=== PATIENT | male | born 1970 | race Caucasian/White ===

== ENCOUNTER 2017-01-07 15:40 | Inpatient (IN) | payer OTHER ==
[2017-01-07] MEDS ORDERED: LORazepam 2 MG/ML SDV VIAL ONE ×4 (15:44→16:58)
[2017-01-07 15:54] VITALS: BMI 25.6
[2017-01-07] MEDS ORDERED: SODIUM CHLORIDE 1,000 ML IV STA (16:02)
[2017-01-07] MEDS ORDERED: CEFTRIAXONE 2 GM in DEXTROSE 5%-WATER - 100 ML IVPB ONE (16:04)
[2017-01-07] MEDS ORDERED: CEFTRIAXONE 100 ML IVPB ONE (16:13)
[2017-01-07 16:19] LABS: VENOUS BLOOD GAS HCO3 23.5 meq/L (19-25); VENOUS PH 7.57 (7.32-7.42)
[2017-01-07 16:25] LABS: MCHC 31.6 g/dl (32.0-35.9); MEAN CELL VOLUME 82.2 fl (80-96); MEAN PLT VOLUME 7.7 fl (7.5-11.1); PLATELET COUNT 529 K/MM3 (134-434); RDW 21.3 % (11.9-15.9); WHITE BLOOD COUNT 19.3 K/mm3 (4.0-10.0)
--- NOTE | 2017-01-07 16:37 | PDOC ---
History of Present Illness - General Chief Complaint: Altered Mental Status Stated Complaint: AMS Time Seen by Provider: 01/07/17 15:54 History Source: Family Exam Limitations: Clinical Condition - History of Present Illness Initial Comments: This is a 46 yo male with h/o recent pneumonia (tx with two antibiotic courses in the past 5 weeks), stroke, anxiety, and prior drug addiction (reportedly 20 years sober) who presents with his brother c/o agitation, altered mental status , and fever. The patient is unable to provide any of his medical history. His brother explains that he last saw the patient acting normally last night at 11 pm just prior to going to sleep for the night. 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 The patient was noted to be persistently jerking his legs in bed while sleeping most of the day. The brother noted two more strange incidents today, including the patient trying to defecate in a kitchen drawer, and trying to put his sneakers on his knees. The brother does not believe that the patient has taken any drugs or overdosed on his normal medications (normally on mirtazepine, Subutex, hydroxyzine, chlorpromazine, and gabapentin) but he does not supervise him at all times and states it is a possibility. The brother notes one prior similar episode which he notes presented exactly the same, for which he was seen at [facility] a few years ago and was told he had a stroke. Past History - Past Medical History Allergies/Adverse Reactions: Allergies Allergy/AdvReac Type Severity Reaction Status Date / Time No Known Allergies Allergy Verified 01/07/17 15:52 CVA: Yes - Psycho/Social/Smoking Cessation Hx Anxiety: No Suicidal Ideation: No Smoking History: Unknown if ever smoked Have you smoked in the past 12 months: No Information on smoking cessation initiated: No Hx Alcohol Use: No Drug/Substance Use Hx: No Substance Use Type: None Review of Systems - Review of Systems Able to Perform ROS?: No (uncooperative & nonverbal) *Physical Exam - Vital Signs Exam limited by patient's agitated and uncooperativeness Last Vital Signs Temp Pulse Resp BP Pulse Ox 106.0 F H 114 H 28 H 96/58 100 01/07/17 15:49 01/07/17 15:49 01/07/17 15:49 01/07/17 15:49 01/07/17 15:49 - Physical Exam General Appearance: Yes: Disheveled, Moderate Distress, Other (agitated, uncooperative, grabbing at staff, nonverbal, very hot to the touch, muscle fasciculations to all four extremities and abdominal/flank muscles, hands held in contraction) HEENT: positive: EOMI, ROGER, Other (pupils dilated to 7 mm bilaterally) Neck: positive: Other (patient unable to follow commands to test ROM of neck). negative: Carotid bruit Respiratory/Chest: positive: Respiratory Distress, Accessory Muscle Use, Labored Respiration, Rapid RR, Other (crackles and decreased breath sounds at the right base) Cardiovascular: positive: Regular Rhythm, Tachycardia, Other (extremity veins distended). negative: Murmur Gastrointestinal/Abdominal: positive: Flat, Increased Bowel Sounds. negative: Hernia Male Genitalia: positive: normal genitalia. negative: hernia Musculoskeletal: positive: Normal Inspection, Muscle Spasm Integumentary: positive: Normal Color, Other (hot) Neurologic: positive: Confused, Disoriented, Other (fluctuating alertness/ responsiveness (occasionally unresponsive to voice or pain with sternal rub and nailbed pressure)) ED Treatment Course - LABORATORY CBC & Chemistry Diagram: 01/08/17 05:15 01/08/17 05:15 - ADDITIONAL ORDERS Additional order review: Laboratory Results 01/07/17 01/07/17 15:56 15:48 VBG pH 7.57 H POC VBG pCO2 25.4 L POC VBG pO2 53.9 H Mixed VBG HCO3 23.5 POC Glucometer 171.11661 01/07/17 15:48 POC Glucometer 171.48904 - Medications Given in the ED: ED Medications Discontinued Medications Generic Name Dose Route Start Last Admin Trade Name Freq PRN Reason Stop Dose Admin Lorazepam 2 mg 01/07/17 15:58 01/07/17 16:19 Ativan Injection - IVPUSH 01/07/17 15:59 2 mg ONCE ONE Administration Medical Decision Making - Critical Care Time Total Critical Care Time (minutes): 60 Critical Care Statement: The care of this patient involved high complexity decision making to prevent further life threatening deterioration of the patient 's condition and/or to evalute & treat vital organ system(s) failure or risk of failure. - Medical Decision Making 46 yo male p/w agitation, altered mental status, temperature of 106 F. DDX includes sepsis, serotonin syndrome, NMS, meningitis, intoxication (cocaine , MDMA), anticholinergic crisis, thyroid storm. Sepsis protocol is initiated, multiple PIV placed and Pt is bolus'ed with NS, IV Tylenol. 2 GM ceftriaxone started for empiric coverage. The patient requires multiple doses of Ativan 2 mg IV with partial and short- lived relief of symptoms. CXR results with RLL consolidation versus mass. WBC 19.1, lactate 9.8, VBG with pH 7.54 noted. On placement of Adorno catheter shortly after dosing with Avitan, the patient pulls the Adorno out before inflated. Small amount of urine is obtained which appears to be enough for the testing ordered. Patient becomes increasingly agitated despite Ativan and is dosed with midazolam. Multiple attempts to re-draw lactate with patient agitated and pulling out IV. One attempt in the left forearm fails which develops hematoma quickly. This is pressure-dressed with an SHANTI bandage for 20 minutes, still develops medium-sized hematoma (10x5 cm). Patient is given a breathing treatment when his O2 sat decreases to mid-80s. Sats back up to high 90s during and after breathing treatment. Repeat rectal temp is 102.6. Repeat lactate 4.6 after 2 liters fluids. ABG on 3 LPM O2 20 minutes after breathing treatment (returns with PO2 49.4). Pt admitted to Dr. Raphael to ICU, will also consult with ID. Pt has CT head and CT chest without contrast, sent to ICU. *DC/Admit/Observation/Transfer Diagnosis at time of Disposition: Agitation Sepsis Qualifiers: Sepsis type: sepsis due to unspecified organism Qualified Code(s): A41.9 - Sepsis, unspecified organism - Discharge Dispostion Condition at time of disposition: Critical Admit: Yes - Attestations Physician Attestion: I, Dr. Natasha Pelayo, attest that this document has been prepared under my direction and personally reviewed by me in its entirety. I further attest, that it accurately reflects all work, treatment, procedures and medical decision -making performed by me.
[2017-01-07 16:40] LABS: CPK 194 IU/L (39-308)
--- NOTE | 2017-01-07 16:45 | PDOC ---
Attending Attestation - Resident Resident Name: Natasha Pelayo - ED Attending Attestation I have performed the following: I have examined & evaluated the patient, The case was reviewed & discussed with the resident, I agree w/resident's findings & plan, Exceptions are as noted - HPI HPI: 01/07/17 16:40 46 yo male with h/o substance abuse mood disorder here with his brother for concerns for odd behavior, unresponsive ness. was last seen normal 12 hrs ago, was seen to be urinating in a clothes basket. went back to bed. today pt job called because he did not come to work, so went to find him in his room has been sick recenlty with cough, no known c/o suicidality or known if recent illicit drug use. no known trauma - Physicial Exam PE: 01/07/17 16:45 on exam pt agitated, delirius, combativ. pupils dilated but reactive and symmetric. moist mucous membranes. lung with crackles at right lung base, no wheezing. heart tachycardia, no mrg. abd soft NT. ext hot, wwp. 2 + symmetric pulses. skin warm and dry. no diaphoresis, abd soft bowel sound noted. muscles with fasiculations. - Medical Decision Making 01/07/17 16:48 46 yo M with h/o psychiatric illness and substance abuse, here with agitated delirium. febrile 106. differential NMS serotonin syndrome, sepsis, pna, uti, rhabdo, siezure and post ictal state, etoh withdrawal, other toxic ingestion such as nmda or pcp. plan benzos for sedation, cxr labs ivf, tyylenol likley admit to icu <Pooja Hdez - Last Filed: 01/07/17 16:39> - Medical Decision Making 01/07/17 17:[address] Raphael via phone answering service. Patients case was discussed. 01/07/17 18:24 CXR IMPRESSION: Right lower lobe opacification suspicious for consolidation/mass. Clinical correlation and follow- up CT scan recommended. Please see above discussion. Reported By: Mathieu Thomas MD 01/07/17 [id number] Documentation prepared by Aminah Man, acting as certified medical technician assistant for Pooja Hdez MD, /DO. <Aminah Man - Last Filed: 01/07/17 18:25>
[2017-01-07] MEDS ORDERED: ACETAMINOPHEN 1000 MG/100 ML VIAL (NON FORMULARY) IVPB ONE (16:52)
[2017-01-07] MEDS ORDERED: SODIUM CHLORIDE 0.9% 1000 ML INFUS.BAG IV ONE (16:52)
[2017-01-07 17:06] LABS: ALBUMIN 2.5 g/dl (3.4-5.0); ANION GAP 14 (8-16); BILIRUBIN,TOTAL 0.4 mg/dL (0.2-1.0); CALCIUM 8.4 mg/dL (8.5-10.1); CO2 24 mmol/L (21-32); CREATININE 1.5 mg/dL (0.7-1.3); GLUCOSE,RANDOM 139 mg/dL (74-106); TOT PROT 7.8 g/dl (6.4-8.2)
[2017-01-07 17:07] LABS: ALK PHOS 168 U/L (45-117)
[2017-01-07 17:11] LABS: SGOT/AST 32 U/L (15-37); SGPT/ALT 42 U/L (12-78)
[2017-01-07 17:13] LABS: CPK 157 IU/L (39-308); TROPONIN I 0.02 ng/ml (0.00-0.05)
[2017-01-07 17:30] LABS: ANISOCYTOSIS 2+; PLATELET ESTIMATE SLT INCREASED (NORMAL); POLYCHROMASIA 1+
[2017-01-07 17:58] LABS: URINE APPEARANCE SLCLOUDY; URINE BILIRUBIN NEGATIVE (NEGATIVE); URINE BLOOD 1+ (NEGATIVE); URINE COLOR YELLOW; URINE GLUCOSE (UA) NEGATIVE (NEGATIVE); URINE KETONE TRACE (NEGATIVE); URINE LEUK ESTERASE NEGATIVE (NEGATIVE); URINE NITRITE NEGATIVE (NEGATIVE); URINE UROBILINOGEN NEGATIVE mg/dL (0.2-1.0)
[2017-01-07 18:07] LABS: URINE MARIJUANA THC NEGATIVE ng/ml (CUTOFF=50)
[2017-01-07 18:08] LABS: URINE PROTEIN 1+ (NEGATIVE)
[2017-01-07 18:09] LABS: URINE BACTERIA RARE /hpf (NONE SEEN); URINE HYALINE CAST 4 /lpf; URINE MUCUS RARE; URINE RBC 13 /hpf (0-3); URINE WBC 9 /hpf (3-5)
[2017-01-07] MEDS ORDERED: MIDAZOLAM HCL 2 MG/2 ML SINGLE DOSE VIAL IVPUSH ONE ×3 (18:18→19:41)
[2017-01-07] MEDS ORDERED: MIDAZOLAM HCL 2 MG/2 ML SINGLE DOSE VIAL ONE ×3 (18:18→19:43)
[2017-01-07] MEDS ORDERED: AZITHROMYCIN IVPB 500 MG in DEXTROSE 5%-WATER - 250 ML IVPB ONE (18:21)
[2017-01-07] MEDS ORDERED: ALBUTEROL SO4 2.5/IPRATROPIUM 0.5 INH SOL 3 ML VIAL.NEB. NEB ONE (18:41)
[2017-01-07] MEDS ORDERED: AZITHROMYCIN IVPB 250 ML IVPB ONE (18:48)
[2017-01-07 19:05] LABS: HIV 1 & 2 AB NEGATIVE; HIV 1 AGp24 NEGATIVE
[2017-01-07 19:22] LABS: ARTERIAL BLOOD GAS BASE EXCESS -1.1 meq/l (-2-2); ARTERIAL BLOOD GAS HCO3 22.1 meq/L (22-26); ARTERIAL BLOOD GAS pH 7.44 (7.35-7.45)
[2017-01-07 19:23] LABS: ART PUNCT SITE RIGHT BRACHIAL; LPM/O2% 3l; METHEMOGLOBIN 0.4 % (0.4-1.5); PT. ON O2? yes; TYPE OF O2 NASAL O2
[2017-01-07 19:24] LABS: ARTERIAL BLOOD GAS PO2 49.4 mmHg (80-100)
--- NOTE | 2017-01-07 20:11 | HP ---
Admitting History and Physical - Primary Care Physician PCP: Ann Raphael - Admission History of Present Illness: 46 yo male with h/o substance abuse mood disorder here with his brother for concerns for odd behavior, unresponsive ness. was last seen normal 12 hrs ago, was seen to be urinating in a clothes basket. went back to bed. today pt job called because he did not come to work, so went to find him in his room has been - Smoking History Smoking history: Unknown if ever smoked Have you smoked in the past 12 months: No - Alcohol/Substance Use Hx Alcohol Use: No Home Medications - Allergies Allergies/Adverse Reactions: Allergies Allergy/AdvReac Type Severity Reaction Status Date / Time No Known Allergies Allergy Verified 01/07/17 15:52 - Home Medications Home Medications: Ambulatory Orders Buprenorphine HCl [Subutex -] BID 01/08/17 Chlorpromazine [Thorazine -] HS PRN 01/08/17 Gabapentin [Neurontin -] DAILY 01/08/17 Hydroxyzine Pamoate [Vistaril -] Q6H 01/08/17 Mirtazapine [Remeron -] DAILY 01/08/17 Mirtazapine [Remeron -] 30 mg PO DAILY 01/08/17 Physical Examination Vital Signs: Vital Signs Temperature 102.6 F H 01/07/17 17:17 Pulse Rate 89 01/07/17 18:52 Respiratory Rate 24 01/07/17 18:52 Blood Pressure 116/79 01/07/17 18:52 O2 Sat by Pulse Oximetry (%) 100 01/07/17 18:52 Constitutional: Yes: Mild Distress HENT: Yes: Atraumatic Neck: Yes: Supple Cardiovascular: Yes: Regular Rate and Rhythm Respiratory: Yes: Rhonchi Gastrointestinal: Yes: Normal Bowel Sounds Extremities: Yes: WNL Edema: No Peripheral Pulses WNL: Yes Neurological: Yes: Weakness, Other (confused and drowsy) Problem List - Problems (1) Agitation Assessment/Plan: sedation , pt now is intubated Code(s): R45.1 - RESTLESSNESS AND AGITATION (2) Sepsis Assessment/Plan: on iv abx cx p ivf Code(s): A41.9 - SEPSIS, UNSPECIFIED ORGANISM Qualifiers: Sepsis type: sepsis due to unspecified organism Qualified Code(s): A41.9 - Sepsis, unspecified organism Assessment/Plan Laboratory Tests 01/07/17 01/07/17 01/07/17 15:48 15:56 16:00 WBC RBC Hgb Hct MCV MCH MCHC RDW Plt Count MPV Neutrophils % Lymphocytes % Monocytes % Differential Comment Platelet Estimate Platelet Comment Polychromasia Anisocytosis Morphology Comment Puncture Site ABG pH ABG pCO2 at Pt Temp ABG pO2 at Pt Temp ABG HCO3 ABG O2 Sat (Measured) ABG O2 Content ABG Base Excess Dl Test VBG pH 7.57 H POC VBG pCO2 25.4 L POC VBG pO2 53.9 H Mixed VBG HCO3 23.5 Carboxyhemoglobin Methemoglobin O2 Delivery Device Oxygen Flow Rate Sodium Potassium Chloride Carbon Dioxide Anion Gap BUN Creatinine Creat Clearance w eGFR POC Glucometer 171.50899 Random Glucose Lactic Acid Calcium Total Bilirubin AST ALT Alkaline Phosphatase Ammonia Creatine Kinase 194 Creatine Kinase Index 0.5 CK-MB (CK-2) < 1.000 Troponin I Total Protein Albumin Urine Color Urine Appearance Urine pH Urine Protein Urine Glucose (UA) Urine Ketones Urine Blood Urine Nitrite Urine Bilirubin Urine Urobilinogen Ur Leukocyte Esterase Urine RBC Urine WBC Ur Epithelial Cells Urine Bacteria Hyaline Casts Urine Mucus Opiates Screen Methadone Screen Acetaminophen Barbiturate Screen Phencyclidine Screen Ur Amphetamines Screen MDMA (Ecstasy) Screen Benzodiazepines Screen Cocaine Screen U Marijuana (THC) Screen HIV 1&2 Antibody Screen HIV P24 Antigen Blood Type Antibody Screen 01/07/17 01/07/17 01/07/17 16:00 16:00 16:00 WBC 19.3 H RBC 4.26 Hgb 11.1 L Hct 35.0 L MCV 82.2 MCH 26.0 MCHC 31.6 L RDW 21.3 H Plt Count 529 H MPV 7.7 Neutrophils % 88.0 H Lymphocytes % 7.0 L Monocytes % 5.0 Differential Comment Manual diff done Platelet Estimate Increased Platelet Comment Few large plts Polychromasia 1+ Anisocytosis 2+ Morphology Comment Slide scanned Puncture Site ABG pH ABG pCO2 at Pt Temp ABG pO2 at Pt Temp ABG HCO3 ABG O2 Sat (Measured) ABG O2 Content ABG Base Excess Dl Test VBG pH POC VBG pCO2 POC VBG pO2 Mixed VBG HCO3 Carboxyhemoglobin Methemoglobin O2 Delivery Device Oxygen Flow Rate Sodium 131 L Potassium 3.7 Chloride 93 L Carbon Dioxide 24 Anion Gap 14 BUN 18 Creatinine 1.5 H Creat Clearance w eGFR 50.16 POC Glucometer Random Glucose 139 H Lactic Acid 9.8 H* Calcium 8.4 L Total Bilirubin 0.4 AST 32 ALT 42 Alkaline Phosphatase 168 H Ammonia Creatine Kinase Creatine Kinase Index CK-MB (CK-2) Troponin I Total Protein 7.8 Albumin 2.5 L Urine Color Urine Appearance Urine pH Urine Protein Urine Glucose (UA) Urine Ketones Urine Blood Urine Nitrite Urine Bilirubin Urine Urobilinogen Ur Leukocyte Esterase Urine RBC Urine WBC Ur Epithelial Cells Urine Bacteria Hyaline Casts Urine Mucus Opiates Screen Methadone Screen Acetaminophen Barbiturate Screen Phencyclidine Screen Ur Amphetamines Screen MDMA (Ecstasy) Screen Benzodiazepines Screen Cocaine Screen U Marijuana (THC) Screen HIV 1&2 Antibody Screen HIV P24 Antigen Blood Type Antibody Screen 01/07/17 01/07/17 01/07/17 16:00 16:00 16:40 WBC RBC Hgb Hct MCV MCH MCHC RDW Plt Count MPV Neutrophils % Lymphocytes % Monocytes % Differential Comment Platelet Estimate Platelet Comment Polychromasia Anisocytosis Morphology Comment Puncture Site ABG pH ABG pCO2 at Pt Temp ABG pO2 at Pt Temp ABG HCO3 ABG O2 Sat (Measured) ABG O2 Content ABG Base Excess Dl Test VBG pH POC VBG pCO2 POC VBG pO2 Mixed VBG HCO3 Carboxyhemoglobin Methemoglobin O2 Delivery Device Oxygen Flow Rate Sodium Potassium Chloride Carbon Dioxide Anion Gap BUN Creatinine Creat Clearance w eGFR POC Glucometer Random Glucose Lactic Acid Calcium Total Bilirubin AST ALT Alkaline Phosphatase Ammonia Creatine Kinase 157 Creatine Kinase Index 0.6 CK-MB (CK-2) < 1.000 Troponin I 0.02 Total Protein Albumin Urine Color Urine Appearance Urine pH Urine Protein Urine Glucose (UA) Urine Ketones Urine Blood Urine Nitrite Urine Bilirubin Urine Urobilinogen Ur Leukocyte Esterase Urine RBC Urine WBC Ur Epithelial Cells Urine Bacteria Hyaline Casts Urine Mucus Opiates Screen Methadone Screen Acetaminophen 31.562 H Barbiturate Screen Phencyclidine Screen Ur Amphetamines Screen MDMA (Ecstasy) Screen Benzodiazepines Screen Cocaine Screen U Marijuana (THC) Screen HIV 1&2 Antibody Screen HIV P24 Antigen Blood Type O POSITIVE Antibody Screen Negative 01/07/17 01/07/17 01/07/17 17:17 17:35 17:35 WBC RBC Hgb Hct MCV MCH MCHC RDW Plt Count MPV Neutrophils % Lymphocytes % Monocytes % Differential Comment Platelet Estimate Platelet Comment Polychromasia Anisocytosis Morphology Comment Puncture Site ABG pH ABG pCO2 at Pt Temp ABG pO2 at Pt Temp ABG HCO3 ABG O2 Sat (Measured) ABG O2 Content ABG Base Excess Dl Test VBG pH POC VBG pCO2 POC VBG pO2 Mixed VBG HCO3 Carboxyhemoglobin Methemoglobin O2 Delivery Device Oxygen Flow Rate Sodium Potassium Chloride Carbon Dioxide Anion Gap BUN Creatinine Creat Clearance w eGFR POC Glucometer Random Glucose Lactic Acid Calcium Total Bilirubin AST ALT Alkaline Phosphatase Ammonia 47.54 H Creatine Kinase Creatine Kinase Index CK-MB (CK-2) Troponin I Total Protein Albumin Urine Color Yellow Urine Appearance Slcloudy Urine pH 7.0 Urine Protein 1+ H Urine Glucose (UA) Negative Urine Ketones Trace H Urine Blood 1+ H Urine Nitrite Negative Urine Bilirubin Negative Urine Urobilinogen Negative Ur Leukocyte Esterase Negative Urine RBC 13 Urine WBC 9 Ur Epithelial Cells Rare Urine Bacteria Rare Hyaline Casts 4 Urine Mucus Rare Opiates Screen Positive Methadone Screen Negative Acetaminophen Barbiturate Screen Negative Phencyclidine Screen Negative Ur Amphetamines Screen Negative MDMA (Ecstasy) Screen Negative Benzodiazepines Screen Negative Cocaine Screen Negative U Marijuana (THC) Screen Negative HIV 1&2 Antibody Screen HIV P24 Antigen Blood Type Antibody Screen 01/07/17 01/07/17 01/07/17 18:05 18:05 19:20 WBC RBC Hgb Hct MCV MCH MCHC RDW Plt Count MPV Neutrophils % Lymphocytes % Monocytes % Differential Comment Platelet Estimate Platelet Comment Polychromasia Anisocytosis Morphology Comment Puncture Site Right brachial ABG pH 7.44 ABG pCO2 at Pt Temp 32.9 L ABG pO2 at Pt Temp 49.4 L* ABG HCO3 22.1 ABG O2 Sat (Measured) 81.0 L ABG O2 Content 11.3 L ABG Base Excess -1.1 Dl Test Not applicable VBG pH POC VBG pCO2 POC VBG pO2 Mixed VBG HCO3 Carboxyhemoglobin 1.9 Methemoglobin 0.4 O2 Delivery Device Nasal o2 Oxygen Flow Rate 3l Sodium Potassium Chloride Carbon Dioxide Anion Gap BUN Creatinine Creat Clearance w eGFR POC Glucometer Random Glucose Lactic Acid 4.6 H* Calcium Total Bilirubin AST ALT Alkaline Phosphatase Ammonia Creatine Kinase Creatine Kinase Index CK-MB (CK-2) Troponin I Total Protein Albumin Urine Color Urine Appearance Urine pH Urine Protein Urine Glucose (UA) Urine Ketones Urine Blood Urine Nitrite Urine Bilirubin Urine Urobilinogen Ur Leukocyte Esterase Urine RBC Urine WBC Ur Epithelial Cells Urine Bacteria Hyaline Casts Urine Mucus Opiates Screen Methadone Screen Acetaminophen Barbiturate Screen Phencyclidine Screen Ur Amphetamines Screen MDMA (Ecstasy) Screen Benzodiazepines Screen Cocaine Screen U Marijuana (THC) Screen HIV 1&2 Antibody Screen Negative HIV P24 Antigen Negative Blood Type Antibody Screen
[2017-01-07] MEDS ORDERED: SODIUM CHLORIDE 1,000 ML IV SCH (20:15)
--- NOTE | 2017-01-07 20:38 | CONSULT ---
Consult Consult Specialty:: PULMONARY/CRITICAL CARE Referred by:: Dr Raphael Reason for Consultation:: sepsis - History of Present Illness Chief Complaint: fever, altered mental status History of Present Illness: Briefly, a 46 y/o male with prior substance abuse, unclear psych disorder, is on multiple antipsychotics and antidepressants, presents to the ED with altered mental status and high fevers. In the ED a CT of the head and chest was done. He has a right side cavitary PNA, head CT is pending. Utox was positive for Opiates, APAP level was elevated (but he received APAP in the ED).He was cultured and given Azithro, CTX, 3L of fluid and admitted to the ICU. On my exam he is tremulous and rigid with dilated pupils. His rectal temp is 104.5F. This is very concerning for NMS or Serotonin Syndrome given his medication list. Meningitis is also a concern. - History Source History Provided By: Family Member, Medical Record - Past Medical History CURTAIN DRIER: Yes: TIA Psych: Yes: Addictions, Anxiety, Depression, Schizophrenia - Alcohol/Substance Use Hx Alcohol Use: Yes (prior EtOH abuse) History of Substance Use: reports: Prescription - Smoking History Smoking history: Unknown if ever smoked Have you smoked in the past 12 months: No Home Medications - Allergies Allergies/Adverse Reactions: Allergies Allergy/AdvReac Type Severity Reaction Status Date / Time No Known Allergies Allergy Verified 01/07/17 15:52 Review of Systems Unable to obtain ROS, reason: altered mental status Physical Exam Vital Signs: Vital Signs Temperature 102.6 F H 01/07/17 17:17 Pulse Rate 89 01/07/17 18:52 Respiratory Rate 24 01/07/17 18:52 Blood Pressure 116/79 01/07/17 18:52 O2 Sat by Pulse Oximetry (%) 100 01/07/17 18:52 Constitutional: Yes: Well Nourished, Anxious, Moderate Distress Eyes: Yes: Other (Dilated pupils, reactive) HENT: Yes: WNL Neck: Yes: WNL Cardiovascular: Yes: Tachycardia, S1, S2 Respiratory: Yes: Diminished Gastrointestinal: Yes: Soft Musculoskeletal: Yes: Other (rigidity) Edema: No Integumentary: Yes: Other (HOT, dry) Neurological: Yes: Other (awake, unable to follow commands, moving all ext, rigid) Imaging - Results Chest X-ray: Report Reviewed, Image Reviewed Cat Scan: Report Reviewed, Image Reviewed Assessment/Plan Altered mental status with persistently high fevers --> meningitis? NMS? Serotonin Syndrome? Acute agitation RLL Pneumonia Psych disorder -HOLD ALL ANTIPSYCHOTIC AND ANTIDEPRESSANT MEDICATIONS -NO HALDOL, SEROQUEL, ZYPREXA, ect FOR AGITATION -Neuro consult in the morning -Aggressive cooling -PRN Diazepam for agitation, may need deep sedation and mechanical ventilation if unable to control -Check Coags and if ok will perform LP to r/o Meningitis -Would expand Abx to cover CURTAIN DRIER and lungs (Cefepime/Vanc) -> he has had several courses of abx as an outpatient for PNA which have failed -ID will follow -Aggressive IVF, place jarrell - is at high risk for developing rhabdo -DVT PPx Continue ICU monitoring - critically ill Thank you for this interesting consult Geovani Hooks Pulm/Critical Care TURPENTINER CCT 45min not including procedures
[2017-01-07] MEDS: FENTANYL INJECTION 500 MCG in DEXTROSE 5%-WATER - 90 ML IJ SCH (20:41)
[2017-01-07] MEDS: PROPOFOL 100 ML IVPUSH SCH (20:44)
[2017-01-07] MEDS ORDERED: diazePAM CARPU-JECT 10 MG/2 ML DISP.SYRIN IVPUSH ONE (20:52)
[2017-01-07] MEDS ORDERED: diazePAM CARPU-JECT 10 MG/2 ML DISP.SYRIN IVPUSH PRN (20:53)
[2017-01-07 21:05] LABS: INR 1.46 (0.82-1.09); PROTHROMBIN TIME (PATIENT) 16.2 SEC (9.98-11.88)
[2017-01-07 21:08] LABS: ACTIVATED PTT 32.1 SECONDS (26.9-34.4)
[2017-01-07 21:27] LABS: TROPONIN I 0.03 ng/ml (0.00-0.05)
[2017-01-07] MEDS: SODIUM CHLORIDE 1,000 ML IV SCH (21:43)
[2017-01-07] MEDS ORDERED: ROCURONIUM BROMIDE 50 MG/5 ML VIAL IV ONE (21:57)
--- NOTE | 2017-01-07 22:51 | PROC ---
Lumbar Puncture Indication: fever 106F with altered mental status Risks and Benefits Explained: Yes Consent on Chart: Yes Sterile Technique: Yes Skin prep: Chlorhexidine Position: Left lateral decubitus Site: L3-L4 Local Anesthesia: 1% Lidocaine with epi Opening Pressure(mmHg): 33 CSF Color, Appearance: Cloudy Sterile Dressing Applied: Yes
--- NOTE | 2017-01-07 22:51 | PROC ---
Intubation - Intubation Reason for Intubation: Airway Protection, Other Intubation Method: orotracheal Blade used: Mac Tube Size (cm): 8.0 Tube position @ lip (cm): 22 Tube position confirmed by: Direct visualization, CO2 detector, Chest x-ray, Breath sounds Post Intubation Xray: Yes Remarks: Smooth induction with Propofol 200mg, Fentanyl 100mcg, easy 1 hand mask, muscle relaxation with Rocuronium 50mg, DLx1 with Mac 3 g1v, 8.0 ETT to 22cm at lips, direct visualization, +EtCO2, +breath sounds, secured and connected to ventilator, sedation ordered.
[2017-01-07 23:05] LABS: CSF APPEARANCE CLOUDY; CSF COLOR PINK
[2017-01-07] MEDS ORDERED: CEFEPIME HCL 2 GM VIAL (RESTRICTED TO ID) IVPB SCH (23:15)
[2017-01-07] MEDS ORDERED: VANCOMYCIN 1 GRAM (PRE-DOCKED) 1,000 MG/250 ML BAG IVPB ONE (23:15)
[2017-01-07 23:24] LABS: GLUCOSE,CSF 5 mg/dL (50-80)
[2017-01-07 23:32] LABS: ALLENS TEST POSITIVE; ART PUNCT SITE LEFT RADIAL; ARTERIAL BLOOD GAS BASE EXCESS 0.4 meq/l (-2-2); ARTERIAL BLOOD GAS HCO3 25.2 meq/L (22-26); ARTERIAL BLOOD GAS pH 7.38 (7.35-7.45); PT. ON O2? YES
[2017-01-07 23:33] LABS: LPM/O2% 50%; MECH. VENT. YES; TYPE OF O2 VENT; VENT RATE 12; VT/PRESS 450
[2017-01-08] MEDS: CEFEPIME 2 GM/100 ML BAG PRE-DOCKED IVPB SCH ×3 (00:05→17:01)
[2017-01-08 00:06] LABS: CSF RBC 2000
[2017-01-08 00:21] LABS: CSF NEUTROPHILS 93 %
[2017-01-08 00:22] LABS: CSF MONOCYTES 4 %
[2017-01-08] MEDS: DEXAMETHASONE SOD PHOSPHATE 10 MG/1 ML VIAL IVPUSH SCH ×4 (02:55→20:38)
[2017-01-08 06:35] LABS: MCH 26.4 pg (25.7-33.7); MCHC 31.4 g/dl (32.0-35.9); MEAN PLT VOLUME 7.5 fl (7.5-11.1); PLATELET COUNT 385 K/MM3 (134-434); RDW 21.6 % (11.9-15.9); WHITE BLOOD COUNT 23.3 K/mm3 (4.0-10.0)
[2017-01-08 06:58] LABS: ALBUMIN 1.9 g/dl (3.4-5.0); ANION GAP 8 (8-16); BILIRUBIN,TOTAL 0.2 mg/dL (0.2-1.0); CALCIUM 7.5 mg/dL (8.5-10.1); CO2 28 mmol/L (21-32); CREATININE 0.7 mg/dL (0.7-1.3); GLUCOSE,RANDOM 95 mg/dL (74-106); SGOT/AST 25 U/L (15-37); SGPT/ALT 33 U/L (12-78); TOT PROT 6.3 g/dl (6.4-8.2)
[2017-01-08 06:59] LABS: ALK PHOS 124 U/L (45-117)
[2017-01-08 07:11] LABS: MAGNESIUM 2.4 mg/dL (1.8-2.4)
[2017-01-08 07:14] LABS: PHOSPHOROUS 3.3 mg/dL (2.5-4.9)
[2017-01-08] MEDS: FENTANYL INJECTION 500 MCG in DEXTROSE 5%-WATER - 90 ML IJ SCH ×2 (09:46→22:55)
[2017-01-08] MEDS: SODIUM CHLORIDE 1,000 ML IV SCH (09:47)
[2017-01-08] MEDS: PROPOFOL 100 ML IVPUSH SCH ×3 (09:48→21:55)
[2017-01-08] MEDS ORDERED: VANCOMYCIN 1 GRAM (PRE-DOCKED) 250 ML IVPB SCH (10:00)
[2017-01-08] MEDS ORDERED: PANTOPRAZOLE SODIUM 40 MG in SODIUM CHLORIDE 100 ML IVPB SCH (10:00)
[2017-01-08] MEDS: PANTOPRAZOLE SODIUM 40 MG/100 ML PRE-DOCKED IVPB SCH (10:43)
[2017-01-08] MEDS: MIDAZOLAM HCL 2 MG/2 ML SINGLE DOSE VIAL IVPUSH PRN (11:17)
--- NOTE | 2017-01-08 12:47 | PN ---
Teaching Attending Note Name of Resident: Ángel Sorensen ATTENDING PHYSICIAN STATEMENT I saw and evaluated the patient. I reviewed the resident's note and discussed the case with the resident. I agree with the resident's findings and plan as documented. SUBJECTIVE: Patient seen and examined in the ICU. Intubated and sedated. AC Mode of vent. No pressors. Sedated on Propofol and Fentanyl. Findings on LP noted : consistent with a bacterial meningitis process. Intake & Output 01/05/17 01/06/17 01/07/17 01/08/17 23:59 23:59 23:59 23:59 Intake Total 2090 Output Total 1000 700 Balance -1000 1390 Weight 140 lb 0.002 oz Last Vital Signs Temp Pulse Resp BP Pulse Ox 100.6 F H 69 23 106/93 94 L 01/08/17 12:16 01/08/17 12:16 01/08/17 12:16 01/08/17 12:16 01/08/17 12:04 Active Medications Cefepime HCl (Maxipime 2gm Ivpb (Pre-Docked)) 2 gm IVPB Q8H-IV DIONICIO Last Admin: 01/08/17 09:46 Dose: 2 gm Dexamethasone Sodium Phosphate (Decadron Injection -) 10 mg IVPUSH Q6H-IV DIONICIO Last Admin: 01/08/17 09:46 Dose: 10 mg Sodium Chloride (Normal Saline -) 1,000 mls @ 150 mls/hr IV ASDIR DIONICIO Last Admin: 01/08/17 09:47 Dose: 150 mls/hr Propofol (Diprivan -) 100 mls @ 1.905 mls/hr IVPUSH TITR DIONICIO; 5 MCG/KG/MIN PRN Reason: Protocol Last Admin: 01/08/17 09:48 Dose: 19.051 mls/hr Fentanyl 500 mcg/ Dextrose 100 mls @ 10 mls/hr IJ TITR DIONICIO PRN Reason: 50 MCG/HR Last Admin: 01/08/17 09:46 Dose: 7 mls/hr Vancomycin HCl (Vancomycin (Pre-Docked)) 250 mls @ 250 mls/hr IVPB BID DIONICIO PRN Reason: Protocol Midazolam HCl (Versed -) 2 mg IVPUSH Q1H PRN PRN Reason: SHIVERING Last Admin: 01/08/17 11:17 Dose: 2 mg Pantoprazole Sodium (Protonix 40mg Ivpb (Pre-Docked)) 40 mg IVPB DAILY DIONICIO Last Admin: 01/08/17 10:43 Dose: 40 mg Constitutional: Yes: Intubated and sedated Eyes: Yes: pupils are reactive HENT: Yes: WNL Neck: Yes: WNL Cardiovascular: Yes: Tachycardia, S1, S2 Respiratory: Yes: Diminished Gastrointestinal: Yes: Soft Musculoskeletal: No: rigidity Edema: No Integumentary: Yes: dry Neurological: Yes: sedated Laboratory Results - last 24 hr 01/07/17 01/07/17 01/07/17 15:48 15:56 16:00 WBC RBC Hgb Hct MCV MCH MCHC RDW Plt Count MPV Neutrophils % Lymphocytes % Monocytes % Differential Comment Platelet Estimate Platelet Comment Polychromasia Anisocytosis Morphology Comment INR PTT (Actin FS) Puncture Site ABG pH ABG pCO2 at Pt Temp ABG pO2 at Pt Temp ABG HCO3 ABG O2 Sat (Measured) ABG O2 Content ABG Base Excess Dl Test VBG pH 7.57 H POC VBG pCO2 25.4 L POC VBG pO2 53.9 H Mixed VBG HCO3 23.5 Carboxyhemoglobin Methemoglobin O2 Delivery Device Oxygen Flow Rate Vent Mode Vent Rate Mechanical Rate PEEP Pressure Support Vent Sodium Potassium Chloride Carbon Dioxide Anion Gap BUN Creatinine Creat Clearance w eGFR POC Glucometer [phone] Random Glucose Lactic Acid Calcium Phosphorus Magnesium Total Bilirubin AST ALT Alkaline Phosphatase Ammonia Creatine Kinase 194 Creatine Kinase Index 0.5 CK-MB (CK-2) < 1.000 Troponin I Total Protein Albumin Urine Color Urine Appearance Urine pH Ur Specific [place] Urine Protein Urine Glucose (UA) Urine Ketones Urine Blood Urine Nitrite Urine Bilirubin Urine Urobilinogen Ur Leukocyte Esterase Urine RBC Urine WBC Ur Epithelial Cells Urine Bacteria Hyaline Casts Urine Mucus CSF Appearance CSF Color CSF WBC CSF RBC CSF Neutrophils CSF Lymphocytes CSF Monocytes CSF Glucose CSF Total Protein Opiates Screen Methadone Screen Acetaminophen Barbiturate Screen Phencyclidine Screen Ur Amphetamines Screen MDMA (Ecstasy) Screen Benzodiazepines Screen Cocaine Screen U Marijuana (THC) Screen HIV 1&2 Antibody Screen HIV P24 Antigen Blood Type Antibody Screen 01/07/17 01/07/17 01/07/17 16:00 16:00 16:00 WBC 19.3 H RBC 4.26 Hgb 11.1 L Hct 35.0 L MCV 82.2 MCH 26.0 MCHC 31.6 L RDW 21.3 H Plt Count 529 H MPV 7.7 Neutrophils % 88.0 H Lymphocytes % 7.0 L Monocytes % 5.0 Differential Comment Manual diff done Platelet Estimate Increased Platelet Comment Few large plts Polychromasia 1+ Anisocytosis 2+ Morphology Comment Slide scanned INR PTT (Actin FS) Puncture Site ABG pH ABG pCO2 at Pt Temp ABG pO2 at Pt Temp ABG HCO3 ABG O2 Sat (Measured) ABG O2 Content ABG Base Excess Dl Test VBG pH POC VBG pCO2 POC VBG pO2 Mixed VBG HCO3 Carboxyhemoglobin Methemoglobin O2 Delivery Device Oxygen Flow Rate Vent Mode Vent Rate Mechanical Rate PEEP Pressure Support Vent Sodium 131 L Potassium 3.7 Chloride 93 L Carbon Dioxide 24 Anion Gap 14 BUN 18 Creatinine 1.5 H Creat Clearance w eGFR 50.16 POC Glucometer Random Glucose 139 H Lactic Acid 9.8 H* Calcium 8.4 L Phosphorus Magnesium Total Bilirubin 0.4 AST 32 ALT 42 Alkaline Phosphatase 168 H Ammonia Creatine Kinase Creatine Kinase Index CK-MB (CK-2) Troponin I Total Protein 7.8 Albumin 2.5 L Urine Color Urine Appearance Urine pH Ur Specific [place] Urine Protein Urine Glucose (UA) Urine Ketones Urine Blood Urine Nitrite Urine Bilirubin Urine Urobilinogen Ur Leukocyte Esterase Urine RBC Urine WBC Ur Epithelial Cells Urine Bacteria Hyaline Casts Urine Mucus CSF Appearance CSF Color CSF WBC CSF RBC CSF Neutrophils CSF Lymphocytes CSF Monocytes CSF Glucose CSF Total Protein Opiates Screen Methadone Screen Acetaminophen Barbiturate Screen Phencyclidine Screen Ur Amphetamines Screen MDMA (Ecstasy) Screen Benzodiazepines Screen Cocaine Screen U Marijuana (THC) Screen HIV 1&2 Antibody Screen HIV P24 Antigen Blood Type Antibody Screen 01/07/17 01/07/17 01/07/17 16:00 16:00 16:40 WBC RBC Hgb Hct MCV MCH MCHC RDW Plt Count MPV Neutrophils % Lymphocytes % Monocytes % Differential Comment Platelet Estimate Platelet Comment Polychromasia Anisocytosis Morphology Comment INR PTT (Actin FS) Puncture Site ABG pH ABG pCO2 at Pt Temp ABG pO2 at Pt Temp ABG HCO3 ABG O2 Sat (Measured) ABG O2 Content ABG Base Excess Dl Test VBG pH POC VBG pCO2 POC VBG pO2 Mixed VBG HCO3 Carboxyhemoglobin Methemoglobin O2 Delivery Device Oxygen Flow Rate Vent Mode Vent Rate Mechanical Rate PEEP Pressure Support Vent Sodium Potassium Chloride Carbon Dioxide Anion Gap BUN Creatinine Creat Clearance w eGFR POC Glucometer Random Glucose Lactic Acid Calcium Phosphorus Magnesium Total Bilirubin AST ALT Alkaline Phosphatase Ammonia Creatine Kinase 157 Creatine Kinase Index 0.6 CK-MB (CK-2) < 1.000 Troponin I 0.02 Total Protein Albumin Urine Color Urine Appearance Urine pH Ur Specific [place] Urine Protein Urine Glucose (UA) Urine Ketones Urine Blood Urine Nitrite Urine Bilirubin Urine Urobilinogen Ur Leukocyte Esterase Urine RBC Urine WBC Ur Epithelial Cells Urine Bacteria Hyaline Casts Urine Mucus CSF Appearance CSF Color CSF WBC CSF RBC CSF Neutrophils CSF Lymphocytes CSF Monocytes CSF Glucose CSF Total Protein Opiates Screen Methadone Screen Acetaminophen 31.562 H Barbiturate Screen Phencyclidine Screen Ur Amphetamines Screen MDMA (Ecstasy) Screen Benzodiazepines Screen Cocaine Screen U Marijuana (THC) Screen HIV 1&2 Antibody Screen HIV P24 Antigen Blood Type O POSITIVE Antibody Screen Negative 01/07/17 01/07/17 01/07/17 17:17 17:35 17:35 WBC RBC Hgb Hct MCV MCH MCHC RDW Plt Count MPV Neutrophils % Lymphocytes % Monocytes % Differential Comment Platelet Estimate Platelet Comment Polychromasia Anisocytosis Morphology Comment INR PTT (Actin FS) Puncture Site ABG pH ABG pCO2 at Pt Temp ABG pO2 at Pt Temp ABG HCO3 ABG O2 Sat (Measured) ABG O2 Content ABG Base Excess Dl Test VBG pH POC VBG pCO2 POC VBG pO2 Mixed VBG HCO3 Carboxyhemoglobin Methemoglobin O2 Delivery Device Oxygen Flow Rate Vent Mode Vent Rate Mechanical Rate PEEP Pressure Support Vent Sodium Potassium Chloride Carbon Dioxide Anion Gap BUN Creatinine Creat Clearance w eGFR POC Glucometer Random Glucose Lactic Acid Calcium Phosphorus Magnesium Total Bilirubin AST ALT Alkaline Phosphatase Ammonia 47.54 H Creatine Kinase Creatine Kinase Index CK-MB (CK-2) Troponin I Total Protein Albumin Urine Color Yellow Urine Appearance Slcloudy Urine pH 7.0 Ur Specific [place] 1.020 Urine Protein 1+ H Urine Glucose (UA) Negative Urine Ketones Trace H Urine Blood 1+ H Urine Nitrite Negative Urine Bilirubin Negative Urine Urobilinogen Negative Ur Leukocyte Esterase Negative Urine RBC 13 Urine WBC 9 Ur Epithelial Cells Rare Urine Bacteria Rare Hyaline Casts 4 Urine Mucus Rare CSF Appearance CSF Color CSF WBC CSF RBC CSF Neutrophils CSF Lymphocytes CSF Monocytes CSF Glucose CSF Total Protein Opiates Screen Positive Methadone Screen Negative Acetaminophen Barbiturate Screen Negative Phencyclidine Screen Negative Ur Amphetamines Screen Negative MDMA (Ecstasy) Screen Negative Benzodiazepines Screen Negative Cocaine Screen Negative U Marijuana (THC) Screen Negative HIV 1&2 Antibody Screen HIV P24 Antigen Blood Type Antibody Screen 01/07/17 01/07/17 01/07/17 18:05 18:05 19:20 WBC RBC Hgb Hct MCV MCH MCHC RDW Plt Count MPV Neutrophils % Lymphocytes % Monocytes % Differential Comment Platelet Estimate Platelet Comment Polychromasia Anisocytosis Morphology Comment INR PTT (Actin FS) Puncture Site Right brachial ABG pH 7.44 ABG pCO2 at Pt Temp 32.9 L ABG pO2 at Pt Temp 49.4 L* ABG HCO3 22.1 ABG O2 Sat (Measured) 81.0 L ABG O2 Content 11.3 L ABG Base Excess -1.1 Dl Test Not applicable VBG pH POC VBG pCO2 POC VBG pO2 Mixed VBG HCO3 Carboxyhemoglobin 1.9 Methemoglobin 0.4 O2 Delivery Device Nasal o2 Oxygen Flow Rate 3l Vent Mode Vent Rate Mechanical Rate PEEP Pressure Support Vent Sodium Potassium Chloride Carbon Dioxide Anion Gap BUN Creatinine Creat Clearance w eGFR POC Glucometer Random Glucose Lactic Acid 4.6 H* Calcium Phosphorus Magnesium Total Bilirubin AST ALT Alkaline Phosphatase Ammonia Creatine Kinase Creatine Kinase Index CK-MB (CK-2) Troponin I Total Protein Albumin Urine Color Urine Appearance Urine pH Ur Specific [place] Urine Protein Urine Glucose (UA) Urine Ketones Urine Blood Urine Nitrite Urine Bilirubin Urine Urobilinogen Ur Leukocyte Esterase Urine RBC Urine WBC Ur Epithelial Cells Urine Bacteria Hyaline Casts Urine Mucus CSF Appearance CSF Color CSF WBC CSF RBC CSF Neutrophils CSF Lymphocytes CSF Monocytes CSF Glucose CSF Total Protein Opiates Screen Methadone Screen Acetaminophen Barbiturate Screen Phencyclidine Screen Ur Amphetamines Screen MDMA (Ecstasy) Screen Benzodiazepines Screen Cocaine Screen U Marijuana (THC) Screen HIV 1&2 Antibody Screen Negative HIV P24 Antigen Negative Blood Type Antibody Screen 01/07/17 01/07/17 01/07/17 20:30 20:30 22:46 WBC RBC Hgb Hct MCV MCH MCHC RDW Plt Count MPV Neutrophils % Lymphocytes % Monocytes % Differential Comment Platelet Estimate Platelet Comment Polychromasia Anisocytosis Morphology Comment INR 1.46 H PTT (Actin FS) 32.1 Puncture Site ABG pH ABG pCO2 at Pt Temp ABG pO2 at Pt Temp ABG HCO3 ABG O2 Sat (Measured) ABG O2 Content ABG Base Excess Dl Test VBG pH POC VBG pCO2 POC VBG pO2 Mixed VBG HCO3 Carboxyhemoglobin Methemoglobin O2 Delivery Device Oxygen Flow Rate Vent Mode Vent Rate Mechanical Rate PEEP Pressure Support Vent Sodium Potassium Chloride Carbon Dioxide Anion Gap BUN Creatinine Creat Clearance w eGFR POC Glucometer Random Glucose Lactic Acid Calcium Phosphorus Magnesium Total Bilirubin AST ALT Alkaline Phosphatase Ammonia Creatine Kinase 275 Creatine Kinase Index 0.8 CK-MB (CK-2) 2.428 Troponin I 0.03 D Total Protein Albumin Urine Color Urine Appearance Urine pH Ur Specific [place] Urine Protein Urine Glucose (UA) Urine Ketones Urine Blood Urine Nitrite Urine Bilirubin Urine Urobilinogen Ur Leukocyte Esterase Urine RBC Urine WBC Ur Epithelial Cells Urine Bacteria Hyaline Casts Urine Mucus CSF Appearance Cloudy CSF Color [place] CSF WBC 3568 CSF RBC 2000 CSF Neutrophils 93 CSF Lymphocytes 3 CSF Monocytes 4 CSF Glucose 5 L CSF Total Protein 205 H Opiates Screen Methadone Screen Acetaminophen Barbiturate Screen Phencyclidine Screen Ur Amphetamines Screen MDMA (Ecstasy) Screen Benzodiazepines Screen Cocaine Screen U Marijuana (THC) Screen HIV 1&2 Antibody Screen HIV P24 Antigen Blood Type Antibody Screen 01/07/17 01/08/17 01/08/17 23:00 01:00 05:15 WBC 23.3 H RBC 3.72 L Hgb 9.8 L D Hct 31.3 L MCV 84.0 MCH 26.4 MCHC 31.4 L RDW 21.6 H Plt Count 385 D MPV 7.5 Neutrophils % Y Lymphocytes % Y Monocytes % Differential Comment Platelet Estimate Platelet Comment Polychromasia Anisocytosis Morphology Comment INR PTT (Actin FS) Puncture Site Left radial ABG pH 7.38 ABG pCO2 at Pt Temp 43.9 D ABG pO2 at Pt Temp 139.0 H D ABG HCO3 25.2 ABG O2 Sat (Measured) 99.0 H ABG O2 Content 13.7 L ABG Base Excess 0.4 Dl Test Positive VBG pH POC VBG pCO2 POC VBG pO2 Mixed VBG HCO3 Carboxyhemoglobin Methemoglobin O2 Delivery Device Vent Oxygen Flow Rate 50% Vent Mode A/c Vent Rate 12 Mechanical Rate Yes PEEP 5.0 Pressure Support Vent 450 Sodium Potassium Chloride Carbon Dioxide Anion Gap BUN Creatinine Creat Clearance w eGFR POC Glucometer [phone] Random Glucose Lactic Acid Calcium Phosphorus Magnesium Total Bilirubin AST ALT Alkaline Phosphatase Ammonia Creatine Kinase Creatine Kinase Index CK-MB (CK-2) Troponin I Total Protein Albumin Urine Color Urine Appearance Urine pH Ur Specific [place] Urine Protein Urine Glucose (UA) Urine Ketones Urine Blood Urine Nitrite Urine Bilirubin Urine Urobilinogen Ur Leukocyte Esterase Urine RBC Urine WBC Ur Epithelial Cells Urine Bacteria Hyaline Casts Urine Mucus CSF Appearance CSF Color CSF WBC CSF RBC CSF Neutrophils CSF Lymphocytes CSF Monocytes CSF Glucose CSF Total Protein Opiates Screen Methadone Screen Acetaminophen Barbiturate Screen Phencyclidine Screen Ur Amphetamines Screen MDMA (Ecstasy) Screen Benzodiazepines Screen Cocaine Screen U Marijuana (THC) Screen HIV 1&2 Antibody Screen HIV P24 Antigen Blood Type Antibody Screen 01/08/17 01/08/17 01/08/17 05:15 05:15 05:15 WBC RBC Hgb Hct MCV MCH MCHC RDW Plt Count MPV Neutrophils % Lymphocytes % Monocytes % Differential Comment Platelet Estimate Platelet Comment Polychromasia Anisocytosis Morphology Comment INR PTT (Actin FS) Puncture Site ABG pH ABG pCO2 at Pt Temp ABG pO2 at Pt Temp ABG HCO3 ABG O2 Sat (Measured) ABG O2 Content ABG Base Excess Dl Test VBG pH POC VBG pCO2 POC VBG pO2 Mixed VBG HCO3 Carboxyhemoglobin Methemoglobin O2 Delivery Device Oxygen Flow Rate Vent Mode Vent Rate Mechanical Rate PEEP Pressure Support Vent Sodium 135 L Potassium 3.4 L Chloride 99 Carbon Dioxide 28 Anion Gap 8 BUN 14 D Creatinine 0.7 D Creat Clearance w eGFR > 60 POC Glucometer Random Glucose 95 D Lactic Acid 2.1 H* Calcium 7.5 L Phosphorus 3.3 Magnesium 2.4 Total Bilirubin 0.2 D AST 25 D ALT 33 D Alkaline Phosphatase 124 H D Ammonia Creatine Kinase Creatine Kinase Index CK-MB (CK-2) Troponin I Total Protein 6.3 L Albumin 1.9 L D Urine Color Urine Appearance Urine pH Ur Specific [place] Urine Protein Urine Glucose (UA) Urine Ketones Urine Blood Urine Nitrite Urine Bilirubin Urine Urobilinogen Ur Leukocyte Esterase Urine RBC Urine WBC Ur Epithelial Cells Urine Bacteria Hyaline Casts Urine Mucus CSF Appearance CSF Color CSF WBC CSF RBC CSF Neutrophils CSF Lymphocytes CSF Monocytes CSF Glucose CSF Total Protein Opiates Screen Methadone Screen Acetaminophen Barbiturate Screen Phencyclidine Screen Ur Amphetamines Screen MDMA (Ecstasy) Screen Benzodiazepines Screen Cocaine Screen U Marijuana (THC) Screen HIV 1&2 Antibody Screen HIV P24 Antigen Blood Type Antibody Screen 01/08/17 05:43 WBC RBC Hgb Hct MCV MCH MCHC RDW Plt Count MPV Neutrophils % Lymphocytes % Monocytes % Differential Comment Platelet Estimate Platelet Comment Polychromasia Anisocytosis Morphology Comment INR PTT (Actin FS) Puncture Site ABG pH ABG pCO2 at Pt Temp ABG pO2 at Pt Temp ABG HCO3 ABG O2 Sat (Measured) ABG O2 Content ABG Base Excess Dl Test VBG pH POC VBG pCO2 POC VBG pO2 Mixed VBG HCO3 Carboxyhemoglobin Methemoglobin O2 Delivery Device Oxygen Flow Rate Vent Mode Vent Rate Mechanical Rate PEEP Pressure Support Vent Sodium Potassium Chloride Carbon Dioxide Anion Gap BUN Creatinine Creat Clearance w eGFR POC Glucometer 137.07838 Random Glucose Lactic Acid Calcium Phosphorus Magnesium Total Bilirubin AST ALT Alkaline Phosphatase Ammonia Creatine Kinase Creatine Kinase Index CK-MB (CK-2) Troponin I Total Protein Albumin Urine Color Urine Appearance Urine pH Ur Specific [place] Urine Protein Urine Glucose (UA) Urine Ketones Urine Blood Urine Nitrite Urine Bilirubin Urine Urobilinogen Ur Leukocyte Esterase Urine RBC Urine WBC Ur Epithelial Cells Urine Bacteria Hyaline Casts Urine Mucus CSF Appearance CSF Color CSF WBC CSF RBC CSF Neutrophils CSF Lymphocytes CSF Monocytes CSF Glucose CSF Total Protein Opiates Screen Methadone Screen Acetaminophen Barbiturate Screen Phencyclidine Screen Ur Amphetamines Screen MDMA (Ecstasy) Screen Benzodiazepines Screen Cocaine Screen U Marijuana (THC) Screen HIV 1&2 Antibody Screen HIV P24 Antigen Blood Type Antibody Screen Assessment/Plan Altered mental status with persistently high fevers --> Suspected Bacterial Meningitis There was a concern for Serotonin Syndrome versus NMS due to patient's home medication usage Acute agitation RLL Pneumonia / (?) RUL cavity Psych disorder ABX per ID / Decadron Would approach family about Bronchoscopy Continue to hold all Psych meds until we can verify what he is taking Sputum cultures to include AFB Neuro evaluation Cooling blanket Ass Versed Quantiferon Gold Aggressive IVF VTE prophylaxis Dr Castro - Critical Care Critical Care patient: Yes Total Critical Care Time (in minutes): 40 Critical Care Statement: The care of this patient involved high complexity decision making to prevent further life threatening deterioration of the patient 's condition and/or to evalute & treat vital organ system(s) failure or risk of failure.
[2017-01-08 13:18] LABS: PLATELET ESTIMATE ADEQUATE (NORMAL)
[2017-01-08] MEDS: D5-NS + 20 MEQ KCL - 1,000 ML IV SCH (15:17)
--- NOTE | 2017-01-08 16:25 | PN ---
Progress Note, Physician History of Present Illness: intubated and sedated - Current Medication List Current Medications: Active Medications Cefepime HCl (Maxipime 2gm Ivpb (Pre-Docked)) 2 gm IVPB Q8H-IV DIONICIO Last Admin: 01/08/17 09:46 Dose: 2 gm Chlorhexidine Gluconate (Hibiclens For Decolonization -) 1 applic TP HS DIONICIO Dexamethasone Sodium Phosphate (Decadron Injection -) 10 mg IVPUSH Q6H-IV DIONICIO Last Admin: 01/08/17 14:06 Dose: 10 mg Propofol (Diprivan -) 100 mls @ 1.905 mls/hr IVPUSH TITR DIONICIO; 5 MCG/KG/MIN PRN Reason: Protocol Last Titration: 01/08/17 14:08 Dose: 55 mcg/kg/min Fentanyl 500 mcg/ Dextrose 100 mls @ 10 mls/hr IJ TITR DIONICIO PRN Reason: 50 MCG/HR Last Admin: 01/08/17 09:46 Dose: 7 mls/hr Vancomycin HCl (Vancomycin (Pre-Docked)) 250 mls @ 250 mls/hr IVPB BID DIONICIO PRN Reason: Protocol Dextrose/Sodium Chloride (Dextrose 5%-Normal Saline+20 Meq Kcl -) 1,000 mls @ 100 mls/hr IV ASDIR [facility] Last Admin: 01/08/17 15:17 Dose: 100 mls/hr Levofloxacin (Levaquin 750 Mg Premixed Ivpb -) 150 mls @ 150 mls/hr IVPB DAILY [facility] Midazolam HCl (Versed -) 2 mg IVPUSH Q1H PRN PRN Reason: SHIVERING Last Admin: 01/08/17 11:17 Dose: 2 mg Mupirocin (Bactroban Ointment (For Decolonization) -) 1 applic NS BID [facility] Stop: 01/13/17 21:59 Pantoprazole Sodium (Protonix 40mg Ivpb (Pre-Docked)) 40 mg IVPB DAILY [facility] Last Admin: 01/08/17 10:43 Dose: 40 mg - Objective Vital Signs: Vital Signs Temperature 100.6 F H 01/08/17 12:16 Pulse Rate 69 01/08/17 12:16 Respiratory Rate 23 01/08/17 12:16 Blood Pressure 106/93 01/08/17 12:16 O2 Sat by Pulse Oximetry (%) 94 L 01/08/17 12:04 Constitutional: Yes: No Distress HENT: Yes: Atraumatic Neck: Yes: Supple Cardiovascular: Yes: Regular Rate and Rhythm Respiratory: Yes: Rhonchi Gastrointestinal: Yes: Normal Bowel Sounds Extremities: Yes: WNL Edema: No Peripheral Pulses WNL: Yes Neurological: Yes: Other (sedated) Labs: CBC, BMP 01/08/17 05:15 01/08/17 05:15 INR, PTT INR 1.46 (0.82-1.09) H 01/07/17 20:30 Problem List - Problems (1) Agitation Assessment/Plan: intubated and sedated ivf Code(s): R45.1 - RESTLESSNESS AND AGITATION (2) Sepsis Assessment/Plan: on iv abx cx p ivf id note reviewerd afb cx pending Code(s): A41.9 - SEPSIS, UNSPECIFIED ORGANISM Qualifiers: Sepsis type: sepsis due to unspecified organism Qualified Code(s): A41.9 - Sepsis, unspecified organism
--- NOTE | 2017-01-08 17:03 | CONSULT ---
Consult Consult Specialty:: infectious diseases Reason for Consultation:: pneumonia,sepsis,ams,hypoxia - History of Present Illness History of Present Illness: patient when evaluated is already itubated history taken from the charts and the er narrative as patient was not intubated in the ER 46 y/o male with prior substance abuse, unclear psych disorder, is on multiple antipsychotics and antidepressants, admitted because of altered mental status and high fevers. In the ED a CT of the head and chest was done. He has a right side cavitary PNA, . Utox was positive for Opiates, APAP level was elevated ( but he received APAP in the ED).He was cultured and given Azithro, CTX, 3L of fluid and admitted to the ICU. acording to the story patient spiked a fever as high as 106 he was admitted to the icu and patient became hypoxic and was intubated. when patient was at home it seems he was having ams and was rying to eat paper and was violent as was brought to the hospital by his brother patient was seen to be urinating in a clothes basket. went back to bed. today pt job called because he did not come to work, so his brother went to find him after admission patient underwent a lumber puncture and which had very high wbc and low sugar patient is also immunocompromised because of his condition. patient was given levaquin and ceftriaxone patient also has cavitary lesions on his ct scan plan is to bronch him tomorrow - History Source History Provided By: Medical Record Limitations to Obtaining History: Clinical Condition - Past Medical History [employer]: Yes: TIA Psych: Yes: Addictions, Anxiety, Depression, Schizophrenia - Alcohol/Substance Use Hx Alcohol Use: No History of Substance Use: reports: Prescription - Smoking History Smoking history: Unknown if ever smoked Have you smoked in the past 12 months: No Home Medications - Allergies Allergies/Adverse Reactions: Allergies Allergy/AdvReac Type Severity Reaction Status Date / Time No Known Allergies Allergy Verified 01/07/17 15:52 - Home Medications Home Medications: Ambulatory Orders Buprenorphine HCl [Subutex -] BID 01/08/17 Chlorpromazine [Thorazine -] HS PRN 01/08/17 Gabapentin [Neurontin -] DAILY 01/08/17 Hydroxyzine Pamoate [Vistaril -] Q6H 01/08/17 Mirtazapine [Remeron -] DAILY 08/08/17 Mirtazapine [Remeron -] 30 mg PO DAILY 01/08/17 Review of Systems Unable to obtain ROS, reason: unable to obtain Physical Exam Vital Signs: Vital Signs Temperature 99.3 F 01/08/17 16:00 Pulse Rate 56 L 01/08/17 16:00 Respiratory Rate 21 01/08/17 16:34 Blood Pressure 117/81 01/08/17 16:00 O2 Sat by Pulse Oximetry (%) 100 01/08/17 16:34 Constitutional: Yes: Other Eyes: Yes: Conjunctiva Clear HENT: Yes: Atraumatic Cardiovascular: Yes: Regular Rate and Rhythm, Tachycardia Respiratory: Yes: Intubated, Mechanically Ventilated Gastrointestinal: Yes: Normal Bowel Sounds, Soft Musculoskeletal: Yes: WNL Extremities: Yes: WNL Neurological: Yes: Other Psychiatric: Yes: Other Labs: CBC, BMP 01/08/17 05:15 01/08/17 05:15 Imaging - Results Chest X-ray: Report Reviewed, Image Reviewed X-ray: Report Reviewed, Image Reviewed Cat Scan: Report Reviewed, Image Reviewed Ultrasound: Report Reviewed, Image Reviewed Assessment/Plan Altered mental status with persistently high fevers r/o bacteria meningitis concern for Serotonin Syndrome versus NMS due to patient's home medication usage Acute agitation RLL Pneumonia / (?) RUL cavity Psych disorder sepsis resp failure plan continue ceftriaxone will add vanco and ampicillin resp support await for all cx reprt icu on case close monitoring rest as per priamry team bronch --please send material for cx make sure we have gm stain done on csf sample cc time 45 min
[2017-01-08] MEDS ORDERED: AMPICILLIN - 1 GM in SODIUM CHLORIDE 100 ML IVPB SCH (17:15)
--- NOTE | 2017-01-08 17:55 | PN ---
Physical Exam: SUBJECTIVE: Patient seen and examined. He is intubated and sedated. he is on isolation precautions OBJECTIVE: Vital Signs Period Temp Pulse Resp BP Sys/Paz Pulse Ox Last 24 Hr 97.9 F-101.5 F 56-91 12-29 106-126/67-93 94-100 GENERAL: intibated and sedated. HEAD: Normal with no signs of trauma. EYES: PERRL, sclera anicteric, conjunctiva clear. NECK: Trachea midline, stiff. positive brudzinski's sign. LUNGS: decreased breath sounds on the right HEART: Regular rate and rhythm, S1, S2 without murmur, rub or gallop. ABDOMEN: Soft, nontender, nondistended, normoactive bowel sounds, no guarding, no rebound. NEUROLOGICAL: unable to perform due to sedation. SKIN: Warm, dry, normal turgor, no rashes or lesions noted Laboratory Results - last 24 hr 01/07/17 01/07/17 01/07/17 19:20 20:30 20:30 WBC RBC Hgb Hct MCV MCH MCHC RDW Plt Count MPV Neutrophils % Lymphocytes % Monocytes % Eosinophils % Band Neutrophils Differential Comment Platelet Estimate INR 1.46 H PTT (Actin FS) 32.1 Puncture Site Right brachial ABG pH 7.44 ABG pCO2 at Pt Temp 32.9 L ABG pO2 at Pt Temp 49.4 L* ABG HCO3 22.1 ABG O2 Sat (Measured) 81.0 L ABG O2 Content 11.3 L ABG Base Excess -1.1 Dl Test Not applicable Carboxyhemoglobin 1.9 Methemoglobin 0.4 O2 Delivery Device Nasal o2 Oxygen Flow Rate 3l Vent Mode Vent Rate Mechanical Rate PEEP Pressure Support Vent Sodium Potassium Chloride Carbon Dioxide Anion Gap BUN Creatinine Creat Clearance w eGFR POC Glucometer Random Glucose Lactic Acid Calcium Phosphorus Magnesium Total Bilirubin AST ALT Alkaline Phosphatase Creatine Kinase 275 Creatine Kinase Index 0.8 CK-MB (CK-2) 2.428 Troponin I 0.03 D Total Protein Albumin CSF Appearance CSF Color CSF WBC CSF RBC CSF Neutrophils CSF Lymphocytes CSF Monocytes CSF Glucose CSF Total Protein 01/07/17 01/07/17 01/08/17 22:46 23:00 01:00 WBC RBC Hgb Hct MCV MCH MCHC RDW Plt Count MPV Neutrophils % Lymphocytes % Monocytes % Eosinophils % Band Neutrophils Differential Comment Platelet Estimate INR PTT (Actin FS) Puncture Site Left radial ABG pH 7.38 ABG pCO2 at Pt Temp 43.9 D ABG pO2 at Pt Temp 139.0 H D ABG HCO3 25.2 ABG O2 Sat (Measured) 99.0 H ABG O2 Content 13.7 L ABG Base Excess 0.4 Dl Test Positive Carboxyhemoglobin Methemoglobin O2 Delivery Device Vent Oxygen Flow Rate 50% Vent Mode A/c Vent Rate 12 Mechanical Rate Yes PEEP 5.0 Pressure Support Vent 450 Sodium Potassium Chloride Carbon Dioxide Anion Gap BUN Creatinine Creat Clearance w eGFR POC Glucometer [phone] Random Glucose Lactic Acid Calcium Phosphorus Magnesium Total Bilirubin AST ALT Alkaline Phosphatase Creatine Kinase Creatine Kinase Index CK-MB (CK-2) Troponin I Total Protein Albumin CSF Appearance Cloudy CSF Color Sh[place] CSF WBC 3568 CSF RBC 2000 CSF Neutrophils 93 CSF Lymphocytes 3 CSF Monocytes 4 CSF Glucose 5 L CSF Total Protein 205 H 01/08/17 01/08/17 01/08/17 05:15 05:15 05:15 WBC 23.3 H RBC 3.72 L Hgb 9.8 L D Hct 31.3 L MCV 84.0 MCH 26.4 MCHC 31.4 L RDW 21.6 H Plt Count 385 D MPV 7.5 Neutrophils % 91.0 H Lymphocytes % 7.0 L Monocytes % 0.0 L D Eosinophils % 0.0 Band Neutrophils 2.0 Differential Comment Manual diff done Platelet Estimate Adequate INR PTT (Actin FS) Puncture Site ABG pH ABG pCO2 at Pt Temp ABG pO2 at Pt Temp ABG HCO3 ABG O2 Sat (Measured) ABG O2 Content ABG Base Excess Dl Test Carboxyhemoglobin Methemoglobin O2 Delivery Device Oxygen Flow Rate Vent Mode Vent Rate Mechanical Rate PEEP Pressure Support Vent Sodium 135 L Potassium 3.4 L Chloride 99 Carbon Dioxide 28 Anion Gap 8 BUN 14 D Creatinine 0.7 D Creat Clearance w eGFR > 60 POC Glucometer Random Glucose 95 D Lactic Acid Calcium 7.5 L Phosphorus 3.3 Magnesium 2.4 Total Bilirubin 0.2 D AST 25 D ALT 33 D Alkaline Phosphatase 124 H D Creatine Kinase Creatine Kinase Index CK-MB (CK-2) Troponin I Total Protein 6.3 L Albumin 1.9 L D CSF Appearance CSF Color CSF WBC CSF RBC CSF Neutrophils CSF Lymphocytes CSF Monocytes CSF Glucose CSF Total Protein 01/08/17 01/08/17 01/08/17 05:15 05:43 11:26 WBC RBC Hgb Hct MCV MCH MCHC RDW Plt Count MPV Neutrophils % Lymphocytes % Monocytes % Eosinophils % Band Neutrophils Differential Comment Platelet Estimate INR PTT (Actin FS) Puncture Site ABG pH ABG pCO2 at Pt Temp ABG pO2 at Pt Temp ABG HCO3 ABG O2 Sat (Measured) ABG O2 Content ABG Base Excess Dl Test Carboxyhemoglobin Methemoglobin O2 Delivery Device Oxygen Flow Rate Vent Mode Vent Rate Mechanical Rate PEEP Pressure Support Vent Sodium Potassium Chloride Carbon Dioxide Anion Gap BUN Creatinine Creat Clearance w eGFR POC Glucometer [phone] Random Glucose Lactic Acid 2.1 H* Calcium Phosphorus Magnesium Total Bilirubin AST ALT Alkaline Phosphatase Creatine Kinase Creatine Kinase Index CK-MB (CK-2) Troponin I Total Protein Albumin CSF Appearance CSF Color CSF WBC CSF RBC CSF Neutrophils CSF Lymphocytes CSF Monocytes CSF Glucose CSF Total Protein Active Medications Generic Name Dose Route Start Last Admin Trade Name Freq PRN Reason Stop Dose Admin Ceftriaxone Sodium 2 gm 01/09/17 10:00 Rocephin 2gm Ivpb (Pre-Docked) IVPB DAILY DIONICIO Chlorhexidine Gluconate 1 applic 01/08/17 22:00 Hibiclens For Decolonization - TP HS DIONICIO Dexamethasone Sodium Phosphate 10 mg 01/08/17 03:00 01/08/17 14:06 Decadron Injection - IVPUSH 10 mg Q6H-IV DIONICIO Administration Propofol 100 mls @ 1.905 mls/hr 01/07/17 22:00 01/08/17 17:02 Diprivan - IVPUSH 20.956 mls/hr TITR DIONICIO Administration Protocol 5 MCG/KG/MIN Fentanyl 500 mcg/ Dextrose 100 mls @ 10 mls/hr 01/07/17 23:00 01/08/17 09:46 IJ 7 mls/hr TITR DIONICIO Administration 50 MCG/HR Dextrose/Sodium Chloride 1,000 mls @ 100 mls/hr 01/08/17 14:30 01/08/17 15:17 Dextrose 5%-Normal Saline+20 Meq Kcl - IV 100 mls/hr ASDIR DIONICIO Administration Levofloxacin 150 mls @ 150 mls/hr 01/09/17 10:00 Levaquin 750 Mg Premixed Ivpb - IVPB DAILY DIONICIO Ampicillin Sodium 1 gm/ Sodium 100 mls @ 200 mls/hr 01/08/17 17:15 Chloride IVPB Q6H-IV DIONICIO Vancomycin HCl 1,250 mg/ 250 mls @ 250 mls/hr 01/08/17 22:00 Dextrose IVPB BID [facility] Protocol Midazolam HCl 2 mg 01/08/17 11:04 01/08/17 11:17 Versed - IVPUSH 2 mg Q1H PRN Administration SHIVERING Mupirocin 1 applic 01/08/17 22:00 Bactroban Ointment (For Decolonization) - NS 01/13/17 21:59 BID DIONICIO Pantoprazole Sodium 40 mg 01/08/17 10:00 01/08/17 10:43 Protonix 40mg Ivpb (Pre-Docked) IVPB 40 mg DAILY DIONICIO Administration ASSESSMENT/PLAN: Briefly, a 46 y/o male with prior substance abuse, unclear psych disorder, is on multiple antipsychotics and antidepressants, presents to the ED with altered mental status and high fevers. Neuro: -patient is intubated and sedated -Alterted mental status 2/2 bacterial meningitis vs neuroloptic malignant syndrome -LP performed overnight shows cloudy, WBC 358, glucose 5, protein 205 -isolation precautions -HIV 1, 2 and p24 antigen negative -f/u CSF cultures -Bcx shows gram + cocci in clusters, f/u final c&s -f/u urine culture -Ceftriaxone 2grams IV -vancomycin 1.25g IV -Ampicillin 1 gm Q6H IV -lactic acid 4.6 ->2.1. trend daily. Pulmonary: -consolidations and cavitary lesions in upper and middle lobes on CT chest 2/2 pulmonary TB vs CAP -send quantiferon gold -f/u sputum culture and AFB smear -urine for legionella antigen -patient is for broncoscopy, washout and brushing tomorrow AM -levaquin 750m IV FEN: -D5NS w/ 20 meq KCL -potassium 3.4, will replete -NPO Prophylaxsis: -SCDs -Protonix 40mg IV Dispo: -continue to monitor in the ICU Problem List - Problems (1) Agitation Code(s): R45.1 - RESTLESSNESS AND AGITATION (2) Sepsis Code(s): A41.9 - SEPSIS, UNSPECIFIED ORGANISM Qualifiers: Sepsis type: sepsis due to unspecified organism Qualified Code(s): A41.9 - Sepsis, unspecified organism (3) Bacterial meningitis Code(s): G00.9 - BACTERIAL MENINGITIS, UNSPECIFIED (4) Tuberculosis Code(s): A15.9 - RESPIRATORY TUBERCULOSIS UNSPECIFIED Visit type - Emergency Visit Emergency Visit: Yes ED Registration Date: 01/07/17 Care time: The patient presented to the Emergency Department on the above date and was hospitalized for further evaluation of their emergent condition. - New Patient This patient is new to me today: Yes Date on this admission: 01/08/17 - Critical Care Critical Care patient: Yes Total Critical Care Time (in minutes): 50 Critical Care Statement: The care of this patient involved high complexity decision making to prevent further life threatening deterioration of the patient 's condition and/or to evalute & treat vital organ system(s) failure or risk of failure.
[2017-01-08] MEDS: AMPICILLIN - 2 GM in SODIUM CHLORIDE 100 ML IVPB SCH (20:38)
[2017-01-08] MEDS: VANCOMYCIN 1,250 MG in DEXTROSE 5%-WATER - 250 ML IVPB SCH (21:09)
[2017-01-08] MEDS: MUPIROCIN 2% TOPICAL OINTMENT FOR DECOLONIZATION NS SCH (21:10)
[2017-01-08] MEDS: CHLORHEXIDINE GLUCONATE 4% CLEANSER FOR DECOLONIZATION TP SCH (21:10)
[2017-01-09 00:11] LABS: CPK 134 IU/L (39-308); TROPONIN I < 0.02 ng/ml (0.00-0.05)
[2017-01-09] MEDS: DEXAMETHASONE SOD PHOSPHATE 10 MG/1 ML VIAL IVPUSH SCH ×4 (02:05→21:05)
[2017-01-09] MEDS: AMPICILLIN - 2 GM in SODIUM CHLORIDE 100 ML IVPB SCH ×4 (02:05→21:05)
[2017-01-09] MEDS: FENTANYL INJECTION 500 MCG in DEXTROSE 5%-WATER - 90 ML IJ SCH ×2 (03:00→22:55)
[2017-01-09] MEDS: MIDAZOLAM HCL 2 MG/2 ML SINGLE DOSE VIAL IVPUSH PRN (05:49)
[2017-01-09] MEDS: D5-NS + 20 MEQ KCL - 1,000 ML IV SCH (05:50)
[2017-01-09 06:59] LABS: BASOPHIL 0.4 % (0-2.0); MCH 25.9 pg (25.7-33.7); MCHC 30.8 g/dl (32.0-35.9); MEAN PLT VOLUME 7.8 fl (7.5-11.1); NEUTROPHILS 90.1 % (42.8-82.8); PLATELET COUNT 393 K/MM3 (134-434); WHITE BLOOD COUNT 20.9 K/mm3 (4.0-10.0)
[2017-01-09 07:12] LABS: INR 1.25 (0.82-1.09); PROTHROMBIN TIME (PATIENT) 13.8 SEC (9.98-11.88)
[2017-01-09 07:15] LABS: ACTIVATED PTT 31.6 SECONDS (26.9-34.4)
[2017-01-09 07:20] LABS: ALBUMIN 1.9 g/dl (3.4-5.0); ALK PHOS 127 U/L (45-117); ANION GAP 10 (8-16); BILIRUBIN,TOTAL 0.2 mg/dL (0.2-1.0); CALCIUM 8.2 mg/dL (8.5-10.1); CO2 25 mmol/L (21-32); CREATININE 0.7 mg/dL (0.7-1.3); GLUCOSE,RANDOM 124 mg/dL (74-106); MAGNESIUM 2.2 mg/dL (1.8-2.4); PHOSPHOROUS 3.1 mg/dL (2.5-4.9); SGOT/AST 39 U/L (15-37); SGPT/ALT 37 U/L (12-78); TOT PROT 6.6 g/dl (6.4-8.2)
[2017-01-09] MEDS ORDERED: PT OWN MED DRAWER 7, Y5N ONE ×2 (09:12→20:17)
[2017-01-09] MEDS: PANTOPRAZOLE SODIUM 40 MG/100 ML PRE-DOCKED IVPB SCH (09:26)
[2017-01-09] MEDS: MUPIROCIN 2% TOPICAL OINTMENT FOR DECOLONIZATION NS SCH ×2 (09:26→21:05)
[2017-01-09] MEDS: LEVOFLOXACIN 750 MG IVPB 150 ML IVPB SCH (09:26)
[2017-01-09] MEDS: cefTRIAXone 2 GM/100 ML BAG (PRE-DOCKED) IVPB SCH (09:27)
[2017-01-09] MEDS: PROPOFOL 100 ML IVPUSH SCH ×3 (09:29→21:55)
[2017-01-09] MEDS: VANCOMYCIN 1,250 MG in DEXTROSE 5%-WATER - 250 ML IVPB SCH ×2 (09:32→21:06)
[2017-01-09] MEDS ORDERED: CEFTRIAXONE 2 GM in DEXTROSE 5%-WATER - 100 ML IVPB SCH (10:00)
--- NOTE | 2017-01-09 12:33 | PN ---
Teaching Attending Note Name of Resident: Ángel Sorensen ATTENDING PHYSICIAN STATEMENT I saw and evaluated the patient. I reviewed the resident's note and discussed the case with the resident. I agree with the resident's findings and plan as documented. SUBJECTIVE: Patient seen and examined in the ICU. Intubated and sedated. AC Mode of vent. No pressors. Sedated on Propofol and Fentanyl. FOB performed at the bedside. Informed consent was taken from the patient's brother after Risks/Benefits were explained. The bronchoscope was inserted via the ETT Scant but thick secretions were noted in the ETT. The maryam was visualized and appeared sharp. The left mainstem was entered and all segments were visualized. Scant thin secretions were noted. The bronchoscope was withdrawn to the maryam and the right mainstem was entered. Thickand copious white/yellow secretions were noted in the RUL. BAL was performed. The RML and RLL segments were subsequently visualize. Thin, white secretions were noted. The bronchoscope was withdrawan from the patient. Vital signs remained stable throughout. Samples sent for appropriate analysis. Intake & Output 01/06/17 01/07/17 01/08/17 01/09/17 23:59 23:59 23:59 23:59 Intake Total 3920 Output Total 1000 1300 Balance -1000 2620 Weight 140 lb 0.002 oz 156 lb Last Vital Signs Temp Pulse Resp BP Pulse Ox 99.5 F 71 25 H 109/79 97 01/09/17 10:00 01/09/17 10:20 01/09/17 10:20 01/09/17 10:00 01/09/17 10:20 Active Medications Ceftriaxone Sodium (Rocephin 2gm Ivpb (Pre-Docked)) 2 gm IVPB DAILY DIONICIO Last Admin: 01/09/17 09:27 Dose: 2 gm Chlorhexidine Gluconate (Hibiclens For Decolonization -) 1 applic TP HS DIONICIO Last Admin: 01/08/17 21:10 Dose: 1 applic Dexamethasone Sodium Phosphate (Decadron Injection -) 10 mg IVPUSH Q6H-IV DIONICIO Last Admin: 01/09/17 09:26 Dose: 10 mg Propofol (Diprivan -) 100 mls @ 1.905 mls/hr IVPUSH TITR DIONICIO; 5 MCG/KG/MIN PRN Reason: Protocol Last Admin: 01/09/17 09:29 Dose: 23 mls/hr Fentanyl 500 mcg/ Dextrose 100 mls @ 10 mls/hr IJ TITR DIONICIO PRN Reason: 50 MCG/HR Last Admin: 01/09/17 03:00 Dose: 7 mls/hr Dextrose/Sodium Chloride (Dextrose 5%-Normal Saline+20 Meq Kcl -) 1,000 mls @ 100 mls/hr IV ASDIR [facility] Last Admin: 01/09/17 05:50 Dose: 100 mls/hr Levofloxacin (Levaquin 750 Mg Premixed Ivpb -) 150 mls @ 150 mls/hr IVPB DAILY [facility] Last Admin: 01/09/17 09:26 Dose: 150 mls/hr Vancomycin HCl 1,250 mg/ (Dextrose) 250 mls @ 250 mls/hr IVPB BID DIONICIO PRN Reason: Protocol Last Admin: 01/09/17 09:32 Dose: 250 mls/hr Ampicillin Sodium 2 gm/ Sodium (Chloride) 100 mls @ 200 mls/hr IVPB Q6H-IV [facility] Last Admin: 01/09/17 09:31 Dose: 200 mls/hr Midazolam HCl (Versed -) 2 mg IVPUSH Q1H PRN PRN Reason: SHIVERING Last Admin: 01/09/17 05:49 Dose: 2 mg Mupirocin (Bactroban Ointment (For Decolonization) -) 1 applic NS BID [facility] Stop: 01/13/17 21:59 Last Admin: 01/09/17 09:26 Dose: 1 applic Pantoprazole Sodium (Protonix 40mg Ivpb (Pre-Docked)) 40 mg IVPB DAILY [facility] Last Admin: 01/09/17 09:26 Dose: 40 mg Constitutional: Yes: Intubated and sedated Eyes: Yes: pupils are reactive HENT: Yes: WNL Neck: Yes: WNL Cardiovascular: Yes: Tachycardia, S1, S2 Respiratory: Yes: Diminished Gastrointestinal: Yes: Soft Musculoskeletal: No: rigidity Edema: No Integumentary: Yes: dry Neurological: Yes: sedated Laboratory Results - last 24 hr 01/08/17 01/08/17 01/08/17 05:15 11:26 17:14 WBC 23.3 H RBC 3.72 L Hgb 9.8 L D Hct 31.3 L MCV 84.0 MCH 26.4 MCHC 31.4 L RDW 21.6 H Plt Count 385 D MPV 7.5 Neutrophils % 91.0 H Lymphocytes % 7.0 L Monocytes % 0.0 L D Eosinophils % 0.0 Basophils % Band Neutrophils 2.0 Differential Comment Manual diff done Platelet Estimate Adequate INR PTT (Actin FS) Sodium Potassium Chloride Carbon Dioxide Anion Gap BUN Creatinine Creat Clearance w eGFR POC Glucometer [phone] Random Glucose Lactic Acid Calcium Phosphorus Magnesium Total Bilirubin AST ALT Alkaline Phosphatase Creatine Kinase Troponin I Total Protein Albumin Acetaminophen 01/08/17 01/08/17 01/08/17 23:30 23:30 23:30 WBC RBC Hgb Hct MCV MCH MCHC RDW Plt Count MPV Neutrophils % Lymphocytes % Monocytes % Eosinophils % Basophils % Band Neutrophils Differential Comment Platelet Estimate INR PTT (Actin FS) Sodium Potassium Chloride Carbon Dioxide Anion Gap BUN Creatinine Creat Clearance w eGFR POC Glucometer Random Glucose Lactic Acid 2.1 H* Calcium Phosphorus Magnesium Total Bilirubin AST ALT Alkaline Phosphatase Creatine Kinase 134 Troponin I < 0.02 D Total Protein Albumin Acetaminophen < 2.000 L 01/09/17 01/09/17 01/09/17 03:42 05:20 05:20 WBC 20.9 H RBC 4.12 Hgb 10.7 L Hct 34.6 L MCV 84.0 MCH 25.9 MCHC 30.8 L RDW 22.0 H Plt Count 393 MPV 7.8 Neutrophils % 90.1 H Lymphocytes % 4.4 L D Monocytes % 5.1 D Eosinophils % 0.0 Basophils % 0.4 Band Neutrophils Differential Comment Platelet Estimate INR 1.25 H PTT (Actin FS) 31.6 Sodium Potassium Chloride Carbon Dioxide Anion Gap BUN Creatinine Creat Clearance w eGFR POC Glucometer 154.95127 Random Glucose Lactic Acid Calcium Phosphorus Magnesium Total Bilirubin AST ALT Alkaline Phosphatase Creatine Kinase Troponin I Total Protein Albumin Acetaminophen 01/09/17 01/09/17 05:20 09:00 WBC RBC Hgb Hct MCV MCH MCHC RDW Plt Count MPV Neutrophils % Lymphocytes % Monocytes % Eosinophils % Basophils % Band Neutrophils Differential Comment Platelet Estimate INR PTT (Actin FS) Sodium 136 Potassium 3.9 Chloride 101 Carbon Dioxide 25 Anion Gap 10 BUN 20 H D Creatinine 0.7 Creat Clearance w eGFR > 60 POC Glucometer Random Glucose 124 H D Lactic Acid 1.9 Calcium 8.2 L Phosphorus 3.1 Magnesium 2.2 Total Bilirubin 0.2 AST 39 H D ALT 37 Alkaline Phosphatase 127 H Creatine Kinase Troponin I Total Protein 6.6 Albumin 1.9 L Acetaminophen Assessment/Plan Altered mental status with persistently high fevers --> Suspected Bacterial Meningitis There was a concern for Serotonin Syndrome versus NMS due to patient's home medication usage -> low clinical suspicion at this point. Acute agitation RLL Pneumonia / (?) RUL cavity Psych disorder ABX per ID / Decadron Follow cultires Sedation -> Hope to extubate by AM Quantiferon Gold IVF VTE prophylaxis Dr Castro - Critical Care Critical Care patient: Yes Total Critical Care Time (in minutes): 40 Critical Care Statement: The care of this patient involved high complexity decision making to prevent further life threatening deterioration of the patient 's condition and/or to evalute & treat vital organ system(s) failure or risk of failure.
--- NOTE | 2017-01-09 14:27 | PN ---
Physical Exam: SUBJECTIVE: Patient seen and examined. Intubated and sedated. OBJECTIVE: Vital Signs Period Temp Pulse Resp BP Sys/Paz Pulse Ox Last 24 Hr 98.9 F-101.1 F 56-76 12-26 103-127/47-91 97-100 GENERAL: The patient is intubated and sedated HEAD: Normal with no signs of trauma. EYES: PEERL, sclera anicteric, conjunctiva clear. NECK: Trachea midline, full range of motion, supple. LUNGS: decreased breath sounds on the right, no wheezes, no crackles, no accessory muscle use. HEART: Regular rate and rhythm, S1, S2 without murmur, rub or gallop. ABDOMEN: Soft, nontender, nondistended, normoactive bowel sounds, no guarding, no rebound. EXTREMITIES: 2+ pulses, warm, well-perfused, no edema. NEUROLOGICAL: unable to perform due to patient's clinical status SKIN: Warm, dry, normal turgor, puncture crow and linear erythematous lesions noted on both arms bilaterally Laboratory Results - last 24 hr 01/08/17 01/08/17 01/08/17 17:14 23:30 23:30 WBC RBC Hgb Hct MCV MCH MCHC RDW Plt Count MPV Neutrophils % Lymphocytes % Monocytes % Eosinophils % Basophils % INR PTT (Actin FS) Sodium Potassium Chloride Carbon Dioxide Anion Gap BUN Creatinine Creat Clearance w eGFR POC Glucometer [phone] Random Glucose Lactic Acid 2.1 H* Calcium Phosphorus Magnesium Total Bilirubin AST ALT Alkaline Phosphatase Creatine Kinase 134 Troponin I < 0.02 D Total Protein Albumin Acetaminophen 01/08/17 01/09/17 01/09/17 23:30 03:42 05:20 WBC 20.9 H RBC 4.12 Hgb 10.7 L Hct 34.6 L MCV 84.0 MCH 25.9 MCHC 30.8 L RDW 22.0 H Plt Count 393 MPV 7.8 Neutrophils % 90.1 H Lymphocytes % 4.4 L D Monocytes % 5.1 D Eosinophils % 0.0 Basophils % 0.4 INR PTT (Actin FS) Sodium Potassium Chloride Carbon Dioxide Anion Gap BUN Creatinine Creat Clearance w eGFR POC Glucometer 154.62840 Random Glucose Lactic Acid Calcium Phosphorus Magnesium Total Bilirubin AST ALT Alkaline Phosphatase Creatine Kinase Troponin I Total Protein Albumin Acetaminophen < 2.000 L 01/09/17 01/09/17 01/09/17 05:20 05:20 09:00 WBC RBC Hgb Hct MCV MCH MCHC RDW Plt Count MPV Neutrophils % Lymphocytes % Monocytes % Eosinophils % Basophils % INR 1.25 H PTT (Actin FS) 31.6 Sodium 136 Potassium 3.9 Chloride 101 Carbon Dioxide 25 Anion Gap 10 BUN 20 H D Creatinine 0.7 Creat Clearance w eGFR > 60 POC Glucometer Random Glucose 124 H D Lactic Acid 1.9 Calcium 8.2 L Phosphorus 3.1 Magnesium 2.2 Total Bilirubin 0.2 AST 39 H D ALT 37 Alkaline Phosphatase 127 H Creatine Kinase Troponin I Total Protein 6.6 Albumin 1.9 L Acetaminophen Active Medications Generic Name Dose Route Start Last Admin Trade Name Freq PRN Reason Stop Dose Admin Ceftriaxone Sodium 2 gm 01/09/17 10:00 01/09/17 09:27 Rocephin 2gm Ivpb (Pre-Docked) IVPB 2 gm DAILY DIONICIO Administration Chlorhexidine Gluconate 1 applic 01/08/17 22:00 01/08/17 21:10 Hibiclens For Decolonization - TP 1 applic HS DIONICIO Administration Dexamethasone Sodium Phosphate 10 mg 01/08/17 03:00 01/09/17 09:26 Decadron Injection - IVPUSH 10 mg Q6H-IV DIONICIO Administration Propofol 100 mls @ 1.905 mls/hr 01/07/17 22:00 01/09/17 09:29 Diprivan - IVPUSH 23 mls/hr TITR DIONICIO Administration Protocol 5 MCG/KG/MIN Fentanyl 500 mcg/ Dextrose 100 mls @ 10 mls/hr 01/07/17 23:00 01/09/17 03:00 IJ 7 mls/hr TITR DIONICIO Administration 50 MCG/HR Dextrose/Sodium Chloride 1,000 mls @ 100 mls/hr 01/08/17 14:30 01/09/17 05:50 Dextrose 5%-Normal Saline+20 Meq Kcl - IV 100 mls/hr ASDIR DIONICIO Administration Levofloxacin 150 mls @ 150 mls/hr 01/09/17 10:00 01/09/17 09:26 Levaquin 750 Mg Premixed Ivpb - IVPB 150 mls/hr DAILY DIONICIO Administration Vancomycin HCl 1,250 mg/ 250 mls @ 250 mls/hr 01/08/17 22:00 01/09/17 09:32 Dextrose IVPB 250 mls/hr BID DIONICIO Administration Protocol Ampicillin Sodium 2 gm/ Sodium 100 mls @ 200 mls/hr 01/08/17 21:00 01/09/17 09: 31 Chloride IVPB 200 mls/hr Q6H-IV DIONICIO Administration Midazolam HCl 2 mg 01/08/17 11:04 01/09/17 05:49 Versed - IVPUSH 2 mg Q1H PRN Administration SHIVERING Mupirocin 1 applic 01/08/17 22:00 01/09/17 09:26 Bactroban Ointment (For Decolonization) - NS 01/13/17 21:59 1 applic BID DIONICIO Administration Pantoprazole Sodium 40 mg 01/08/17 10:00 01/09/17 09:26 Protonix 40mg Ivpb (Pre-Docked) IVPB 40 mg DAILY DIONICIO Administration ASSESSMENT/PLAN: Briefly, a 46 y/o male with prior substance abuse, unclear psych disorder, is on multiple antipsychotics and antidepressants, presents to the ED with altered mental status and high fevers. Neuro: -patient is intubated and sedated -Alterted mental status 2/2 bacterial meningitis less likely neuroleptic malignant syndrome -LP shows cloudy, WBC 358, glucose 5, protein 205 -isolation precautions -f/u CSF cultures -CSF for AFB negative -CSF for fungus negative -CSF for cryptococcus negative -CSF gram stain Negative -Bcx shows gram + cocci in clusters, f/u final c&s -f/u urine culture -Decadron 10mg IV daily -Ceftriaxone 2grams IV daily (Day 2) -vancomycin 1.25g IV daily (Day 2) -Ampicillin 1 gm Q6H IV (Day 2) -lactic acid 2.1 -> 1.9 today Pulmonary: -consolidations and cavitary lesions in upper and middle lobes on CT chest 2/2 pulmonary TB vs CAP -f/u quantiferon gold -f/u sputum culture and AFB smear -AFB smear x1 negative -sputum culture shows gram positive cocci in pairs -will send second AFB smear -urine for legionella antigen negative -patient is s/p bronchoscopy and washing today -sent washings for ABF culture and TB PCR -am CXR -Levaquin 750mg IV (Day 2) FEN: -D5NS @100 -potassium repleted, will continue to monitor lytes -NPO Prophylaxsis: -heparin SQ for DVT -Protonix 40mg IV Dispo: -continue to monitor in the ICU Problem List - Problems (1) Agitation Code(s): R45.1 - RESTLESSNESS AND AGITATION (2) Sepsis Code(s): A41.9 - SEPSIS, UNSPECIFIED ORGANISM Qualifiers: Sepsis type: sepsis due to unspecified organism Qualified Code(s): A41.9 - Sepsis, unspecified organism (3) Bacterial meningitis Code(s): G00.9 - BACTERIAL MENINGITIS, UNSPECIFIED (4) Tuberculosis Code(s): A15.9 - RESPIRATORY TUBERCULOSIS UNSPECIFIED Visit type - Emergency Visit Emergency Visit: Yes ED Registration Date: 01/07/17 Care time: The patient presented to the Emergency Department on the above date and was hospitalized for further evaluation of their emergent condition. - New Patient This patient is new to me today: No - Critical Care Critical Care patient: Yes Total Critical Care Time (in minutes): 45 Critical Care Statement: The care of this patient involved high complexity decision making to prevent further life threatening deterioration of the patient 's condition and/or to evalute & treat vital organ system(s) failure or risk of failure.
[2017-01-09] MEDS: DEXTROSE 5%-NORMAL SALINE 1,000 ML IV SCH (14:28)
--- NOTE | 2017-01-09 14:49 | EKG ---
Test Reason : Blood Pressure : / mmHG Vent. Rate : 097 BPM Atrial Rate : 097 BPM P-R Int : 136 ms QRS Dur : 088 ms QT Int : 362 ms P-R-T Axes : 061 028 -57 degrees QTc Int : 459 ms NORMAL SINUS RHYTHM SEPTAL INFARCT , AGE UNDETERMINED ABNORMAL ECG NO PREVIOUS ECGS AVAILABLE Confirmed by YOEL HERNANDEZ MD ([id number]) on 01/09/2017 2:49:09 PM Referred By: Confirmed By:YOEL HERNANDEZ MD
--- NOTE | 2017-01-09 17:52 | PN ---
Progress Note, Physician History of Present Illness: patient conitnues to be sedated and intubated fevers now low grade was bronched this morning remained stable - Current Medication List Current Medications: Active Medications Ceftriaxone Sodium (Rocephin 2gm Ivpb (Pre-Docked)) 2 gm IVPB DAILY [facility] Last Admin: 01/09/17 09:27 Dose: 2 gm Chlorhexidine Gluconate (Hibiclens For Decolonization -) 1 applic TP HS [facility] Last Admin: 01/08/17 21:10 Dose: 1 applic Dexamethasone Sodium Phosphate (Decadron Injection -) 10 mg IVPUSH Q6H-IV [facility] Last Admin: 01/09/17 14:29 Dose: 10 mg Heparin Sodium (Porcine) (Heparin -) 5,000 unit SQ TID [facility] Propofol (Diprivan -) 100 mls @ 1.905 mls/hr IVPUSH TITR [facility]; 5 MCG/KG/MIN PRN Reason: Protocol Last Admin: 01/09/17 17:08 Dose: 23 mls/hr Fentanyl 500 mcg/ Dextrose 100 mls @ 10 mls/hr IJ TITR [facility] PRN Reason: 50 MCG/HR Last Admin: 01/09/17 03:00 Dose: 7 mls/hr Levofloxacin (Levaquin 750 Mg Premixed Ivpb -) 150 mls @ 150 mls/hr IVPB DAILY [facility] Last Admin: 01/09/17 09:26 Dose: 150 mls/hr Vancomycin HCl 1,250 mg/ (Dextrose) 250 mls @ 250 mls/hr IVPB BID [facility] PRN Reason: Protocol Last Admin: 01/09/17 09:32 Dose: 250 mls/hr Ampicillin Sodium 2 gm/ Sodium (Chloride) 100 mls @ 200 mls/hr IVPB Q6H-IV [facility] Last Admin: 01/09/17 14:29 Dose: 200 mls/hr Dextrose/Sodium Chloride (D5-Ns -) 1,000 mls @ 100 mls/hr IV ASDIR [facility] Last Admin: 01/09/17 14:28 Dose: 100 mls/hr Midazolam HCl (Versed -) 2 mg IVPUSH Q1H PRN PRN Reason: SHIVERING Last Admin: 01/09/17 05:49 Dose: 2 mg Mupirocin (Bactroban Ointment (For Decolonization) -) 1 applic NS BID [facility] Stop: 01/13/17 21:59 Last Admin: 01/09/17 09:26 Dose: 1 applic Pantoprazole Sodium (Protonix 40mg Ivpb (Pre-Docked)) 40 mg IVPB DAILY [facility] Last Admin: 01/09/17 09:26 Dose: 40 mg - Objective Vital Signs: Vital Signs Temperature 99.8 F H 01/09/17 14:00 Pulse Rate 67 01/09/17 14:00 Respiratory Rate 24 01/09/17 17:25 Blood Pressure 97/64 01/09/17 14:00 O2 Sat by Pulse Oximetry (%) 97 01/09/17 10:20 Constitutional: Yes: Other Neck: Yes: Other Cardiovascular: Yes: Regular Rate and Rhythm Respiratory: Yes: Intubated, Mechanically Ventilated Gastrointestinal: Yes: Normal Bowel Sounds, Soft Musculoskeletal: Yes: WNL Extremities: Yes: WNL Neurological: Yes: Other Psychiatric: Yes: Other Labs: CBC, BMP 01/09/17 05:20 01/09/17 05:20 INR, PTT INR 1.25 (0.82-1.09) H 01/09/17 05:20 Assessment/Plan Altered mental status with persistently high fevers r/o bacteria meningitis concern for Serotonin Syndrome versus NMS due to patient's home medication usage Acute agitation RLL Pneumonia / (?) RUL cavity Psych disorder sepsis resp failure plan continue current abx resp support await for all cx reprt icu on case close monitoring rest as per critical access hospital team watch fevers once we have some results will adjust abx cc time 40 min
--- NOTE | 2017-01-09 19:32 | PN ---
Progress Note, Physician History of Present Illness: intubated and sedated - Current Medication List Current Medications: Active Medications Ceftriaxone Sodium (Rocephin 2gm Ivpb (Pre-Docked)) 2 gm IVPB DAILY [facility] Last Admin: 01/09/17 09:27 Dose: 2 gm Chlorhexidine Gluconate (Hibiclens For Decolonization -) 1 applic TP HS [facility] Last Admin: 01/08/17 21:10 Dose: 1 applic Dexamethasone Sodium Phosphate (Decadron Injection -) 10 mg IVPUSH Q6H-IV [facility] Last Admin: 01/09/17 14:29 Dose: 10 mg Heparin Sodium (Porcine) (Heparin -) 5,000 unit SQ TID [facility] Propofol (Diprivan -) 100 mls @ 1.905 mls/hr IVPUSH TITR [facility]; 5 MCG/KG/MIN PRN Reason: Protocol Last Admin: 01/09/17 17:08 Dose: 23 mls/hr Fentanyl 500 mcg/ Dextrose 100 mls @ 10 mls/hr IJ TITR [facility] PRN Reason: 50 MCG/HR Last Admin: 01/09/17 03:00 Dose: 7 mls/hr Levofloxacin (Levaquin 750 Mg Premixed Ivpb -) 150 mls @ 150 mls/hr IVPB DAILY [facility] Last Admin: 01/09/17 09:26 Dose: 150 mls/hr Vancomycin HCl 1,250 mg/ (Dextrose) 250 mls @ 250 mls/hr IVPB BID [facility] PRN Reason: Protocol Last Admin: 01/09/17 09:32 Dose: 250 mls/hr Ampicillin Sodium 2 gm/ Sodium (Chloride) 100 mls @ 200 mls/hr IVPB Q6H-IV [facility] Last Admin: 01/09/17 14:29 Dose: 200 mls/hr Dextrose/Sodium Chloride (D5-Ns -) 1,000 mls @ 100 mls/hr IV ASDIR [facility] Last Admin: 01/09/17 14:28 Dose: 100 mls/hr Midazolam HCl (Versed -) 2 mg IVPUSH Q1H PRN PRN Reason: SHIVERING Last Admin: 01/09/17 05:49 Dose: 2 mg Mupirocin (Bactroban Ointment (For Decolonization) -) 1 applic NS BID [facility] Stop: 01/13/17 21:59 Last Admin: 01/09/17 09:26 Dose: 1 applic Pantoprazole Sodium (Protonix 40mg Ivpb (Pre-Docked)) 40 mg IVPB DAILY [facility] Last Admin: 01/09/17 09:26 Dose: 40 mg - Objective Vital Signs: Vital Signs Temperature 1004 F H 01/09/17 18:00 Pulse Rate 71 01/09/17 18:00 Respiratory Rate 26 H 01/09/17 19:29 Blood Pressure 113/71 01/09/17 18:00 O2 Sat by Pulse Oximetry (%) 97 01/09/17 10:20 Constitutional: Yes: Calm HENT: Yes: Atraumatic Neck: Yes: Supple Cardiovascular: Yes: Regular Rate and Rhythm Respiratory: Yes: Rhonchi Gastrointestinal: Yes: Normal Bowel Sounds Extremities: Yes: WNL Edema: No Peripheral Pulses WNL: Yes Neurological: Yes: Other (sedated) Labs: CBC, BMP 01/09/17 05:20 01/09/17 05:20 INR, PTT INR 1.25 (0.82-1.09) H 01/09/17 05:20 Problem List - Problems (1) Agitation Assessment/Plan: sedation , pt now is intubated Code(s): R45.1 - RESTLESSNESS AND AGITATION (2) Sepsis Assessment/Plan: on iv abx cx p ivf Code(s): A41.9 - SEPSIS, UNSPECIFIED ORGANISM Qualifiers: Sepsis type: sepsis due to unspecified organism Qualified Code(s): A41.9 - Sepsis, unspecified organism (3) Bacterial meningitis Assessment/Plan: csf noted Code(s): G00.9 - BACTERIAL MENINGITIS, UNSPECIFIED (4) Tuberculosis Assessment/Plan: cxs pending Code(s): A15.9 - RESPIRATORY TUBERCULOSIS UNSPECIFIED
[2017-01-09] MEDS: HEPARIN NA (PORCINE) 5,000 UNITS/ML 1ML VIAL SQ SCH (21:04)
[2017-01-09] MEDS: CHLORHEXIDINE GLUCONATE 4% CLEANSER FOR DECOLONIZATION TP SCH (21:05)
[2017-01-10] MEDS: AMPICILLIN - 2 GM in SODIUM CHLORIDE 100 ML IVPB SCH ×4 (02:05→22:33)
[2017-01-10] MEDS: DEXAMETHASONE SOD PHOSPHATE 10 MG/1 ML VIAL IVPUSH SCH ×4 (02:06→22:33)
[2017-01-10] MEDS: HEPARIN NA (PORCINE) 5,000 UNITS/ML 1ML VIAL SQ SCH ×3 (06:03→22:34)
[2017-01-10] MEDS: DEXTROSE 5%-NORMAL SALINE 1,000 ML IV SCH ×2 (06:03→14:34)
[2017-01-10] MEDS: PROPOFOL 100 ML IVPUSH SCH ×4 (06:04→22:33)
[2017-01-10 06:35] LABS: BASOPHIL 0.1 % (0-2.0); MCH 26.3 pg (25.7-33.7); MCHC 31.6 g/dl (32.0-35.9); MEAN CELL VOLUME 83.2 fl (80-96); MEAN PLT VOLUME 8.3 fl (7.5-11.1); NEUTROPHILS 93.4 % (42.8-82.8); PLATELET COUNT 394 K/MM3 (134-434); RDW 21.5 % (11.9-15.9)
[2017-01-10 06:55] LABS: ALBUMIN 1.7 g/dl (3.4-5.0); ANION GAP 7 (8-16); BILIRUBIN,TOTAL 0.2 mg/dL (0.2-1.0); CALCIUM 7.9 mg/dL (8.5-10.1); CO2 28 mmol/L (21-32); CREATININE 0.7 mg/dL (0.7-1.3); GLUCOSE,RANDOM 117 mg/dL (74-106); MAGNESIUM 2.2 mg/dL (1.8-2.4); PHOSPHOROUS 4.1 mg/dL (2.5-4.9); SGOT/AST 35 U/L (15-37); SGPT/ALT 38 U/L (12-78); TOT PROT 5.8 g/dl (6.4-8.2)
[2017-01-10 06:56] LABS: ALK PHOS 102 U/L (45-117)
[2017-01-10] MEDS: FENTANYL INJECTION 500 MCG in DEXTROSE 5%-WATER - 90 ML IJ SCH ×2 (07:43→20:02)
[2017-01-10] MEDS ORDERED: PT OWN MED DRAWER 7, Y5N ONE ×4 (08:22→22:24)
[2017-01-10] MEDS: LEVOFLOXACIN 750 MG IVPB 150 ML IVPB SCH (10:17)
[2017-01-10] MEDS: PANTOPRAZOLE SODIUM 40 MG/100 ML PRE-DOCKED IVPB SCH (10:18)
[2017-01-10] MEDS: cefTRIAXone 2 GM/100 ML BAG (PRE-DOCKED) IVPB SCH (10:20)
[2017-01-10] MEDS: VANCOMYCIN 1,250 MG in DEXTROSE 5%-WATER - 250 ML IVPB SCH ×2 (11:21→22:34)
[2017-01-10] MEDS ORDERED: HEMOQUE TEST 1 EACH EACH ONE (11:58)
--- NOTE | 2017-01-10 12:19 | PN ---
Physical Exam: SUBJECTIVE: Patient seen and examined. He remains intubated and sedated. Will make attempts to wean him today. OBJECTIVE: Vital Signs Period Temp Pulse Resp BP Sys/Paz Pulse Ox Last 24 Hr 98.8 F-1004 F 59-83 18-26 97-132/64-87 98-98 GENERAL: The patient is intubated and sedated HEAD: Normal with no signs of trauma. EYES: PEERL, sclera anicteric, conjunctiva clear. NECK: Trachea midline, full range of motion, supple. LUNGS: decreased breath sounds on the right, no wheezes, no crackles, no accessory muscle use. HEART: Regular rate and rhythm, S1, S2 without murmur, rub or gallop. ABDOMEN: Soft, nontender, nondistended, normoactive bowel sounds, no guarding, no rebound. EXTREMITIES: 2+ pulses, warm, well-perfused, no edema. NEUROLOGICAL: unable to perform due to patient's clinical status SKIN: Warm, dry, normal turgor, puncture crow and linear erythematous lesions noted on both arms bilaterally Laboratory Results - last 24 hr 01/09/17 01/10/17 01/10/17 16:12 05:15 05:15 WBC 15.0 H RBC 3.63 L Hgb 9.6 L D Hct 30.2 L MCV 83.2 MCH 26.3 MCHC 31.6 L RDW 21.5 H Plt Count 394 MPV 8.3 Neutrophils % 93.4 H Lymphocytes % 3.9 L Monocytes % 2.6 L Eosinophils % 0.0 Basophils % 0.1 Sodium 138 Potassium 4.1 Chloride 103 Carbon Dioxide 28 Anion Gap 7 L BUN 21 H Creatinine 0.7 Creat Clearance w eGFR > 60 POC Glucometer [phone] Random Glucose 117 H Calcium 7.9 L Phosphorus 4.1 D Magnesium 2.2 Total Bilirubin 0.2 AST 35 ALT 38 Alkaline Phosphatase 102 Total Protein 5.8 L Albumin 1.7 L Active Medications Generic Name Dose Route Start Last Admin Trade Name Freq PRN Reason Stop Dose Admin Ceftriaxone Sodium 2 gm 01/09/17 10:00 01/10/17 10:20 Rocephin 2gm Ivpb (Pre-Docked) IVPB 2 gm DAILY [facility] Administration Chlorhexidine Gluconate 1 applic 01/08/17 22:00 01/09/17 21:05 Hibiclens For Decolonization - TP 1 applic HS [facility] Administration Dexamethasone Sodium Phosphate 10 mg 01/08/17 03:00 01/10/17 08:45 Decadron Injection - IVPUSH 10 mg Q6H-IV [facility] Administration Heparin Sodium (Porcine) 5,000 unit 01/09/17 22:00 01/10/17 06:03 Heparin - SQ 5,000 unit TID [facility] Administration Propofol 100 mls @ 1.905 mls/hr 01/07/17 22:00 01/10/17 10:19 Diprivan - IVPUSH 20 mls/hr TITR [facility] Administration Protocol 5 MCG/KG/MIN Fentanyl 500 mcg/ Dextrose 100 mls @ 10 mls/hr 01/07/17 23:00 01/10/17 07:43 IJ 7 mls/hr TITR [facility] Administration 50 MCG/HR Levofloxacin 150 mls @ 150 mls/hr 01/09/17 10:00 01/10/17 10:17 Levaquin 750 Mg Premixed Ivpb - IVPB 150 mls/hr DAILY [facility] Administration Vancomycin HCl 1,250 mg/ 250 mls @ 250 mls/hr 01/08/17 22:00 01/10/17 11:21 Dextrose IVPB 250 mls/hr BID [facility] Administration Protocol Ampicillin Sodium 2 gm/ Sodium 100 mls @ 200 mls/hr 01/08/17 21:00 01/10/17 08: 45 Chloride IVPB 200 mls/hr Q6H-IV [facility] Administration Dextrose/Sodium Chloride 1,000 mls @ 100 mls/hr 01/09/17 14:15 01/10/17 06:03 D5-Ns - IV 100 mls/hr ASDIR [facility] Administration Midazolam HCl 2 mg 01/08/17 11:04 01/09/17 05:49 Versed - IVPUSH 2 mg Q1H PRN Administration SHIVERING Mupirocin 1 applic 01/08/17 22:00 01/09/17 21:05 Bactroban Ointment (For Decolonization) - NS 01/13/17 21:59 1 applic BID [facility] Administration Pantoprazole Sodium 40 mg 01/08/17 10:00 01/10/17 10:18 Protonix 40mg Ivpb (Pre-Docked) IVPB 40 mg DAILY [facility] Administration ASSESSMENT/PLAN: Briefly, a 46 y/o male with prior substance abuse, unclear psych disorder, is on multiple antipsychotics and antidepressants, presents to the ED with altered mental status and high fevers. Neuro: -patient is intubated and sedated, will attempt to wean today -Alterted mental status 2/2 bacterial meningitis less likely neuroleptic malignant syndrome -LP shows cloudy, WBC 358, glucose 5, protein 205 -isolation precautions -f/u CSF cultures -CSF for AFB negative -CSF for fungus negative -CSF for cryptococcus negative -CSF gram stain Negative -Bcx growing coagulase negative staph sp. -f/u urine culture -Decadron 10mg IV daily -Ceftriaxone 2grams IV daily (Day 3) -vancomycin 1.25g IV daily (Day 3) -Ampicillin 1 gm Q6H IV (Day 3) Pulmonary: -consolidations and cavitary lesions in upper and middle lobes on CT chest 2/2 pulmonary TB vs CAP -f/u quantiferon gold- pending -f/u sputum culture and AFB smear -AFB smear x1 negative -sputum culture shows gram positive cocci in pairs -f/u results of second smear -urine for legionella antigen negative -patient is s/p bronchoscopy and washing today -sent washings for ABF culture and TB PCR -Levaquin 750mg IV (Day 3) FEN: -D5NS @100 -potassium repleted, will continue to monitor lytes -start jevity 1.5 at 30 cc/hr. titrate up 10cc q4h with goal of 50cc/hr. 40 cc of water added Prophylaxsis: -heparin SQ for DVT -Protonix 40mg IV Dispo: -continue to monitor in the ICU Problem List - Problems (1) Agitation Code(s): R45.1 - RESTLESSNESS AND AGITATION (2) Sepsis Code(s): A41.9 - SEPSIS, UNSPECIFIED ORGANISM Qualifiers: Sepsis type: sepsis due to unspecified organism Qualified Code(s): A41.9 - Sepsis, unspecified organism (3) Bacterial meningitis Code(s): G00.9 - BACTERIAL MENINGITIS, UNSPECIFIED (4) Tuberculosis Code(s): A15.9 - RESPIRATORY TUBERCULOSIS UNSPECIFIED Visit type - Emergency Visit Emergency Visit: Yes ED Registration Date: 01/07/17 Care time: The patient presented to the Emergency Department on the above date and was hospitalized for further evaluation of their emergent condition. - New Patient This patient is new to me today: No - Critical Care Critical Care patient: Yes Total Critical Care Time (in minutes): 40 Critical Care Statement: The care of this patient involved high complexity decision making to prevent further life threatening deterioration of the patient 's condition and/or to evaluate & treat vital organ system(s) failure or risk of failure.
[2017-01-10] MEDS: MUPIROCIN 2% TOPICAL OINTMENT FOR DECOLONIZATION NS SCH ×2 (14:37→22:33)
--- NOTE | 2017-01-10 14:48 | PN ---
Teaching Attending Note Name of Resident: Ángel Sorensen ATTENDING PHYSICIAN STATEMENT I saw and evaluated the patient. I reviewed the resident's note and discussed the case with the resident. I agree with the resident's findings and plan as documented. SUBJECTIVE: Patient seen and examined in the ICU. Remains intubated and sedated. AC Mode of vent. No pressors. Sedated on Propofol and Fentanyl. CXR: No change in RLL opacity Intake & Output 01/07/17 01/08/17 01/09/17 01/10/17 23:59 23:59 23:59 23:59 Intake Total 3920 1951 1710 Output Total 1000 1300 1400 400 Balance -1000 2620 551 1310 Weight 140 lb 0.002 oz 156 lb 158 lb 8 oz Last Vital Signs Temp Pulse Resp BP Pulse Ox 99.8 F H 65 24 116/82 98 01/10/17 10:00 01/10/17 12:00 01/10/17 12:44 01/10/17 12:00 01/09/17 20:35 Active Medications Ceftriaxone Sodium (Rocephin 2gm Ivpb (Pre-Docked)) 2 gm IVPB DAILY [facility] Last Admin: 01/10/17 10:20 Dose: 2 gm Chlorhexidine Gluconate (Hibiclens For Decolonization -) 1 applic TP HS [facility] Last Admin: 01/09/17 21:05 Dose: 1 applic Dexamethasone Sodium Phosphate (Decadron Injection -) 10 mg IVPUSH Q6H-IV [facility] Last Admin: 01/10/17 14:27 Dose: 10 mg Heparin Sodium (Porcine) (Heparin -) 5,000 unit SQ TID [facility] Last Admin: 01/10/17 14:34 Dose: 5,000 unit Propofol (Diprivan -) 100 mls @ 1.905 mls/hr IVPUSH TITR [facility]; 5 MCG/KG/MIN PRN Reason: Protocol Last Admin: 01/10/17 14:28 Dose: 7.62 mls/hr Fentanyl 500 mcg/ Dextrose 100 mls @ 10 mls/hr IJ TITR [facility] PRN Reason: 50 MCG/HR Last Admin: 01/10/17 07:43 Dose: 7 mls/hr Levofloxacin (Levaquin 750 Mg Premixed Ivpb -) 150 mls @ 150 mls/hr IVPB DAILY [facility] Last Admin: 01/10/17 10:17 Dose: 150 mls/hr Vancomycin HCl 1,250 mg/ (Dextrose) 250 mls @ 250 mls/hr IVPB BID [facility] PRN Reason: Protocol Last Admin: 01/10/17 11:21 Dose: 250 mls/hr Ampicillin Sodium 2 gm/ Sodium (Chloride) 100 mls @ 200 mls/hr IVPB Q6H-IV [facility] Last Admin: 01/10/17 14:27 Dose: 200 mls/hr Dextrose/Sodium Chloride (D5-Ns -) 1,000 mls @ 100 mls/hr IV ASDIR [facility] Last Admin: 01/10/17 14:34 Dose: 100 mls/hr Midazolam HCl (Versed -) 2 mg IVPUSH Q1H PRN PRN Reason: SHIVERING Last Admin: 01/09/17 05:49 Dose: 2 mg Mupirocin (Bactroban Ointment (For Decolonization) -) 1 applic NS BID [facility] Stop: 01/13/17 21:59 Last Admin: 01/10/17 14:37 Dose: 1 applic Pantoprazole Sodium (Protonix 40mg Ivpb (Pre-Docked)) 40 mg IVPB DAILY [facility] Last Admin: 01/10/17 10:18 Dose: 40 mg Constitutional: Yes: Intubated and sedated Eyes: Yes: pupils are reactive HENT: Yes: WNL Neck: Yes: WNL Cardiovascular: Yes: Tachycardia, S1, S2 Respiratory: Yes: Diminished/rhonhci on the right Gastrointestinal: Yes: Soft Musculoskeletal: No: rigidity Edema: No Integumentary: Yes: dry Neurological: Yes: sedated Assessment/Plan Altered mental status with persistently high fevers --> Suspected Bacterial Meningitis Previous concern for Serotonin Syndrome versus NMS due to patient's home medication usage -> low clinical suspicion at this point. Acute agitation RLL Pneumonia / RUL cavity Psych disorder ABX per ID / Decadron Follow cultires Sedation -> Wean trials Quantiferon Gold IVF VTE prophylaxis Dr Castro - Critical Care Critical Care patient: Yes Total Critical Care Time (in minutes): 40 Critical Care Statement: The care of this patient involved high complexity decision making to prevent further life threatening deterioration of the patient 's condition and/or to evalute & treat vital organ system(s) failure or risk of failure.
--- NOTE | 2017-01-10 15:03 | PN ---
Progress Note, Physician History of Present Illness: patient continues to be sedated and intubated plan to wean and extubate fevers low grade occasionally now blood cx growing coag negative - Current Medication List Current Medications: Active Medications Ceftriaxone Sodium (Rocephin 2gm Ivpb (Pre-Docked)) 2 gm IVPB DAILY [facility] Last Admin: 01/10/17 10:20 Dose: 2 gm Chlorhexidine Gluconate (Hibiclens For Decolonization -) 1 applic TP HS [facility] Last Admin: 01/09/17 21:05 Dose: 1 applic Dexamethasone Sodium Phosphate (Decadron Injection -) 10 mg IVPUSH Q6H-IV [facility] Last Admin: 01/10/17 14:27 Dose: 10 mg Heparin Sodium (Porcine) (Heparin -) 5,000 unit SQ TID [facility] Last Admin: 01/10/17 14:34 Dose: 5,000 unit Propofol (Diprivan -) 100 mls @ 1.905 mls/hr IVPUSH TITR [facility]; 5 MCG/KG/MIN PRN Reason: Protocol Last Admin: 01/10/17 14:28 Dose: 7.62 mls/hr Fentanyl 500 mcg/ Dextrose 100 mls @ 10 mls/hr IJ TITR [facility] PRN Reason: 50 MCG/HR Last Admin: 01/10/17 07:43 Dose: 7 mls/hr Levofloxacin (Levaquin 750 Mg Premixed Ivpb -) 150 mls @ 150 mls/hr IVPB DAILY [facility] Last Admin: 01/10/17 10:17 Dose: 150 mls/hr Vancomycin HCl 1,250 mg/ (Dextrose) 250 mls @ 250 mls/hr IVPB BID [facility] PRN Reason: Protocol Last Admin: 01/10/17 11:21 Dose: 250 mls/hr Ampicillin Sodium 2 gm/ Sodium (Chloride) 100 mls @ 200 mls/hr IVPB Q6H-IV [facility] Last Admin: 01/10/17 14:27 Dose: 200 mls/hr Dextrose/Sodium Chloride (D5-Ns -) 1,000 mls @ 100 mls/hr IV ASDIR [facility] Last Admin: 01/10/17 14:34 Dose: 100 mls/hr Midazolam HCl (Versed -) 2 mg IVPUSH Q1H PRN PRN Reason: SHIVERING Last Admin: 01/09/17 05:49 Dose: 2 mg Mupirocin (Bactroban Ointment (For Decolonization) -) 1 applic NS BID [facility] Stop: 01/13/17 21:59 Last Admin: 01/10/17 14:37 Dose: 1 applic Pantoprazole Sodium (Protonix 40mg Ivpb (Pre-Docked)) 40 mg IVPB DAILY [facility] Last Admin: 01/10/17 10:18 Dose: 40 mg - Objective Vital Signs: Vital Signs Temperature 99.8 F H 01/10/17 10:00 Pulse Rate 65 01/10/17 12:00 Respiratory Rate 24 01/10/17 12:44 Blood Pressure 116/82 01/10/17 12:00 O2 Sat by Pulse Oximetry (%) 98 01/09/17 20:35 Constitutional: Yes: Other HENT: Yes: Other Neck: Yes: Supple Cardiovascular: Yes: Regular Rate and Rhythm Respiratory: Yes: Intubated, Mechanically Ventilated Gastrointestinal: Yes: Normal Bowel Sounds, Soft Musculoskeletal: Yes: WNL Extremities: Yes: WNL Neurological: Yes: Other Psychiatric: Yes: Other Labs: CBC, BMP 01/10/17 05:15 01/10/17 05:15 INR, PTT INR 1.25 (0.82-1.09) H 01/09/17 05:20 Assessment/Plan Altered mental status with persistently high fevers r/o bacteria meningitis concern for Serotonin Syndrome versus NMS due to patient's home medication usage Acute agitation RLL Pneumonia / (?) RUL cavity Psych disorder sepsis resp failure gm positive bacteremia patients blood cx growing coag negative--rest of the cx negative so far i am leaning towards this being coag negative bacterial meningitits if all the cx are negative will send serum bacterial antigen to figure out if it is staph agalactie or one in that group plan continue current abx will deescalate tomorrow resp support await for all cx reprt icu on case close monitoring rest as per primariry team cc time 40 min
--- NOTE | 2017-01-10 16:34 | PN ---
Progress Note, Physician History of Present Illness: intubated and sedated - Current Medication List Current Medications: Active Medications Ceftriaxone Sodium (Rocephin 2gm Ivpb (Pre-Docked)) 2 gm IVPB DAILY [facility] Last Admin: 01/10/17 10:20 Dose: 2 gm Chlorhexidine Gluconate (Hibiclens For Decolonization -) 1 applic TP HS [facility] Last Admin: 01/09/17 21:05 Dose: 1 applic Dexamethasone Sodium Phosphate (Decadron Injection -) 10 mg IVPUSH Q6H-IV [facility] Last Admin: 01/10/17 14:27 Dose: 10 mg Heparin Sodium (Porcine) (Heparin -) 5,000 unit SQ TID [facility] Last Admin: 01/10/17 14:34 Dose: 5,000 unit Propofol (Diprivan -) 100 mls @ 1.905 mls/hr IVPUSH TITR [facility]; 5 MCG/KG/MIN PRN Reason: Protocol Last Admin: 01/10/17 14:28 Dose: 7.62 mls/hr Fentanyl 500 mcg/ Dextrose 100 mls @ 10 mls/hr IJ TITR [facility] PRN Reason: 50 MCG/HR Last Admin: 01/10/17 07:43 Dose: 7 mls/hr Levofloxacin (Levaquin 750 Mg Premixed Ivpb -) 150 mls @ 150 mls/hr IVPB DAILY [facility] Last Admin: 01/10/17 10:17 Dose: 150 mls/hr Vancomycin HCl 1,250 mg/ (Dextrose) 250 mls @ 250 mls/hr IVPB BID [facility] PRN Reason: Protocol Last Admin: 01/10/17 11:21 Dose: 250 mls/hr Ampicillin Sodium 2 gm/ Sodium (Chloride) 100 mls @ 200 mls/hr IVPB Q6H-IV [facility] Last Admin: 01/10/17 14:27 Dose: 200 mls/hr Dextrose/Sodium Chloride (D5-Ns -) 1,000 mls @ 100 mls/hr IV ASDIR [facility] Last Admin: 01/10/17 14:34 Dose: 100 mls/hr Midazolam HCl (Versed -) 2 mg IVPUSH Q1H PRN PRN Reason: SHIVERING Last Admin: 01/09/17 05:49 Dose: 2 mg Mupirocin (Bactroban Ointment (For Decolonization) -) 1 applic NS BID [facility] Stop: 01/13/17 21:59 Last Admin: 01/10/17 14:37 Dose: 1 applic Pantoprazole Sodium (Protonix 40mg Ivpb (Pre-Docked)) 40 mg IVPB DAILY [facility] Last Admin: 01/10/17 10:18 Dose: 40 mg - Objective Vital Signs: Vital Signs Temperature 99.8 F H 01/10/17 10:00 Pulse Rate 65 01/10/17 12:00 Respiratory Rate 20 01/10/17 14:00 Blood Pressure 116/82 01/10/17 12:00 O2 Sat by Pulse Oximetry (%) 98 01/09/17 20:35 Constitutional: Yes: No Distress HENT: Yes: Atraumatic Neck: Yes: Supple Cardiovascular: Yes: Regular Rate and Rhythm Respiratory: Yes: Rhonchi, Wheezes Gastrointestinal: Yes: Normal Bowel Sounds Extremities: Yes: WNL Edema: No Peripheral Pulses WNL: Yes Neurological: Yes: Other (sedated) Labs: CBC, BMP 01/10/17 05:15 01/10/17 05:15 INR, PTT INR 1.25 (0.82-1.09) H 01/09/17 05:20 Problem List - Problems (1) Agitation Assessment/Plan: sedation , pt now is intubated Code(s): R45.1 - RESTLESSNESS AND AGITATION (2) Sepsis Assessment/Plan: on iv abx cx p ivf Code(s): A41.9 - SEPSIS, UNSPECIFIED ORGANISM Qualifiers: Sepsis type: sepsis due to unspecified organism Qualified Code(s): A41.9 - Sepsis, unspecified organism (3) Bacterial meningitis Assessment/Plan: csf noted Code(s): G00.9 - BACTERIAL MENINGITIS, UNSPECIFIED (4) Tuberculosis Assessment/Plan: cxs pending Code(s): A15.9 - RESPIRATORY TUBERCULOSIS UNSPECIFIED
--- NOTE | 2017-01-10 16:35 | PATH ---
Cytology Non-Gynecological Report Patient Name: SILVINO UNGER Med. Rec. #: [id number] /Age/Gender: 1970 (Age: 46) / M Account: [id number] Location: ICU CIRCUS TRAINER Taken: 01/09/2017 Received: 01/09/2017 Reported: 01/10/2017 Physicians: Zachery Castro M.D. Specimen(s) Received BRONCHIAL WASHINGS RIGHT UPPER LOBE Clinical History None given Final Diagnosis LUNG, RIGHT UPPER LOBE, BRONCHIAL WASHING: SATISFACTORY FOR EVALUATION THE LIMITED BY EXTREMELY SCANT EPITHELIAL COMPONENT. BENIGN (NO MALIGNANT CELLS IDENTIFIED). ABUNDANT NEUTROPHILS, AND RARE BENIGN EPITHELIAL CELLS PRESENT. Comment: Recommend correlation with clinical and radiologic findings and follow up as clinically indicated. Electronically Signed Quinten Damon M.D. Gross Description Approximately 50 cc of pink fluid received fixed in 50% alcohol. One cytofunnel and one cellblock prepared.
[2017-01-10] MEDS: CHLORHEXIDINE GLUCONATE 4% CLEANSER FOR DECOLONIZATION TP SCH (22:34)
[2017-01-11 00:12] LABS: LYME IGG WB INTERP. Negative (.); LYME IGM WB. INTERP Negative (.); P18 AB Absent (.); P23 AB Absent (.); P28 AB Absent (.); P30 AB Absent (.); P39 AB Absent (.); P41 AB Absent (.); P45 AB Present (.); P58 AB Absent (.); P66 AB Absent (.); P93 AB Absent (.)
[2017-01-11] MEDS ORDERED: PROPOFOL 100 ML ONE (02:52)
[2017-01-11] MEDS: FENTANYL INJECTION 500 MCG in DEXTROSE 5%-WATER - 90 ML IJ SCH (02:58)
[2017-01-11] MEDS: AMPICILLIN - 2 GM in SODIUM CHLORIDE 100 ML IVPB SCH ×3 (02:58→14:59)
[2017-01-11] MEDS: DEXAMETHASONE SOD PHOSPHATE 10 MG/1 ML VIAL IVPUSH SCH ×2 (02:59→10:53)
[2017-01-11] MEDS: HEPARIN NA (PORCINE) 5,000 UNITS/ML 1ML VIAL SQ SCH ×2 (06:00→13:37)
[2017-01-11 06:03] LABS: BASOPHIL 0.1 % (0-2.0); MCH 26.6 pg (25.7-33.7); MCHC 32.2 g/dl (32.0-35.9); MEAN CELL VOLUME 82.6 fl (80-96); NEUTROPHILS 93.6 % (42.8-82.8); PLATELET COUNT 377 K/MM3 (134-434); RDW 21.5 % (11.9-15.9); WHITE BLOOD COUNT 11.8 K/mm3 (4.0-10.0)
[2017-01-11 06:22] LABS: ALBUMIN 1.6 g/dl (3.4-5.0); ANION GAP 7 (8-16); CALCIUM 7.6 mg/dL (8.5-10.1); CO2 28 mmol/L (21-32); CREATININE 0.7 mg/dL (0.7-1.3); GLUCOSE,RANDOM 115 mg/dL (74-106); MAGNESIUM 2.1 mg/dL (1.8-2.4); PHOSPHOROUS 3.9 mg/dL (2.5-4.9); SGOT/AST 38 U/L (15-37); SGPT/ALT 57 U/L (12-78)
[2017-01-11 06:24] LABS: ALK PHOS 100 U/L (45-117); BILIRUBIN,TOTAL 0.3 mg/dL (0.2-1.0); TOT PROT 5.6 g/dl (6.4-8.2)
[2017-01-11] MEDS: MUPIROCIN 2% TOPICAL OINTMENT FOR DECOLONIZATION NS SCH (10:53)
[2017-01-11] MEDS: cefTRIAXone 2 GM/100 ML BAG (PRE-DOCKED) IVPB SCH (10:54)
[2017-01-11] MEDS: PANTOPRAZOLE SODIUM 40 MG/100 ML PRE-DOCKED IVPB SCH (10:56)
[2017-01-11] MEDS ORDERED: PT OWN MED DRAWER 7, Y5N ONE ×2 (11:00→21:37)
[2017-01-11] MEDS: LEVOFLOXACIN 750 MG IVPB 150 ML IVPB SCH (11:12)
[2017-01-11] MEDS: VANCOMYCIN 1,250 MG in DEXTROSE 5%-WATER - 250 ML IVPB SCH (11:32)
--- NOTE | 2017-01-11 12:18 | PN ---
Teaching Attending Note Name of Resident: Ángel Sorensen ATTENDING PHYSICIAN STATEMENT I saw and evaluated the patient. I reviewed the resident's note and discussed the case with the resident. I agree with the resident's findings and plan as documented. SUBJECTIVE: Patient seen and examined in the ICU. Remains intubated and lightly sedated. Able to interact and follow simple commands. AC Mode of vent. No pressors. CXR: None today Intake & Output 01/08/17 01/09/17 01/10/17 01/11/17 23:59 23:59 23:59 23:59 Intake Total 3920 1951 4082 1224 Output Total 1300 1400 1600 1100 Balance 2620 551 2482 124 Weight 156 lb 158 lb 8 oz Last Vital Signs Temp Pulse Resp BP Pulse Ox 99.4 F 116 H 20 106/79 99 01/11/17 11:00 01/11/17 12:17 01/11/17 12:17 01/11/17 12:17 01/11/17 11:20 Active Medications Ceftriaxone Sodium (Rocephin 2gm Ivpb (Pre-Docked)) 2 gm IVPB DAILY [facility] Last Admin: 01/11/17 10:54 Dose: 2 gm Chlorhexidine Gluconate (Hibiclens For Decolonization -) 1 applic TP HS [facility] Last Admin: 01/10/17 22:34 Dose: 1 applic Dexamethasone Sodium Phosphate (Decadron Injection -) 10 mg IVPUSH Q6H-IV [facility] Last Admin: 01/11/17 10:53 Dose: 10 mg Heparin Sodium (Porcine) (Heparin -) 5,000 unit SQ TID [facility] Last Admin: 01/10/17 22:34 Dose: 5,000 unit Propofol (Diprivan -) 100 mls @ 1.905 mls/hr IVPUSH TITR [facility]; 5 MCG/KG/MIN PRN Reason: Protocol Last Titration: 01/11/17 10:00 Dose: 0 mcg/kg/min Fentanyl 500 mcg/ Dextrose 100 mls @ 10 mls/hr IJ TITR [facility] PRN Reason: 50 MCG/HR Last Admin: 01/11/17 02:58 Dose: 7 mls/hr Levofloxacin (Levaquin 750 Mg Premixed Ivpb -) 150 mls @ 150 mls/hr IVPB DAILY [facility] Last Admin: 01/11/17 11:12 Dose: 150 mls/hr Vancomycin HCl 1,250 mg/ (Dextrose) 250 mls @ 250 mls/hr IVPB BID [facility] PRN Reason: Protocol Last Admin: 01/11/17 11:32 Dose: 250 mls/hr Ampicillin Sodium 2 gm/ Sodium (Chloride) 100 mls @ 200 mls/hr IVPB Q6H-IV [facility] Last Admin: 01/11/17 11:08 Dose: 200 mls/hr Dextrose/Sodium Chloride (D5-Ns -) 1,000 mls @ 100 mls/hr IV ASDIR [facility] Last Admin: 01/10/17 14:34 Dose: 100 mls/hr Mupirocin (Bactroban Ointment (For Decolonization) -) 1 applic NS BID [facility] Stop: 01/13/17 21:59 Last Admin: 01/11/17 10:53 Dose: 1 applic Pantoprazole Sodium (Protonix 40mg Ivpb (Pre-Docked)) 40 mg IVPB DAILY [facility] Last Admin: 01/11/17 10:56 Dose: 40 mg Constitutional: Yes: Intubated and lightly sedated Eyes: Yes: pupils are reactive HENT: Yes: WNL Neck: Yes: WNL Cardiovascular: Yes: Tachycardia, S1, S2 Respiratory: Yes: Scattered bilateral rhonhci Right > Left Gastrointestinal: Yes: Soft Musculoskeletal: No: rigidity Edema: No Integumentary: Yes: dry Neurological: Yes: sedated Laboratory Results - last 24 hr 01/07/17 01/10/17 01/10/17 22:46 05:56 22:42 WBC RBC Hgb Hct MCV MCH MCHC RDW Plt Count MPV Neutrophils % Lymphocytes % Monocytes % Eosinophils % Basophils % Sodium Potassium Chloride Carbon Dioxide Anion Gap BUN Creatinine Creat Clearance w eGFR POC Glucometer 145.43808 140.52486 Random Glucose Calcium Phosphorus Magnesium Total Bilirubin AST ALT Alkaline Phosphatase Total Protein Albumin CSF VDRL Non reactive CSF Lyme IgG [place] Y CSF Lyme IgG Ab 18 kDa Absent CSF Lyme IgG Ab 23 kDa Absent CSF Lyme IgG Ab 28 kDa Absent CSF Lyme IgG Ab 30 kDa Absent CSF Lyme IgG Ab 39 kDa Absent CSF Lyme IgG Ab 41 kDa Absent CSF Lyme IgG Ab 45 kDa Present H CSF Lyme IgG Ab 58 kDa Absent CSF Lyme IgG Ab 66 kDa Absent CSF Lyme IgG Ab 93 kDa Absent CSF Lyme IgM [place] Y CSF Lyme IgM Ab 23 kDa Absent CSF Lyme IgM Ab 39 kDa Absent CSF Lyme IgM Ab 41 kDa Absent Lyme IgG Ab Interpret Negative Lyme IgM Ab Index Negative 01/11/17 01/11/17 05:10 05:10 WBC 11.8 H RBC 3.69 L Hgb 9.8 L Hct 30.5 L MCV 82.6 MCH 26.6 MCHC 32.2 RDW 21.5 H Plt Count 377 MPV 8.0 Neutrophils % 93.6 H Lymphocytes % 3.9 L Monocytes % 2.4 L Eosinophils % 0.0 Basophils % 0.1 Sodium 137 Potassium 4.1 Chloride 102 Carbon Dioxide 28 Anion Gap 7 L BUN 23 H Creatinine 0.7 Creat Clearance w eGFR > 60 POC Glucometer Random Glucose 115 H Calcium 7.6 L Phosphorus 3.9 Magnesium 2.1 Total Bilirubin 0.3 D AST 38 H ALT 57 D Alkaline Phosphatase 100 Total Protein 5.6 L Albumin 1.6 L CSF VDRL CSF Lyme IgG [place] CSF Lyme IgG Ab 18 kDa CSF Lyme IgG Ab 23 kDa CSF Lyme IgG Ab 28 kDa CSF Lyme IgG Ab 30 kDa CSF Lyme IgG Ab 39 kDa CSF Lyme IgG Ab 41 kDa CSF Lyme IgG Ab 45 kDa CSF Lyme IgG Ab 58 kDa CSF Lyme IgG Ab 66 kDa CSF Lyme IgG Ab 93 kDa CSF Lyme IgM [place] CSF Lyme IgM Ab 23 kDa CSF Lyme IgM Ab 39 kDa CSF Lyme IgM Ab 41 kDa Lyme IgG Ab Interpret Lyme IgM Ab Index Assessment/Plan Altered mental status with persistently high fevers --> Suspected Bacterial Meningitis Previous concern for Serotonin Syndrome versus NMS due to patient's home medication usage -> low clinical suspicion at this point. Acute agitation RLL Pneumonia / RUL cavity Psych disorder ABX per ID Follow cultures Wean trials to extubation Follow Quantiferon Gold IVF VTE prophylaxis Stop Decadron Dr Castro - Critical Care Critical Care patient: Yes Total Critical Care Time (in minutes): 40 Critical Care Statement: The care of this patient involved high complexity decision making to prevent further life threatening deterioration of the patient 's condition and/or to evalute & treat vital organ system(s) failure or risk of failure.
--- NOTE | 2017-01-11 14:56 | PN ---
Physical Exam: SUBJECTIVE: Patient seen and examined. Patient is alert off sedation and is able to follow commands. OBJECTIVE: Vital Signs Period Temp Pulse Resp BP Sys/Paz Pulse Ox Last 24 Hr 99.1 F-100.3 F 45-116 14-22 106-128/64-97 94-99 GENERAL: The patient is awake, alert, and fully oriented, in no acute distress. HEAD: Normal with no signs of trauma. EYES: PERRL, extraocular movements intact, sclera anicteric, conjunctiva clear. No ptosis. ENT: Ears normal, nares patent, oropharynx clear without exudates, moist mucous membranes. NECK: Trachea midline, full range of motion, supple. LUNGS: Breath sounds equal, clear to auscultation bilaterally, no wheezes, no crackles, no accessory muscle use. HEART: Regular rate and rhythm, S1, S2 without murmur, rub or gallop. ABDOMEN: Soft, nontender, nondistended, normoactive bowel sounds, no guarding, no rebound, no hepatosplenomegaly, no masses. EXTREMITIES: 2+ pulses, warm, well-perfused, no edema. NEUROLOGICAL: Cranial nerves II through X grossly intact. Normal speech, gait not observed. PSYCH: Normal mood, normal affect. SKIN: Warm, dry, normal turgor, no rashes or lesions noted Laboratory Results - last 24 hr 01/07/17 01/10/17 01/11/17 22:46 22:42 05:10 WBC 11.8 H RBC 3.69 L Hgb 9.8 L Hct 30.5 L MCV 82.6 MCH 26.6 MCHC 32.2 RDW 21.5 H Plt Count 377 MPV 8.0 Neutrophils % 93.6 H Lymphocytes % 3.9 L Monocytes % 2.4 L Eosinophils % 0.0 Basophils % 0.1 Sodium Potassium Chloride Carbon Dioxide Anion Gap BUN Creatinine Creat Clearance w eGFR POC Glucometer 140.06934 Random Glucose Calcium Phosphorus Magnesium Total Bilirubin AST ALT Alkaline Phosphatase Total Protein Albumin CSF VDRL Non reactive CSF Lyme IgG [place] Y CSF Lyme IgG Ab 18 kDa Absent CSF Lyme IgG Ab 23 kDa Absent CSF Lyme IgG Ab 28 kDa Absent CSF Lyme IgG Ab 30 kDa Absent CSF Lyme IgG Ab 39 kDa Absent CSF Lyme IgG Ab 41 kDa Absent CSF Lyme IgG Ab 45 kDa Present H CSF Lyme IgG Ab 58 kDa Absent CSF Lyme IgG Ab 66 kDa Absent CSF Lyme IgG Ab 93 kDa Absent CSF Lyme IgM [place] Y CSF Lyme IgM Ab 23 kDa Absent CSF Lyme IgM Ab 39 kDa Absent CSF Lyme IgM Ab 41 kDa Absent Lyme IgG Ab Interpret Negative Lyme IgM Ab Index Negative 01/11/17 01/11/17 05:10 13:26 WBC RBC Hgb Hct MCV MCH MCHC RDW Plt Count MPV Neutrophils % Lymphocytes % Monocytes % Eosinophils % Basophils % Sodium 137 Potassium 4.1 Chloride 102 Carbon Dioxide 28 Anion Gap 7 L BUN 23 H Creatinine 0.7 Creat Clearance w eGFR > 60 POC Glucometer 145.98236 Random Glucose 115 H Calcium 7.6 L Phosphorus 3.9 Magnesium 2.1 Total Bilirubin 0.3 D AST 38 H ALT 57 D Alkaline Phosphatase 100 Total Protein 5.6 L Albumin 1.6 L CSF VDRL CSF Lyme IgG [place] CSF Lyme IgG Ab 18 kDa CSF Lyme IgG Ab 23 kDa CSF Lyme IgG Ab 28 kDa CSF Lyme IgG Ab 30 kDa CSF Lyme IgG Ab 39 kDa CSF Lyme IgG Ab 41 kDa CSF Lyme IgG Ab 45 kDa CSF Lyme IgG Ab 58 kDa CSF Lyme IgG Ab 66 kDa CSF Lyme IgG Ab 93 kDa CSF Lyme IgM [place] CSF Lyme IgM Ab 23 kDa CSF Lyme IgM Ab 39 kDa CSF Lyme IgM Ab 41 kDa Lyme IgG Ab Interpret Lyme IgM Ab Index Active Medications Generic Name Dose Route Start Last Admin Trade Name Freq PRN Reason Stop Dose Admin Ceftriaxone Sodium 2 gm 01/09/17 10:00 01/11/17 10:54 Rocephin 2gm Ivpb (Pre-Docked) IVPB 2 gm DAILY [facility] Administration Chlorhexidine Gluconate 1 applic 01/08/17 22:00 01/10/17 22:34 Hibiclens For Decolonization - TP 1 applic HS [facility] Administration Heparin Sodium (Porcine) 5,000 unit 01/09/17 22:00 01/11/17 13:37 Heparin - SQ 5,000 unit TID [facility] Administration Propofol 100 mls @ 1.905 mls/hr 01/07/17 22:00 01/11/17 10:00 Diprivan - IVPUSH 0 mcg/kg/min TITR [facility] Titration Protocol 5 MCG/KG/MIN Fentanyl 500 mcg/ Dextrose 100 mls @ 10 mls/hr 01/07/17 23:00 01/11/17 10:30 IJ 0 mcg/hr TITR [facility] Titration 50 MCG/HR Levofloxacin 150 mls @ 150 mls/hr 01/09/17 10:00 01/11/17 11:12 Levaquin 750 Mg Premixed Ivpb - IVPB 150 mls/hr DAILY [facility] Administration Vancomycin HCl 1,250 mg/ 250 mls @ 250 mls/hr 01/08/17 22:00 01/11/17 11:32 Dextrose IVPB 250 mls/hr BID [facility] Administration Protocol Ampicillin Sodium 2 gm/ Sodium 100 mls @ 200 mls/hr 01/08/17 21:00 01/11/17 11: 08 Chloride IVPB 200 mls/hr Q6H-IV [facility] Administration Dextrose/Sodium Chloride 1,000 mls @ 100 mls/hr 01/09/17 14:15 01/10/17 14:34 D5-Ns - IV 100 mls/hr [facility] Administration Mupirocin 1 applic 01/08/17 22:00 01/11/17 10:53 Bactroban Ointment (For Decolonization) - NS 01/13/17 21:59 1 applic BID [facility] Administration Pantoprazole Sodium 40 mg 01/08/17 10:00 01/11/17 10:56 Protonix 40mg Ivpb (Pre-Docked) IVPB 40 mg DAILY [facility] Administration ASSESSMENT/PLAN: the patient is a 46 y/o male with prior substance abuse, unclear psych disorder , is on multiple antipsychotics and antidepressants, presents to the ED with altered mental status and high fevers. Neuro: -patient is alert and responsive off of sedation, -Alterted mental status 2/2 bacterial meningitis less likely neuroleptic malignant syndrome -LP shows cloudy, WBC 358, glucose 5, protein 205 -isolation precautions -f/u CSF cultures -CSF for AFB negative -CSF for fungus negative -CSF for cryptococcus negative -CSF gram stain Negative -Bcx growing coagulase negative staph sp. -f/u urine culture -Decadron 10mg IV daily -Ceftriaxone 2grams IV daily (Day 3) -vancomycin 1.25g IV daily (Day 3) -Ampicillin 1 gm Q6H IV (Day 3) Pulmonary: -consolidations and cavitary lesions in upper and middle lobes on CT chest 2/2 pulmonary TB vs CAP -f/u quantiferon gold- pending -f/u sputum culture and AFB smear -AFB smear x1 negative -sputum culture shows gram positive cocci in pairs -f/u results of second smear -urine for legionella antigen negative -patient is s/p bronchoscopy and washing -sent washings for ABF culture and TB PCR -Levaquin 750mg IV (Day 3) FEN: -D5NS @100 -potassium repleted, will continue to monitor lytes -NPO after extubation Prophylaxsis: -heparin SQ for DVT -Protonix 40mg IV Dispo: -continue to monitor in the ICU Problem List - Problems (1) Agitation Code(s): R45.1 - RESTLESSNESS AND AGITATION (2) Sepsis Code(s): A41.9 - SEPSIS, UNSPECIFIED ORGANISM Qualifiers: Sepsis type: sepsis due to unspecified organism Qualified Code(s): A41.9 - Sepsis, unspecified organism (3) Bacterial meningitis Code(s): G00.9 - BACTERIAL MENINGITIS, UNSPECIFIED (4) Tuberculosis Code(s): A15.9 - RESPIRATORY TUBERCULOSIS UNSPECIFIED Visit type - Emergency Visit Emergency Visit: Yes ED Registration Date: 01/07/17 Care time: The patient presented to the Emergency Department on the above date and was hospitalized for further evaluation of their emergent condition. - New Patient This patient is new to me today: No - Critical Care Critical Care patient: Yes Total Critical Care Time (in minutes): 35 Critical Care Statement: The care of this patient involved high complexity decision making to prevent further life threatening deterioration of the patient 's condition and/or to evaluate & treat vital organ system(s) failure or risk of failure.
[2017-01-11] MEDS: DEXTROSE 5%-NORMAL SALINE 1,000 ML IV SCH (14:59)
--- NOTE | 2017-01-11 17:11 | PN ---
Progress Note, Physician History of Present Illness: patient stable awake and alert follows commands - Current Medication List Current Medications: Active Medications Ceftriaxone Sodium (Rocephin 2gm Ivpb (Pre-Docked)) 2 gm IVPB DAILY [facility] Last Admin: 01/11/17 10:54 Dose: 2 gm Chlorhexidine Gluconate (Hibiclens For Decolonization -) 1 applic TP HS [facility] Last Admin: 01/10/17 22:34 Dose: 1 applic Heparin Sodium (Porcine) (Heparin -) 5,000 unit SQ TID [facility] Last Admin: 01/11/17 13:37 Dose: 5,000 unit Propofol (Diprivan -) 100 mls @ 1.905 mls/hr IVPUSH TITR [facility]; 5 MCG/KG/MIN PRN Reason: Protocol Last Titration: 01/11/17 10:00 Dose: 0 mcg/kg/min Fentanyl 500 mcg/ Dextrose 100 mls @ 10 mls/hr IJ TITR [facility] PRN Reason: 50 MCG/HR Last Titration: 01/11/17 10:30 Dose: 0 mcg/hr Vancomycin HCl 1,250 mg/ (Dextrose) 250 mls @ 250 mls/hr IVPB BID [facility] PRN Reason: Protocol Last Admin: 01/11/17 11:32 Dose: 250 mls/hr Dextrose/Sodium Chloride (D5-Ns -) 1,000 mls @ 100 mls/hr IV ASDIR [facility] Last Admin: 01/11/17 14:59 Dose: 100 mls/hr Mupirocin (Bactroban Ointment (For Decolonization) -) 1 applic NS BID [facility] Stop: 01/13/17 21:59 Last Admin: 01/11/17 10:53 Dose: 1 applic Pantoprazole Sodium (Protonix 40mg Ivpb (Pre-Docked)) 40 mg IVPB DAILY [facility] Last Admin: 01/11/17 10:56 Dose: 40 mg - Objective Vital Signs: Vital Signs Temperature 99.1 F 01/11/17 13:52 Pulse Rate 45 L 01/11/17 15:00 Respiratory Rate 18 01/11/17 15:00 Blood Pressure 118/79 01/11/17 15:00 O2 Sat by Pulse Oximetry (%) 97 01/11/17 14:35 Constitutional: Yes: No Distress, Calm Cardiovascular: Yes: Regular Rate and Rhythm Respiratory: Yes: Regular, Rhonchi Gastrointestinal: Yes: Normal Bowel Sounds, Soft Musculoskeletal: Yes: WNL Extremities: Yes: WNL Neurological: Yes: Alert Psychiatric: Yes: Alert Labs: CBC, BMP 01/11/17 05:10 01/11/17 05:10 INR, PTT INR 1.25 (0.82-1.09) H 01/09/17 05:20 Assessment/Plan Altered mental status with persistently high fevers r/o bacteria meningitis concern for Serotonin Syndrome versus NMS due to patient's home medication usage Acute agitation RLL Pneumonia / (?) RUL cavity Psych disorder sepsis resp failure gm positive bacteremia plan will stop amp and levo repeat blood cx ordered for tomorrow incentive serena close watch on mental status vanco trough cc time 40 min
[2017-01-11] MEDS ORDERED: DEXAMETHASONE SOD PHOSPHATE 10 MG/1 ML VIAL IVPUSH SCH (18:00)
[2017-01-11] MEDS ORDERED: ACETAMINOPHEN 325 MG TABLET (FP) PO PRN (19:58)
[2017-01-11 21:05] LABS: BASOPHIL 0.3 % (0-2.0); MCH 26.6 pg (25.7-33.7); MCHC 31.9 g/dl (32.0-35.9); MEAN CELL VOLUME 83.6 fl (80-96); MEAN PLT VOLUME 8.2 fl (7.5-11.1); NEUTROPHILS 84.3 % (42.8-82.8); PLATELET COUNT 341 K/MM3 (134-434); RDW 20.5 % (11.9-15.9); WHITE BLOOD COUNT 13.5 K/mm3 (4.0-10.0)
[2017-01-11 21:34] LABS: ALBUMIN 1.7 g/dl (3.4-5.0); ANION GAP 7 (8-16); BILIRUBIN,TOTAL 0.3 mg/dL (0.2-1.0); CALCIUM 7.8 mg/dL (8.5-10.1); CO2 30 mmol/L (21-32); CREATININE 0.7 mg/dL (0.7-1.3); GLUCOSE,RANDOM 123 mg/dL (74-106); MAGNESIUM 2.1 mg/dL (1.8-2.4); SGOT/AST 213 U/L (15-37); SGPT/ALT 210 U/L (12-78)
[2017-01-11 21:36] LABS: ALK PHOS 119 U/L (45-117); TOT PROT 5.7 g/dl (6.4-8.2)
--- NOTE | 2017-01-11 21:36 | PN ---
Progress Note, Physician History of Present Illness: stable - Current Medication List Current Medications: Active Medications Acetaminophen (Tylenol -) 650 mg PO Q4H PRN PRN Reason: FEVER OR PAIN Last Admin: 01/11/17 20:28 Dose: 650 mg Ceftriaxone Sodium (Rocephin 2gm Ivpb (Pre-Docked)) 2 gm IVPB DAILY [facility] Last Admin: 01/11/17 10:54 Dose: 2 gm Chlorhexidine Gluconate (Hibiclens For Decolonization -) 1 applic TP HS [facility] Last Admin: 01/10/17 22:34 Dose: 1 applic Heparin Sodium (Porcine) (Heparin -) 5,000 unit SQ TID [facility] Last Admin: 01/11/17 13:37 Dose: 5,000 unit Propofol (Diprivan -) 100 mls @ 1.905 mls/hr IVPUSH TITR [facility]; 5 MCG/KG/MIN PRN Reason: Protocol Last Titration: 01/11/17 10:00 Dose: 0 mcg/kg/min Fentanyl 500 mcg/ Dextrose 100 mls @ 10 mls/hr IJ TITR [facility] PRN Reason: 50 MCG/HR Last Titration: 01/11/17 10:30 Dose: 0 mcg/hr Vancomycin HCl 1,250 mg/ (Dextrose) 250 mls @ 250 mls/hr IVPB BID [facility] PRN Reason: Protocol Last Admin: 01/11/17 11:32 Dose: 250 mls/hr Dextrose/Sodium Chloride (D5-Ns -) 1,000 mls @ 100 mls/hr IV ASDIR [facility] Last Admin: 01/11/17 14:59 Dose: 100 mls/hr Mupirocin (Bactroban Ointment (For Decolonization) -) 1 applic NS BID [facility] Stop: 01/13/17 21:59 Last Admin: 01/11/17 10:53 Dose: 1 applic Pantoprazole Sodium (Protonix 40mg Ivpb (Pre-Docked)) 40 mg IVPB DAILY [facility] Last Admin: 01/11/17 10:56 Dose: 40 mg - Objective Vital Signs: Vital Signs Temperature 100.0 F H 01/11/17 18:21 Pulse Rate 48 L 01/11/17 20:00 Respiratory Rate 22 01/11/17 20:00 Blood Pressure 117/77 01/11/17 20:00 O2 Sat by Pulse Oximetry (%) 96 01/11/17 20:45 Constitutional: Yes: Calm HENT: Yes: Atraumatic Neck: Yes: Supple Cardiovascular: Yes: Regular Rate and Rhythm Respiratory: Yes: Rhonchi Gastrointestinal: Yes: Normal Bowel Sounds Extremities: Yes: WNL Labs: CBC, BMP 01/11/17 20:00 INR, PTT INR 1.25 (0.82-1.09) H 01/09/17 05:20 Problem List - Problems (1) Agitation Code(s): R45.1 - RESTLESSNESS AND AGITATION (2) Sepsis Code(s): A41.9 - SEPSIS, UNSPECIFIED ORGANISM Qualifiers: Sepsis type: sepsis due to unspecified organism Qualified Code(s): A41.9 - Sepsis, unspecified organism (3) Bacterial meningitis Code(s): G00.9 - BACTERIAL MENINGITIS, UNSPECIFIED (4) Tuberculosis Code(s): A15.9 - RESPIRATORY TUBERCULOSIS UNSPECIFIED Assessment/Plan Assessment Altered mental status with persistently high fevers r/o bacteria meningitis concern for Serotonin Syndrome versus NMS due to patient's home medication usage Acute agitation RLL Pneumonia / (?) RUL cavity Psych disorder sepsis resp failure gm positive bacteremia plan on iv abx per id cxs pending
[2017-01-12] MEDS: CHLORHEXIDINE GLUCONATE 4% CLEANSER FOR DECOLONIZATION TP SCH ×2 (00:02→22:45)
[2017-01-12] MEDS: HEPARIN NA (PORCINE) 5,000 UNITS/ML 1ML VIAL SQ SCH ×4 (00:02→22:45)
[2017-01-12 06:11] LABS: TOXOPLASMA IGG,CSF < 3.0 IU/mL (.)
[2017-01-12] MEDS: IBUPROFEN 400 MG TABLET (FP) PO PRN ×2 (07:24→15:35)
[2017-01-12] MEDS ORDERED: PT OWN MED DRAWER 7, Y5N ONE ×2 (09:20→17:50)
--- NOTE | 2017-01-12 09:30 | PN ---
Progress Note (short form) - Note Progress Note: Patient seen and examined in the ICU. Remains extubated. Awake and alert, Mildly confused. Denies CP or SOB. Some cough. No hemoptysis. Noted relative bradycardia, hemodynamics are stable. CXR: Improving RLL consolidation Intake & Output 01/09/17 01/10/17 01/11/17 01/12/17 23:59 23:59 23:59 23:59 Intake Total 1951 4082 4085 800 Output Total 1400 1600 2600 300 Balance 551 2482 1485 500 Weight 156 lb 158 lb 8 oz 149 lb 4.047 oz Last Vital Signs Temp Pulse Resp BP Pulse Ox 100.0 F H 60 22 131/74 96 01/11/17 18:21 01/12/17 06:00 01/12/17 06:00 01/12/17 06:00 01/11/17 20:45 Active Medications Ceftriaxone Sodium (Rocephin 2gm Ivpb (Pre-Docked)) 2 gm IVPB DAILY [facility] Last Admin: 01/11/17 10:54 Dose: 2 gm Chlorhexidine Gluconate (Hibiclens For Decolonization -) 1 applic TP HS [facility] Last Admin: 01/12/17 00:02 Dose: 1 applic Heparin Sodium (Porcine) (Heparin -) 5,000 unit SQ TID [facility] Last Admin: 01/12/17 07:24 Dose: 5,000 unit Vancomycin HCl 1,250 mg/ (Dextrose) 250 mls @ 250 mls/hr IVPB BID [facility] PRN Reason: Protocol Last Admin: 01/12/17 00:00 Dose: 250 mls/hr Dextrose/Sodium Chloride (D5-Ns -) 1,000 mls @ 100 mls/hr IV ASDIR [facility] Last Admin: 01/11/17 14:59 Dose: 100 mls/hr Ibuprofen (Motrin -) 800 mg PO Q8H PRN PRN Reason: FEVER Last Admin: 01/12/17 07:24 Dose: 800 mg Mupirocin (Bactroban Ointment (For Decolonization) -) 1 applic NS BID [facility] Stop: 01/13/17 21:59 Last Admin: 01/12/17 00:00 Dose: 1 applic Pantoprazole Sodium (Protonix 40mg Ivpb (Pre-Docked)) 40 mg IVPB DAILY [facility] Last Admin: 01/11/17 10:56 Dose: 40 mg Constitutional: Yes: Extubated, NAD Eyes: Yes: pupils are reactive HENT: Yes: WNL Neck: Yes: WNL Cardiovascular: Yes: Tachycardia, S1, S2 Respiratory: Yes: Scattered bilateral rhonhci Right > Left Gastrointestinal: Yes: Soft Musculoskeletal: No: rigidity Edema: No Integumentary: Yes: dry Neurological: Yes: sedated Laboratory Results - last 24 hr 01/07/17 01/11/17 01/11/17 22:46 13:26 18:08 WBC RBC Hgb Hct MCV MCH MCHC RDW Plt Count MPV Neutrophils % Lymphocytes % Monocytes % Eosinophils % Basophils % Sodium Potassium Chloride Carbon Dioxide Anion Gap BUN Creatinine Creat Clearance w eGFR POC Glucometer 145.69478 133.19018 Random Glucose Calcium Phosphorus Magnesium Total Bilirubin AST ALT Alkaline Phosphatase Total Protein Albumin CSF VDRL Non reactive CSF Lyme IgG [place] Y CSF Lyme IgG Ab 18 kDa Absent CSF Lyme IgG Ab 23 kDa Absent CSF Lyme IgG Ab 28 kDa Absent CSF Lyme IgG Ab 30 kDa Absent CSF Lyme IgG Ab 39 kDa Absent CSF Lyme IgG Ab 41 kDa Absent CSF Lyme IgG Ab 45 kDa Present H CSF Lyme IgG Ab 58 kDa Absent CSF Lyme IgG Ab 66 kDa Absent CSF Lyme IgG Ab 93 kDa Absent CSF Lyme IgM [place] Y CSF Lyme IgM Ab 23 kDa Absent CSF Lyme IgM Ab 39 kDa Absent CSF Lyme IgM Ab 41 kDa Absent CSF Toxoplasma IgG Ab < 3.0 Lyme IgG Ab Interpret Negative Lyme IgM Ab Index Negative 01/11/17 01/11/17 01/12/17 20:00 20:00 00:09 WBC 13.5 H RBC 3.70 L Hgb 9.9 L Hct 31.0 L MCV 83.6 MCH 26.6 MCHC 31.9 L RDW 20.5 H Plt Count 341 MPV 8.2 Neutrophils % 84.3 H Lymphocytes % 9.0 D Monocytes % 6.4 D Eosinophils % 0.0 Basophils % 0.3 Sodium 137 Potassium 3.7 Chloride 100 Carbon Dioxide 30 Anion Gap 7 L BUN 21 H Creatinine 0.7 Creat Clearance w eGFR > 60 POC Glucometer 149.78205 Random Glucose 123 H Calcium 7.8 L Phosphorus 3.0 D Magnesium 2.1 Total Bilirubin 0.3 AST 213 H D ALT 210 H D Alkaline Phosphatase 119 H Total Protein 5.7 L Albumin 1.7 L CSF VDRL CSF Lyme IgG [place] CSF Lyme IgG Ab 18 kDa CSF Lyme IgG Ab 23 kDa CSF Lyme IgG Ab 28 kDa CSF Lyme IgG Ab 30 kDa CSF Lyme IgG Ab 39 kDa CSF Lyme IgG Ab 41 kDa CSF Lyme IgG Ab 45 kDa CSF Lyme IgG Ab 58 kDa CSF Lyme IgG Ab 66 kDa CSF Lyme IgG Ab 93 kDa CSF Lyme IgM [place] CSF Lyme IgM Ab 23 kDa CSF Lyme IgM Ab 39 kDa CSF Lyme IgM Ab 41 kDa CSF Toxoplasma IgG Ab Lyme IgG Ab Interpret Lyme IgM Ab Index Assessment/Plan Altered mental status with persistently high fevers --> Suspected Staph Bacterial Meningitis Previous concern for Serotonin Syndrome versus NMS due to patient's home medication usage -> low clinical suspicion at this point. Acute agitation RLL Pneumonia / RUL cavity Psych disorder ABX per ID O2 as needed OOB to chair PO as tolerated VTE prophylaxis Monitor off Decadron Monitor off Protonix Floor Dr Castro - Critical Care Critical Care patient: Yes Total Critical Care Time (in minutes): 40 Critical Care Statement: The care of this patient involved high complexity decision making to prevent further life threatening deterioration of the patient 's condition and/or to evalute & treat vital organ system(s) failure or risk of failure.
[2017-01-12] MEDS: cefTRIAXone 2 GM/100 ML BAG (PRE-DOCKED) IVPB SCH (10:29)
[2017-01-12] MEDS: MUPIROCIN 2% TOPICAL OINTMENT FOR DECOLONIZATION NS SCH ×3 (10:30→22:45)
[2017-01-12] MEDS: VANCOMYCIN 1,250 MG in DEXTROSE 5%-WATER - 250 ML IVPB SCH ×2 (10:30)
[2017-01-12] MEDS ORDERED: ONDANSETRON 4 MG/2 ML VIAL ONE (12:39)
[2017-01-12] MEDS ORDERED: ONDANSETRON 4 MG/2 ML VIAL IVPB PRN (12:42)
--- NOTE | 2017-01-12 13:38 | PN ---
Progress Note, Physician History of Present Illness: looks stable no complaints no issues says he is doing well - Current Medication List Current Medications: Active Medications Ceftriaxone Sodium (Rocephin 2gm Ivpb (Pre-Docked)) 2 gm IVPB DAILY [facility] Last Admin: 01/12/17 10:29 Dose: 2 gm Chlorhexidine Gluconate (Hibiclens For Decolonization -) 1 applic TP HS [facility] Last Admin: 01/12/17 00:02 Dose: 1 applic Heparin Sodium (Porcine) (Heparin -) 5,000 unit SQ TID [facility] Last Admin: 01/12/17 07:24 Dose: 5,000 unit Vancomycin HCl 1,250 mg/ (Dextrose) 250 mls @ 250 mls/hr IVPB BID [facility] PRN Reason: Protocol Last Admin: 01/12/17 10:30 Dose: 250 mls/hr Ibuprofen (Motrin -) 800 mg PO Q8H PRN PRN Reason: FEVER Last Admin: 01/12/17 07:24 Dose: 800 mg Mupirocin (Bactroban Ointment (For Decolonization) -) 1 applic NS BID [facility] Stop: 01/13/17 21:59 Last Admin: 01/12/17 10:30 Dose: 1 applic Ondansetron HCl (Zofran Injection) 4 mg IVPB Q4H PRN PRN Reason: NAUSEA AND/OR VOMITING Last Admin: 01/12/17 12:46 Dose: 4 mg - Objective Vital Signs: Vital Signs Temperature 100.0 F H 01/11/17 18:21 Pulse Rate 56 L 01/12/17 11:38 Respiratory Rate 22 01/12/17 06:00 Blood Pressure 131/74 01/12/17 06:00 O2 Sat by Pulse Oximetry (%) 97 01/12/17 11:38 Constitutional: Yes: No Distress, Calm HENT: Yes: Atraumatic Neck: Yes: Supple, Trachea Midline Cardiovascular: Yes: Regular Rate and Rhythm Respiratory: Yes: Regular, Poor Air Entry, Rhonchi Gastrointestinal: Yes: Normal Bowel Sounds, Soft Musculoskeletal: Yes: WNL Extremities: Yes: WNL Neurological: Yes: Alert, Oriented Psychiatric: Yes: Alert, Oriented Labs: CBC, BMP 01/11/17 20:00 01/11/17 20:00 INR, PTT INR 1.25 (0.82-1.09) H 01/09/17 05:20 Assessment/Plan Altered mental status with persistently high fevers r/o bacteria meningitis concern for Serotonin Syndrome versus NMS due to patient's home medication usage Acute agitation RLL Pneumonia / (?) RUL cavity Psych disorder sepsis resp failure gm positive bacteremia plan continue current mgmt await for all cx continue abx will monitor closely for fevers rest as per icu cc time 40 min
[2017-01-12] MEDS: DEXTROSE 5%-NORMAL SALINE 1,000 ML IV SCH (15:34)
[2017-01-12 16:48] LABS: MCH 26.1 pg (25.7-33.7); MCHC 32.2 g/dl (32.0-35.9); MEAN CELL VOLUME 80.9 fl (80-96); MEAN PLT VOLUME 8.1 fl (7.5-11.1); PLATELET COUNT 319 K/MM3 (134-434); RDW 20.8 % (11.9-15.9); WHITE BLOOD COUNT 13.9 K/mm3 (4.0-10.0)
[2017-01-12 17:17] LABS: ALBUMIN 1.8 g/dl (3.4-5.0); ANION GAP 9 (8-16); BILIRUBIN,TOTAL 0.3 mg/dL (0.2-1.0); CALCIUM 7.2 mg/dL (8.5-10.1); CO2 27 mmol/L (21-32); CPK 60 IU/L (39-308); CREATININE 0.6 mg/dL (0.7-1.3); GLUCOSE,RANDOM 104 mg/dL (74-106); SGOT/AST 49 U/L (15-37); SGPT/ALT 121 U/L (12-78); TOT PROT 5.3 g/dl (6.4-8.2)
[2017-01-12 17:19] LABS: ALK PHOS 111 U/L (45-117); TROPONIN I 0.02 ng/ml (0.00-0.05)
[2017-01-12 17:26] LABS: ANISOCYTOSIS 1+; PLATELET ESTIMATE ADEQUATE (NORMAL)
[2017-01-12] MEDS ORDERED: AMPICILLIN NA/SULBACTAM NA 3 GM/100 ML PRE-DOCKED IVPB SCH (18:00)
[2017-01-12] MEDS: AMPICILLIN NA/SULBACTAM NA 3 GM in SODIUM CHLORIDE 100 ML IVPB SCH (18:36)
[2017-01-12 19:19] LABS: PHOSPHOROUS 2.6 mg/dL (2.5-4.9)
--- NOTE | 2017-01-12 21:15 | PN ---
Progress Note, Physician History of Present Illness: No new complaints - Current Medication List Current Medications: Active Medications Ceftriaxone Sodium (Rocephin 2gm Ivpb (Pre-Docked)) 2 gm IVPB DAILY [facility] Last Admin: 01/12/17 10:29 Dose: 2 gm Chlorhexidine Gluconate (Hibiclens For Decolonization -) 1 applic TP HS [facility] Last Admin: 01/12/17 00:02 Dose: 1 applic Heparin Sodium (Porcine) (Heparin -) 5,000 unit SQ TID [facility] Last Admin: 01/12/17 15:34 Dose: 5,000 unit Dextrose/Sodium Chloride (D5-Ns -) 1,000 mls @ 100 mls/hr IV ASDIR [facility] Last Admin: 01/12/17 15:34 Dose: 100 mls/hr Ampicillin Sodium/Sulbactam (Sodium 3 gm/ Sodium Chloride) 100 mls @ 200 mls/ hr IVPB Q8H-IV [facility] Last Admin: 01/12/17 18:36 Dose: 200 mls/hr Ibuprofen (Motrin -) 800 mg PO Q8H PRN PRN Reason: FEVER Last Admin: 01/12/17 15:35 Dose: 800 mg Mupirocin (Bactroban Ointment (For Decolonization) -) 1 applic NS BID [facility] Stop: 01/13/17 21:59 Last Admin: 01/12/17 10:30 Dose: 1 applic Ondansetron HCl (Zofran Injection) 4 mg IVPB Q4H PRN PRN Reason: NAUSEA AND/OR VOMITING Last Admin: 01/12/17 12:46 Dose: 4 mg - Objective Vital Signs: Vital Signs Temperature 102.7 F H 01/12/17 18:00 Pulse Rate 51 L 01/12/17 18:00 Respiratory Rate 27 H 01/12/17 18:00 Blood Pressure 121/75 01/12/17 18:00 O2 Sat by Pulse Oximetry (%) 97 01/12/17 11:38 Constitutional: Yes: No Distress Neck: Yes: WNL, Supple Cardiovascular: Yes: WNL, Regular Rate and Rhythm Respiratory: Yes: WNL, Regular, CTA Bilaterally Gastrointestinal: Yes: WNL, Normal Bowel Sounds, Soft Labs: CBC, BMP 01/12/17 16:25 01/12/17 16:25 INR, PTT INR 1.25 (0.82-1.09) H 01/09/17 05:20 Problem List - Problems (1) Sepsis Assessment/Plan: Cont IV ceftriaxone Moniotr cultures As per ID Code(s): A41.9 - SEPSIS, UNSPECIFIED ORGANISM Qualifiers: Sepsis type: sepsis due to unspecified organism Qualified Code(s): A41.9 - Sepsis, unspecified organism
[2017-01-13] MEDS: AMPICILLIN NA/SULBACTAM NA 3 GM in SODIUM CHLORIDE 100 ML IVPB SCH ×2 (02:36→11:29)
[2017-01-13] MEDS: IBUPROFEN 400 MG TABLET (FP) PO PRN ×3 (03:50→21:15)
[2017-01-13] MEDS: HEPARIN NA (PORCINE) 5,000 UNITS/ML 1ML VIAL SQ SCH ×3 (06:43→21:15)
--- NOTE | 2017-01-13 08:14 | CON.CARD ---
Consult Consult Specialty:: Cardiology Referred by:: Dr. Raphael Reason for Consultation:: Sinus bradycardia - History of Present Illness Chief Complaint: Sinus bradycardia on monitor History of Present Illness: Long hospital course reviewed in EMR, to summarize: 46M with h/o smoking, heroin abuse,? prior CVA, psych disorder admitted on 01/07 with altered mental status and fever. Found to have cavitary PNA on chest CT, gram + bacteremia and suspected staph meningitis. Intubated initially, now extubated. I was called yesterday afternoon to evaluate sinus bradycardia. Initial ECG showed NSR in the 90s; developed sinus bradycardia over the last 48- 72 hours. Asymptomatic. Denies dizziness, light headedness. No chest pain or SOB. Exercise capacity described as unlimited; no prior syncopal episodes. Denies prior cardiac hx. TELE: shows sinus omar in the mid 40s, low 50s, no pauses. - History Source History Provided By: Patient, Medical Record Limitations to Obtaining History: Clinical Condition - Past Medical History MEDICAL RESEARCHER: Yes: TIA Psych: Yes: Addictions, Anxiety, Depression, Schizophrenia - Alcohol/Substance Use Hx Alcohol Use: No History of Substance Use: reports: Prescription - Smoking History Smoking history: Unknown if ever smoked Have you smoked in the past 12 months: No - Social History Usual Living Arrangement: With Spouse ADL: Independent Occupation: repairs appliances Home Medications - Allergies Allergies/Adverse Reactions: Allergies Allergy/AdvReac Type Severity Reaction Status Date / Time No Known Allergies Allergy Verified 01/07/17 15:52 - Home Medications Home Medications: Ambulatory Orders Buprenorphine HCl [Subutex -] BID 01/08/17 Chlorpromazine [Thorazine -] HS PRN 01/08/17 Gabapentin [Neurontin -] DAILY 01/08/17 Hydroxyzine Pamoate [Vistaril -] Q6H 01/08/17 Mirtazapine [Remeron -] DAILY 01/08/17 Mirtazapine [Remeron -] 30 mg PO DAILY 01/08/17 Family Disease History - Family Disease History Family History: Unremarkable (non-contibutory) Review of Systems Findings/Remarks: see HPI - Review of Systems Constitutional: reports: No Symptoms Cardiovascular: reports: No Symptoms Respiratory: reports: No Symptoms Gastrointestinal: reports: Nausea Genitourinary: reports: No Symptoms Breasts: reports: No Symptoms Reported Musculoskeletal: reports: No Symptoms Integumentary: reports: No Symptoms Neurological: reports: No Symptoms Endocrine: reports: No Symptoms Hematology/Lymphatic: reports: No Symptoms - Risk Factors Known Risk Factors: Yes: Smoking Vital Signs: Vital Signs Temperature 100.1 F H 01/13/17 06:00 Pulse Rate 47 L 01/13/17 06:00 Respiratory Rate 22 01/13/17 06:00 Blood Pressure 121/72 01/13/17 06:00 O2 Sat by Pulse Oximetry (%) 96 01/12/17 21:00 Constitutional: Yes: No Distress, Calm Eyes: Yes: Conjunctiva Clear, EOM Intact Neck: Yes: Supple Respiratory: Yes: CTA Bilaterally Gastrointestinal: Yes: Soft Cardiovascular: Yes: Regular Rate and Rhythm JVD: No Carotid Bruit: No PMI: Non-Displaced Heart Sounds: Yes: S1, S2 (Omar; no murmurs) Edema: No Neurological: Yes: Alert, Oriented Psychiatric: Yes: WNL (appropriately answers questions) - Other Data Labs, Other Data: CBC, BMP 01/12/17 16:25 01/12/17 16:25 INR, PTT INR 1.25 (0.82-1.09) H 01/09/17 05:20 Troponin, BNP 01/12/17 16:25 Troponin I 0.02 Troponin, BNP 01/12/17 16:25 Troponin I 0.02 Microbiology 01/12/17 05:35 Blood - Peripheral Venous Blood Culture - Preliminary NO GROWTH OBTAINED AFTER 24 HOURS, INCUBATION TO CONTINUE FOR 4 DAYS. 01/12/17 05:35 Blood - Peripheral Venous Blood Culture - Preliminary NO GROWTH OBTAINED AFTER 24 HOURS, INCUBATION TO CONTINUE FOR 4 DAYS. Laboratory Tests 01/07/17 01/07/17 01/07/17 16:00 17:35 18:05 Troponin I 0.02 Opiates Screen Positive Lyme IgG Ab Interpret Lyme IgM Ab Index HIV 1&2 Antibody Screen Negative HIV P24 Antigen Negative 01/07/17 01/07/17 01/08/17 20:30 22:46 23:30 Troponin I 0.03 D < 0.02 D Opiates Screen Lyme IgG Ab Interpret Negative Lyme IgM Ab Index Negative HIV 1&2 Antibody Screen HIV P24 Antigen 01/12/17 16:25 Troponin I 0.02 Opiates Screen Lyme IgG Ab Interpret Lyme IgM Ab Index HIV 1&2 Antibody Screen HIV P24 Antigen NSR 97bpm, NSST changes (01/07) TELE: reviewed. Sinus omar in 40s. Echo: Report Reviewed (Normal LVfx) Ejection Fraction %: LVEF > or = 40 % Imaging - Results Chest X-ray: Image Reviewed X-ray: Report Reviewed Cat Scan: Report Reviewed EKG: Image Reviewed Problem List - Problems (1) Bacterial meningitis Code(s): G00.9 - BACTERIAL MENINGITIS, UNSPECIFIED (2) Sepsis Code(s): A41.9 - SEPSIS, UNSPECIFIED ORGANISM Qualifiers: Sepsis type: sepsis due to unspecified organism Qualified Code(s): A41.9 - Sepsis, unspecified organism (3) Sinus bradycardia Code(s): R00.1 - BRADYCARDIA, UNSPECIFIED Assessment/Plan IMP: Suspected bacterial meningitis Sinus bradycardia, asymptomatic and hemodynamically stable. REC: At this point, etiology of sinus bradycardia is unclear but there are several possibilities: He was receiving IV Zofran, which can cause bradycardia. Opiates (which were given while intubated) can also cause bradycardia, and there may be some lingering effects. Other considerations include increased ICP from meningitis (although there seem to be no other clinical signs or sx of this); and increased resting vagal tone from nausea. Will repeat echo to rule out development of pericardial effusion which can sometimes occur in sepsis. For now, continue tele in ICU and avoid medications that may precipitate bradycardia (Zofran d/cd).
[2017-01-13 09:00] LABS: BASOPHIL 0.1 % (0-2.0); EOSINOPHIL 0.3 % (0-4.5); MCH 25.8 pg (25.7-33.7); MCHC 31.4 g/dl (32.0-35.9); MEAN CELL VOLUME 82.1 fl (80-96); MEAN PLT VOLUME 7.8 fl (7.5-11.1); NEUTROPHILS 85.5 % (42.8-82.8); PLATELET COUNT 327 K/MM3 (134-434); RDW 20.8 % (11.9-15.9); WHITE BLOOD COUNT 14.1 K/mm3 (4.0-10.0)
[2017-01-13 09:23] LABS: ALBUMIN 1.8 g/dl (3.4-5.0); ANION GAP 10 (8-16); BILIRUBIN,TOTAL 0.4 mg/dL (0.2-1.0); CALCIUM 7.5 mg/dL (8.5-10.1); CO2 28 mmol/L (21-32); CREATININE 0.5 mg/dL (0.7-1.3); GLUCOSE,RANDOM 111 mg/dL (74-106); MAGNESIUM 2.2 mg/dL (1.8-2.4); PHOSPHOROUS 3.1 mg/dL (2.5-4.9); SGOT/AST 26 U/L (15-37); SGPT/ALT 95 U/L (12-78); TOT PROT 5.5 g/dl (6.4-8.2)
[2017-01-13 09:24] LABS: ALK PHOS 110 U/L (45-117)
--- NOTE | 2017-01-13 09:52 | PN ---
Progress Note (short form) - Note Progress Note: Patient seen and examined in the ICU. Remains extubated. He is awake and alert and conversant. Mildly confused. Overnight spiked a temperature. Denies CP or SOB. Some cough. No hemoptysis. Still with bradycardia but hemodynamics are stable. CXR: Improving RLL consolidation Intake & Output 01/10/17 01/11/17 01/12/17 01/13/17 23:59 23:59 23:59 23:59 Intake Total 4082 4085 2500 800 Output Total 1600 2600 300 200 Balance 2482 1485 2200 600 Weight 158 lb 8 oz 149 lb 4.047 oz 146 lb 13.246 oz Last Vital Signs Temp Pulse Resp BP Pulse Ox 100.1 F H 47 L 22 121/72 96 01/13/17 06:00 01/13/17 06:00 01/13/17 06:00 01/13/17 06:00 01/12/17 21:00 Active Medications Ceftriaxone Sodium (Rocephin 2gm Ivpb (Pre-Docked)) 2 gm IVPB DAILY [facility] Last Admin: 01/12/17 10:29 Dose: 2 gm Chlorhexidine Gluconate (Hibiclens For Decolonization -) 1 applic TP HS [facility] Last Admin: 01/12/17 22:45 Dose: 1 applic Heparin Sodium (Porcine) (Heparin -) 5,000 unit SQ TID [facility] Last Admin: 01/13/17 06:43 Dose: 5,000 unit Dextrose/Sodium Chloride (D5-Ns -) 1,000 mls @ 100 mls/hr IV ASDIR [facility] Last Admin: 01/12/17 15:34 Dose: 100 mls/hr Ampicillin Sodium/Sulbactam (Sodium 3 gm/ Sodium Chloride) 100 mls @ 200 mls/ hr IVPB Q8H-IV [facility] Last Admin: 01/13/17 02:36 Dose: 200 mls/hr Ibuprofen (Motrin -) 800 mg PO Q8H PRN PRN Reason: FEVER Last Admin: 01/13/17 03:50 Dose: 800 mg Mupirocin (Bactroban Ointment (For Decolonization) -) 1 applic NS BID [facility] Stop: 01/13/17 21:59 Last Admin: 01/12/17 22:45 Dose: 1 applic Constitutional: Yes: Extubated, NAD Eyes: Yes: NO papilledema, pupils are equal and reactive HENT: Yes: WNL Neck: Yes: WNL Cardiovascular: Yes: Tachycardia, S1, S2 Respiratory: Yes: Scattered bilateral rhonhci Gastrointestinal: Yes: Soft Musculoskeletal: No: rigidity Edema: No Integumentary: Yes: dry Neurological: Yes: sedated Laboratory Results - last 24 hr 01/12/17 01/12/17 01/12/17 09:35 16:25 16:25 WBC 13.9 H RBC 3.70 L Hgb 9.6 L Hct 29.9 L MCV 80.9 MCH 26.1 MCHC 32.2 RDW 20.8 H Plt Count 319 MPV 8.1 Neutrophils % Lymphocytes % Monocytes % Eosinophils % Basophils % Platelet Estimate Adequate Anisocytosis 1+ Macrocytosis 1+ Morphology Comment Slide scanned Sodium Cancelled Potassium Cancelled Chloride Cancelled Carbon Dioxide Cancelled Anion Gap Cancelled BUN Cancelled Creatinine Cancelled Creat Clearance w eGFR Cancelled Random Glucose Cancelled Calcium Cancelled Phosphorus 2.6 Magnesium 2.0 Total Bilirubin Cancelled AST Cancelled ALT Cancelled Alkaline Phosphatase Cancelled Creatine Kinase Troponin I Total Protein Cancelled Albumin Cancelled Vancomycin Pre-Dose 9.948 01/12/17 01/13/17 01/13/17 16:25 08:55 08:55 WBC 14.1 H RBC 3.91 L Hgb 10.1 L Hct 32.1 L MCV 82.1 MCH 25.8 MCHC 31.4 L RDW 20.8 H Plt Count 327 MPV 7.8 Neutrophils % 85.5 H Lymphocytes % 8.0 Monocytes % 6.1 Eosinophils % 0.3 D Basophils % 0.1 Platelet Estimate Anisocytosis Macrocytosis Morphology Comment Sodium 134 L 135 L Potassium 3.3 L 2.9 L* Chloride 98 97 L Carbon Dioxide 27 28 Anion Gap 9 10 BUN 14 D 12 Creatinine 0.6 L 0.5 L Creat Clearance w eGFR > 60 > 60 Random Glucose 104 111 H Calcium 7.2 L 7.5 L Phosphorus 3.1 Magnesium 2.2 Total Bilirubin 0.3 0.4 D AST 49 H D 26 D ALT 121 H D 95 H D Alkaline Phosphatase 111 110 Creatine Kinase 60 Troponin I 0.02 Total Protein 5.3 L 5.5 L Albumin 1.8 L 1.8 L Vancomycin Pre-Dose Assessment/Plan Altered mental status with persistently high fevers --> Suspected Staph Bacterial Meningitis Previous concern for Serotonin Syndrome versus NMS due to patient's home medication usage -> low clinical suspicion at this point. Acute agitation RLL Pneumonia / RUL cavity Psych disorder Bradycardia -> Etiology to be determined ABX per ID O2 as needed OOB to chair PO as tolerated VTE prophylaxis Monitor off Decadron Monitor off IVF Monitor Bradycardia CT head Dr Castro - Critical Care Critical Care patient: Yes Total Critical Care Time (in minutes): 40 Critical Care Statement: The care of this patient involved high complexity decision making to prevent further life threatening deterioration of the patient 's condition and/or to evalute & treat vital organ system(s) failure or risk of failure.
[2017-01-13] MEDS ORDERED: POTASSIUM CHLORIDE ORAL LIQUID 20 MEQ/15 ML PO ONE (10:06)
[2017-01-13] MEDS: MUPIROCIN 2% TOPICAL OINTMENT FOR DECOLONIZATION NS SCH (11:26)
[2017-01-13] MEDS: cefTRIAXone 2 GM/100 ML BAG (PRE-DOCKED) IVPB SCH (11:29)
[2017-01-13] MEDS: KCL 10 MEQ IVPB 100 ML IVPB SCH ×3 (11:29→13:16)
[2017-01-13] MEDS: DEXTROSE 5%-NORMAL SALINE 1,000 ML IV SCH ×2 (13:17→16:33)
--- NOTE | 2017-01-13 13:19 | EKG ---
Test Reason : Blood Pressure : / mmHG Vent. Rate : 041 BPM Atrial Rate : 041 BPM P-R Int : 138 ms QRS Dur : 090 ms QT Int : 488 ms P-R-T Axes : 043 038 -08 degrees QTc Int : 402 ms MARKED SINUS BRADYCARDIA ABNORMAL ECG WHEN COMPARED WITH ECG OF 07-JAN-2017 16:37, VENT. RATE HAS DECREASED BY 56 BPM NONSPECIFIC T WAVE ABNORMALITY HAS REPLACED INVERTED T WAVES IN INFERIOR LEADS NONSPECIFIC T WAVE ABNORMALITY NO LONGER EVIDENT IN ANTERIOR LEADS QT HAS SHORTENED CLINICAL CORRELATION IS RECOMMENDED Confirmed by ROJAS MAC, SILVERIO ([id number]) on 01/13/2017 1:19:01 PM Referred By: THOM PATINO Confirmed By:SILVERIO XIE MD
--- NOTE | 2017-01-13 13:43 | PN ---
Progress Note, Physician History of Present Illness: events from last night noted patient spikng fevers again no other issues ssays now he is nauseous spiked a fever again now otherwise stable - Current Medication List Current Medications: Active Medications Ceftriaxone Sodium (Rocephin 2gm Ivpb (Pre-Docked)) 2 gm IVPB DAILY [facility] Last Admin: 01/13/17 11:29 Dose: 2 gm Chlorhexidine Gluconate (Hibiclens For Decolonization -) 1 applic TP HS [facility] Last Admin: 01/12/17 22:45 Dose: 1 applic Heparin Sodium (Porcine) (Heparin -) 5,000 unit SQ TID [facility] Last Admin: 01/13/17 13:16 Dose: 5,000 unit Dextrose/Sodium Chloride (D5-Ns -) 1,000 mls @ 100 mls/hr IV ASDIR [facility] Last Admin: 01/13/17 13:17 Dose: 100 mls/hr Ampicillin Sodium/Sulbactam (Sodium 3 gm/ Sodium Chloride) 100 mls @ 200 mls/ hr IVPB Q8H-IV [facility] Last Admin: 01/13/17 11:29 Dose: 200 mls/hr Ibuprofen (Motrin -) 800 mg PO Q8H PRN PRN Reason: FEVER Last Admin: 01/13/17 13:18 Dose: 800 mg Mupirocin (Bactroban Ointment (For Decolonization) -) 1 applic NS BID [facility] Stop: 01/13/17 21:59 Last Admin: 01/13/17 11:26 Dose: 1 applic - Objective Vital Signs: Vital Signs Temperature 100.1 F H 01/13/17 06:00 Pulse Rate 47 L 01/13/17 06:00 Respiratory Rate 22 01/13/17 06:00 Blood Pressure 121/72 01/13/17 06:00 O2 Sat by Pulse Oximetry (%) 96 01/12/17 21:00 Constitutional: Yes: No Distress, Calm Cardiovascular: Yes: Regular Rate and Rhythm Respiratory: Yes: Diminished, Poor Air Entry, Rhonchi Gastrointestinal: Yes: Normal Bowel Sounds, Soft Musculoskeletal: Yes: WNL Extremities: Yes: WNL Neurological: Yes: Alert, Oriented Psychiatric: Yes: Alert, Oriented Labs: CBC, BMP 01/13/17 08:55 01/13/17 08:55 INR, PTT INR 1.25 (0.82-1.09) H 01/09/17 05:20 Assessment/Plan Altered mental status with persistently high fevers r/o bacteria meningitis concern for Serotonin Syndrome versus NMS due to patient's home medication usage Acute agitation RLL Pneumonia / (?) RUL cavity Psych disorder sepsis resp failure gm positive bacteremia in view of patient spiking fevers again i am going to change abx.I think this might be coming from his lungs also will increase dose of vanco plan continue current mgmt will add cefipime increase dose of vanco incentive serena rest as per primary and icu cc time 40 min
[2017-01-13] MEDS ORDERED: CEFEPIME 1 GM/100 ML BAG PRE-DOCKED IVPB SCH (14:15)
[2017-01-13] MEDS ORDERED: PT OWN MED DRAWER 7, Y5N ONE (16:37)
[2017-01-13] MEDS: VANCOMYCIN 1,250 MG in DEXTROSE 5%-WATER - 250 ML IVPB SCH (16:40)
[2017-01-13] MEDS: CEFEPIME 1 GM in DEXTROSE 5%-WATER - 100 ML IVPB SCH (17:23)
[2017-01-13] MEDS: CHLORHEXIDINE GLUCONATE 4% CLEANSER FOR DECOLONIZATION TP SCH (21:15)
--- NOTE | 2017-01-13 23:48 | PN ---
Progress Note, Physician History of Present Illness: No new complaints - Current Medication List Current Medications: Active Medications Chlorhexidine Gluconate (Hibiclens For Decolonization -) 1 applic TP HS [facility] Last Admin: 01/13/17 21:15 Dose: 1 applic Heparin Sodium (Porcine) (Heparin -) 5,000 unit SQ TID [facility] Last Admin: 01/13/17 21:15 Dose: 5,000 unit Dextrose/Sodium Chloride (D5-Ns -) 1,000 mls @ 100 mls/hr IV ASDIR [facility] Last Admin: 01/13/17 16:33 Dose: Not Given Vancomycin HCl 1,250 mg/ (Dextrose) 250 mls @ 150 mls/hr IVPB DAILY@1500 [facility] PRN Reason: Protocol Last Admin: 01/13/17 16:40 Dose: 150 mls/hr Cefepime HCl 1 gm/ Dextrose 100 mls @ 200 mls/hr IVPB Q8H-IV [facility] Last Admin: 01/13/17 17:23 Dose: 200 mls/hr Ibuprofen (Motrin -) 800 mg PO Q8H PRN PRN Reason: FEVER Last Admin: 01/13/17 21:15 Dose: 800 mg - Objective Vital Signs: Vital Signs Temperature 101.4 F H 01/13/17 23:00 Pulse Rate 44 L 01/13/17 23:00 Respiratory Rate 25 H 01/13/17 23:00 Blood Pressure 113/77 01/13/17 23:00 O2 Sat by Pulse Oximetry (%) 98 01/13/17 14:46 Neck: Yes: WNL, Supple Cardiovascular: Yes: WNL, Regular Rate and Rhythm Respiratory: Yes: WNL, Regular, CTA Bilaterally Gastrointestinal: Yes: WNL, Normal Bowel Sounds, Soft Musculoskeletal: Yes: WNL Extremities: Yes: WNL Edema: No Labs: CBC, BMP 01/13/17 08:55 01/13/17 08:55 INR, PTT INR 1.25 (0.82-1.09) H 01/09/17 05:20 Problem List - Problems (1) Sepsis Assessment/Plan: Cont IV antibxs Repeat BC remain negative Moniotr cultures As per ID Code(s): A41.9 - SEPSIS, UNSPECIFIED ORGANISM Qualifiers: Sepsis type: sepsis due to unspecified organism Qualified Code(s): A41.9 - Sepsis, unspecified organism
[2017-01-14] MEDS: PROPOFOL 100 ML IVPUSH SCH (01:08)
[2017-01-14] MEDS: FENTANYL INJECTION 500 MCG in DEXTROSE 5%-WATER - 90 ML IJ SCH (01:08)
[2017-01-14] MEDS ORDERED: PT OWN MED DRAWER 7, Y5N ONE ×3 (02:06→23:50)
[2017-01-14] MEDS: DEXTROSE 5%-NORMAL SALINE 1,000 ML IV SCH ×2 (02:10→17:53)
[2017-01-14] MEDS: CEFEPIME 1 GM in DEXTROSE 5%-WATER - 100 ML IVPB SCH ×3 (02:10→19:08)
[2017-01-14 06:49] LABS: MCH 26.2 pg (25.7-33.7); MCHC 31.5 g/dl (32.0-35.9); MEAN CELL VOLUME 83.2 fl (80-96); MEAN PLT VOLUME 8.2 fl (7.5-11.1); PLATELET COUNT 357 K/MM3 (134-434); RDW 20.9 % (11.9-15.9); WHITE BLOOD COUNT 12.5 K/mm3 (4.0-10.0)
[2017-01-14 07:15] LABS: ALBUMIN 2.1 g/dl (3.4-5.0); ANION GAP 12 (8-16); CALCIUM 7.9 mg/dL (8.5-10.1); CO2 28 mmol/L (21-32); GLUCOSE,RANDOM 95 mg/dL (74-106)
[2017-01-14] MEDS: HEPARIN NA (PORCINE) 5,000 UNITS/ML 1ML VIAL SQ SCH ×3 (07:19→21:00)
[2017-01-14 07:21] LABS: ALK PHOS 119 U/L (45-117); BILIRUBIN,TOTAL 0.8 mg/dL (0.2-1.0); CREATININE 0.5 mg/dL (0.7-1.3); SGOT/AST 28 U/L (15-37); SGPT/ALT 86 U/L (12-78); TOT PROT 6.1 g/dl (6.4-8.2)
[2017-01-14 08:25] LABS: MAGNESIUM 2.1 mg/dL (1.8-2.4)
[2017-01-14 08:26] LABS: PHOSPHOROUS 3.1 mg/dL (2.5-4.9)
[2017-01-14] MEDS ORDERED: PROCHLORPERAZINE INJECTION 10 MG/2 ML VIAL IVPB PRN (08:56)
[2017-01-14] MEDS ORDERED: POTASSIUM CHLORIDE 20 MEQ PREMIX IVPB 100 ML IVPB ONE (09:05)
--- NOTE | 2017-01-14 09:08 | PN ---
Progress Note, Physician Chief Complaint: Pt denies chest pain or dizziness. History of Present Illness: This is a 46 yo male with h/o recent pneumonia (tx with two antibiotic courses in the past 5 weeks), stroke, anxiety, and prior drug addiction (reportedly 20 years sober) who presents with his brother c/o agitation, altered mental status , and fever. The patient is unable to provide any of his medical history. His brother explains that he last saw the patient acting normally last night at 11 pm just prior to going to sleep for the night. 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 The patient was noted to be persistently jerking his legs in bed while sleeping most of the day. The brother noted two more strange incidents today, including the patient trying to defecate in a kitchen drawer, and trying to put his sneakers on his knees. The brother does not believe that the patient has taken any drugs or overdosed on his normal medications (normally on mirtazepine, Subutex, hydroxyzine, chlorpromazine, and gabapentin) but he does not supervise him at all times and states it is a possibility. The brother notes one prior similar episode which he notes presented exactly the same, for which he was seen at [facility] a few years ago and was told he had a stroke. - Current Medication List Current Medications: Active Medications Chlorhexidine Gluconate (Hibiclens For Decolonization -) 1 applic TP HS [facility] Last Admin: 01/13/17 21:15 Dose: 1 applic Heparin Sodium (Porcine) (Heparin -) 5,000 unit SQ TID [facility] Last Admin: 01/14/17 07:19 Dose: 5,000 unit Dextrose/Sodium Chloride (D5-Ns -) 1,000 mls @ 100 mls/hr IV ASDIR [facility] Last Admin: 01/14/17 02:10 Dose: 100 mls/hr Vancomycin HCl 1,250 mg/ (Dextrose) 250 mls @ 150 mls/hr IVPB DAILY@1500 [facility] PRN Reason: Protocol Last Admin: 01/13/17 16:40 Dose: 150 mls/hr Cefepime HCl 1 gm/ Dextrose 100 mls @ 200 mls/hr IVPB Q8H-IV [facility] Last Admin: 01/14/17 02:10 Dose: 200 mls/hr Ibuprofen (Motrin -) 800 mg PO Q8H PRN PRN Reason: FEVER Last Admin: 01/13/17 21:15 Dose: 800 mg - Objective Vital Signs: Vital Signs Temperature 100.4 F H 01/14/17 06:00 Pulse Rate 40 L 01/14/17 06:00 Respiratory Rate 22 01/14/17 06:00 Blood Pressure 126/80 01/14/17 06:00 O2 Sat by Pulse Oximetry (%) 98 01/13/17 21:00 Constitutional: Yes: Calm Eyes: Yes: WNL HENT: Yes: WNL Neck: Yes: WNL Labs: CBC, BMP 01/14/17 05:35 01/14/17 05:35 INR, PTT INR 1.25 (0.82-1.09) H 01/09/17 05:20
[2017-01-14] MEDS ORDERED: KCL 20 MEQ PREMIX BAG 100 ML IVPB ONE (10:00)
--- NOTE | 2017-01-14 10:18 | CONSULT ---
Consult - text type - Consultation Consultation Note: Neurology History of Present Illness This is a 46 yo male with h/o recent pneumonia (tx with two antibiotic courses in the past 5 weeks), stroke, anxiety, and prior drug addiction (reportedly 20 years sober) who presents with his brother c/o agitation, altered mental status , and fever. The patient is unable to provide any of his medical history. His brother explains that he last saw the patient acting normally the night prior to admission. The patient was acting strangely, beginning with urinating in his laundry basket (far outside his baseline which is A/O and very sensible). The patient was noted to be persistently jerking his legs in bed while sleeping most of the day. There was concern and question of NMS vs Seratonin syndrome. LP was completed and showed increased WBC, low glucose and increased protein, consistent with bacterial meningitis. Patient with CT head and was negative except for slight ventricular asymmetry which does not have clinical relevance currently. Of note, the patient has substance abuse and opiates. He was admitted for sepsis 2/2 PNA and with bacterial meningitis. Patient in ICU with close monitoring. On Abx as listed. Past History - Past Medical History Allergies/Adverse Reactions: Allergies Allergy/AdvReac Type Severity Reaction Status Date / Time No Known Allergies Allergy Verified 01/07/17 15:52 CVA: Yes - Psycho/Social/Smoking Cessation Hx Anxiety: No Suicidal Ideation: No Smoking History: Unknown if ever smoked Have you smoked in the past 12 months: No Information on smoking cessation initiated: No Hx Alcohol Use: No Drug/Substance Use Hx: No Substance Use Type: None Active Medications Chlorhexidine Gluconate (Hibiclens For Decolonization -) 1 applic TP HS [facility] Last Admin: 01/13/17 21:15 Dose: 1 applic Heparin Sodium (Porcine) (Heparin -) 5,000 unit SQ TID [facility] Last Admin: 01/14/17 07:19 Dose: 5,000 unit Dextrose/Sodium Chloride (D5-Ns -) 1,000 mls @ 100 mls/hr IV ASDIR [facility] Last Admin: 01/14/17 02:10 Dose: 100 mls/hr Vancomycin HCl 1,250 mg/ (Dextrose) 250 mls @ 150 mls/hr IVPB DAILY@1500 [facility] PRN Reason: Protocol Last Admin: 01/13/17 16:40 Dose: 150 mls/hr Cefepime HCl 1 gm/ Dextrose 100 mls @ 200 mls/hr IVPB Q8H-IV [facility] Last Admin: 01/14/17 02:10 Dose: 200 mls/hr Potassium Chloride (Potassium Chloride 20 Meq Premix Ivpb -) 100 mls @ 100 mls/ hr IVPB ONCE ONE Stop: 01/14/17 10:59 Ibuprofen (Motrin -) 800 mg PO Q8H PRN PRN Reason: FEVER Last Admin: 01/13/17 21:15 Dose: 800 mg Prochlorperazine Edisylate (Compazine Injection -) 5 mg IVPB Q4H PRN PRN Reason: NAUSEA AND/OR VOMITING Review of Systems - Review of Systems Able to Perform ROS?: No (uncooperative & nonverbal) *Physical Exam Vital Signs Temperature 101.8 F H 01/14/17 08:00 Pulse Rate 48 L 01/14/17 10:14 Respiratory Rate 22 01/14/17 08:00 Blood Pressure 125/82 01/14/17 08:00 O2 Sat by Pulse Oximetry (%) 100 01/14/17 10:14 - Physical Exam General Appearance: Yes: Disheveled, Moderate Distress, minimally cooperative HEENT: positive: EOMI, ROGER, Other (pupils dilated to 7 mm bilaterally) Neck: positive: Other (patient unable to follow commands to test ROM of neck). negative: Carotid bruit Respiratory/Chest: positive: Respiratory Distress, Accessory Muscle Use, Labored Respiration, Rapid RR, Other (crackles and decreased breath sounds at the right base) Cardiovascular: positive: Regular Rhythm, Tachycardia, Other (extremity veins distended). negative: Murmur Gastrointestinal/Abdominal: positive: Flat, Increased Bowel Sounds. negative: Hernia Male Genitalia: positive: normal genitalia. negative: hernia Musculoskeletal: positive: Normal Inspection, Muscle Spasm Integumentary: positive: Normal Color, Other (hot) Neurologic: awake, alert, follows minimal commands, CN intact, no focal motor deficits, sensory intact, no aphasia CBCD WBC 12.5 K/mm3 (4.0-10.0) H 01/14/17 05:35 RBC 4.26 M/mm3 (4.00-5.60) 01/14/17 05:35 Hgb 11.2 GM/dL (11.7-16.9) L D 01/14/17 05:35 Hct 35.5 % (35.4-49) 01/14/17 05:35 MCV 83.2 fl (80-96) 01/14/17 05:35 MCHC 31.5 g/dl (32.0-35.9) L 01/14/17 05:35 RDW 20.9 % (11.9-15.9) H 01/14/17 05:35 Plt Count 357 K/MM3 (134-434) 01/14/17 05:35 MPV 8.2 fl (7.5-11.1) 01/14/17 05:35 CMP Sodium 132 mmol/L (136-145) L 01/14/17 05:35 Potassium 3.1 mmol/L (3.5-5.1) L 01/14/17 05:35 Chloride 92 mmol/L (98-107) L 01/14/17 05:35 Carbon Dioxide 28 mmol/L (21-32) 01/14/17 05:35 Anion Gap 12 (8-16) 01/14/17 05:35 BUN 13 mg/dL (7-18) 01/14/17 05:35 Creatinine 0.5 mg/dL (0.7-1.3) L 01/14/17 05:35 Creat Clearance w eGFR > 60 (>60) 01/14/17 05:35 Calcium 7.9 mg/dL (8.5-10.1) L 01/14/17 05:35 Total Bilirubin 0.8 mg/dL (0.2-1.0) D 01/14/17 05:35 AST 28 U/L (15-37) 01/14/17 05:35 ALT 86 U/L (12-78) H 01/14/17 05:35 Alkaline Phosphatase 119 U/L (45-117) H 01/14/17 05:35 Total Protein 6.1 g/dl (6.4-8.2) L 01/14/17 05:35 Albumin 2.1 g/dl (3.4-5.0) L 01/14/17 05:35 Medical Decision Making 46 yo male with h/o recent pneumonia (tx with two antibiotic courses in the past 5 weeks), stroke, anxiety, and prior drug addiction (reportedly 20 years sober) who presents with his brother c/o agitation, altered mental status, and fever. The patient is unable to provide any of his medical history. His brother explains that he last saw the patient acting normally the night prior to admission. The patient was acting strangely, beginning with urinating in his laundry basket (far outside his baseline which is A/O and very sensible). The patient was noted to be persistently jerking his legs in bed while sleeping most of the day. There was concern and question of NMS vs Seratonin syndrome. LP was completed and showed increased WBC, low glucose and increased protein, consistent with bacterial meningitis. Patient with CT head and was negative except for slight ventricular asymmetry which does not have clinical relevance currently. Of note, the patient has substance abuse and opiates. He was admitted for sepsis 2/2 PNA and with bacterial meningitis. Patient in ICU with close monitoring. Continue ICU monitoring, close nursing care. Fall precautions. IV abx to be continued. Does not seem to be NMS or seratonin syndrome, more consistent with infectious etiology and getting ongoing treatment. Drug cessation highly recommended. Critical care time 50 mins.
--- NOTE | 2017-01-14 13:05 | PN ---
Teaching Attending Note Name of Resident: Ángel Sorensen ATTENDING PHYSICIAN STATEMENT I saw and evaluated the patient. I reviewed the resident's note and discussed the case with the resident. I agree with the resident's findings and plan as documented. SUBJECTIVE: Patient seen and examined in the ICU. Remains extubated. He is awake and alert and conversant. Remains confused. Continues to spike fevers. Denies CP or SOB. Some cough. No hemoptysis. Still with bradycardia but hemodynamics are stable. Intake & Output 01/11/17 01/12/17 01/13/17 01/14/17 23:59 23:59 23:59 23:59 Intake Total 4085 2500 2150 Output Total 2600 300 850 Balance 1485 2200 1300 Weight 149 lb 4.047 oz 146 lb 13.246 oz 144 lb Last Vital Signs Temp Pulse Resp BP Pulse Ox 102.3 F H 48 L 22 125/75 100 01/14/17 10:00 01/14/17 10:14 01/14/17 10:00 01/14/17 10:00 01/14/17 10:14 Active Medications Chlorhexidine Gluconate (Hibiclens For Decolonization -) 1 applic TP HS [facility] Last Admin: 01/13/17 21:15 Dose: 1 applic Heparin Sodium (Porcine) (Heparin -) 5,000 unit SQ TID [facility] Last Admin: 01/14/17 07:19 Dose: 5,000 unit Dextrose/Sodium Chloride (D5-Ns -) 1,000 mls @ 100 mls/hr IV ASDIR [facility] Last Admin: 01/14/17 02:10 Dose: 100 mls/hr Vancomycin HCl 1,250 mg/ (Dextrose) 250 mls @ 150 mls/hr IVPB DAILY@1500 [facility] PRN Reason: Protocol Last Admin: 01/13/17 16:40 Dose: 150 mls/hr Cefepime HCl 1 gm/ Dextrose 100 mls @ 200 mls/hr IVPB Q8H-IV [facility] Last Admin: 01/14/17 11:04 Dose: 200 mls/hr Ibuprofen (Motrin -) 800 mg PO Q8H PRN PRN Reason: FEVER Last Admin: 01/13/17 21:15 Dose: 800 mg Prochlorperazine Edisylate (Compazine Injection -) 5 mg IVPB Q4H PRN PRN Reason: NAUSEA AND/OR VOMITING Last Admin: 01/14/17 11:04 Dose: 5 mg Constitutional: Yes: Extubated, NAD, confused Eyes: Yes: NO papilledema, pupils are equal and reactive HENT: Yes: WNL Neck: Yes: WNL Cardiovascular: Yes: Tachycardia, S1, S2 Respiratory: Yes: Scattered bilateral rhonhci Gastrointestinal: Yes: Soft Musculoskeletal: No: rigidity Edema: No Integumentary: Yes: dry Neurological: Yes: sedated Laboratory Results - last 24 hr 01/14/17 01/14/17 01/14/17 05:35 05:35 05:35 WBC 12.5 H RBC 4.26 Hgb 11.2 L D Hct 35.5 MCV 83.2 MCH 26.2 MCHC 31.5 L RDW 20.9 H Plt Count 357 MPV 8.2 Sodium 132 L Potassium 3.1 L Chloride 92 L Carbon Dioxide 28 Anion Gap 12 BUN 13 Creatinine 0.5 L Creat Clearance w eGFR > 60 Random Glucose 95 Calcium 7.9 L Phosphorus 3.1 Cancelled Magnesium 2.1 Cancelled Total Bilirubin 0.8 D AST 28 ALT 86 H Alkaline Phosphatase 119 H Total Protein 6.1 L Albumin 2.1 L Assessment/Plan Altered mental status with persistently high fevers --> Suspected Staph Bacterial Meningitis Previous concern for Serotonin Syndrome versus NMS due to patient's home medication usage -> low clinical suspicion at this point. Acute agitation RLL Pneumonia / RUL cavity Psych disorder Bradycardia -> Etiology to be determined ABX per ID O2 as needed OOB to chair PO as tolerated VTE prophylaxis Monitor off Decadron Monitor off IVF Monitor Bradycardia MRI Dr Castro - Critical Care Critical Care patient: Yes Total Critical Care Time (in minutes): 40 Critical Care Statement: The care of this patient involved high complexity decision making to prevent further life threatening deterioration of the patient 's condition and/or to evalute & treat vital organ system(s) failure or risk of failure.
[2017-01-14] MEDS: IBUPROFEN 800 MG/8 ML IJ IVPB PRN ×2 (14:27→20:56)
--- NOTE | 2017-01-14 14:41 | PN ---
Progress Note, Physician History of Present Illness: patient started spiking fevers again repeat hernandez cx has not shown any growth clinically patient is doing well he is awake and alert without any discomfort - Current Medication List Current Medications: Active Medications Chlorhexidine Gluconate (Hibiclens For Decolonization -) 1 applic TP HS [facility] Last Admin: 01/13/17 21:15 Dose: 1 applic Heparin Sodium (Porcine) (Heparin -) 5,000 unit SQ TID [facility] Last Admin: 01/14/17 14:26 Dose: 5,000 unit Dextrose/Sodium Chloride (D5-Ns -) 1,000 mls @ 100 mls/hr IV ASDIR [facility] Last Admin: 01/14/17 02:10 Dose: 100 mls/hr Vancomycin HCl 1,250 mg/ (Dextrose) 250 mls @ 150 mls/hr IVPB DAILY@1500 [facility] PRN Reason: Protocol Last Admin: 01/13/17 16:40 Dose: 150 mls/hr Cefepime HCl 1 gm/ Dextrose 100 mls @ 200 mls/hr IVPB Q8H-IV [facility] Last Admin: 01/14/17 11:04 Dose: 200 mls/hr Ibuprofen (Caldolor Injection -) 800 mg IVPB Q6H PRN PRN Reason: FEVER Last Admin: 01/14/17 14:27 Dose: 800 mg Prochlorperazine Edisylate (Compazine Injection -) 5 mg IVPB Q4H PRN PRN Reason: NAUSEA AND/OR VOMITING Last Admin: 01/14/17 11:04 Dose: 5 mg - Objective Vital Signs: Vital Signs Temperature 102.3 F H 01/14/17 10:00 Pulse Rate 54 L 01/14/17 12:00 Respiratory Rate 22 01/14/17 12:00 Blood Pressure 132/76 01/14/17 12:00 O2 Sat by Pulse Oximetry (%) 100 01/14/17 10:14 Constitutional: Yes: No Distress, Calm Cardiovascular: Yes: Regular Rate and Rhythm Respiratory: Yes: Regular, CTA Bilaterally Gastrointestinal: Yes: Normal Bowel Sounds, Soft Musculoskeletal: Yes: WNL Extremities: Yes: WNL Neurological: Yes: Alert, Oriented Psychiatric: Yes: Alert, Oriented Labs: CBC, BMP 01/14/17 05:35 01/14/17 05:35 INR, PTT INR 1.25 (0.82-1.09) H 01/09/17 05:20 - ....Imaging Cat Scan: Report Reviewed, Image Reviewed Assessment/Plan Altered mental status with persistently high fevers r/o bacteria meningitis concern for Serotonin Syndrome versus NMS due to patient's home medication usage Acute agitation RLL Pneumonia / (?) RUL cavity Psych disorder sepsis resp failure gm positive bacteremia plan continue current mgmt continue abx mri of the brain if patient continues to spike repeat LP also lungs will have to be looked at will see how the trend goes cc time 40 min
--- NOTE | 2017-01-14 16:52 | PN ---
Physical Exam: SUBJECTIVE: Patient seen and examined. patient is doing well extubated. no new complaints. OBJECTIVE: Vital Signs Period Temp Pulse Resp BP Sys/Paz Pulse Ox Last 24 Hr 99.2 F-102.3 F 40-58 21-25 113-132/74-82 98-100 GENERAL: The patient is awake, alert, and fully oriented, in no acute distress. HEAD: Normal with no signs of trauma. EYES: extraocular movements intact, sclera anicteric, conjunctiva clear. No ptosis. NECK: Trachea midline, full range of motion, supple. LUNGS: Breath sounds equal, clear to auscultation bilaterally, no wheezes, no crackles, no accessory muscle use. HEART: Regular rate and rhythm, S1, S2 without murmur, rub or gallop. ABDOMEN: Soft, nontender, nondistended, normoactive bowel sounds, no guarding, no rebound. EXTREMITIES: 2+ pulses, warm, well-perfused, no edema. NEUROLOGICAL: Cranial nerves II through X grossly intact. Normal speech, gait not observed. PSYCH: Normal mood, flat affect. SKIN: Warm, dry, normal turgor, no rashes or lesions noted Laboratory Results - last 24 hr 01/14/17 01/14/17 01/14/17 05:35 05:35 05:35 WBC 12.5 H RBC 4.26 Hgb 11.2 L D Hct 35.5 MCV 83.2 MCH 26.2 MCHC 31.5 L RDW 20.9 H Plt Count 357 MPV 8.2 Sodium 132 L Potassium 3.1 L Chloride 92 L Carbon Dioxide 28 Anion Gap 12 BUN 13 Creatinine 0.5 L Creat Clearance w eGFR > 60 Random Glucose 95 Calcium 7.9 L Phosphorus 3.1 Cancelled Magnesium 2.1 Cancelled Total Bilirubin 0.8 D AST 28 ALT 86 H Alkaline Phosphatase 119 H Total Protein 6.1 L Albumin 2.1 L Active Medications Generic Name Dose Route Start Last Admin Trade Name Freq PRN Reason Stop Dose Admin Chlorhexidine Gluconate 1 applic 01/08/17 22:00 01/13/17 21:15 Hibiclens For Decolonization - TP 1 applic HS [facility] Administration Heparin Sodium (Porcine) 5,000 unit 01/09/17 22:00 01/14/17 14:26 Heparin - SQ 5,000 unit TID [facility] Administration Dextrose/Sodium Chloride 1,000 mls @ 100 mls/hr 01/12/17 15:15 01/14/17 02:10 D5-Ns - IV 100 mls/hr ASDIR [facility] Administration Vancomycin HCl 1,250 mg/ 250 mls @ 150 mls/hr 01/13/17 15:00 01/13/17 16:40 Dextrose IVPB 150 mls/hr DAILY@1500 [facility] Administration Protocol Cefepime HCl 1 gm/ Dextrose 100 mls @ 200 mls/hr 01/13/17 16:45 01/14/17 11:04 IVPB 200 mls/hr Q8H-IV [facility] Administration Ibuprofen 800 mg 01/14/17 13:48 01/14/17 14:27 Caldolor Injection - IVPB 800 mg Q6H PRN Administration FEVER Prochlorperazine Edisylate 5 mg 01/14/17 08:56 01/14/17 11:04 Compazine Injection - IVPB 5 mg Q4H PRN Administration NAUSEA AND/OR VOMITING ASSESSMENT/PLAN: the patient is a 46 y/o male with prior substance abuse, unclear psych disorder , is on multiple antipsychotics and antidepressants, presents to the ED with altered mental status and high fevers. Neuro: -Alterted mental status 2/2 bacterial meningitis less likely neuroleptic malignant syndrome -D/C'd isolation precautions as per ID; all AFB smears negative, blood cultures negative, clinical status improving -CSF cultures negative -Bcx growing coagulase negative staph sp. -Ceftriaxone 2grams IV daily changed to cefepime 1gm daily -vancomycin 1.25g IV daily -CT head shows enlarged left lateral ventricle -patient for MRI w/o contrast to evaluate -Patient spiking fevers to 101 over the weekend -bcx x2 pending -repeat echo -motrin PRN IV -nausea and vomiting -NPO -compazine PRN nausea Pulmonary: -consolidations and cavitary lesions in upper and middle lobes on CT chest 2/2 pulmonary TB vs CAP -f/u quantiferon gold- pending -f/u sputum culture and AFB smear -AFB smear x3 negative -sputum culture shows gram positive cocci in pairs -urine for legionella antigen negative -patient is s/p bronchoscopy and washing -washing AFB and TB PCR negative -quantiferon gold returned intermediate results Cardio: -patient with bradycardia -cardiology onboard -zofran d/c'd as it can prolong QT -avoid medications which prolong QT or suppress heart rate FEN: -D5NS @100 -monitor lytes -NPO as patient is nauseous and vomiting Prophylaxsis: -heparin SQ for DVT -Protonix 40mg IV Dispo: -patient is for transfer to telemetry Problem List - Problems (1) Agitation Code(s): R45.1 - RESTLESSNESS AND AGITATION (2) Sepsis Code(s): A41.9 - SEPSIS, UNSPECIFIED ORGANISM Qualifiers: Sepsis type: sepsis due to unspecified organism Qualified Code(s): A41.9 - Sepsis, unspecified organism (3) Bacterial meningitis Code(s): G00.9 - BACTERIAL MENINGITIS, UNSPECIFIED (4) Tuberculosis Code(s): A15.9 - RESPIRATORY TUBERCULOSIS UNSPECIFIED Visit type - Emergency Visit Emergency Visit: Yes ED Registration Date: 01/07/17 Care time: The patient presented to the Emergency Department on the above date and was hospitalized for further evaluation of their emergent condition. - New Patient This patient is new to me today: No - Critical Care Critical Care patient: Yes Total Critical Care Time (in minutes): 35 Critical Care Statement: The care of this patient involved high complexity decision making to prevent further life threatening deterioration of the patient 's condition and/or to evaluate & treat vital organ system(s) failure or risk of failure.
[2017-01-14] MEDS: VANCOMYCIN 1,250 MG in DEXTROSE 5%-WATER - 250 ML IVPB SCH (17:53)
--- NOTE | 2017-01-14 20:09 | PN ---
Progress Note, Physician - Current Medication List Current Medications: Active Medications Chlorhexidine Gluconate (Hibiclens For Decolonization -) 1 applic TP HS [facility] Last Admin: 01/13/17 21:15 Dose: 1 applic Heparin Sodium (Porcine) (Heparin -) 5,000 unit SQ TID [facility] Last Admin: 01/14/17 14:26 Dose: 5,000 unit Dextrose/Sodium Chloride (D5-Ns -) 1,000 mls @ 100 mls/hr IV ASDIR [facility] Last Admin: 01/14/17 17:53 Dose: 100 mls/hr Vancomycin HCl 1,250 mg/ (Dextrose) 250 mls @ 150 mls/hr IVPB DAILY@1500 [facility] PRN Reason: Protocol Last Admin: 01/14/17 17:53 Dose: 150 mls/hr Cefepime HCl 1 gm/ Dextrose 100 mls @ 200 mls/hr IVPB Q8H-IV [facility] Last Admin: 01/14/17 19:08 Dose: 200 mls/hr Ibuprofen (Caldolor Injection -) 800 mg IVPB Q6H PRN PRN Reason: FEVER Last Admin: 01/14/17 14:27 Dose: 800 mg Prochlorperazine Edisylate (Compazine Injection -) 5 mg IVPB Q4H PRN PRN Reason: NAUSEA AND/OR VOMITING Last Admin: 01/14/17 11:04 Dose: 5 mg - Objective Vital Signs: Vital Signs Temperature 99.2 F 01/14/17 18:00 Pulse Rate 42 L 01/14/17 18:00 Respiratory Rate 18 01/14/17 18:00 Blood Pressure 115/76 01/14/17 18:00 O2 Sat by Pulse Oximetry (%) 100 01/14/17 10:14 Constitutional: Yes: No Distress HENT: Yes: Atraumatic Neck: Yes: Supple Cardiovascular: Yes: Regular Rate and Rhythm Respiratory: Yes: Rhonchi Gastrointestinal: Yes: Normal Bowel Sounds Extremities: Yes: WNL Neurological: Yes: Alert, Oriented Labs: CBC, BMP 01/14/17 05:35 01/14/17 05:35 INR, PTT INR 1.25 (0.82-1.09) H 01/09/17 05:20 Problem List - Problems (1) Agitation Code(s): R45.1 - RESTLESSNESS AND AGITATION (2) Sepsis Assessment/Plan: on iv abx cx no growth to date ivf spiking fevers Code(s): A41.9 - SEPSIS, UNSPECIFIED ORGANISM Qualifiers: Sepsis type: sepsis due to unspecified organism Qualified Code(s): A41.9 - Sepsis, unspecified organism (3) Bacterial meningitis Assessment/Plan: csf noted Code(s): G00.9 - BACTERIAL MENINGITIS, UNSPECIFIED (4) Tuberculosis Assessment/Plan: cxs pending Code(s): A15.9 - RESPIRATORY TUBERCULOSIS UNSPECIFIED Assessment/Plan Assessment Altered mental status with persistently high fevers r/o bacteria meningitis concern for Serotonin Syndrome versus NMS due to patient's home medication usage Acute agitation RLL Pneumonia / (?) RUL cavity Psych disorder sepsis resp failure gm positive bacteremia plan on iv abx per id cxs no growth to date spiking fevers again
[2017-01-14] MEDS: CHLORHEXIDINE GLUCONATE 4% CLEANSER FOR DECOLONIZATION TP SCH (21:05)
[2017-01-14] MEDS: IBUPROFEN 400 MG TABLET (FP) PO PRN (23:45)
[2017-01-15 00:08] LABS: HAEMOPHILUS INFLUENZA B AG Negative (Negative); STREP PNEUMO AG Negative (Negative)
[2017-01-15] MEDS ORDERED: PT OWN MED DRAWER 7, Y5N ONE ×3 (01:21→16:33)
[2017-01-15] MEDS: CEFEPIME 1 GM in DEXTROSE 5%-WATER - 100 ML IVPB SCH ×3 (01:23→18:35)
[2017-01-15] MEDS: IBUPROFEN 800 MG/8 ML IJ IVPB PRN ×3 (03:53→23:48)
[2017-01-15] MEDS: DEXTROSE 5%-NORMAL SALINE 1,000 ML IV SCH ×3 (05:39→23:48)
[2017-01-15] MEDS: HEPARIN NA (PORCINE) 5,000 UNITS/ML 1ML VIAL SQ SCH ×3 (05:39→21:11)
[2017-01-15 06:32] LABS: MCH 27.2 pg (25.7-33.7); MCHC 32.9 g/dl (32.0-35.9); MEAN CELL VOLUME 82.7 fl (80-96); MEAN PLT VOLUME 8.5 fl (7.5-11.1); PLATELET COUNT 369 K/MM3 (134-434); RDW 21.5 % (11.9-15.9); WHITE BLOOD COUNT 10.1 K/mm3 (4.0-10.0)
[2017-01-15 06:52] LABS: ANION GAP 11 (8-16); CALCIUM 7.4 mg/dL (8.5-10.1); CO2 28 mmol/L (21-32); CREATININE 0.5 mg/dL (0.7-1.3); GLUCOSE,RANDOM 90 mg/dL (74-106)
[2017-01-15] MEDS: POTASSIUM CHLORIDE TABS 20 MEQ TABLET.ER (FP) PO SCH (09:19)
--- NOTE | 2017-01-15 09:35 | PN ---
Progress Note (short form) - Note Progress Note: Neurology History of Present Illness This is a 46 yo male with h/o recent pneumonia (tx with two antibiotic courses in the past 5 weeks), stroke, anxiety, and prior drug addiction (reportedly 20 years sober) who presents with his brother c/o agitation, altered mental status , and fever. The patient is unable to provide any of his medical history. His brother explains that he last saw the patient acting normally the night prior to admission. The patient was acting strangely, beginning with urinating in his laundry basket (far outside his baseline which is A/O and very sensible). The patient was noted to be persistently jerking his legs in bed while sleeping most of the day. There was concern and question of NMS vs Seratonin syndrome. LP was completed and showed increased WBC, low glucose and increased protein, consistent with bacterial meningitis. Patient with CT head and was negative except for slight ventricular asymmetry which does not have clinical relevance currently. Of note, the patient has substance abuse and opiates. He was admitted for sepsis 2/2 PNA and with bacterial meningitis. Patient in ICU with close monitoring. Not on isolation at this time. More alert, cooperative, and communicative. No abnormal movements at this time. Remains on IV ABx which are likely helping patient improve clinically. Active Medications Chlorhexidine Gluconate (Hibiclens For Decolonization -) 1 applic TP HS [facility] Last Admin: 01/14/17 21:05 Dose: 1 applic Heparin Sodium (Porcine) (Heparin -) 5,000 unit SQ TID [facility] Last Admin: 01/15/17 05:39 Dose: 5,000 unit Dextrose/Sodium Chloride (D5-Ns -) 1,000 mls @ 100 mls/hr IV ASDIR [facility] Last Admin: 01/15/17 05:39 Dose: 100 mls/hr Vancomycin HCl 1,250 mg/ (Dextrose) 250 mls @ 150 mls/hr IVPB DAILY@1500 [facility] PRN Reason: Protocol Last Admin: 01/14/17 17:53 Dose: 150 mls/hr Cefepime HCl 1 gm/ Dextrose 100 mls @ 200 mls/hr IVPB Q8H-IV [facility] Last Admin: 01/15/17 09:18 Dose: 200 mls/hr Ibuprofen (Caldolor Injection -) 800 mg IVPB Q6H PRN PRN Reason: FEVER Last Admin: 01/15/17 03:53 Dose: 800 mg Ibuprofen (Motrin -) 400 mg PO Q6H PRN PRN Reason: PAIN Last Admin: 01/14/17 23:45 Dose: 400 mg Potassium Chloride (K-Dur -) 40 meq PO DAILY [facility] Last Admin: 01/15/17 09:19 Dose: 40 meq Prochlorperazine Edisylate (Compazine Injection -) 5 mg IVPB Q4H PRN PRN Reason: NAUSEA AND/OR VOMITING Last Admin: 01/14/17 11:04 Dose: 5 mg *Physical Exam Vital Signs Temperature 100 F H 01/15/17 05:47 Pulse Rate 44 L 01/15/17 05:47 Respiratory Rate 23 01/15/17 05:47 Blood Pressure 129/81 01/15/17 05:47 O2 Sat by Pulse Oximetry (%) 100 01/14/17 21:00 - Physical Exam General Appearance: Yes: Disheveled, Moderate Distress, minimally cooperative HEENT: positive: EOMI, ROGER, Other (pupils dilated to 7 mm bilaterally) Neck: positive: Other (patient unable to follow commands to test ROM of neck). negative: Carotid bruit Respiratory/Chest: positive: Respiratory Distress, Accessory Muscle Use, Labored Respiration, Rapid RR, Other (crackles and decreased breath sounds at the right base) Cardiovascular: positive: Regular Rhythm, Tachycardia, Other (extremity veins distended). negative: Murmur Gastrointestinal/Abdominal: positive: Flat, Increased Bowel Sounds. negative: Hernia Male Genitalia: positive: normal genitalia. negative: hernia Musculoskeletal: positive: Normal Inspection, Muscle Spasm Integumentary: positive: Normal Color, Other (hot) Neurologic: awake, alert, follows minimal commands, CN intact, no focal motor deficits, sensory intact, no aphasia CBCD WBC 10.1 K/mm3 (4.0-10.0) H 01/15/17 05:15 RBC 3.98 M/mm3 (4.00-5.60) L 01/15/17 05:15 Hgb 10.8 GM/dL (11.7-16.9) L 01/15/17 05:15 Hct 32.9 % (35.4-49) L 01/15/17 05:15 MCV 82.7 fl (80-96) 01/15/17 05:15 MCHC 32.9 g/dl (32.0-35.9) 01/15/17 05:15 RDW 21.5 % (11.9-15.9) H 01/15/17 05:15 Plt Count 369 K/MM3 (134-434) 01/15/17 05:15 MPV 8.5 fl (7.5-11.1) 01/15/17 05:15 CMP Sodium 131 mmol/L (136-145) L 01/15/17 05:15 Potassium 2.8 mmol/L (3.5-5.1) L* 01/15/17 05:15 Chloride 92 mmol/L (98-107) L 01/15/17 05:15 Carbon Dioxide 28 mmol/L (21-32) 01/15/17 05:15 Anion Gap 11 (8-16) 01/15/17 05:15 BUN 14 mg/dL (7-18) 01/15/17 05:15 Creatinine 0.5 mg/dL (0.7-1.3) L 01/15/17 05:15 Creat Clearance w eGFR > 60 (>60) 01/14/17 05:35 Calcium 7.4 mg/dL (8.5-10.1) L 01/15/17 05:15 Total Bilirubin 0.8 mg/dL (0.2-1.0) D 01/14/17 05:35 AST 28 U/L (15-37) 01/14/17 05:35 ALT 86 U/L (12-78) H 01/14/17 05:35 Alkaline Phosphatase 119 U/L (45-117) H 01/14/17 05:35 Total Protein 6.1 g/dl (6.4-8.2) L 01/14/17 05:35 Albumin 2.1 g/dl (3.4-5.0) L 01/14/17 05:35 Medical Decision Making 46 yo male with h/o recent pneumonia (tx with two antibiotic courses in the past 5 weeks), stroke, anxiety, and prior drug addiction (reportedly 20 years sober) who presents with his brother c/o agitation, altered mental status, and fever. The patient is unable to provide any of his medical history. His brother explains that he last saw the patient acting normally the night prior to admission. The patient was acting strangely, beginning with urinating in his laundry basket (far outside his baseline which is A/O and very sensible). The patient was noted to be persistently jerking his legs in bed while sleeping most of the day. There was concern and question of NMS vs Seratonin syndrome. LP was completed and showed increased WBC, low glucose and increased protein, consistent with bacterial meningitis. Patient with CT head and was negative except for slight ventricular asymmetry which does not have clinical relevance currently. Of note, the patient has substance abuse and opiates. He was admitted for sepsis 2/2 PNA and with bacterial meningitis. Patient in ICU with close monitoring. Continue ICU monitoring, close nursing care. Fall precautions. IV abx to be continued. Does not seem to be NMS or seratonin syndrome, more consistent with infectious etiology and getting ongoing treatment , on IV Abx. Improving clinically and more awake, conversive. Drug cessation highly recommended. Critical care time 35 mins.
--- NOTE | 2017-01-15 12:32 | PN ---
Progress Note (short form) - Note Progress Note: Patient seen and examined in Telemetry. Awake and interactive. Remains mildly confused. Fever curve is better, but still with low grade temps. Denies CP or SOB. Still with bradycardia but hemodynamics are stable. Intake & Output 01/12/17 01/13/17 01/14/17 01/15/17 23:59 23:59 23:59 23:59 Intake Total 2500 2150 1450 1840 Output Total 300 850 500 Balance 2200 1300 1450 1340 Weight 149 lb 4.047 oz 146 lb 13.246 oz 144 lb 147 lb 11.2 oz Last Vital Signs Temp Pulse Resp BP Pulse Ox 99.6 F 42 L 18 115/79 98 01/15/17 08:00 01/15/17 08:00 01/15/17 08:00 01/15/17 08:00 01/15/17 09:00 Active Medications Chlorhexidine Gluconate (Hibiclens For Decolonization -) 1 applic TP HS [facility] Last Admin: 01/14/17 21:05 Dose: 1 applic Heparin Sodium (Porcine) (Heparin -) 5,000 unit SQ TID [facility] Last Admin: 01/15/17 05:39 Dose: 5,000 unit Dextrose/Sodium Chloride (D5-Ns -) 1,000 mls @ 100 mls/hr IV ASDIR [facility] Last Admin: 01/15/17 05:39 Dose: 100 mls/hr Vancomycin HCl 1,250 mg/ (Dextrose) 250 mls @ 150 mls/hr IVPB DAILY@1500 [facility] PRN Reason: Protocol Last Admin: 01/14/17 17:53 Dose: 150 mls/hr Cefepime HCl 1 gm/ Dextrose 100 mls @ 200 mls/hr IVPB Q8H-IV [facility] Last Admin: 01/15/17 09:18 Dose: 200 mls/hr Ibuprofen (Caldolor Injection -) 800 mg IVPB Q6H PRN PRN Reason: FEVER Last Admin: 01/15/17 03:53 Dose: 800 mg Ibuprofen (Motrin -) 400 mg PO Q6H PRN PRN Reason: PAIN Last Admin: 01/14/17 23:45 Dose: 400 mg Potassium Chloride (K-Dur -) 40 meq PO DAILY [facility] Last Admin: 01/15/17 09:19 Dose: 40 meq Prochlorperazine Edisylate (Compazine Injection -) 5 mg IVPB Q4H PRN PRN Reason: NAUSEA AND/OR VOMITING Last Admin: 01/14/17 11:04 Dose: 5 mg Constitutional: Yes: Awake and alert, NAD Eyes: Yes: NO papilledema, pupils are equal and reactive HENT: Yes: WNL Neck: Yes: WNL Cardiovascular: Yes: Bradycardia, S1, S2 Regular Respiratory: Yes: Few scattered bilateral rhonhci Gastrointestinal: Yes: Soft Musculoskeletal: No: rigidity Edema: No Integumentary: Yes: dry Neurological: Yes: non-focal Laboratory Results - last 24 hr 01/11/17 01/14/17 01/14/17 07:13 19:00 19:03 WBC RBC Hgb Hct MCV MCH MCHC RDW Plt Count MPV Nucleated RBC % Hypersegmented Neuts Hypochromia Toxic Granulation Dohle Bodies Platelet Estimate Polychromasia Poikilocytosis Basophilic Stippling Anisocytosis Microcytosis Macrocytosis Spherocytes Siderocytes Sickle Cells Target Cells Tear Drop Cells Ovalocytes Stomatocytes Helmet Cells [place] Bodies [place] Rings [place] Cells Acanthocytes (Spur) Rouleaux Fragmented RBCs Schistocytes Morphology Comment Sodium Potassium Chloride Carbon Dioxide Anion Gap BUN Creatinine POC Glucometer 125.23108 129.04341 Random Glucose Calcium Specimen Type H.influenzae Type B Ag Negative S. pneumoniae Antigen Negative 01/15/17 01/15/17 01/15/17 01:14 05:15 05:15 WBC 10.1 H RBC 3.98 L Hgb 10.8 L Hct 32.9 L MCV 82.7 MCH 27.2 MCHC 32.9 RDW 21.5 H Plt Count 369 MPV 8.5 Nucleated RBC % Cancelled Hypersegmented Neuts Cancelled Hypochromia Cancelled Toxic Granulation Cancelled Dohle Bodies Cancelled Platelet Estimate Cancelled Polychromasia Cancelled Poikilocytosis Cancelled Basophilic Stippling Cancelled Anisocytosis Cancelled Microcytosis Cancelled Macrocytosis Cancelled Spherocytes Cancelled Siderocytes Cancelled Sickle Cells Cancelled Target Cells Cancelled Tear Drop Cells Cancelled Ovalocytes Cancelled Stomatocytes Cancelled Helmet Cells Cancelled [place] Bodies Cancelled [place] Rings Cancelled [place] Cells Cancelled Acanthocytes (Spur) Cancelled Rouleaux Cancelled Fragmented RBCs Cancelled Schistocytes Cancelled Morphology Comment Cancelled Sodium 131 L Potassium 2.8 L* Chloride 92 L Carbon Dioxide 28 Anion Gap 11 BUN 14 Creatinine 0.5 L POC Glucometer 120.56852 Random Glucose 90 Calcium 7.4 L Specimen Type H.influenzae Type B Ag S. pneumoniae Antigen 01/15/17 01/15/17 05:38 11:44 WBC RBC Hgb Hct MCV MCH MCHC RDW Plt Count MPV Nucleated RBC % Hypersegmented Neuts Hypochromia Toxic Granulation Dohle Bodies Platelet Estimate Polychromasia Poikilocytosis Basophilic Stippling Anisocytosis Microcytosis Macrocytosis Spherocytes Siderocytes Sickle Cells Target Cells Tear Drop Cells Ovalocytes Stomatocytes Helmet Cells [place] Bodies [place] Rings [place] Cells Acanthocytes (Spur) Rouleaux Fragmented RBCs Schistocytes Morphology Comment Sodium Potassium Chloride Carbon Dioxide Anion Gap BUN Creatinine POC Glucometer 118.64300 100.85634 Random Glucose Calcium Specimen Type H.influenzae Type B Ag S. pneumoniae Antigen Assessment/Plan Altered mental status with persistently high fevers --> Suspected Staph Bacterial Meningitis Previous concern for Serotonin Syndrome versus NMS due to patient's home medication usage -> low clinical suspicion at this point. Acute agitation RLL Pneumonia / RUL cavity Psych disorder Bradycardia -> Etiology to be determined ABX per ID O2 as needed OOB to chair PO as tolerated VTE prophylaxis Monitor off Decadron Monitor Bradycardia Replete edel Castro
[2017-01-15] MEDS: KCL 10 MEQ IVPB 100 ML IVPB SCH ×3 (12:45→18:35)
[2017-01-15 14:53] LABS: URINE MARIJUANA THC NEGATIVE ng/ml (CUTOFF=50)
[2017-01-15] MEDS: VANCOMYCIN 1,250 MG in DEXTROSE 5%-WATER - 250 ML IVPB SCH (15:03)
--- NOTE | 2017-01-15 15:44 | PN ---
Progress Note, Physician History of Present Illness: patient clinically much better still with spikes of fever - Current Medication List Current Medications: Active Medications Chlorhexidine Gluconate (Hibiclens For Decolonization -) 1 applic TP HS [facility] Last Admin: 01/14/17 21:05 Dose: 1 applic Heparin Sodium (Porcine) (Heparin -) 5,000 unit SQ TID [facility] Last Admin: 01/15/17 14:01 Dose: 5,000 unit Dextrose/Sodium Chloride (D5-Ns -) 1,000 mls @ 100 mls/hr IV ASDIR [facility] Last Admin: 01/15/17 15:36 Dose: Not Given Vancomycin HCl 1,250 mg/ (Dextrose) 250 mls @ 150 mls/hr IVPB DAILY@1500 [facility] PRN Reason: Protocol Last Admin: 01/15/17 15:03 Dose: 150 mls/hr Cefepime HCl 1 gm/ Dextrose 100 mls @ 200 mls/hr IVPB Q8H-IV [facility] Last Admin: 01/15/17 09:18 Dose: 200 mls/hr Potassium Chloride (Potassium Chloride 10 Meq Premix Ivpb -) 100 mls @ 100 mls/ hr IVPB Q60M [facility] Stop: 01/15/17 15:59 Last Admin: 01/15/17 14:01 Dose: 100 mls/hr Ibuprofen (Caldolor Injection -) 800 mg IVPB Q6H PRN PRN Reason: FEVER Last Admin: 01/15/17 14:14 Dose: 800 mg Ibuprofen (Motrin -) 400 mg PO Q6H PRN PRN Reason: PAIN Last Admin: 01/14/17 23:45 Dose: 400 mg Potassium Chloride (K-Dur -) 40 meq PO DAILY [facility] Last Admin: 01/15/17 09:19 Dose: 40 meq Prochlorperazine Edisylate (Compazine Injection -) 5 mg IVPB Q4H PRN PRN Reason: NAUSEA AND/OR VOMITING Last Admin: 01/14/17 11:04 Dose: 5 mg - Objective Vital Signs: Vital Signs Temperature 100.9 F H 01/15/17 13:16 Pulse Rate 47 L 01/15/17 12:00 Respiratory Rate 20 01/15/17 12:00 Blood Pressure 127/87 01/15/17 12:00 O2 Sat by Pulse Oximetry (%) 98 01/15/17 09:00 Constitutional: Yes: No Distress, Calm Cardiovascular: Yes: Regular Rate and Rhythm Respiratory: Yes: Regular, Poor Air Entry, Rhonchi Gastrointestinal: Yes: Normal Bowel Sounds, Soft Musculoskeletal: Yes: WNL Extremities: Yes: WNL Neurological: Yes: Alert, Oriented Psychiatric: Yes: Alert, Oriented Labs: CBC, BMP 01/15/17 05:15 01/15/17 05:15 INR, PTT INR 1.25 (0.82-1.09) H 01/09/17 05:20 Assessment/Plan Altered mental status with persistently high fevers r/o bacteria meningitis concern for Serotonin Syndrome versus NMS due to patient's home medication usage Acute agitation RLL Pneumonia / (?) RUL cavity Psych disorder sepsis resp failure gm positive bacteremia plan continue current mgmt continue abx close monitoring monitor fevers if conintues to spike might repeat ct scan of the chest
--- NOTE | 2017-01-15 20:27 | PN ---
Progress Note, Physician - Current Medication List Current Medications: Active Medications Chlorhexidine Gluconate (Hibiclens For Decolonization -) 1 applic TP HS [facility] Last Admin: 01/14/17 21:05 Dose: 1 applic Heparin Sodium (Porcine) (Heparin -) 5,000 unit SQ TID [facility] Last Admin: 01/15/17 14:01 Dose: 5,000 unit Dextrose/Sodium Chloride (D5-Ns -) 1,000 mls @ 100 mls/hr IV [facility] Last Admin: 01/15/17 15:36 Dose: Not Given Vancomycin HCl 1,250 mg/ (Dextrose) 250 mls @ 150 mls/hr IVPB DAILY@1500 [facility] PRN Reason: Protocol Last Admin: 01/15/17 15:03 Dose: 150 mls/hr Cefepime HCl 1 gm/ Dextrose 100 mls @ 200 mls/hr IVPB Q8H-IV [facility] Last Admin: 01/15/17 18:35 Dose: 200 mls/hr Ibuprofen (Caldolor Injection -) 800 mg IVPB Q6H PRN PRN Reason: FEVER Last Admin: 01/15/17 14:14 Dose: 800 mg Ibuprofen (Motrin -) 400 mg PO Q6H PRN PRN Reason: PAIN Last Admin: 01/14/17 23:45 Dose: 400 mg Potassium Chloride (K-Dur -) 40 meq PO DAILY [facility] Last Admin: 01/15/17 09:19 Dose: 40 meq Prochlorperazine Edisylate (Compazine Injection -) 5 mg IVPB Q4H PRN PRN Reason: NAUSEA AND/OR VOMITING Last Admin: 01/14/17 11:04 Dose: 5 mg - Objective Vital Signs: Vital Signs Temperature 100.2 F H 01/15/17 14:00 Pulse Rate 51 L 01/15/17 14:00 Respiratory Rate 20 01/15/17 12:00 Blood Pressure 113/75 01/15/17 14:00 O2 Sat by Pulse Oximetry (%) 98 01/15/17 09:00 Constitutional: Yes: No Distress HENT: Yes: Atraumatic Neck: Yes: Supple Cardiovascular: Yes: Regular Rate and Rhythm Respiratory: Yes: CTA Bilaterally Gastrointestinal: Yes: Normal Bowel Sounds Extremities: Yes: WNL Edema: No Neurological: Yes: Alert, Oriented Labs: CBC, BMP 01/15/17 05:15 01/15/17 05:15 INR, PTT INR 1.25 (0.82-1.09) H 01/09/17 05:20 Problem List - Problems (1) Agitation Assessment/Plan: normal now Code(s): R45.1 - RESTLESSNESS AND AGITATION (2) Sepsis Assessment/Plan: on iv abx cx noted ivf spiking fevers Code(s): A41.9 - SEPSIS, UNSPECIFIED ORGANISM Qualifiers: Sepsis type: sepsis due to unspecified organism Qualified Code(s): A41.9 - Sepsis, unspecified organism (3) Bacterial meningitis Assessment/Plan: csf noted Code(s): G00.9 - BACTERIAL MENINGITIS, UNSPECIFIED (4) Tuberculosis Assessment/Plan: negative...no acid fast bacilli seen Code(s): A15.9 - RESPIRATORY TUBERCULOSIS UNSPECIFIED
[2017-01-15] MEDS: CHLORHEXIDINE GLUCONATE 4% CLEANSER FOR DECOLONIZATION TP SCH (21:10)
[2017-01-16] MEDS: CEFEPIME 1 GM/100 ML BAG PRE-DOCKED IVPB SCH ×3 (01:14→17:53)
[2017-01-16] MEDS: HEPARIN NA (PORCINE) 5,000 UNITS/ML 1ML VIAL SQ SCH ×3 (05:17→23:24)
[2017-01-16 07:56] LABS: ANION GAP 11 (8-16); CALCIUM 7.7 mg/dL (8.5-10.1); CO2 25 mmol/L (21-32); CREATININE 0.5 mg/dL (0.7-1.3); GLUCOSE,RANDOM 86 mg/dL (74-106)
--- NOTE | 2017-01-16 09:46 | PN ---
Progress Note (short form) - Note Progress Note: Neurology History of Present Illness This is a 46 yo male with h/o recent pneumonia (tx with two antibiotic courses in the past 5 weeks), stroke, anxiety, and prior drug addiction (reportedly 20 years sober) who presents with his brother c/o agitation, altered mental status , and fever. The patient is unable to provide any of his medical history. His brother explains that he last saw the patient acting normally the night prior to admission. The patient was acting strangely, beginning with urinating in his laundry basket (far outside his baseline which is A/O and very sensible). The patient was noted to be persistently jerking his legs in bed while sleeping most of the day. There was concern and question of NMS vs Seratonin syndrome. LP was completed and showed increased WBC, low glucose and increased protein, consistent with bacterial meningitis. Patient with CT head and was negative except for slight ventricular asymmetry which does not have clinical relevance currently. Of note, the patient has substance abuse and opiates. He was admitted for sepsis 2/2 PNA and with bacterial meningitis. Patient downgraded to floor from ICU. Not on isolation at this time. More alert, cooperative, and communicative. No abnormal movements at this time. Remains on IV ABx, followed by ID. Neurologically improving. Remains on Cefepime and Vanco at this time Active Medications Cefepime HCl (Maxipime 1gm Ivpb Pre-Docked) 1 gm IVPB Q8H-IV [facility] Last Admin: 01/16/17 01:14 Dose: 1 gm Chlorhexidine Gluconate (Hibiclens For Decolonization -) 1 applic TP HS [facility] Last Admin: 01/15/17 21:10 Dose: Not Given Heparin Sodium (Porcine) (Heparin -) 5,000 unit SQ TID [facility] Last Admin: 01/16/17 05:17 Dose: 5,000 unit Dextrose/Sodium Chloride (D5-Ns -) 1,000 mls @ 100 mls/hr IV ASDIR [facility] Last Admin: 01/15/17 23:48 Dose: 100 mls/hr Vancomycin HCl 1,250 mg/ (Dextrose) 250 mls @ 150 mls/hr IVPB DAILY@1500 [facility] PRN Reason: Protocol Last Admin: 01/15/17 15:03 Dose: 150 mls/hr Ibuprofen (Caldolor Injection -) 800 mg IVPB Q6H PRN PRN Reason: FEVER Last Admin: 01/15/17 23:48 Dose: 800 mg Ibuprofen (Motrin -) 400 mg PO Q6H PRN PRN Reason: PAIN Last Admin: 01/14/17 23:45 Dose: 400 mg Potassium Chloride (K-Dur -) 40 meq PO DAILY [facility] Last Admin: 01/15/17 09:19 Dose: 40 meq Prochlorperazine Edisylate (Compazine Injection -) 5 mg IVPB Q4H PRN PRN Reason: NAUSEA AND/OR VOMITING Last Admin: 01/14/17 11:04 Dose: 5 mg *Physical Exam Vital Signs Temperature 98.6 F 01/16/17 06:00 Pulse Rate 48 L 01/16/17 06:00 Respiratory Rate 20 01/16/17 06:00 Blood Pressure 125/77 01/16/17 06:00 O2 Sat by Pulse Oximetry (%) 96 01/15/17 21:00 - Physical Exam General Appearance: Awake, alert, interactive, communicative briefly HEENT: positive: EOMI, ROGER Neck: positive: Other (patient unable to follow commands to test ROM of neck). negative: Carotid bruit Respiratory/Chest: Decreased breath sounds Cardiovascular: positive: Regular Rhythm, Tachycardia, Other (extremity veins distended). negative: Murmur Gastrointestinal/Abdominal: positive: Flat, Increased Bowel Sounds. negative: Hernia Male Genitalia: positive: normal genitalia. negative: hernia Musculoskeletal: positive: Normal Inspection, Muscle Spasm Integumentary: positive: Normal Color, Other (hot) Neurologic: awake, alert, follows minimal commands, CN intact, no focal motor deficits, sensory intact, no aphasia CBCD WBC 10.1 K/mm3 (4.0-10.0) H 01/15/17 05:15 RBC 3.98 M/mm3 (4.00-5.60) L 01/15/17 05:15 Hgb 10.8 GM/dL (11.7-16.9) L 01/15/17 05:15 Hct 32.9 % (35.4-49) L 01/15/17 05:15 MCV 82.7 fl (80-96) 01/15/17 05:15 MCHC 32.9 g/dl (32.0-35.9) 01/15/17 05:15 RDW 21.5 % (11.9-15.9) H 01/15/17 05:15 Plt Count 369 K/MM3 (134-434) 01/15/17 05:15 MPV 8.5 fl (7.5-11.1) 01/15/17 05:15 CMP Sodium 129 mmol/L (136-145) L 01/16/17 05:35 Potassium 3.0 mmol/L (3.5-5.1) L 01/16/17 05:35 Chloride 93 mmol/L (98-107) L 01/16/17 05:35 Carbon Dioxide 25 mmol/L (21-32) 01/16/17 05:35 Anion Gap 11 (8-16) 01/16/17 05:35 BUN 15 mg/dL (7-18) 01/16/17 05:35 Creatinine 0.5 mg/dL (0.7-1.3) L 01/16/17 05:35 Creat Clearance w eGFR > 60 (>60) 01/14/17 05:35 Calcium 7.7 mg/dL (8.5-10.1) L 01/16/17 05:35 Total Bilirubin 0.8 mg/dL (0.2-1.0) D 01/14/17 05:35 AST 28 U/L (15-37) 01/14/17 05:35 ALT 86 U/L (12-78) H 01/14/17 05:35 Alkaline Phosphatase 119 U/L (45-117) H 01/14/17 05:35 Total Protein 6.1 g/dl (6.4-8.2) L 01/14/17 05:35 Albumin 2.1 g/dl (3.4-5.0) L 01/14/17 05:35 Medical Decision Making 46 yo male with h/o recent pneumonia (tx with two antibiotic courses in the past 5 weeks), stroke, anxiety, and prior drug addiction (reportedly 20 years sober) who presents with his brother c/o agitation, altered mental status, and fever. The patient is unable to provide any of his medical history. His brother explains that he last saw the patient acting normally the night prior to admission. The patient was acting strangely, beginning with urinating in his laundry basket (far outside his baseline which is A/O and very sensible). The patient was noted to be persistently jerking his legs in bed while sleeping most of the day. There was concern and question of NMS vs Seratonin syndrome. LP was completed and showed increased WBC, low glucose and increased protein, consistent with bacterial meningitis. Patient with CT head and was negative except for slight ventricular asymmetry which does not have clinical relevance currently. Of note, the patient has substance abuse and opiates. He was admitted for sepsis 2/2 PNA and with bacterial meningitis. Downgraded to floor status. Fall precautions. IV abx to be continued, on Cefepime and Vanco. Does not seem to be NMS or seratonin syndrome, more consistent with infectious etiology and getting ongoing treatment, on IV Abx. Drug cessation highly recommended. Clinically improving.
[2017-01-16] MEDS ORDERED: PT OWN MED DRAWER 7, Y5N ONE ×2 (09:56→14:33)
[2017-01-16] MEDS: POTASSIUM CHLORIDE TABS 20 MEQ TABLET.ER (FP) PO SCH (10:08)
[2017-01-16] MEDS: IBUPROFEN 400 MG TABLET (FP) PO PRN ×2 (11:45→17:55)
[2017-01-16] MEDS: VANCOMYCIN 1,250 MG in DEXTROSE 5%-WATER - 250 ML IVPB SCH (14:42)
--- NOTE | 2017-01-16 16:27 | PN ---
Progress Note, Physician History of Present Illness: continues to improve had one spike otherwise afebrile - Current Medication List Current Medications: Active Medications Cefepime HCl (Maxipime 1gm Ivpb Pre-Docked) 1 gm IVPB Q8H-IV [facility] Last Admin: 01/16/17 11:09 Dose: 1 gm Chlorhexidine Gluconate (Hibiclens For Decolonization -) 1 applic TP HS [facility] Last Admin: 01/15/17 21:10 Dose: Not Given Heparin Sodium (Porcine) (Heparin -) 5,000 unit SQ TID [facility] Last Admin: 01/16/17 13:32 Dose: 5,000 unit Dextrose/Sodium Chloride (D5-Ns -) 1,000 mls @ 100 mls/hr IV ASDIR [facility] Last Admin: 01/15/17 23:48 Dose: 100 mls/hr Vancomycin HCl 1,250 mg/ (Dextrose) 250 mls @ 150 mls/hr IVPB DAILY@1500 [facility] PRN Reason: Protocol Last Admin: 01/16/17 14:42 Dose: 150 mls/hr Ibuprofen (Caldolor Injection -) 800 mg IVPB Q6H PRN PRN Reason: FEVER Last Admin: 01/15/17 23:48 Dose: 800 mg Ibuprofen (Motrin -) 400 mg PO Q6H PRN PRN Reason: PAIN Last Admin: 01/16/17 11:45 Dose: 400 mg Potassium Chloride (K-Dur -) 40 meq PO DAILY [facility] Last Admin: 01/16/17 10:08 Dose: 40 meq Prochlorperazine Edisylate (Compazine Injection -) 5 mg IVPB Q4H PRN PRN Reason: NAUSEA AND/OR VOMITING Last Admin: 01/14/17 11:04 Dose: 5 mg - Objective Vital Signs: Vital Signs Temperature 99 F 01/16/17 14:00 Pulse Rate 52 L 01/16/17 14:00 Respiratory Rate 20 01/16/17 14:00 Blood Pressure 122/67 01/16/17 14:00 O2 Sat by Pulse Oximetry (%) 97 01/16/17 14:26 Constitutional: Yes: No Distress, Calm Cardiovascular: Yes: Regular Rate and Rhythm Respiratory: Yes: Regular, On Nasal O2, Rhonchi Gastrointestinal: Yes: Normal Bowel Sounds, Soft Musculoskeletal: Yes: WNL Extremities: Yes: WNL Neurological: Yes: Alert, Oriented Psychiatric: Yes: Alert, Oriented Labs: CBC, BMP 01/15/17 05:15 01/16/17 05:35 INR, PTT INR 1.25 (0.82-1.09) H 01/09/17 05:20 Assessment/Plan Altered mental status with persistently high fevers r/o bacteria meningitis concern for Serotonin Syndrome versus NMS due to patient's home medication usage Acute agitation RLL Pneumonia / (?) RUL cavity Psych disorder sepsis resp failure gm positive bacteremia plan continue current mgmt continue abx close monitoring monitor fevers incentive serena
[2017-01-16] MEDS: DEXTROSE 5%-NORMAL SALINE 1,000 ML IV SCH (17:53)
--- NOTE | 2017-01-16 19:01 | PN ---
Progress Note, Physician History of Present Illness: doing better - Current Medication List Current Medications: Active Medications Cefepime HCl (Maxipime 1gm Ivpb Pre-Docked) 1 gm IVPB Q8H-IV [facility] Last Admin: 01/16/17 17:53 Dose: 1 gm Chlorhexidine Gluconate (Hibiclens For Decolonization -) 1 applic TP HS [facility] Last Admin: 01/15/17 21:10 Dose: Not Given Heparin Sodium (Porcine) (Heparin -) 5,000 unit SQ TID [facility] Last Admin: 01/16/17 13:32 Dose: 5,000 unit Dextrose/Sodium Chloride (D5-Ns -) 1,000 mls @ 100 mls/hr IV ASDIR [facility] Last Admin: 01/16/17 17:53 Dose: 100 mls/hr Vancomycin HCl 1,250 mg/ (Dextrose) 250 mls @ 150 mls/hr IVPB DAILY@1500 [facility] PRN Reason: Protocol Last Admin: 01/16/17 14:42 Dose: 150 mls/hr Ibuprofen (Caldolor Injection -) 800 mg IVPB Q6H PRN PRN Reason: FEVER Last Admin: 01/15/17 23:48 Dose: 800 mg Ibuprofen (Motrin -) 400 mg PO Q6H PRN PRN Reason: PAIN Last Admin: 01/16/17 17:55 Dose: 400 mg Potassium Chloride (K-Dur -) 40 meq PO DAILY [facility] Last Admin: 01/16/17 10:08 Dose: 40 meq Prochlorperazine Edisylate (Compazine Injection -) 5 mg IVPB Q4H PRN PRN Reason: NAUSEA AND/OR VOMITING Last Admin: 01/14/17 11:04 Dose: 5 mg - Objective Vital Signs: Vital Signs Temperature 99 F 01/16/17 14:00 Pulse Rate 52 L 01/16/17 14:00 Respiratory Rate 20 01/16/17 14:00 Blood Pressure 122/67 01/16/17 14:00 O2 Sat by Pulse Oximetry (%) 97 01/16/17 14:26 Constitutional: Yes: No Distress HENT: Yes: Atraumatic Neck: Yes: Supple Cardiovascular: Yes: Regular Rate and Rhythm Respiratory: Yes: Rhonchi Gastrointestinal: Yes: Normal Bowel Sounds Extremities: Yes: WNL Neurological: Yes: Alert, Oriented Labs: CBC, BMP 01/15/17 05:15 08/16/17 05:35 INR, PTT INR 1.25 (0.82-1.09) H 01/09/17 05:20 Problem List - Problems (1) Agitation Assessment/Plan: normal now Code(s): R45.1 - RESTLESSNESS AND AGITATION (2) Sepsis Assessment/Plan: on iv abx cx noted ivf Code(s): A41.9 - SEPSIS, UNSPECIFIED ORGANISM Qualifiers: Sepsis type: sepsis due to unspecified organism Qualified Code(s): A41.9 - Sepsis, unspecified organism (3) Bacterial meningitis Assessment/Plan: csf noted Code(s): G00.9 - BACTERIAL MENINGITIS, UNSPECIFIED (4) Tuberculosis Assessment/Plan: negative...no acid fast bacilli seen Code(s): A15.9 - RESPIRATORY TUBERCULOSIS UNSPECIFIED
[2017-01-16] MEDS: CHLORHEXIDINE GLUCONATE 4% CLEANSER FOR DECOLONIZATION TP SCH (22:34)
[2017-01-16] MEDS: KCL 10 MEQ IVPB 100 ML IVPB SCH (23:24)
[2017-01-17] MEDS: KCL 10 MEQ IVPB 100 ML IVPB SCH (00:30)
[2017-01-17] MEDS: CEFEPIME 1 GM/100 ML BAG PRE-DOCKED IVPB SCH ×3 (02:11→17:27)
[2017-01-17 08:13] LABS: ALBUMIN 2.2 g/dl (3.4-5.0); ALK PHOS 113 U/L (45-117); ANION GAP 8 (8-16); BILIRUBIN,TOTAL 0.4 mg/dL (0.2-1.0); CALCIUM 8.3 mg/dL (8.5-10.1); CO2 28 mmol/L (21-32); CREATININE 0.6 mg/dL (0.7-1.3); GLUCOSE,RANDOM 84 mg/dL (74-106); SGOT/AST 14 U/L (15-37); SGPT/ALT 49 U/L (12-78); TOT PROT 5.7 g/dl (6.4-8.2)
[2017-01-17 08:14] LABS: BASOPHIL 0.4 % (0-2.0); EOSINOPHIL 0.6 % (0-4.5); MCH 27.2 pg (25.7-33.7); MCHC 32.5 g/dl (32.0-35.9); MEAN CELL VOLUME 83.7 fl (80-96); MEAN PLT VOLUME 8.8 fl (7.5-11.1); NEUTROPHILS 80.2 % (42.8-82.8); PLATELET COUNT 391 K/MM3 (134-434); RDW 21.8 % (11.9-15.9); WHITE BLOOD COUNT 8.1 K/mm3 (4.0-10.0)
[2017-01-17] MEDS: IBUPROFEN 400 MG TABLET (FP) PO PRN ×2 (08:18→15:46)
[2017-01-17] MEDS: POTASSIUM CHLORIDE TABS 20 MEQ TABLET.ER (FP) PO SCH (09:00)
--- NOTE | 2017-01-17 10:31 | PN ---
Progress Note (short form) - Note Progress Note: Neurology History of Present Illness This is a 46 yo male with h/o recent pneumonia (tx with two antibiotic courses in the past 5 weeks), stroke, anxiety, and prior drug addiction (reportedly 20 years sober) who presents with his brother c/o agitation, altered mental status , and fever. The patient is unable to provide any of his medical history. His brother explains that he last saw the patient acting normally the night prior to admission. The patient was acting strangely, beginning with urinating in his laundry basket (far outside his baseline which is A/O and very sensible). The patient was noted to be persistently jerking his legs in bed while sleeping most of the day. There was concern and question of NMS vs Seratonin syndrome. LP was completed and showed increased WBC, low glucose and increased protein, consistent with bacterial meningitis. Patient with CT head and was negative except for slight ventricular asymmetry which does not have clinical relevance currently. Of note, the patient has substance abuse and opiates. He was admitted for sepsis 2/2 PNA and with bacterial meningitis. Patient downgraded to floor from ICU. Not on isolation at this time. More alert, cooperative, and communicative. No abnormal movements at this time. Neurologically improving. Remains on Cefepime and Vanco at this time. He feels well and patient asking regarding discharge of length of treatment. Remains on IV ABx, followed by ID. Active Medications Cefepime HCl (Maxipime 1gm Ivpb Pre-Docked) 1 gm IVPB Q8H-IV [facility] Last Admin: 01/17/17 09:03 Dose: 1 gm Chlorhexidine Gluconate (Hibiclens For Decolonization -) 1 applic TP HS [facility] Last Admin: 01/16/17 22:34 Dose: Not Given Dextrose/Sodium Chloride (D5-Ns -) 1,000 mls @ 100 mls/hr IV ASDIR [facility] Last Admin: 01/16/17 17:53 Dose: 100 mls/hr Vancomycin HCl 1,250 mg/ (Dextrose) 250 mls @ 150 mls/hr IVPB DAILY@1500 [facility] PRN Reason: Protocol Last Admin: 01/16/17 14:42 Dose: 150 mls/hr Ibuprofen (Caldolor Injection -) 800 mg IVPB Q6H PRN PRN Reason: FEVER Last Admin: 01/15/17 23:48 Dose: 800 mg Ibuprofen (Motrin -) 400 mg PO Q6H PRN PRN Reason: PAIN Last Admin: 01/17/17 08:18 Dose: 400 mg Potassium Chloride (K-Dur -) 40 meq PO DAILY [facility] Last Admin: 01/17/17 09:00 Dose: 40 meq Prochlorperazine Edisylate (Compazine Injection -) 5 mg IVPB Q4H PRN PRN Reason: NAUSEA AND/OR VOMITING Last Admin: 01/14/17 11:04 Dose: 5 mg *Physical Exam Vital Signs Period Temp Pulse Resp BP Sys/Paz Pulse Ox Last 24 Hr 97 F-99 F 43-52 18-20 120-148/67-78 97-97 - Physical Exam General Appearance: Awake, alert, interactive, communicative briefly HEENT: positive: EOMI, ROGER Neck: positive: Other (patient unable to follow commands to test ROM of neck). negative: Carotid bruit Respiratory/Chest: Decreased breath sounds Cardiovascular: positive: Regular Rhythm, Tachycardia, Other (extremity veins distended). negative: Murmur Gastrointestinal/Abdominal: positive: Flat, Increased Bowel Sounds. negative: Hernia Male Genitalia: positive: normal genitalia. negative: hernia Musculoskeletal: positive: Normal Inspection, Muscle Spasm Integumentary: positive: Normal Color, Other (hot) Neurologic: awake, alert, follows minimal commands, CN intact, no focal motor deficits, sensory intact, no aphasia CBCD WBC 8.1 K/mm3 (4.0-10.0) 01/17/17 06:00 RBC 4.42 M/mm3 (4.00-5.60) 01/17/17 06:00 Hgb 12.0 GM/dL (11.7-16.9) D 01/17/17 06:00 Hct 37.0 % (35.4-49) 01/17/17 06:00 MCV 83.7 fl (80-96) 01/17/17 06:00 MCHC 32.5 g/dl (32.0-35.9) 01/17/17 06:00 RDW 21.8 % (11.9-15.9) H 01/17/17 06:00 Plt Count 391 K/MM3 (134-434) 01/17/17 06:00 MPV 8.8 fl (7.5-11.1) 01/17/17 06:00 CMP Sodium 129 mmol/L (136-145) L 01/17/17 06:00 Potassium 3.3 mmol/L (3.5-5.1) L 01/17/17 06:00 Chloride 93 mmol/L (98-107) L 01/17/17 06:00 Carbon Dioxide 28 mmol/L (21-32) 01/17/17 06:00 Anion Gap 8 (8-16) 01/17/17 06:00 BUN 14 mg/dL (7-18) 01/17/17 06:00 Creatinine 0.6 mg/dL (0.7-1.3) L 01/17/17 06:00 Creat Clearance w eGFR > 60 (>60) 01/17/17 06:00 Calcium 8.3 mg/dL (8.5-10.1) L 01/17/17 06:00 Total Bilirubin 0.4 mg/dL (0.2-1.0) D 01/17/17 06:00 AST 14 U/L (15-37) L D 01/17/17 06:00 ALT 49 U/L (12-78) D 01/17/17 06:00 Alkaline Phosphatase 113 U/L (45-117) 01/17/17 06:00 Total Protein 5.7 g/dl (6.4-8.2) L 01/17/17 06:00 Albumin 2.2 g/dl (3.4-5.0) L 01/17/17 06:00 Medical Decision Making 46 yo male with h/o recent pneumonia (tx with two antibiotic courses in the past 5 weeks), stroke, anxiety, and prior drug addiction (reportedly 20 years sober) who presents with his brother c/o agitation, altered mental status, and fever. The patient is unable to provide any of his medical history. His brother explains that he last saw the patient acting normally the night prior to admission. The patient was acting strangely, beginning with urinating in his laundry basket (far outside his baseline which is A/O and very sensible). The patient was noted to be persistently jerking his legs in bed while sleeping most of the day. There was concern and question of NMS vs Seratonin syndrome. LP was completed and showed increased WBC, low glucose and increased protein, consistent with bacterial meningitis. Patient with CT head and was negative except for slight ventricular asymmetry which does not have clinical relevance currently. Of note, the patient has substance abuse and opiates. He was admitted for sepsis 2/2 PNA and with bacterial meningitis. Downgraded to floor status. Fall precautions. IV abx to be continued, on Cefepime and Vanco. Does not seem to be NMS or seratonin syndrome, more consistent with infectious etiology and getting ongoing treatment, on IV Abx. Drug cessation highly recommended. Clinically improving. Discharge when able.
[2017-01-17] MEDS ORDERED: PT OWN MED DRAWER 7, Y5N ONE (14:09)
[2017-01-17] MEDS: VANCOMYCIN 1,250 MG in DEXTROSE 5%-WATER - 250 ML IVPB SCH (14:10)
[2017-01-17] MEDS: DEXTROSE 5%-NORMAL SALINE 1,000 ML IV SCH (15:48)
--- NOTE | 2017-01-17 16:09 | PN ---
Progress Note, Physician History of Present Illness: continues to improve patient remained afebrile - Current Medication List Current Medications: Active Medications Cefepime HCl (Maxipime 1gm Ivpb Pre-Docked) 1 gm IVPB Q8H-IV [facility] Last Admin: 01/17/17 09:03 Dose: 1 gm Chlorhexidine Gluconate (Hibiclens For Decolonization -) 1 applic TP HS [facility] Last Admin: 01/16/17 22:34 Dose: Not Given Dextrose/Sodium Chloride (D5-Ns -) 1,000 mls @ 100 mls/hr IV ASDIR [facility] Last Admin: 01/17/17 15:48 Dose: Not Given Vancomycin HCl 1,250 mg/ (Dextrose) 250 mls @ 150 mls/hr IVPB DAILY@1500 [facility] PRN Reason: Protocol Last Admin: 01/17/17 14:10 Dose: 150 mls/hr Ibuprofen (Caldolor Injection -) 800 mg IVPB Q6H PRN PRN Reason: FEVER Last Admin: 01/15/17 23:48 Dose: 800 mg Ibuprofen (Motrin -) 400 mg PO Q6H PRN PRN Reason: PAIN Last Admin: 01/17/17 15:46 Dose: 400 mg Potassium Chloride (K-Dur -) 40 meq PO DAILY [facility] Last Admin: 01/17/17 09:00 Dose: 40 meq Prochlorperazine Edisylate (Compazine Injection -) 5 mg IVPB Q4H PRN PRN Reason: NAUSEA AND/OR VOMITING Last Admin: 01/14/17 11:04 Dose: 5 mg - Objective Vital Signs: Vital Signs Temperature 98.8 F 01/17/17 14:43 Pulse Rate 49 L 01/17/17 14:43 Respiratory Rate 18 01/17/17 14:43 Blood Pressure 128/70 01/17/17 14:43 O2 Sat by Pulse Oximetry (%) 100 01/17/17 08:27 Constitutional: Yes: No Distress, Calm Eyes: Yes: Conjunctiva Clear Cardiovascular: Yes: Regular Rate and Rhythm Respiratory: Yes: Regular, CTA Bilaterally Gastrointestinal: Yes: Normal Bowel Sounds, Soft Musculoskeletal: Yes: WNL Extremities: Yes: WNL Neurological: Yes: Alert, Oriented Psychiatric: Yes: Alert, Oriented Labs: CBC, BMP 01/17/17 06:00 01/17/17 06:00 INR, PTT INR 1.25 (0.82-1.09) H 01/09/17 05:20 Assessment/Plan Altered mental status with persistently high fevers r/o bacteria meningitis concern for Serotonin Syndrome versus NMS due to patient's home medication usage Acute agitation RLL Pneumonia / (?) RUL cavity Psych disorder sepsis resp failure gm positive bacteremia plan continue current mgmt continue abx patient afebrile will start tapering abx from tomorrow await for all cx reports
[2017-01-17 16:26] LABS: ORGANISM ID Not indicated. (.)
[2017-01-17] MEDS ORDERED: INSULIN (NOVOLOG) ASPART 100 UNITS/ML 10ML VIAL ONE (16:32)
--- NOTE | 2017-01-17 17:16 | PN ---
Progress Note, Physician History of Present Illness: doing better - Current Medication List Current Medications: Active Medications Cefepime HCl (Maxipime 1gm Ivpb Pre-Docked) 1 gm IVPB Q8H-IV [facility] Last Admin: 01/17/17 09:03 Dose: 1 gm Chlorhexidine Gluconate (Hibiclens For Decolonization -) 1 applic TP HS [facility] Last Admin: 01/16/17 22:34 Dose: Not Given Dextrose/Sodium Chloride (D5-Ns -) 1,000 mls @ 100 mls/hr IV ASDIR [facility] Last Admin: 01/17/17 15:48 Dose: Not Given Vancomycin HCl 1,250 mg/ (Dextrose) 250 mls @ 150 mls/hr IVPB DAILY@1500 [facility] PRN Reason: Protocol Last Admin: 01/17/17 14:10 Dose: 150 mls/hr Ibuprofen (Caldolor Injection -) 800 mg IVPB Q6H PRN PRN Reason: FEVER Last Admin: 01/15/17 23:48 Dose: 800 mg Ibuprofen (Motrin -) 400 mg PO Q6H PRN PRN Reason: PAIN Last Admin: 01/17/17 15:46 Dose: 400 mg Potassium Chloride (K-Dur -) 40 meq PO DAILY [facility] Last Admin: 01/17/17 09:00 Dose: 40 meq Prochlorperazine Edisylate (Compazine Injection -) 5 mg IVPB Q4H PRN PRN Reason: NAUSEA AND/OR VOMITING Last Admin: 01/14/17 11:04 Dose: 5 mg - Objective Vital Signs: Vital Signs Temperature 98.8 F 01/17/17 14:43 Pulse Rate 49 L 01/17/17 14:43 Respiratory Rate 18 01/17/17 14:43 Blood Pressure 128/70 01/17/17 14:43 O2 Sat by Pulse Oximetry (%) 100 01/17/17 08:27 HENT: Yes: Atraumatic Neck: Yes: Supple Cardiovascular: Yes: Regular Rate and Rhythm Respiratory: Yes: CTA Bilaterally Gastrointestinal: Yes: Normal Bowel Sounds Extremities: Yes: WNL Neurological: Yes: Alert, Oriented Labs: CBC, BMP 01/17/17 06:00 01/17/17 06:00 INR, PTT INR 1.25 (0.82-1.09) H 01/09/17 05:20 Problem List - Problems (1) Agitation Assessment/Plan: normal now Code(s): R45.1 - RESTLESSNESS AND AGITATION (2) Sepsis Assessment/Plan: on iv abx cx noted ivf Code(s): A41.9 - SEPSIS, UNSPECIFIED ORGANISM Qualifiers: Sepsis type: sepsis due to unspecified organism Qualified Code(s): A41.9 - Sepsis, unspecified organism (3) Bacterial meningitis Assessment/Plan: csf noted Code(s): G00.9 - BACTERIAL MENINGITIS, UNSPECIFIED (4) Tuberculosis Assessment/Plan: negative...no acid fast bacilli seen Code(s): A15.9 - RESPIRATORY TUBERCULOSIS UNSPECIFIED
[2017-01-17] MEDS: CHLORHEXIDINE GLUCONATE 4% CLEANSER FOR DECOLONIZATION TP SCH (22:00)
[2017-01-18] MEDS: CEFEPIME 1 GM/100 ML BAG PRE-DOCKED IVPB SCH ×3 (01:15→18:29)
[2017-01-18] MEDS: IBUPROFEN 800 MG/8 ML IJ IVPB PRN (06:39)
[2017-01-18] MEDS ORDERED: PT OWN MED DRAWER 7, Y5N ONE ×4 (09:17→21:28)
[2017-01-18] MEDS: POTASSIUM CHLORIDE TABS 20 MEQ TABLET.ER (FP) PO SCH (09:20)
--- NOTE | 2017-01-18 10:21 | PN ---
Progress Note (short form) - Note Progress Note: Neurology History of Present Illness This is a 46 yo male with h/o recent pneumonia (tx with two antibiotic courses in the past 5 weeks), stroke, anxiety, and prior drug addiction (reportedly 20 years sober) who presents with his brother c/o agitation, altered mental status , and fever. The patient is unable to provide any of his medical history. His brother explains that he last saw the patient acting normally the night prior to admission. The patient was acting strangely, beginning with urinating in his laundry basket (far outside his baseline which is A/O and very sensible). The patient was noted to be persistently jerking his legs in bed while sleeping most of the day. There was concern and question of NMS vs Seratonin syndrome. LP was completed and showed increased WBC, low glucose and increased protein, consistent with bacterial meningitis. Patient with CT head and was negative except for slight ventricular asymmetry which does not have clinical relevance currently. Of note, the patient has substance abuse and opiates. He was admitted for sepsis 2/2 PNA and with bacterial meningitis. Patient downgraded to floor from ICU. Not on isolation at this time. More alert, cooperative, and communicative. No abnormal movements at this time. Neurologically improving. Remains on Cefepime and Vanco at this time. He feels well and patient asking regarding discharge of length of treatment. Remains on IV ABx, followed by ID. Told he may be able to go home tomorrow. Active Medications Cefepime HCl (Maxipime 1gm Ivpb Pre-Docked) 1 gm IVPB Q8H-IV [facility] Last Admin: 01/18/17 09:37 Dose: 1 gm Chlorhexidine Gluconate (Hibiclens For Decolonization -) 1 applic TP HS [facility] Last Admin: 01/17/17 22:00 Dose: Not Given Dextrose/Sodium Chloride (D5-Ns -) 1,000 mls @ 100 mls/hr IV ASDIR [facility] Last Admin: 01/17/17 15:48 Dose: Not Given Vancomycin HCl 1,250 mg/ (Dextrose) 250 mls @ 150 mls/hr IVPB DAILY@1500 [facility] PRN Reason: Protocol Last Admin: 01/17/17 14:10 Dose: 150 mls/hr Ibuprofen (Caldolor Injection -) 800 mg IVPB Q6H PRN PRN Reason: FEVER Last Admin: 01/18/17 06:39 Dose: 800 mg Ibuprofen (Motrin -) 400 mg PO Q6H PRN PRN Reason: PAIN Last Admin: 01/17/17 15:46 Dose: 400 mg Potassium Chloride (K-Dur -) 40 meq PO DAILY [facility] Last Admin: 01/18/17 09:20 Dose: 40 meq Prochlorperazine Edisylate (Compazine Injection -) 5 mg IVPB Q4H PRN PRN Reason: NAUSEA AND/OR VOMITING Last Admin: 01/14/17 11:04 Dose: 5 mg *Physical Exam Vital Signs Temperature 99.4 F 01/18/17 05:30 Pulse Rate 79 01/18/17 05:30 Respiratory Rate 16 01/18/17 05:30 Blood Pressure 140/74 01/18/17 05:30 O2 Sat by Pulse Oximetry (%) 100 01/17/17 22:00 - Physical Exam General Appearance: Awake, alert, interactive, communicative briefly HEENT: positive: EOMI, ROGER Neck: positive: Other (patient unable to follow commands to test ROM of neck). negative: Carotid bruit Respiratory/Chest: Decreased breath sounds Cardiovascular: positive: Regular Rhythm, Tachycardia, Other (extremity veins distended). negative: Murmur Gastrointestinal/Abdominal: positive: Flat, Increased Bowel Sounds. negative: Hernia Male Genitalia: positive: normal genitalia. negative: hernia Musculoskeletal: positive: Normal Inspection, Muscle Spasm Integumentary: positive: Normal Color, Other (hot) Neurologic: awake, alert, follows minimal commands, CN intact, no focal motor deficits, sensory intact, no aphasia CBCD WBC 8.1 K/mm3 (4.0-10.0) 01/17/17 06:00 RBC 4.42 M/mm3 (4.00-5.60) 01/17/17 06:00 Hgb 12.0 GM/dL (11.7-16.9) D 01/17/17 06:00 Hct 37.0 % (35.4-49) 01/17/17 06:00 MCV 83.7 fl (80-96) 01/17/17 06:00 MCHC 32.5 g/dl (32.0-35.9) 01/17/17 06:00 RDW 21.8 % (11.9-15.9) H 01/17/17 06:00 Plt Count 391 K/MM3 (134-434) 01/17/17 06:00 MPV 8.8 fl (7.5-11.1) 01/17/17 06:00 CMP Sodium 129 mmol/L (136-145) L 01/17/17 06:00 Potassium 3.3 mmol/L (3.5-5.1) L 01/17/17 06:00 Chloride 93 mmol/L (98-107) L 01/17/17 06:00 Carbon Dioxide 28 mmol/L (21-32) 01/17/17 06:00 Anion Gap 8 (8-16) 01/17/17 06:00 BUN 14 mg/dL (7-18) 01/17/17 06:00 Creatinine 0.6 mg/dL (0.7-1.3) L 01/17/17 06:00 Creat Clearance w eGFR > 60 (>60) 01/17/17 06:00 Calcium 8.3 mg/dL (8.5-10.1) L 01/17/17 06:00 Total Bilirubin 0.4 mg/dL (0.2-1.0) D 01/17/17 06:00 AST 14 U/L (15-37) L D 01/17/17 06:00 ALT 49 U/L (12-78) D 01/17/17 06:00 Alkaline Phosphatase 113 U/L (45-117) 01/17/17 06:00 Total Protein 5.7 g/dl (6.4-8.2) L 01/17/17 06:00 Albumin 2.2 g/dl (3.4-5.0) L 01/17/17 06:00 Medical Decision Making 46 yo male with h/o recent pneumonia (tx with two antibiotic courses in the past 5 weeks), stroke, anxiety, and prior drug addiction (reportedly 20 years sober) who presents with his brother c/o agitation, altered mental status, and fever. The patient is unable to provide any of his medical history. His brother explains that he last saw the patient acting normally the night prior to admission. The patient was acting strangely, beginning with urinating in his laundry basket (far outside his baseline which is A/O and very sensible). The patient was noted to be persistently jerking his legs in bed while sleeping most of the day. There was concern and question of NMS vs Seratonin syndrome. LP was completed and showed increased WBC, low glucose and increased protein, consistent with bacterial meningitis. Patient with CT head and was negative except for slight ventricular asymmetry which does not have clinical relevance currently. Of note, the patient has substance abuse and opiates. He was admitted for sepsis 2/2 PNA and with bacterial meningitis. Downgraded to floor status. Fall precautions. IV abx to be continued, on Cefepime and Vanco. Does not seem to be NMS or seratonin syndrome, more consistent with infectious etiology and getting ongoing treatment, on IV Abx. Drug cessation highly recommended. Clinically improving. Discharge when able, possibly tomorrow. Discussed outpatient follow up, provided instructions and follow up information. Patient acknowledged. No further rec'd at this time.
[2017-01-18] MEDS: BANATROL PLUS POWDER PACKET PO SCH ×2 (11:00→21:32)
[2017-01-18] MEDS: IBUPROFEN 400 MG TABLET (FP) PO PRN (13:30)
[2017-01-18] MEDS: DEXTROSE 5%-NORMAL SALINE 1,000 ML IV SCH (15:15)
[2017-01-18] MEDS: VANCOMYCIN 1,250 MG in DEXTROSE 5%-WATER - 250 ML IVPB SCH (16:29)
--- NOTE | 2017-01-18 21:01 | PN ---
Progress Note, Physician History of Present Illness: No new complaints - Current Medication List Current Medications: Active Medications Cefepime HCl (Maxipime 1gm Ivpb Pre-Docked) 1 gm IVPB Q8H-IV [facility] Last Admin: 01/18/17 18:29 Dose: 1 gm Chlorhexidine Gluconate (Hibiclens For Decolonization -) 1 applic TP HS [facility] Last Admin: 01/17/17 22:00 Dose: Not Given Dextrose/Sodium Chloride (D5-Ns -) 1,000 mls @ 100 mls/hr IV ASDIR [facility] Last Admin: 01/18/17 15:15 Dose: 100 mls/hr Vancomycin HCl 1,250 mg/ (Dextrose) 250 mls @ 150 mls/hr IVPB DAILY@1500 [facility] PRN Reason: Protocol Last Admin: 01/18/17 16:29 Dose: 150 mls/hr Ibuprofen (Caldolor Injection -) 800 mg IVPB Q6H PRN PRN Reason: FEVER Last Admin: 01/18/17 06:39 Dose: 800 mg Ibuprofen (Motrin -) 400 mg PO Q6H PRN PRN Reason: PAIN Last Admin: 01/18/17 13:30 Dose: 400 mg Potassium Chloride (K-Dur -) 40 meq PO DAILY [facility] Last Admin: 01/18/17 09:20 Dose: 40 meq Prochlorperazine Edisylate (Compazine Injection -) 5 mg IVPB Q4H PRN PRN Reason: NAUSEA AND/OR VOMITING Last Admin: 01/14/17 11:04 Dose: 5 mg - Objective Vital Signs: Vital Signs Temperature 99.2 F 01/18/17 14:00 Pulse Rate 46 L 01/18/17 14:00 Respiratory Rate 18 01/18/17 14:00 Blood Pressure 135/74 01/18/17 14:00 O2 Sat by Pulse Oximetry (%) 100 01/17/17 22:00 Constitutional: Yes: No Distress Cardiovascular: Yes: WNL, Regular Rate and Rhythm Respiratory: Yes: WNL, Regular, CTA Bilaterally Gastrointestinal: Yes: WNL, Normal Bowel Sounds, Soft Musculoskeletal: Yes: WNL Extremities: Yes: WNL Edema: No Labs: CBC, BMP 01/17/17 06:00 01/17/17 06:00 INR, PTT INR 1.25 (0.82-1.09) H 01/09/17 05:20 Problem List - Problems (1) Sepsis Assessment/Plan: Cont IV antibxs Repeat BC remain negative Moniotr cultures As per ID Code(s): A41.9 - SEPSIS, UNSPECIFIED ORGANISM Qualifiers: Sepsis type: sepsis due to unspecified organism Qualified Code(s): A41.9 - Sepsis, unspecified organism
--- NOTE | 2017-01-18 22:26 | PN ---
Progress Note, Physician History of Present Illness: continues to improve patient remained afebrile - Current Medication List Current Medications: Active Medications Cefepime HCl (Maxipime 1gm Ivpb Pre-Docked) 1 gm IVPB Q8H-IV DIONICIO Last Admin: 01/18/17 18:29 Dose: 1 gm Dextrose/Sodium Chloride (D5-Ns -) 1,000 mls @ 100 mls/hr IV ASDIR DIONICIO Last Admin: 01/18/17 15:15 Dose: 100 mls/hr Ibuprofen (Caldolor Injection -) 800 mg IVPB Q6H PRN PRN Reason: FEVER Last Admin: 01/18/17 06:39 Dose: 800 mg Ibuprofen (Motrin -) 400 mg PO Q6H PRN PRN Reason: PAIN Last Admin: 01/18/17 13:30 Dose: 400 mg Potassium Chloride (K-Dur -) 40 meq PO DAILY DIONICIO Last Admin: 01/18/17 09:20 Dose: 40 meq Prochlorperazine Edisylate (Compazine Injection -) 5 mg IVPB Q4H PRN PRN Reason: NAUSEA AND/OR VOMITING Last Admin: 01/14/17 11:04 Dose: 5 mg - Objective Vital Signs: Vital Signs Temperature 98.4 F 01/18/17 18:40 Pulse Rate 47 L 01/18/17 18:40 Respiratory Rate 18 01/18/17 18:40 Blood Pressure 129/75 01/18/17 18:40 O2 Sat by Pulse Oximetry (%) 100 01/17/17 22:00 Constitutional: Yes: No Distress, Calm Cardiovascular: Yes: Regular Rate and Rhythm Respiratory: Yes: Regular, Poor Air Entry, Rhonchi Gastrointestinal: Yes: Normal Bowel Sounds, Soft Musculoskeletal: Yes: WNL Extremities: Yes: WNL Neurological: Yes: Alert, Oriented Psychiatric: Yes: Alert, Oriented Labs: CBC, BMP 01/17/17 06:00 01/17/17 06:00 INR, PTT INR 1.25 (0.82-1.09) H 01/09/17 05:20 Assessment/Plan Altered mental status with persistently high fevers r/o bacteria meningitis concern for Serotonin Syndrome versus NMS due to patient's home medication usage Acute agitation RLL Pneumonia / (?) RUL cavity Psych disorder sepsis resp failure gm positive bacteremia plan continue current mgmt stopped vanco patient afebrile if patient remains afebrile can stop other abx also
[2017-01-19] MEDS: CEFEPIME 1 GM/100 ML BAG PRE-DOCKED IVPB SCH ×3 (01:38→17:34)
[2017-01-19] MEDS: DEXTROSE 5%-NORMAL SALINE 1,000 ML IV SCH ×2 (01:43→17:34)
[2017-01-19] MEDS: POTASSIUM CHLORIDE TABS 20 MEQ TABLET.ER (FP) PO SCH (09:10)
--- NOTE | 2017-01-19 12:39 | PN ---
Progress Note, Physician History of Present Illness: Pt states he feels well but as per remains confused Pt denies shortness of breath or cough Afebrile - Current Medication List Current Medications: Active Medications Cefepime HCl (Maxipime 1gm Ivpb Pre-Docked) 1 gm IVPB Q8H-IV DIONICIO Last Admin: 01/19/17 09:10 Dose: 1 gm Dextrose/Sodium Chloride (D5-Ns -) 1,000 mls @ 100 mls/hr IV ASDIR DIONICIO Last Admin: 01/19/17 01:43 Dose: 100 mls/hr Ibuprofen (Caldolor Injection -) 800 mg IVPB Q6H PRN PRN Reason: FEVER Last Admin: 01/18/17 06:39 Dose: 800 mg Ibuprofen (Motrin -) 400 mg PO Q6H PRN PRN Reason: PAIN Last Admin: 01/18/17 13:30 Dose: 400 mg Potassium Chloride (K-Dur -) 40 meq PO DAILY DIONICIO Last Admin: 01/19/17 09:10 Dose: 40 meq Prochlorperazine Edisylate (Compazine Injection -) 5 mg IVPB Q4H PRN PRN Reason: NAUSEA AND/OR VOMITING Last Admin: 01/14/17 11:04 Dose: 5 mg - Objective Vital Signs: Vital Signs Temperature 98.4 F 01/19/17 06:00 Pulse Rate 52 L 01/19/17 06:00 Respiratory Rate 18 01/19/17 06:00 Blood Pressure 124/80 01/19/17 06:00 O2 Sat by Pulse Oximetry (%) 100 01/17/17 22:00 Constitutional: Yes: No Distress Eyes: Yes: Conjunctiva Clear Neck: Yes: Supple Cardiovascular: Yes: Regular Rate and Rhythm Respiratory: Yes: Regular Gastrointestinal: Yes: Normal Bowel Sounds, Soft Genitourinary: Yes: WNL Musculoskeletal: Yes: WNL Extremities: Yes: WNL Neurological: Yes: Alert Labs: CBC, BMP 01/17/17 06:00 01/17/17 06:00 INR, PTT INR 1.25 (0.82-1.09) H 01/09/17 05:20 Problem List - Problems (1) Agitation Code(s): R45.1 - RESTLESSNESS AND AGITATION (2) Bacterial meningitis Code(s): G00.9 - BACTERIAL MENINGITIS, UNSPECIFIED (3) Sepsis Code(s): A41.9 - SEPSIS, UNSPECIFIED ORGANISM Qualifiers: Sepsis type: sepsis due to unspecified organism Qualified Code(s): A41.9 - Sepsis, unspecified organism Assessment/Plan Pt clinically stable afebrile Microbiology labs noted, no organisms isolated from CSF, Bronchial washes, blood cultures negative, AFB smears negative - continue Cefepime for now - neurology follow up
[2017-01-19] MEDS: BANATROL PLUS POWDER PACKET PO SCH ×2 (12:41→22:32)
--- NOTE | 2017-01-19 15:23 | PN ---
Progress Note, Physician Chief Complaint: Pt alert; no complaints. History of Present Illness: This is a 46 yo male with h/o recent pneumonia (tx with two antibiotic courses in the past 5 weeks), stroke, anxiety, and prior drug addiction (reportedly 20 years sober) who presents with his brother c/o agitation, altered mental status , and fever. The patient is unable to provide any of his medical history. His brother explains that he last saw the patient acting normally last night at 11 pm just prior to going to sleep for the night. 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 The patient was noted to be persistently jerking his legs in bed while sleeping most of the day. The brother noted two more strange incidents today, including the patient trying to defecate in a kitchen drawer, and trying to put his sneakers on his knees. The brother does not believe that the patient has taken any drugs or overdosed on his normal medications (normally on mirtazepine, Subutex, hydroxyzine, chlorpromazine, and gabapentin) but he does not supervise him at all times and states it is a possibility. The brother notes one prior similar episode which he notes presented exactly the same, for which he was seen at [facility] a few years ago and was told he had a stroke. - Current Medication List Current Medications: Active Medications Cefepime HCl (Maxipime 1gm Ivpb Pre-Docked) 1 gm IVPB Q8H-IV DIONICIO Last Admin: 01/19/17 09:10 Dose: 1 gm Dextrose/Sodium Chloride (D5-Ns -) 1,000 mls @ 100 mls/hr IV ASDIR DIONICIO Last Admin: 01/19/17 01:43 Dose: 100 mls/hr Ibuprofen (Caldolor Injection -) 800 mg IVPB Q6H PRN PRN Reason: FEVER Last Admin: 01/18/17 06:39 Dose: 800 mg Ibuprofen (Motrin -) 400 mg PO Q6H PRN PRN Reason: PAIN Last Admin: 01/18/17 13:30 Dose: 400 mg Potassium Chloride (K-Dur -) 40 meq PO DAILY DIONICIO Last Admin: 01/19/17 09:10 Dose: 40 meq Prochlorperazine Edisylate (Compazine Injection -) 5 mg IVPB Q4H PRN PRN Reason: NAUSEA AND/OR VOMITING Last Admin: 01/14/17 11:04 Dose: 5 mg - Objective Vital Signs: Vital Signs Temperature 98.3 F 01/19/17 14:20 Pulse Rate 52 L 01/19/17 14:20 Respiratory Rate 16 01/19/17 14:20 Blood Pressure 128/80 01/19/17 14:20 O2 Sat by Pulse Oximetry (%) 100 01/17/17 22:00 Constitutional: Yes: Calm Eyes: Yes: WNL HENT: Yes: WNL Neck: Yes: WNL Cardiovascular: Yes: Bradycardia Respiratory: Yes: Regular Gastrointestinal: Yes: Soft ...Rectal Exam: Yes: Deferred Genitourinary: No: Anuria Musculoskeletal: Yes: WNL Extremities: Yes: WNL Edema: No Peripheral Pulses WNL: Yes Integumentary: Yes: Tattoos Neurological: Yes: Alert, Oriented Psychiatric: Yes: Other Labs: CBC, BMP 01/17/17 06:00 01/17/17 06:00 INR, PTT INR 1.25 (0.82-1.09) H 01/09/17 05:20 Problem List - Problems (1) Agitation Code(s): R45.1 - RESTLESSNESS AND AGITATION (2) Sepsis Code(s): A41.9 - SEPSIS, UNSPECIFIED ORGANISM Qualifiers: Sepsis type: sepsis due to unspecified organism Qualified Code(s): A41.9 - Sepsis, unspecified organism (3) Sinus bradycardia Assessment/Plan: f/u TFTs. ?bradycardia from Subutex. Code(s): R00.1 - BRADYCARDIA, UNSPECIFIED (4) Hypoalbuminemia Code(s): E88.09 - OTH DISORDERS OF PLASMA-PROTEIN METABOLISM, NEC
--- NOTE | 2017-01-19 15:36 | PN ---
Progress Note, Physician Chief Complaint: Pt alert. no palpitations, dizziness, or chest pain. History of Present Illness: This is a 46 yo white male with h/o recent pneumonia (tx with two antibiotic courses in the past 5 weeks), stroke, anxiety, and prior drug addiction ( reportedly 20 years sober) who presents with his brother c/o agitation, altered mental status, and fever. The patient is unable to provide any of his medical history. His brother explains that he last saw the patient acting normally last night at 11 pm just prior to going to sleep for the night. 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 The patient was noted to be persistently jerking his legs in bed while sleeping most of the day. The brother noted two more strange incidents today, including the patient trying to defecate in a kitchen drawer, and trying to put his sneakers on his knees. The brother does not believe that the patient has taken any drugs or overdosed on his normal medications (normally on mirtazepine, Subutex, hydroxyzine, chlorpromazine, and gabapentin) but he does not supervise him at all times and states it is a possibility. The brother notes one prior similar episode which he notes presented exactly the same, for which he was seen at [facility] a few years ago and was told he had a stroke. - Current Medication List Current Medications: Active Medications Cefepime HCl (Maxipime 1gm Ivpb Pre-Docked) 1 gm IVPB Q8H-IV DIONICIO Last Admin: 01/19/17 09:10 Dose: 1 gm Dextrose/Sodium Chloride (D5-Ns -) 1,000 mls @ 100 mls/hr IV ASDIR DIONICIO Last Admin: 01/19/17 01:43 Dose: 100 mls/hr Ibuprofen (Caldolor Injection -) 800 mg IVPB Q6H PRN PRN Reason: FEVER Last Admin: 01/18/17 06:39 Dose: 800 mg Ibuprofen (Motrin -) 400 mg PO Q6H PRN PRN Reason: PAIN Last Admin: 01/18/17 13:30 Dose: 400 mg Potassium Chloride (K-Dur -) 40 meq PO DAILY DIONICIO Last Admin: 01/19/17 09:10 Dose: 40 meq Prochlorperazine Edisylate (Compazine Injection -) 5 mg IVPB Q4H PRN PRN Reason: NAUSEA AND/OR VOMITING Last Admin: 01/14/17 11:04 Dose: 5 mg - Objective Vital Signs: Vital Signs Temperature 98.3 F 01/19/17 14:20 Pulse Rate 52 L 01/19/17 14:20 Respiratory Rate 16 01/19/17 14:20 Blood Pressure 128/80 01/19/17 14:20 O2 Sat by Pulse Oximetry (%) 100 01/17/17 22:00 Constitutional: Yes: No Distress Eyes: Yes: WNL HENT: Yes: WNL Neck: Yes: WNL Cardiovascular: Yes: Bradycardia Respiratory: Yes: WNL Gastrointestinal: Yes: Soft ...Rectal Exam: Yes: Deferred Genitourinary: No: Anuria Extremities: Yes: Cool Edema: No Peripheral Pulses WNL: Yes Integumentary: Yes: WNL Neurological: Yes: WNL Psychiatric: Yes: Other Labs: CBC, BMP 01/17/17 06:00 01/17/17 06:00 INR, PTT INR 1.25 (0.82-1.09) H 01/09/17 05:20 - ....Imaging Other: Image Reviewed (telemetry: sinus bradycardia) Problem List - Problems (1) Agitation Code(s): R45.1 - RESTLESSNESS AND AGITATION (2) Sepsis Assessment/Plan: antibiotics per ID. Code(s): A41.9 - SEPSIS, UNSPECIFIED ORGANISM Qualifiers: Sepsis type: sepsis due to unspecified organism Qualified Code(s): A41.9 - Sepsis, unspecified organism (3) Sinus bradycardia Assessment/Plan: f/u TFTs. ?bradycardia from Subutex. Code(s): R00.1 - BRADYCARDIA, UNSPECIFIED (4) Hypoalbuminemia Code(s): E88.09 - OTH DISORDERS OF PLASMA-PROTEIN METABOLISM, NEC (5) Anemia Code(s): D64.9 - ANEMIA, UNSPECIFIED
--- NOTE | 2017-01-19 15:39 | PN ---
Progress Note, Physician Chief Complaint: No complaints. History of Present Illness: This is a 46 yo white male with h/o recent pneumonia (tx with two antibiotic courses in the past 5 weeks), stroke, anxiety, and prior drug addiction ( reportedly 20 years sober) who presents with his brother c/o agitation, altered mental status, and fever. The patient is unable to provide any of his medical history. His brother explains that he last saw the patient acting normally last night at 11 pm just prior to going to sleep for the night. 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 The patient was noted to be persistently jerking his legs in bed while sleeping most of the day. The brother noted two more strange incidents today, including the patient trying to defecate in a kitchen drawer, and trying to put his sneakers on his knees. The brother does not believe that the patient has taken any drugs or overdosed on his normal medications (normally on mirtazepine, Subutex, hydroxyzine, chlorpromazine, and gabapentin) but he does not supervise him at all times and states it is a possibility. The brother notes one prior similar episode which he notes presented exactly the same, for which he was seen at [facility] a few years ago and was told he had a stroke. - Current Medication List Current Medications: Active Medications Cefepime HCl (Maxipime 1gm Ivpb Pre-Docked) 1 gm IVPB Q8H-IV DIONICIO Last Admin: 01/19/17 09:10 Dose: 1 gm Dextrose/Sodium Chloride (D5-Ns -) 1,000 mls @ 100 mls/hr IV ASDIR DIONICIO Last Admin: 01/19/17 01:43 Dose: 100 mls/hr Ibuprofen (Caldolor Injection -) 800 mg IVPB Q6H PRN PRN Reason: FEVER Last Admin: 01/18/17 06:39 Dose: 800 mg Ibuprofen (Motrin -) 400 mg PO Q6H PRN PRN Reason: PAIN Last Admin: 01/18/17 13:30 Dose: 400 mg Potassium Chloride (K-Dur -) 40 meq PO DAILY DIONICIO Last Admin: 01/19/17 09:10 Dose: 40 meq Prochlorperazine Edisylate (Compazine Injection -) 5 mg IVPB Q4H PRN PRN Reason: NAUSEA AND/OR VOMITING Last Admin: 01/14/17 11:04 Dose: 5 mg - Objective Vital Signs: Vital Signs Temperature 98.3 F 01/19/17 14:20 Pulse Rate 52 L 01/19/17 14:20 Respiratory Rate 16 01/19/17 14:20 Blood Pressure 128/80 01/19/17 14:20 O2 Sat by Pulse Oximetry (%) 100 01/17/17 22:00 Constitutional: Yes: Calm Eyes: Yes: WNL HENT: Yes: WNL Neck: Yes: WNL Cardiovascular: Yes: Bradycardia Respiratory: Yes: Regular Gastrointestinal: Yes: Soft ...Rectal Exam: Yes: Deferred Genitourinary: No: Anuria Breast(s): Yes: WNL Musculoskeletal: Yes: WNL Extremities: Yes: WNL Edema: No Peripheral Pulses WNL: Yes Integumentary: Yes: Tattoos Neurological: Yes: Alert, Oriented Labs: CBC, BMP 01/17/17 06:00 INR, PTT INR 1.25 (0.82-1.09) H 01/09/17 05:20 - ....Imaging Other: Image Reviewed (telemetry: sinus bradycardia to high 30's bpm asleep; 40s -60s awake) Problem List - Problems (1) Agitation Code(s): R45.1 - RESTLESSNESS AND AGITATION (2) Sepsis Assessment/Plan: antibiotics per ID. Code(s): A41.9 - SEPSIS, UNSPECIFIED ORGANISM Qualifiers: Sepsis type: sepsis due to unspecified organism Qualified Code(s): A41.9 - Sepsis, unspecified organism (3) Sinus bradycardia Assessment/Plan: f/u TFTs. ?bradycardia from Subutex. Maintain hydration. Code(s): R00.1 - BRADYCARDIA, UNSPECIFIED (4) Hypoalbuminemia Code(s): E88.09 - OTH DISORDERS OF PLASMA-PROTEIN METABOLISM, NEC (5) Anemia Code(s): D64.9 - ANEMIA, UNSPECIFIED
--- NOTE | 2017-01-19 15:42 | PN ---
Progress Note, Physician Chief Complaint: No alert; flat affect; answers appropriately. History of Present Illness: This is a 46 yo white male with h/o recent pneumonia (tx with two antibiotic courses in the past 5 weeks), stroke, anxiety, and prior drug addiction ( reportedly 20 years sober) who presents with his brother c/o agitation, altered mental status, and fever. The patient is unable to provide any of his medical history. His brother explains that he last saw the patient acting normally last night at 11 pm just prior to going to sleep for the night. 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 The patient was noted to be persistently jerking his legs in bed while sleeping most of the day. The brother noted two more strange incidents today, including the patient trying to defecate in a kitchen drawer, and trying to put his sneakers on his knees. The brother does not believe that the patient has taken any drugs or overdosed on his normal medications (normally on mirtazepine, Subutex, hydroxyzine, chlorpromazine, and gabapentin) but he does not supervise him at all times and states it is a possibility. The brother notes one prior similar episode which he notes presented exactly the same, for which he was seen at [facility] a few years ago and was told he had a stroke. - Current Medication List Current Medications: Active Medications Cefepime HCl (Maxipime 1gm Ivpb Pre-Docked) 1 gm IVPB Q8H-IV DIONICIO Last Admin: 01/19/17 09:10 Dose: 1 gm Dextrose/Sodium Chloride (D5-Ns -) 1,000 mls @ 100 mls/hr IV ASDIR DIONICIO Last Admin: 01/19/17 01:43 Dose: 100 mls/hr Ibuprofen (Caldolor Injection -) 800 mg IVPB Q6H PRN PRN Reason: FEVER Last Admin: 01/18/17 06:39 Dose: 800 mg Ibuprofen (Motrin -) 400 mg PO Q6H PRN PRN Reason: PAIN Last Admin: 01/18/17 13:30 Dose: 400 mg Potassium Chloride (K-Dur -) 40 meq PO DAILY DIONICIO Last Admin: 01/19/17 09:10 Dose: 40 meq Prochlorperazine Edisylate (Compazine Injection -) 5 mg IVPB Q4H PRN PRN Reason: NAUSEA AND/OR VOMITING Last Admin: 01/14/17 11:04 Dose: 5 mg - Objective Vital Signs: Vital Signs Temperature 98.3 F 01/19/17 14:20 Pulse Rate 52 L 01/19/17 14:20 Respiratory Rate 16 01/19/17 14:20 Blood Pressure 128/80 01/19/17 14:20 O2 Sat by Pulse Oximetry (%) 100 01/17/17 22:00 Constitutional: Yes: No Distress Eyes: Yes: WNL HENT: Yes: WNL Neck: Yes: WNL Cardiovascular: Yes: Bradycardia Respiratory: Yes: Regular Gastrointestinal: Yes: Soft ...Rectal Exam: Yes: Deferred Genitourinary: No: Anuria Extremities: Yes: WNL Edema: No Peripheral Pulses WNL: Yes Neurological: Yes: WNL Psychiatric: Yes: Other Labs: CBC, BMP 01/17/17 06:00 INR, PTT INR 1.25 (0.82-1.09) H 01/09/17 05:20 - ....Imaging Other: Image Reviewed (telemetry: s. bradycardia; brief period of sinus tachycardia; two runs ventricular triplets) Problem List - Problems (1) Agitation Code(s): R45.1 - RESTLESSNESS AND AGITATION (2) Sepsis Assessment/Plan: antibiotics per ID. Code(s): A41.9 - SEPSIS, UNSPECIFIED ORGANISM Qualifiers: Sepsis type: sepsis due to unspecified organism Qualified Code(s): A41.9 - Sepsis, unspecified organism (3) Sinus bradycardia Assessment/Plan: f/u TFTs. ?bradycardia from Subutex. Maintain hydration. Code(s): R00.1 - BRADYCARDIA, UNSPECIFIED (4) Hypoalbuminemia Assessment/Plan: nutritional supplement; on antibiotics. Code(s): E88.09 - OTH DISORDERS OF PLASMA-PROTEIN METABOLISM, NEC (5) Anemia Code(s): D64.9 - ANEMIA, UNSPECIFIED
--- NOTE | 2017-01-19 15:50 | PN ---
Progress Note, Physician Chief Complaint: No alert; no pain; no palpitations. History of Present Illness: This is a 46 yo white male with h/o recent pneumonia (tx with two antibiotic courses in the past 5 weeks), stroke, anxiety, and prior drug addiction ( reportedly 20 years sober) who presents with his brother c/o agitation, altered mental status, and fever. The patient is unable to provide any of his medical history. His brother explains that he last saw the patient acting normally last night at 11 pm just prior to going to sleep for the night. 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 The patient was noted to be persistently jerking his legs in bed while sleeping most of the day. The brother noted two more strange incidents today, including the patient trying to defecate in a kitchen drawer, and trying to put his sneakers on his knees. The brother does not believe that the patient has taken any drugs or overdosed on his normal medications (normally on mirtazepine, Subutex, hydroxyzine, chlorpromazine, and gabapentin) but he does not supervise him at all times and states it is a possibility. The brother notes one prior similar episode which he notes presented exactly the same, for which he was seen at [facility] a few years ago and was told he had a stroke. 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 - Current Medication List Current Medications: Active Medications Cefepime HCl (Maxipime 1gm Ivpb Pre-Docked) 1 gm IVPB Q8H-IV DIONICIO Last Admin: 01/19/17 09:10 Dose: 1 gm Dextrose/Sodium Chloride (D5-Ns -) 1,000 mls @ 100 mls/hr IV ASDIR DIONICIO Last Admin: 01/19/17 01:43 Dose: 100 mls/hr Ibuprofen (Caldolor Injection -) 800 mg IVPB Q6H PRN PRN Reason: FEVER Last Admin: 01/18/17 06:39 Dose: 800 mg Ibuprofen (Motrin -) 400 mg PO Q6H PRN PRN Reason: PAIN Last Admin: 01/18/17 13:30 Dose: 400 mg Potassium Chloride (K-Dur -) 40 meq PO DAILY DIONICIO Last Admin: 01/19/17 09:10 Dose: 40 meq Prochlorperazine Edisylate (Compazine Injection -) 5 mg IVPB Q4H PRN PRN Reason: NAUSEA AND/OR VOMITING Last Admin: 01/14/17 11:04 Dose: 5 mg - Objective Vital Signs: Vital Signs Temperature 98.3 F 01/19/17 14:20 Pulse Rate 52 L 01/19/17 14:20 Respiratory Rate 16 01/19/17 14:20 Blood Pressure 128/80 01/19/17 14:20 O2 Sat by Pulse Oximetry (%) 100 01/17/17 22:00 Constitutional: Yes: Well Nourished, Calm Eyes: Yes: WNL HENT: Yes: WNL Neck: Yes: WNL Cardiovascular: Yes: Regular Rate and Rhythm Respiratory: Yes: WNL Gastrointestinal: Yes: Soft ...Rectal Exam: Yes: Deferred Genitourinary: No: Anuria Breast(s): Yes: WNL Musculoskeletal: Yes: WNL Extremities: Yes: WNL Edema: No Peripheral Pulses WNL: Yes Integumentary: Yes: Tattoos Neurological: Yes: WNL Psychiatric: Yes: Other Labs: CBC, BMP 01/17/17 06:00 INR, PTT INR 1.25 (0.82-1.09) H 01/09/17 05:20 Problem List - Problems (1) Agitation Assessment/Plan: flat affect, but responds appropriately. Code(s): R45.1 - RESTLESSNESS AND AGITATION (2) Sepsis Assessment/Plan: Continue antibiotics per ID. Code(s): A41.9 - SEPSIS, UNSPECIFIED ORGANISM Qualifiers: Sepsis type: sepsis due to unspecified organism Qualified Code(s): A41.9 - Sepsis, unspecified organism (3) Sinus bradycardia Assessment/Plan: asymptomatic sinus bradycardia; breif period of sinus tachycardia and ventricular triplets since transfer from ICU. f/u TFTs. ?bradycardia from Subutex; however, now has not had a dose for several days. Maintain hydration. Code(s): R00.1 - BRADYCARDIA, UNSPECIFIED (4) Hypoalbuminemia Assessment/Plan: nutritional supplement; on antibiotics. Avoid NSAIDs, if possible. Code(s): E88.09 - OTH DISORDERS OF PLASMA-PROTEIN METABOLISM, NEC (5) Anemia Code(s): D64.9 - ANEMIA, UNSPECIFIED
[2017-01-19 16:06] LABS: ANION GAP 11 (8-16); CALCIUM 7.9 mg/dL (8.5-10.1); CO2 26 mmol/L (21-32); CREATININE 0.5 mg/dL (0.7-1.3); GLUCOSE,RANDOM 93 mg/dL (74-106)
--- NOTE | 2017-01-19 18:40 | PN ---
Progress Note, Physician History of Present Illness: No new complaints - Current Medication List Current Medications: Active Medications Cefepime HCl (Maxipime 1gm Ivpb Pre-Docked) 1 gm IVPB Q8H-IV DIONICIO Last Admin: 01/19/17 17:34 Dose: 1 gm Dextrose/Sodium Chloride (D5-Ns -) 1,000 mls @ 100 mls/hr IV ASDIR DIONICIO Last Admin: 01/19/17 17:34 Dose: 100 mls/hr Ibuprofen (Caldolor Injection -) 800 mg IVPB Q6H PRN PRN Reason: FEVER Last Admin: 01/18/17 06:39 Dose: 800 mg Ibuprofen (Motrin -) 400 mg PO Q6H PRN PRN Reason: PAIN Last Admin: 01/18/17 13:30 Dose: 400 mg Potassium Chloride (K-Dur -) 40 meq PO DAILY DIONICIO Last Admin: 01/19/17 09:10 Dose: 40 meq Prochlorperazine Edisylate (Compazine Injection -) 5 mg IVPB Q4H PRN PRN Reason: NAUSEA AND/OR VOMITING Last Admin: 01/14/17 11:04 Dose: 5 mg - Objective Vital Signs: Vital Signs Temperature 100.8 F H 01/19/17 18:00 Pulse Rate 58 L 01/19/17 18:00 Respiratory Rate 18 01/19/17 18:00 Blood Pressure 121/65 01/19/17 18:00 O2 Sat by Pulse Oximetry (%) 100 01/17/17 22:00 Neck: Yes: WNL, Supple Cardiovascular: Yes: WNL, Regular Rate and Rhythm Respiratory: Yes: WNL, Regular, CTA Bilaterally Gastrointestinal: Yes: WNL, Normal Bowel Sounds, Soft Musculoskeletal: Yes: WNL Extremities: Yes: WNL Edema: No Labs: CBC, BMP 01/17/17 06:00 01/19/17 15:30 INR, PTT INR 1.25 (0.82-1.09) H 01/09/17 05:20 Problem List - Problems (1) Sepsis Code(s): A41.9 - SEPSIS, UNSPECIFIED ORGANISM Qualifiers: Sepsis type: sepsis due to unspecified organism Qualified Code(s): A41.9 - Sepsis, unspecified organism
[2017-01-19] MEDS: IBUPROFEN 800 MG/8 ML IJ IVPB PRN (18:47)
[2017-01-20] MEDS: CEFEPIME 1 GM/100 ML BAG PRE-DOCKED IVPB SCH ×3 (01:41→18:03)
[2017-01-20] MEDS: POTASSIUM CHLORIDE TABS 20 MEQ TABLET.ER (FP) PO SCH (09:02)
[2017-01-20] MEDS: IBUPROFEN 800 MG/8 ML IJ IVPB PRN ×2 (09:03→16:52)
[2017-01-20] MEDS: BANATROL PLUS POWDER PACKET PO SCH ×2 (09:13→21:41)
[2017-01-20 12:48] LABS: THYROID STIMULATING HORMONE 1.07 uIU/ml (0.358-3.74)
[2017-01-20] MEDS: DEXTROSE 5%-NORMAL SALINE 1,000 ML IV SCH ×2 (16:41→16:45)
[2017-01-20 17:14] LABS: MCH 27.4 pg (25.7-33.7); MCHC 32.5 g/dl (32.0-35.9); MEAN CELL VOLUME 84.3 fl (80-96); MEAN PLT VOLUME 7.9 fl (7.5-11.1); PLATELET COUNT 328 K/MM3 (134-434); RDW 22.4 % (11.9-15.9); WHITE BLOOD COUNT 9.3 K/mm3 (4.0-10.0)
[2017-01-20 17:41] LABS: ALBUMIN 2.1 g/dl (3.4-5.0); ALK PHOS 107 U/L (45-117); ANION GAP 7 (8-16); BILIRUBIN,TOTAL 0.4 mg/dL (0.2-1.0); CALCIUM 7.6 mg/dL (8.5-10.1); CO2 29 mmol/L (21-32); CREATININE 0.6 mg/dL (0.7-1.3); GLUCOSE,RANDOM 127 mg/dL (74-106); SGOT/AST 9 U/L (15-37); SGPT/ALT 28 U/L (12-78); TOT PROT 5.3 g/dl (6.4-8.2)
--- NOTE | 2017-01-20 17:54 | PN ---
Progress Note, Physician History of Present Illness: Pt febrile to 100.5F today, alert and fully responsive Denies shortness of breath/cough, no abd pain/n/v/d, no headache, no dysuria, no chills - Current Medication List Current Medications: Active Medications Cefepime HCl (Maxipime 1gm Ivpb Pre-Docked) 1 gm IVPB Q8H-IV [facility] Last Admin: 01/20/17 09:02 Dose: 1 gm Dextrose/Sodium Chloride (D5-Ns -) 1,000 mls @ 100 mls/hr IV ASDIR [facility] Last Admin: 01/20/17 16:45 Dose: 100 mls/hr Ibuprofen (Caldolor Injection -) 800 mg IVPB Q6H PRN PRN Reason: FEVER Last Admin: 01/20/17 16:52 Dose: 800 mg Ibuprofen (Motrin -) 400 mg PO Q6H PRN PRN Reason: PAIN Last Admin: 01/18/17 13:30 Dose: 400 mg Potassium Chloride (K-Dur -) 40 meq PO DAILY D[facility] Last Admin: 01/20/17 09:02 Dose: 40 meq Prochlorperazine Edisylate (Compazine Injection -) 5 mg IVPB Q4H PRN PRN Reason: NAUSEA AND/OR VOMITING Last Admin: 01/14/17 11:04 Dose: 5 mg - Objective Vital Signs: Vital Signs Temperature 98.4 F 01/20/17 14:13 Pulse Rate 64 01/20/17 14:13 Respiratory Rate 18 01/20/17 14:13 Blood Pressure 129/84 01/20/17 14:13 O2 Sat by Pulse Oximetry (%) 100 01/17/17 22:00 Constitutional: Yes: No Distress Neck: Yes: Supple Cardiovascular: Yes: Regular Rate and Rhythm Respiratory: Yes: CTA Bilaterally Gastrointestinal: Yes: Normal Bowel Sounds, Soft Genitourinary: Yes: WNL Musculoskeletal: Yes: WNL Extremities: Yes: WNL Integumentary: Yes: WNL, Tattoos Neurological: Yes: Alert, Confusion (as per family) Psychiatric: Yes: Alert Labs: CBC, BMP 01/20/17 16:30 01/20/17 16:30 INR, PTT INR 1.25 (0.82-1.09) H 01/09/17 05:20 Problem List - Problems (1) Agitation Code(s): R45.1 - RESTLESSNESS AND AGITATION (2) Bacterial meningitis Code(s): G00.9 - BACTERIAL MENINGITIS, UNSPECIFIED (3) Sepsis Code(s): A41.9 - SEPSIS, UNSPECIFIED ORGANISM Qualifiers: Sepsis type: sepsis due to unspecified organism Qualified Code(s): A41.9 - Sepsis, unspecified organism (4) Fever Code(s): R50.9 - FEVER, UNSPECIFIED Assessment/Plan Patient with low grade fever but alert and responsive without acute distress Source of confusion unclear - repeat blood cultures - d/c Cefepime, start Meropenem 1 gram IV Q8h, Vancomycin 1 gram IV Q12h empirically - consider MRI Head - continue monitor temperatures, repeat cbc in a.m.
[2017-01-20] MEDS ORDERED: VANCOMYCIN 1,000 MG in DEXTROSE 5%-WATER - 250 ML IVPB ONE (18:01)
[2017-01-20] MEDS: VANCOMYCIN 1 GRAM (PRE-DOCKED) 250 ML IVPB SCH (18:39)
--- NOTE | 2017-01-20 21:00 | PN ---
Progress Note, Physician History of Present Illness: Pt spiked temp 100.5 - Current Medication List Current Medications: Active Medications Dextrose/Sodium Chloride (D5-Ns -) 1,000 mls @ 100 mls/hr IV [facility] Last Admin: 01/20/17 16:45 Dose: 100 mls/hr Meropenem 1 gm/ Dextrose 100 mls @ 100 mls/hr IVPB Q8H-IV [facility] PRN Reason: Protocol Vancomycin HCl (Vancomycin (Pre-Docked)) 250 mls @ 166.667 mls/hr IVPB BID@0600 ,1800 [facility] Last Admin: 01/20/17 18:39 Dose: 166.667 mls/hr Ibuprofen (Caldolor Injection -) 800 mg IVPB Q6H PRN PRN Reason: FEVER Last Admin: 01/20/17 16:52 Dose: 800 mg Ibuprofen (Motrin -) 400 mg PO Q6H PRN PRN Reason: PAIN Last Admin: 01/18/17 13:30 Dose: 400 mg Potassium Chloride (K-Dur -) 40 meq PO DAILY [facility] Last Admin: 01/20/17 09:02 Dose: 40 meq Prochlorperazine Edisylate (Compazine Injection -) 5 mg IVPB Q4H PRN PRN Reason: NAUSEA AND/OR VOMITING Last Admin: 01/14/17 11:04 Dose: 5 mg - Objective Vital Signs: Vital Signs Temperature 100.5 F H 01/20/17 18:00 Pulse Rate 68 01/20/17 18:00 Respiratory Rate 18 01/20/17 18:00 Blood Pressure 132/85 01/20/17 18:00 O2 Sat by Pulse Oximetry (%) 100 01/17/17 22:00 Constitutional: Yes: No Distress Neck: Yes: WNL, Supple Cardiovascular: Yes: WNL, Regular Rate and Rhythm Respiratory: Yes: WNL, Regular, CTA Bilaterally Gastrointestinal: Yes: WNL, Normal Bowel Sounds, Soft Labs: CBC, BMP 01/20/17 16:30 01/20/17 16:30 INR, PTT INR 1.25 (0.82-1.09) H 01/09/17 05:20 Assessment/Plan 1. Fever IV atnibx changed to IV meropenem Follow cultures 2. Altered metnal status Check MRI brain Reconsult neuro
[2017-01-20] MEDS ORDERED: PT OWN MED DRAWER 7, Y5N ONE (21:33)
[2017-01-20] MEDS: IBUPROFEN 400 MG TABLET (FP) PO PRN (21:41)
[2017-01-20] MEDS: MEROPENEM 1 GM in DEXTROSE 5%-WATER - 100 ML IVPB SCH (21:41)
--- NOTE | 2017-01-20 22:38 | PN ---
Progress Note, Physician Chief Complaint: No alert; no pain; no palpitations. Pt's brought him lunch. History of Present Illness: This is a 46 yo white male with h/o recent pneumonia (tx with two antibiotic courses in the past 5 weeks), stroke, anxiety, and prior drug addiction ( reportedly 20 years sober) who presents with his brother c/o agitation, altered mental status, and fever. The patient is unable to provide any of his medical history. His brother explains that he last saw the patient acting normally last night at 11 pm just prior to going to sleep for the night. Then 12 hours [employer]AL [employer]AG[employer] the patient started acting strangely, beginning with urinating in his laundry basket (far outside his baseline which is A/O and very sensible). The patient was noted to be persistently jerking his legs in bed while sleeping most of the day. The brother noted two more strange incidents today, including the patient trying to defecate in a kitchen drawer, and trying to put his sneakers on his knees. The brother does not believe that the patient has taken any drugs or overdosed on his normal medications (normally on mirtazepine, Subutex, hydroxyzine, chlorpromazine, and gabapentin) but he does not supervise him at all times and states it is a possibility. The brother notes one prior similar episode which he notes presented exactly the same, for which he was seen at [facility] a few years ago and was told he had a stroke. 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 - Current Medication List Current Medications: Active Medications Dextrose/Sodium Chloride (D5-Ns -) 1,000 mls @ 100 mls/hr IV ASDIR [facility] Last Admin: 01/20/17 16:45 Dose: 100 mls/hr Meropenem 1 gm/ Dextrose 100 mls @ 100 mls/hr IVPB Q8H-IV [facility] PRN Reason: Protocol Last Admin: 01/20/17 21:41 Dose: 100 mls/hr Vancomycin HCl (Vancomycin (Pre-Docked)) 250 mls @ 166.667 mls/hr IVPB BID@0600 ,1800 [facility] Last Admin: 01/20/17 18:39 Dose: 166.667 mls/hr Ibuprofen (Caldolor Injection -) 800 mg IVPB Q6H PRN PRN Reason: FEVER Last Admin: 01/20/17 16:52 Dose: 800 mg Ibuprofen (Motrin -) 400 mg PO Q6H PRN PRN Reason: PAIN Last Admin: 01/20/17 21:41 Dose: 400 mg Potassium Chloride (K-Dur -) 40 meq PO DAILY [facility] Last Admin: 01/20/17 09:02 Dose: 40 meq Prochlorperazine Edisylate (Compazine Injection -) 5 mg IVPB Q4H PRN PRN Reason: NAUSEA AND/OR VOMITING Last Admin: 01/14/17 11:04 Dose: 5 mg - Objective Vital Signs: Vital Signs Temperature 100.5 F H 01/20/17 18:00 Pulse Rate 68 01/20/17 18:00 Respiratory Rate 18 01/20/17 18:00 Blood Pressure 132/85 01/20/17 18:00 O2 Sat by Pulse Oximetry (%) 100 01/17/17 22:00 Constitutional: Yes: Other (flat affect) Eyes: Yes: WNL HENT: Yes: WNL Neck: Yes: WNL Cardiovascular: Yes: Bradycardia Respiratory: Yes: Regular Gastrointestinal: Yes: Soft ...Rectal Exam: Yes: Deferred Genitourinary: No: Anuria Breast(s): Yes: WNL Musculoskeletal: Yes: WNL Extremities: Yes: WNL Edema: No Peripheral Pulses WNL: Yes Labs: CBC, BMP 01/20/17 16:30 01/20/17 16:30 INR, PTT INR 1.25 (0.82-1.09) H 01/09/17 05:20 Abnormal Lab Results 01/19/17 01/20/17 01/20/17 15:30 16:30 16:30 RDW 22.4 H Sodium 129 L 128 L Potassium 3.4 L Chloride 92 L 92 L Anion Gap 7 L Creatinine 0.5 L 0.6 L Random Glucose 127 H D Calcium 7.9 L 7.6 L AST 9 L D Total Protein 5.3 L Albumin 2.1 L Problem List - Problems (1) Agitation Assessment/Plan: flat affect, but responds appropriately.Pt's is at bedside, and says she has pleaded with him to see a primary care doctor; he says he still sees his psychiatrist. Code(s): R45.1 - RESTLESSNESS AND AGITATION (2) Sepsis Assessment/Plan: Intermittent fever. Continue antibiotics per ID. Code(s): A41.9 - SEPSIS, UNSPECIFIED ORGANISM Qualifiers: Sepsis type: sepsis due to unspecified organism Qualified Code(s): A41.9 - Sepsis, unspecified organism (3) Sinus bradycardia Assessment/Plan: TSH WNL. Still with marked sinus bradycardia while asleep, but heart rate usually normal now when awake. Occasional periods of fever. Code(s): R00.1 - BRADYCARDIA, UNSPECIFIED (4) Hypoalbuminemia Assessment/Plan: nutritional supplement; on antibiotics. Avoid NSAIDs, if possible. Code(s): E88.09 - OTH DISORDERS OF PLASMA-PROTEIN METABOLISM, NEC (5) Anemia Code(s): D64.9 - ANEMIA, UNSPECIFIED
[2017-01-21] MEDS: MEROPENEM 1 GM in DEXTROSE 5%-WATER - 100 ML IVPB SCH ×3 (02:46→17:16)
[2017-01-21] MEDS: VANCOMYCIN 1 GRAM (PRE-DOCKED) 250 ML IVPB SCH ×2 (06:32→18:21)
[2017-01-21] MEDS: IBUPROFEN 400 MG TABLET (FP) PO PRN (06:32)
[2017-01-21 07:34] LABS: BASOPHIL 0.4 % (0-2.0); EOSINOPHIL 0.1 % (0-4.5); MCH 27.5 pg (25.7-33.7); MCHC 32.5 g/dl (32.0-35.9); MEAN CELL VOLUME 84.6 fl (80-96); NEUTROPHILS 79.6 % (42.8-82.8); PLATELET COUNT 305 K/MM3 (134-434); RDW 22.8 % (11.9-15.9); WHITE BLOOD COUNT 8.2 K/mm3 (4.0-10.0)
[2017-01-21 08:19] LABS: ALBUMIN 2.1 g/dl (3.4-5.0); ANION GAP 9 (8-16); CALCIUM 7.9 mg/dL (8.5-10.1); CO2 29 mmol/L (21-32); CREATININE 0.5 mg/dL (0.7-1.3); GLUCOSE,RANDOM 82 mg/dL (74-106); SGOT/AST 9 U/L (15-37); SGPT/ALT 26 U/L (12-78)
[2017-01-21 08:21] LABS: ALK PHOS 105 U/L (45-117); BILIRUBIN,TOTAL 0.4 mg/dL (0.2-1.0); TOT PROT 5.3 g/dl (6.4-8.2)
[2017-01-21] MEDS ORDERED: PT OWN MED DRAWER 7, Y5N ONE ×2 (09:12→16:57)
[2017-01-21] MEDS: BANATROL PLUS POWDER PACKET PO SCH ×2 (09:15→21:12)
[2017-01-21] MEDS: POTASSIUM CHLORIDE TABS 20 MEQ TABLET.ER (FP) PO SCH (09:17)
--- NOTE | 2017-01-21 09:40 | PN ---
Progress Note (short form) - Note Progress Note: Neurology History of Present Illness This is a 46 yo male with h/o recent pneumonia (tx with two antibiotic courses in the past 5 weeks), stroke, anxiety, and prior drug addiction (reportedly 20 years sober) who presents with his brother c/o agitation, altered mental status , and fever. The patient is unable to provide any of his medical history. His brother explains that he last saw the patient acting normally the night prior to admission. The patient was acting strangely, beginning with urinating in his laundry basket (far outside his baseline which is A/O and very sensible). The patient was noted to be persistently jerking his legs in bed while sleeping most of the day. There was concern and question of NMS vs Seratonin syndrome. LP was completed and showed increased WBC, low glucose and increased protein, consistent with bacterial meningitis. Patient with CT head and was negative except for slight ventricular asymmetry which does not have clinical relevance currently. Of note, the patient has substance abuse and opiates. He was admitted for sepsis 2/2 PNA and with bacterial meningitis. Patient downgraded to floor from ICU. Not on isolation at this time. More alert, cooperative, and communicative. No abnormal movements at this time. Neurologically improving. Remains on Cefepime and Vanco at this time. Cooperative and communicating with examiner. No new neurologic events this past weekend. Active Medications Dextrose/Sodium Chloride (D5-Ns -) 1,000 mls @ 100 mls/hr IV ASDIR [facility] Last Admin: 01/20/17 16:45 Dose: 100 mls/hr Meropenem 1 gm/ Dextrose 100 mls @ 100 mls/hr IVPB Q8H-IV D[facility] PRN Reason: Protocol Last Admin: 01/21/17 02:46 Dose: 100 mls/hr Vancomycin HCl (Vancomycin (Pre-Docked)) 250 mls @ 166.667 mls/hr IVPB BID@0600 ,1800 [facility] Last Admin: 01/21/17 06:32 Dose: 166.667 mls/hr Ibuprofen (Caldolor Injection -) 800 mg IVPB Q6H PRN PRN Reason: FEVER Last Admin: 01/20/17 16:52 Dose: 800 mg Ibuprofen (Motrin -) 400 mg PO Q6H PRN PRN Reason: PAIN Last Admin: 01/21/17 06:32 Dose: 400 mg Potassium Chloride (K-Dur -) 40 meq PO DAILY [facility] Last Admin: 01/21/17 09:17 Dose: 40 meq Prochlorperazine Edisylate (Compazine Injection -) 5 mg IVPB Q4H PRN PRN Reason: NAUSEA AND/OR VOMITING Last Admin: 01/14/17 11:04 Dose: 5 mg *Physical Exam Vital Signs Period Temp Pulse Resp BP Sys/Paz Pulse Ox Last 24 Hr 98.4 F-100.5 F 56-81 16-18 129-140/67-85 97 - Physical Exam General Appearance: Awake, alert, interactive, communicative briefly HEENT: positive: EOMI, ROGER Neck: positive: Other (patient unable to follow commands to test ROM of neck). negative: Carotid bruit Respiratory/Chest: Decreased breath sounds Cardiovascular: positive: Regular Rhythm, Tachycardia, Other (extremity veins distended). negative: Murmur Gastrointestinal/Abdominal: positive: Flat, Increased Bowel Sounds. negative: Hernia Male Genitalia: positive: normal genitalia. negative: hernia Musculoskeletal: positive: Normal Inspection, Muscle Spasm Integumentary: positive: Normal Color, Other (hot) Neurologic: awake, alert, follows minimal commands, CN intact, no focal motor deficits, sensory intact, no aphasia CBCD WBC 8.2 K/mm3 (4.0-10.0) 01/21/17 07:24 RBC 4.24 M/mm3 (4.00-5.60) 01/21/17 07:24 Hgb 11.7 GM/dL (11.7-16.9) 01/21/17 07:24 Hct 35.9 % (35.4-49) 01/21/17 07:24 MCV 84.6 fl (80-96) 01/21/17 07:24 MCHC 32.5 g/dl (32.0-35.9) 01/21/17 07:24 RDW 22.8 % (11.9-15.9) H 01/21/17 07:24 Plt Count 305 K/MM3 (134-434) 01/21/17 07:24 MPV 8.0 fl (7.5-11.1) 01/21/17 07:24 CMP Sodium 133 mmol/L (136-145) L 01/21/17 07:24 Potassium 3.1 mmol/L (3.5-5.1) L 01/21/17 07:24 Chloride 95 mmol/L (98-107) L 01/21/17 07:24 Carbon Dioxide 29 mmol/L (21-32) 01/21/17 07:24 Anion Gap 9 (8-16) 01/21/17 07:24 BUN 9 mg/dL (7-18) 01/21/17 07:24 Creatinine 0.5 mg/dL (0.7-1.3) L 01/21/17 07:24 Creat Clearance w eGFR > 60 (>60) 01/21/17 07:24 Calcium 7.9 mg/dL (8.5-10.1) L 01/21/17 07:24 Total Bilirubin 0.4 mg/dL (0.2-1.0) 01/21/17 07:24 AST 9 U/L (15-37) L 01/21/17 07:24 ALT 26 U/L (12-78) 01/21/17 07:24 Alkaline Phosphatase 105 U/L (45-117) 01/21/17 07:24 Total Protein 5.3 g/dl (6.4-8.2) L 01/21/17 07:24 Albumin 2.1 g/dl (3.4-5.0) L 01/21/17 07:24 Medical Decision Making 46 yo male with h/o recent pneumonia (tx with two antibiotic courses in the past 5 weeks), stroke, anxiety, and prior drug addiction (reportedly 20 years sober) who presents with his brother c/o agitation, altered mental status, and fever. The patient is unable to provide any of his medical history. His brother explains that he last saw the patient acting normally the night prior to admission. The patient was acting strangely, beginning with urinating in his laundry basket (far outside his baseline which is A/O and very sensible). The patient was noted to be persistently jerking his legs in bed while sleeping most of the day. There was concern and question of NMS vs Seratonin syndrome. LP was completed and showed increased WBC, low glucose and increased protein, consistent with bacterial meningitis. Patient with CT head and was negative except for slight ventricular asymmetry which does not have clinical relevance currently. Of note, the patient has substance abuse and opiates. He was admitted for sepsis 2/2 PNA and with bacterial meningitis. Downgraded to floor status. Fall precautions. IV abx to be continued, on Cefepime and Vanco. Does not seem to be NMS or seratonin syndrome, more consistent with infectious etiology and getting ongoing treatment, on IV Abx. Drug cessation highly recommended. Clinically improving. Discharge when able, patient stable neurologically.
--- NOTE | 2017-01-21 10:58 | EKG ---
Test Reason : Blood Pressure : / mmHG Vent. Rate : 073 BPM Atrial Rate : 073 BPM P-R Int : 146 ms QRS Dur : 084 ms QT Int : 392 ms P-R-T Axes : 048 008 008 degrees QTc Int : 431 ms NORMAL SINUS RHYTHM NONSPECIFIC ST AND T WAVE ABNORMALITY ABNORMAL ECG WHEN COMPARED WITH ECG OF 13-JAN-2017 08:43, VENT. RATE HAS INCREASED BY 32 BPM Confirmed by AUSTIN MAC, CELIA ([id number]) on 01/21/2017 10:58:05 AM Referred By: YOEL HERNANDEZ Confirmed By:CELIA AVILA MD
--- NOTE | 2017-01-21 15:02 | PN ---
Progress Note, Physician History of Present Illness: pulmonary alert,nad,-c/o sob,cough - Current Medication List Current Medications: Active Medications Dextrose/Sodium Chloride (D5-Ns -) 1,000 mls @ 100 mls/hr IV ASDIR [facility] Last Admin: 01/20/17 16:45 Dose: 100 mls/hr Meropenem 1 gm/ Dextrose 100 mls @ 100 mls/hr IVPB Q8H-IV [facility] PRN Reason: Protocol Last Admin: 01/21/17 10:23 Dose: 100 mls/hr Vancomycin HCl (Vancomycin (Pre-Docked)) 250 mls @ 166.667 mls/hr IVPB BID@0600 ,1800 [facility] Last Admin: 01/21/17 06:32 Dose: 166.667 mls/hr Ibuprofen (Caldolor Injection -) 800 mg IVPB Q6H PRN PRN Reason: FEVER Last Admin: 01/20/17 16:52 Dose: 800 mg Ibuprofen (Motrin -) 400 mg PO Q6H PRN PRN Reason: PAIN Last Admin: 01/21/17 06:32 Dose: 400 mg Potassium Chloride (K-Dur -) 40 meq PO DAILY [facility] Last Admin: 01/21/17 09:17 Dose: 40 meq Prochlorperazine Edisylate (Compazine Injection -) 5 mg IVPB Q4H PRN PRN Reason: NAUSEA AND/OR VOMITING Last Admin: 01/14/17 11:04 Dose: 5 mg - Objective Vital Signs: Vital Signs Temperature 98.3 F 01/21/17 10:00 Pulse Rate 73 01/21/17 10:00 Respiratory Rate 18 01/21/17 10:00 Blood Pressure 120/73 01/21/17 10:00 O2 Sat by Pulse Oximetry (%) 96 01/21/17 09:00 Constitutional: Yes: Well Nourished, Calm Eyes: Yes: WNL HENT: Yes: WNL Neck: Yes: WNL Cardiovascular: Yes: Regular Rate and Rhythm Respiratory: Yes: Rales (bibasilar crackles) Gastrointestinal: Yes: Normal Bowel Sounds, Soft Extremities: Yes: WNL Edema: No Labs: CBC, BMP 01/21/17 07:24 01/21/17 07:24 INR, PTT INR 1.25 (0.82-1.09) H 01/09/17 05:20 Problem List - Problems (1) Agitation Code(s): R45.1 - RESTLESSNESS AND AGITATION (2) Anemia Code(s): D64.9 - ANEMIA, UNSPECIFIED (3) Fever Code(s): R50.9 - FEVER, UNSPECIFIED (4) Sinus bradycardia Code(s): R00.1 - BRADYCARDIA, UNSPECIFIED (5) Pneumonia Code(s): J18.9 - PNEUMONIA, UNSPECIFIED ORGANISM Assessment/Plan Assessment/Plan Altered mental status improved Acute agitation improved RLL Pneumonia / RUL cavity Psych disorder Bradycardia - ABX per ID O2 as needed OOB to chair PO as tolerated VTE prophylaxis chest x-ray DR OCASIO
--- NOTE | 2017-01-21 15:04 | PN ---
Progress Note, Physician History of Present Illness: patient spiked fever over the weekend clinnically stable - Current Medication List Current Medications: Active Medications Dextrose/Sodium Chloride (D5-Ns -) 1,000 mls @ 100 mls/hr IV ASDIR [facility] Last Admin: 01/20/17 16:45 Dose: 100 mls/hr Meropenem 1 gm/ Dextrose 100 mls @ 100 mls/hr IVPB Q8H-IV [facility] PRN Reason: Protocol Last Admin: 01/21/17 10:23 Dose: 100 mls/hr Vancomycin HCl (Vancomycin (Pre-Docked)) 250 mls @ 166.667 mls/hr IVPB BID@0600 ,1800 [facility] Last Admin: 01/21/17 06:32 Dose: 166.667 mls/hr Ibuprofen (Caldolor Injection -) 800 mg IVPB Q6H PRN PRN Reason: FEVER Last Admin: 01/20/17 16:52 Dose: 800 mg Ibuprofen (Motrin -) 400 mg PO Q6H PRN PRN Reason: PAIN Last Admin: 01/21/17 06:32 Dose: 400 mg Potassium Chloride (K-Dur -) 40 meq PO DAILY [facility] Last Admin: 01/21/17 09:17 Dose: 40 meq Prochlorperazine Edisylate (Compazine Injection -) 5 mg IVPB Q4H PRN PRN Reason: NAUSEA AND/OR VOMITING Last Admin: 01/14/17 11:04 Dose: 5 mg - Objective Vital Signs: Vital Signs Temperature 98.3 F 01/21/17 10:00 Pulse Rate 73 01/21/17 10:00 Respiratory Rate 18 01/21/17 10:00 Blood Pressure 120/73 01/21/17 10:00 O2 Sat by Pulse Oximetry (%) 96 01/21/17 09:00 Constitutional: Yes: No Distress, Calm Cardiovascular: Yes: Regular Rate and Rhythm Respiratory: Yes: Regular, Poor Air Entry (bases), Rhonchi Gastrointestinal: Yes: Normal Bowel Sounds, Soft Musculoskeletal: Yes: WNL Extremities: Yes: WNL Neurological: Yes: Alert, Oriented Psychiatric: Yes: Alert Labs: CBC, BMP 01/21/17 07:24 01/21/17 07:24 INR, PTT INR 1.25 (0.82-1.09) H 01/09/17 05:20 Assessment/Plan Altered mental status with persistently high fevers r/o bacteria meningitis concern for Serotonin Syndrome versus NMS due to patient's home medication usage Acute agitation RLL Pneumonia / (?) RUL cavity Psych disorder sepsis resp failure gm positive bacteremia plan continue current mgmt await for all cx reports if patient remains afebrile then will stop abx tomorrow and watch if he spikes again then we will do a urine and work him up
[2017-01-21] MEDS: DEXTROSE 5%-NORMAL SALINE 1,000 ML IV SCH ×2 (15:15→20:17)
[2017-01-21] MEDS: IBUPROFEN 800 MG/8 ML IJ IVPB PRN (16:41)
--- NOTE | 2017-01-21 17:49 | PN ---
Progress Note, Physician History of Present Illness: This is a 46 yo white male with h/o recent pneumonia (tx with two antibiotic courses in the past 5 weeks), stroke, anxiety, and prior drug addiction ( reportedly 20 years sober) who presents with his brother c/o agitation, altered mental status, and fever. The patient is unable to provide any of his medical history. His brother explains that he last saw the patient acting normally last night at 11 pm just prior to going to sleep for the night. Then 12 hours [employer] the patient started acting strangely, beginning with urinating in his laundry basket (far outside his baseline which is A/O and very sensible). The patient was noted to be persistently jerking his legs in bed while sleeping most of the day. The brother noted two more strange incidents today, including the patient trying to defecate in a kitchen drawer, and trying to put his sneakers on his knees. The brother does not believe that the patient has taken any drugs or overdosed on his normal medications (normally on mirtazepine, Subutex, hydroxyzine, chlorpromazine, and gabapentin) but he does not supervise him at all times and states it is a possibility. The brother notes one prior similar episode which he notes presented exactly the same, for which he was seen at [facility] a few years ago and was told he had a stroke. 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 - Current Medication List Current Medications: Active Medications Dextrose/Sodium Chloride (D5-Ns -) 1,000 mls @ 100 mls/hr IV ASDIR [facility] Last Admin: 01/21/17 15:15 Dose: Not Given Meropenem 1 gm/ Dextrose 100 mls @ 100 mls/hr IVPB Q8H-IV [facility] PRN Reason: Protocol Last Admin: 01/21/17 17:16 Dose: 100 mls/hr Vancomycin HCl (Vancomycin (Pre-Docked)) 250 mls @ 166.667 mls/hr IVPB BID@0600 ,1800 [facility] Last Admin: 01/21/17 06:32 Dose: 166.667 mls/hr Ibuprofen (Caldolor Injection -) 800 mg IVPB Q6H PRN PRN Reason: FEVER Last Admin: 01/21/17 16:41 Dose: 800 mg Ibuprofen (Motrin -) 400 mg PO Q6H PRN PRN Reason: PAIN Last Admin: 01/21/17 06:32 Dose: 400 mg Potassium Chloride (K-Dur -) 40 meq PO DAILY [facility] Last Admin: 01/21/17 09:17 Dose: 40 meq Prochlorperazine Edisylate (Compazine Injection -) 5 mg IVPB Q4H PRN PRN Reason: NAUSEA AND/OR VOMITING Last Admin: 01/14/17 11:04 Dose: 5 mg - Objective Vital Signs: Vital Signs Temperature 101 F H 01/21/17 16:42 Pulse Rate 76 01/21/17 15:46 Respiratory Rate 18 01/21/17 15:46 Blood Pressure 127/78 01/21/17 15:46 O2 Sat by Pulse Oximetry (%) 96 01/21/17 09:00 Eyes: Yes: WNL, Conjunctiva Clear, EOM Intact HENT: Yes: WNL, Atraumatic, Normocephalic Neck: Yes: WNL, Supple, Trachea Midline Cardiovascular: Yes: WNL, Regular Rate and Rhythm Respiratory: Yes: WNL, Regular, CTA Bilaterally Gastrointestinal: Yes: WNL, Normal Bowel Sounds Genitourinary: Yes: WNL Musculoskeletal: Yes: WNL Extremities: Yes: WNL Edema: No Integumentary: Yes: WNL Neurological: Yes: WNL, Alert, Oriented ...Motor Strength: WNL Psychiatric: Yes: WNL Labs: CBC, BMP 01/21/17 07:24 01/21/17 07:24 INR, PTT INR 1.25 (0.82-1.09) H 01/09/17 05:20 Assessment/Plan - Problems (1) Agitation Assessment/Plan: flat affect, but responds appropriately.Pt's is at bedside, and says she has pleaded with him to see a primary care doctor; he says he still sees his psychiatrist. Code(s): R45.1 - RESTLESSNESS AND AGITATION (2) Sepsis Assessment/Plan: Intermittent fever. Continue antibiotics per ID. Code(s): A41.9 - SEPSIS, UNSPECIFIED ORGANISM Qualifiers: Sepsis type: sepsis due to unspecified organism Qualified Code(s): A41.9 - Sepsis, unspecified organism (3) Sinus bradycardia Assessment/Plan: TSH WNL. Still with marked sinus bradycardia while asleep, but heart rate usually normal now when awake. Occasional periods of fever. Code(s): R00.1 - BRADYCARDIA, UNSPECIFIED (4) Hypoalbuminemia Assessment/Plan: nutritional supplement; on antibiotics. Avoid NSAIDs, if possible. Code(s): E88.09 - OTH DISORDERS OF PLASMA-PROTEIN METABOLISM, NEC (5) Anemia Code(s): D64.9 - ANEMIA, UNSPECIFIED
--- NOTE | 2017-01-21 18:58 | CON.PSY ---
Psychiatry Consult Chief Complaint: I stopped functioning two weeks ago. Confusion, agitation fatigue. Reports of stoke, fevers.forgetfulness. reports change in personality, increased forgetfulness, poor driving. Has abused, Heroin and Xanax. rapid weight loss from 250lb to 150lbs. Symptoms: reports: Memory Impairment, Aggressivity, Impulsivity, Amnesic Episodes - Previous Psychiatric Treatment Outpatient: None Inpatient: None - Previous Substance Abuse Treatment Outpatient: None Inpatient: None - Reason for Previous Treatment Reason for Previous Treatment: Anxiety or Panic Disorder - Current Medications Current Medications: Active Medications Dextrose/Sodium Chloride (D5-Ns -) 1,000 mls @ 100 mls/hr IV ASDIR DIONICIO Last Admin: 01/21/17 15:15 Dose: Not Given Meropenem 1 gm/ Dextrose 100 mls @ 100 mls/hr IVPB Q8H-IV DIONICIO PRN Reason: Protocol Last Admin: 01/21/17 17:16 Dose: 100 mls/hr Vancomycin HCl (Vancomycin (Pre-Docked)) 250 mls @ 166.667 mls/hr IVPB BID@0600 ,1800 DIONICIO Last Admin: 01/21/17 18:21 Dose: 166.667 mls/hr Ibuprofen (Caldolor Injection -) 800 mg IVPB Q6H PRN PRN Reason: FEVER Last Admin: 01/21/17 16:41 Dose: 800 mg Ibuprofen (Motrin -) 400 mg PO Q6H PRN PRN Reason: PAIN Last Admin: 01/21/17 06:32 Dose: 400 mg Potassium Chloride (K-Dur -) 40 meq PO DAILY DIONICIO Last Admin: 01/21/17 09:17 Dose: 40 meq Prochlorperazine Edisylate (Compazine Injection -) 5 mg IVPB Q4H PRN PRN Reason: NAUSEA AND/OR VOMITING Last Admin: 01/14/17 11:04 Dose: 5 mg - Allergies Allergies: Allergies Allergy/AdvReac Type Severity Reaction Status Date / Time No Known Allergies Allergy Verified 01/07/17 15:52 - Current Living Status Usual Living Arrangement: With Spouse - Current Mental Status Evaluation Appearance: Disheveled Attitude: Cooperative - Affect Affect: Constrictive Appropriateness: Not Appropriate - Mood Mood: Irritable - Speech/Language Expressive: Delayed - Psychomotor Activity Psychomotor Activity: Slowed - Thought Process Thought Process: Circumstantial - Thought Content Hallucinations: Absent Delusions: Absent - Self Perception Self Perception: No Impairment - Cognition Attention: Diminished Orientation: Person Memory, Immediate Recall: Impaired Memory, Short Term: 1/3 Memory, Remote with Promptin/3 - Concentration Serial Sevens Intact: No Simple Calculations Intact: No - Abstraction Proverb Interpretation: Impaired Judgement: Moderately Impaired - Insight Insight: Impaired - Impulse Control Impulse Control: Moderately Impaired - Suicidal Ideation Suicidal Ideation: No - Homicidal Ideation Homicidal Ideation: No Assessment/Plan 1) No Psych meds now. 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
--- NOTE | 2017-01-21 19:28 | PN ---
Progress Note, Physician History of Present Illness: no complaint - Current Medication List Current Medications: Active Medications Dextrose/Sodium Chloride (D5-Ns -) 1,000 mls @ 100 mls/hr IV ASDIR DIONICIO Last Admin: 01/21/17 15:15 Dose: Not Given Meropenem 1 gm/ Dextrose 100 mls @ 100 mls/hr IVPB Q8H-IV DIONICIO PRN Reason: Protocol Last Admin: 01/21/17 17:16 Dose: 100 mls/hr Vancomycin HCl (Vancomycin (Pre-Docked)) 250 mls @ 166.667 mls/hr IVPB BID@0600 ,1800 DIONICIO Last Admin: 01/21/17 18:21 Dose: 166.667 mls/hr Ibuprofen (Caldolor Injection -) 800 mg IVPB Q6H PRN PRN Reason: FEVER Last Admin: 01/21/17 16:41 Dose: 800 mg Ibuprofen (Motrin -) 400 mg PO Q6H PRN PRN Reason: PAIN Last Admin: 01/21/17 06:32 Dose: 400 mg Potassium Chloride (K-Dur -) 40 meq PO DAILY DIONICIO Last Admin: 01/21/17 09:17 Dose: 40 meq Prochlorperazine Edisylate (Compazine Injection -) 5 mg IVPB Q4H PRN PRN Reason: NAUSEA AND/OR VOMITING Last Admin: 01/14/17 11:04 Dose: 5 mg - Objective Vital Signs: Vital Signs Temperature 98.6 F 01/21/17 18:19 Pulse Rate 76 01/21/17 18:24 Respiratory Rate 18 01/21/17 18:24 Blood Pressure 143/74 01/21/17 18:24 O2 Sat by Pulse Oximetry (%) 96 01/21/17 09:00 Constitutional: Yes: No Distress HENT: Yes: Atraumatic Neck: Yes: Supple Cardiovascular: Yes: Regular Rate and Rhythm Respiratory: Yes: CTA Bilaterally Gastrointestinal: Yes: Normal Bowel Sounds Extremities: Yes: WNL Neurological: Yes: Alert, Oriented Labs: CBC, BMP 01/21/17 07:24 01/21/17 07:24 INR, PTT INR 1.25 (0.82-1.09) H 01/09/17 05:20 Problem List - Problems (1) Agitation Assessment/Plan: normal now Code(s): R45.1 - RESTLESSNESS AND AGITATION (2) Sepsis Assessment/Plan: on iv abx spike temp again today Code(s): A41.9 - SEPSIS, UNSPECIFIED ORGANISM Qualifiers: Sepsis type: sepsis due to unspecified organism Qualified Code(s): A41.9 - Sepsis, unspecified organism (3) Bacterial meningitis Assessment/Plan: cxs negative todate Code(s): G00.9 - BACTERIAL MENINGITIS, UNSPECIFIED (4) Tuberculosis Assessment/Plan: negative...no acid fast bacilli seen Code(s): A15.9 - RESPIRATORY TUBERCULOSIS UNSPECIFIED
[2017-01-22] MEDS ORDERED: PT OWN MED DRAWER 7, Y5N ONE ×4 (02:31→17:15)
[2017-01-22] MEDS: MEROPENEM 1 GM in DEXTROSE 5%-WATER - 100 ML IVPB SCH ×3 (02:43→17:16)
[2017-01-22] MEDS: VANCOMYCIN 1 GRAM (PRE-DOCKED) 250 ML IVPB SCH (05:49)
[2017-01-22] MEDS: POTASSIUM CHLORIDE TABS 20 MEQ TABLET.ER (FP) PO SCH (09:17)
[2017-01-22] MEDS: BANATROL PLUS POWDER PACKET PO SCH ×2 (09:18→21:09)
--- NOTE | 2017-01-22 10:29 | PN ---
Progress Note, Physician History of Present Illness: This is a 46 yo white male with h/o recent pneumonia (tx with two antibiotic courses in the past 5 weeks), stroke, anxiety, and prior drug addiction ( reportedly 20 years sober) who presents with his brother c/o agitation, altered mental status, and fever. The patient is unable to provide any of his medical history. His brother explains that he last saw the patient acting normally last night at 11 pm just prior to going to sleep for the night. Then 12 hours DIRECTOR [employer] the patient started acting strangely, beginning with urinating in his laundry basket (far outside his baseline which is A/O and very sensible). The patient was noted to be persistently jerking his legs in bed while sleeping most of the day. The brother noted two more strange incidents today, including the patient trying to defecate in a kitchen drawer, and trying to put his sneakers on his knees. The brother does not believe that the patient has taken any drugs or overdosed on his normal medications (normally on mirtazepine, Subutex, hydroxyzine, chlorpromazine, and gabapentin) but he does not supervise him at all times and states it is a possibility. The brother notes one prior similar episode which he notes presented exactly the same, for which he was seen at [facility] a few years ago and was told he had a stroke. 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 - Current Medication List Current Medications: Active Medications Meropenem 1 gm/ Dextrose 100 mls @ 100 mls/hr IVPB Q8H-IV DIONICIO PRN Reason: Protocol Last Admin: 01/22/17 09:17 Dose: 100 mls/hr Vancomycin HCl (Vancomycin (Pre-Docked)) 250 mls @ 166.667 mls/hr IVPB BID@0600 ,1800 DIONICIO Last Admin: 01/22/17 05:49 Dose: 166.667 mls/hr Ibuprofen (Caldolor Injection -) 800 mg IVPB Q6H PRN PRN Reason: FEVER Last Admin: 01/21/17 16:41 Dose: 800 mg Ibuprofen (Motrin -) 400 mg PO Q6H PRN PRN Reason: PAIN Last Admin: 01/21/17 06:32 Dose: 400 mg Potassium Chloride (K-Dur -) 40 meq PO DAILY DIONICIO Last Admin: 01/22/17 09:17 Dose: 40 meq Prochlorperazine Edisylate (Compazine Injection -) 5 mg IVPB Q4H PRN PRN Reason: NAUSEA AND/OR VOMITING Last Admin: 01/14/17 11:04 Dose: 5 mg - Objective Vital Signs: Vital Signs Temperature 98.8 F 01/22/17 06:00 Pulse Rate 77 01/22/17 06:00 Respiratory Rate 20 01/22/17 06:00 Blood Pressure 134/74 01/22/17 06:00 O2 Sat by Pulse Oximetry (%) 96 01/22/17 09:00 Eyes: Yes: WNL, Conjunctiva Clear, EOM Intact HENT: Yes: WNL, Atraumatic, Normocephalic Neck: Yes: WNL, Supple, Trachea Midline Cardiovascular: Yes: WNL, Regular Rate and Rhythm Respiratory: Yes: WNL, Regular, CTA Bilaterally Gastrointestinal: Yes: WNL, Normal Bowel Sounds Genitourinary: Yes: WNL Musculoskeletal: Yes: WNL Extremities: Yes: WNL Edema: No Integumentary: Yes: WNL Neurological: Yes: WNL, Alert, Oriented ...Motor Strength: WNL Psychiatric: Yes: WNL Labs: CBC, BMP 01/21/17 07:24 01/21/17 07:24 INR, PTT INR 1.25 (0.82-1.09) H 01/09/17 05:20 Assessment/Plan - Problems (1) Agitation Assessment/Plan: (2) Sepsis Assessment/Plan: Intermittent fever. Continue antibiotics per ID. Code(s): A41.9 - SEPSIS, UNSPECIFIED ORGANISM Qualifiers: Sepsis type: sepsis due to unspecified organism Qualified Code(s): A41.9 - Sepsis, unspecified organism (3) Sinus bradycardia Assessment/Plan: RESOLVED TSH WNL. Still with marked sinus bradycardia while asleep, but heart rate usually normal now when awake. Occasional periods of fever. Code(s): R00.1 - BRADYCARDIA, UNSPECIFIED (4) Hypoalbuminemia Assessment/Plan: nutritional supplement; on antibiotics. Avoid NSAIDs, if possible. Code(s): E88.09 - OTH DISORDERS OF PLASMA-PROTEIN METABOLISM, NEC (5) Anemia Code(s): D64.9 - ANEMIA, UNSPECIFIED
--- NOTE | 2017-01-22 10:51 | PN ---
Progress Note (short form) - Note Progress Note: Neurology History of Present Illness This is a 46 yo male with h/o recent pneumonia (tx with two antibiotic courses in the past 5 weeks), stroke, anxiety, and prior drug addiction (reportedly 20 years sober) who presents with his brother c/o agitation, altered mental status , and fever. The patient is unable to provide any of his medical history. His brother explains that he last saw the patient acting normally the night prior to admission. The patient was acting strangely, beginning with urinating in his laundry basket (far outside his baseline which is A/O and very sensible). The patient was noted to be persistently jerking his legs in bed while sleeping most of the day. There was concern and question of NMS vs Seratonin syndrome. LP was completed and showed increased WBC, low glucose and increased protein, consistent with bacterial meningitis. Patient with CT head and was negative except for slight ventricular asymmetry which does not have clinical relevance currently. Of note, the patient has substance abuse and opiates. He was admitted for sepsis 2/2 PNA and with bacterial meningitis. Patient downgraded to floor from ICU. Not on isolation at this time. More alert, cooperative, and communicative. No abnormal movements at this time. Neurologically improving. Remains on Cefepime and Vanco at this time. Cooperative and communicating with examiner. 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 Requested consult from VIBHA Kelly for evaluation. Unsure if he may benefit from shunt or would need it, considering clinically he is stable. Spoke with patient about results and desire to consult NSGY and he was in agreement. Active Medications Meropenem 1 gm/ Dextrose 100 mls @ 100 mls/hr IVPB Q8H-IV DIONICIO PRN Reason: Protocol Last Admin: 01/22/17 09:17 Dose: 100 mls/hr Vancomycin HCl (Vancomycin (Pre-Docked)) 250 mls @ 166.667 mls/hr IVPB BID@0600 ,1800 DIONICIO Last Admin: 01/22/17 05:49 Dose: 166.667 mls/hr Ibuprofen (Caldolor Injection -) 800 mg IVPB Q6H PRN PRN Reason: FEVER Last Admin: 01/21/17 16:41 Dose: 800 mg Ibuprofen (Motrin -) 400 mg PO Q6H PRN PRN Reason: PAIN Last Admin: 01/21/17 06:32 Dose: 400 mg Potassium Chloride (K-Dur -) 40 meq PO DAILY DIONICIO Last Admin: 01/22/17 09:17 Dose: 40 meq Prochlorperazine Edisylate (Compazine Injection -) 5 mg IVPB Q4H PRN PRN Reason: NAUSEA AND/OR VOMITING Last Admin: 01/14/17 11:04 Dose: 5 mg *Physical Exam Vital Signs Temperature 99.1 F 01/22/17 10:00 Pulse Rate 77 01/22/17 06:00 Respiratory Rate 20 01/22/17 10:00 Blood Pressure 136/7 01/22/17 10:00 O2 Sat by Pulse Oximetry (%) 96 01/22/17 09:00 - Physical Exam General Appearance: Awake, alert, interactive, communicative briefly HEENT: positive: EOMI, ROGER Neck: positive: Other (patient unable to follow commands to test ROM of neck). negative: Carotid bruit Respiratory/Chest: Decreased breath sounds Cardiovascular: positive: Regular Rhythm, Tachycardia, Other (extremity veins distended). negative: Murmur Gastrointestinal/Abdominal: positive: Flat, Increased Bowel Sounds. negative: Hernia Male Genitalia: positive: normal genitalia. negative: hernia Musculoskeletal: positive: Normal Inspection, Muscle Spasm Integumentary: positive: Normal Color, Other (hot) Neurologic: awake, alert, follows minimal commands, CN intact, no focal motor deficits, sensory intact, no aphasia CBCD WBC 8.2 K/mm3 (4.0-10.0) 01/21/17 07:24 RBC 4.24 M/mm3 (4.00-5.60) 01/21/17 07:24 Hgb 11.7 GM/dL (11.7-16.9) 01/21/17 07:24 Hct 35.9 % (35.4-49) 01/21/17 07:24 MCV 84.6 fl (80-96) 01/21/17 07:24 MCHC 32.5 g/dl (32.0-35.9) 01/21/17 07:24 RDW 22.8 % (11.9-15.9) H 01/21/17 07:24 Plt Count 305 K/MM3 (134-434) 01/21/17 07:24 MPV 8.0 fl (7.5-11.1) 01/21/17 07:24 CMP Sodium 133 mmol/L (136-145) L 01/21/17 07:24 Potassium 3.1 mmol/L (3.5-5.1) L 01/21/17 07:24 Chloride 95 mmol/L (98-107) L 01/21/17 07:24 Carbon Dioxide 29 mmol/L (21-32) 01/21/17 07:24 Anion Gap 9 (8-16) 01/21/17 07:24 BUN 9 mg/dL (7-18) 01/21/17 07:24 Creatinine 0.5 mg/dL (0.7-1.3) L 01/21/17 07:24 Creat Clearance w eGFR > 60 (>60) 01/21/17 07:24 Calcium 7.9 mg/dL (8.5-10.1) L 01/21/17 07:24 Total Bilirubin 0.4 mg/dL (0.2-1.0) 01/21/17 07:24 AST 9 U/L (15-37) L 01/21/17 07:24 ALT 26 U/L (12-78) 01/21/17 07:24 Alkaline Phosphatase 105 U/L (45-117) 01/21/17 07:24 Total Protein 5.3 g/dl (6.4-8.2) L 01/21/17 07:24 Albumin 2.1 g/dl (3.4-5.0) L 01/21/17 07:24 Medical Decision Making 46 yo male with h/o recent pneumonia (tx with two antibiotic courses in the past 5 weeks), stroke, anxiety, and prior drug addiction (reportedly 20 years sober) who presents with his brother c/o agitation, altered mental status, and fever. The patient is unable to provide any of his medical history. His brother explains that he last saw the patient acting normally the night prior to admission. The patient was acting strangely, beginning with urinating in his laundry basket (far outside his baseline which is A/O and very sensible). The patient was noted to be persistently jerking his legs in bed while sleeping most of the day. There was concern and question of NMS vs Seratonin syndrome. LP was completed and showed increased WBC, low glucose and increased protein, consistent with bacterial meningitis. Patient with CT head and was negative except for slight ventricular asymmetry which does not have clinical relevance currently. Of note, the patient has substance abuse and opiates. He was admitted for sepsis 2/2 PNA and with bacterial meningitis. Downgraded to floor status. Fall precautions. IV abx to be continued, on Cefepime and Vanco. Does not seem to be NMS or seratonin syndrome, more consistent with infectious etiology and getting ongoing treatment, on IV Abx. Drug cessation highly recommended. MRI brain reviewed, NSGY consulted for further evaluation. Clinically improving.
[2017-01-22] MEDS: IBUPROFEN 400 MG TABLET (FP) PO PRN (14:54)
--- NOTE | 2017-01-22 16:02 | PN ---
Progress Note, Physician History of Present Illness: stable no new issues - Current Medication List Current Medications: Active Medications Meropenem 1 gm/ Dextrose 100 mls @ 100 mls/hr IVPB Q8H-IV DIONICIO PRN Reason: Protocol Last Admin: 01/22/17 09:17 Dose: 100 mls/hr Ibuprofen (Caldolor Injection -) 800 mg IVPB Q6H PRN PRN Reason: FEVER Last Admin: 01/21/17 16:41 Dose: 800 mg Ibuprofen (Motrin -) 400 mg PO Q6H PRN PRN Reason: PAIN Last Admin: 01/22/17 14:54 Dose: 400 mg Potassium Chloride (K-Dur -) 40 meq PO DAILY DIONICIO Last Admin: 01/22/17 09:17 Dose: 40 meq Prochlorperazine Edisylate (Compazine Injection -) 5 mg IVPB Q4H PRN PRN Reason: NAUSEA AND/OR VOMITING Last Admin: 01/14/17 11:04 Dose: 5 mg - Objective Vital Signs: Vital Signs Temperature 99.1 F 01/22/17 10:00 Pulse Rate 77 01/22/17 06:00 Respiratory Rate 20 01/22/17 10:00 Blood Pressure 136/7 01/22/17 10:00 O2 Sat by Pulse Oximetry (%) 96 01/22/17 09:00 Constitutional: Yes: No Distress, Calm Respiratory: Yes: Regular, Rhonchi Gastrointestinal: Yes: Normal Bowel Sounds, Soft Musculoskeletal: Yes: WNL Extremities: Yes: WNL Neurological: Yes: Alert, Oriented Psychiatric: Yes: Alert, Oriented Labs: CBC, BMP 01/21/17 07:24 01/21/17 07:24 INR, PTT INR 1.25 (0.82-1.09) H 01/09/17 05:20 Assessment/Plan Altered mental status with persistently high fevers r/o bacteria meningitis concern for Serotonin Syndrome versus NMS due to patient's home medication usage Acute agitation RLL Pneumonia / (?) RUL cavity Psych disorder sepsis resp failure gm positive bacteremia plan continue current mgmt will stop vanco incentive serena rest as per primary team
--- NOTE | 2017-01-22 17:36 | PN ---
Progress Note, Physician History of Present Illness: doing well wants to go home - Current Medication List Current Medications: Active Medications Meropenem 1 gm/ Dextrose 100 mls @ 100 mls/hr IVPB Q8H-IV DIONICIO PRN Reason: Protocol Last Admin: 01/22/17 17:16 Dose: 100 mls/hr Ibuprofen (Caldolor Injection -) 800 mg IVPB Q6H PRN PRN Reason: FEVER Last Admin: 01/21/17 16:41 Dose: 800 mg Ibuprofen (Motrin -) 400 mg PO Q6H PRN PRN Reason: PAIN Last Admin: 01/22/17 14:54 Dose: 400 mg Potassium Chloride (K-Dur -) 40 meq PO DAILY DIONICIO Last Admin: 01/22/17 09:17 Dose: 40 meq Prochlorperazine Edisylate (Compazine Injection -) 5 mg IVPB Q4H PRN PRN Reason: NAUSEA AND/OR VOMITING Last Admin: 01/14/17 11:04 Dose: 5 mg - Objective Vital Signs: Vital Signs Temperature 99.0 F 01/22/17 14:00 Pulse Rate 72 01/22/17 14:00 Respiratory Rate 20 01/22/17 14:00 Blood Pressure 134/76 01/22/17 14:00 O2 Sat by Pulse Oximetry (%) 96 01/22/17 09:00 Constitutional: Yes: No Distress HENT: Yes: Atraumatic Neck: Yes: Supple Cardiovascular: Yes: Regular Rate and Rhythm Respiratory: Yes: CTA Bilaterally Gastrointestinal: Yes: Normal Bowel Sounds Extremities: Yes: WNL Edema: No Peripheral Pulses WNL: Yes Neurological: Yes: Alert, Oriented Labs: CBC, BMP 01/21/17 07:24 01/21/17 07:24 INR, PTT INR 1.25 (0.82-1.09) H 01/09/17 05:20 Problem List - Problems (1) Agitation Assessment/Plan: normal now Code(s): R45.1 - RESTLESSNESS AND AGITATION (2) Sepsis Assessment/Plan: on iv abx spike afebrile cxs pending Code(s): A41.9 - SEPSIS, UNSPECIFIED ORGANISM Qualifiers: Sepsis type: sepsis due to unspecified organism Qualified Code(s): A41.9 - Sepsis, unspecified organism (3) Bacterial meningitis Assessment/Plan: cxs negative todate Code(s): G00.9 - BACTERIAL MENINGITIS, UNSPECIFIED (4) Tuberculosis Assessment/Plan: negative...no acid fast bacilli seen Code(s): A15.9 - RESPIRATORY TUBERCULOSIS UNSPECIFIED Assessment/Plan Assessment Altered mental status with persistently high fevers ....AFEBRILE NOW RLL Pneumonia / (?) RUL cavity Psych disorder...CONSULT NOTED sepsis...ON ABX gm positive bacteremia plan on iv abx per id cxs no growth to date spiking fevers again spoke with and answered all the questions
--- NOTE | 2017-01-22 18:58 | PN ---
Progress Note (short form) - Note Progress Note: NEUROSURGERY CONSULT DICTATED Chart reviewed Pt examined Friend at bedside History obtained Poor historian H/o substance abuse, unclear psych disorder, presented to the ED with altered mental status and high fevers. Found with right side PNA. Utox was positive for Opiates. Initial LP c/w bacterial meningitis; Blood culture positive initially. Some H/A, achy all over, some neck pain, gait improving, no urinary incontinence PE: Afebrile x 36 hours On meropenem General- NAD HEENT- NC/AT; neck- supple, no nuchal rigidity; Cor- RRR; Lungs- CTA B; Abd- benign; Ext- No sign of DVT A/A/Ox3; amnestic of what happened 2 weeks ago CN- intact; Motor- 5/5 without drift, tremor L foot; Sensation- intact LT/ vibration; DTR- 1+ WBC 8.[address] initial- normal with mass effect, bleed F/U head CT- assymetric lateral ventricle > R MRI- assymmetrically dilated L > R lateral ventricle, mild transepenydmal edema , no mass lesion, no acute stroke Probable recent bacterial meningitis/pneumonia/bacteremia 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
[2017-01-23] MEDS ORDERED: PT OWN MED DRAWER 7, Y5N ONE ×2 (00:55→09:31)
[2017-01-23] MEDS: MEROPENEM 1 GM in DEXTROSE 5%-WATER - 100 ML IVPB SCH ×2 (00:59→09:36)
[2017-01-23] MEDS: POTASSIUM CHLORIDE TABS 20 MEQ TABLET.ER (FP) PO SCH (09:36)
[2017-01-23] MEDS: BANATROL PLUS POWDER PACKET PO SCH ×2 (09:36→21:19)
--- NOTE | 2017-01-23 10:00 | PN ---
Progress Note, Physician History of Present Illness: This is a 46 yo white male with h/o recent pneumonia (tx with two antibiotic courses in the past 5 weeks), stroke, anxiety, and prior drug addiction ( reportedly 20 years sober) who presents with his brother c/o agitation, altered mental status, and fever. The patient is unable to provide any of his medical history. His brother explains that he last saw the patient acting normally last night at 11 pm just prior to going to sleep for the night. Then 12 hours [employer] the patient started acting strangely, beginning with urinating in his laundry basket (far outside his baseline which is A/O and very sensible). The patient was noted to be persistently jerking his legs in bed while sleeping most of the day. The brother noted two more strange incidents today, including the patient trying to defecate in a kitchen drawer, and trying to put his sneakers on his knees. The brother does not believe that the patient has taken any drugs or overdosed on his normal medications (normally on mirtazepine, Subutex, hydroxyzine, chlorpromazine, and gabapentin) but he does not supervise him at all times and states it is a possibility. The brother notes one prior similar episode which he notes presented exactly the same, for which he was seen at [facility] a few years ago and was told he had a stroke. 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 - Current Medication List Current Medications: Active Medications Meropenem 1 gm/ Dextrose 100 mls @ 100 mls/hr IVPB Q8H-IV DIONICIO PRN Reason: Protocol Last Admin: 01/23/17 09:36 Dose: 100 mls/hr Ibuprofen (Caldolor Injection -) 800 mg IVPB Q6H PRN PRN Reason: FEVER Last Admin: 01/21/17 16:41 Dose: 800 mg Ibuprofen (Motrin -) 400 mg PO Q6H PRN PRN Reason: PAIN Last Admin: 01/22/17 14:54 Dose: 400 mg Potassium Chloride (K-Dur -) 40 meq PO DAILY DIONICIO Last Admin: 01/23/17 09:36 Dose: 40 meq Prochlorperazine Edisylate (Compazine Injection -) 5 mg IVPB Q4H PRN PRN Reason: NAUSEA AND/OR VOMITING Last Admin: 01/14/17 11:04 Dose: 5 mg - Objective Vital Signs: Vital Signs Temperature 98.8 F 01/22/17 22:00 Pulse Rate 75 01/22/17 22:00 Respiratory Rate 20 01/22/17 22:00 Blood Pressure 117/65 01/22/17 22:00 O2 Sat by Pulse Oximetry (%) 96 01/22/17 22:00 Eyes: Yes: WNL, Conjunctiva Clear, EOM Intact HENT: Yes: WNL, Atraumatic, Normocephalic Neck: Yes: WNL, Supple, Trachea Midline Cardiovascular: Yes: WNL, Regular Rate and Rhythm Respiratory: Yes: WNL, Regular, CTA Bilaterally Gastrointestinal: Yes: WNL, Normal Bowel Sounds Genitourinary: Yes: WNL Musculoskeletal: Yes: WNL Extremities: Yes: WNL Edema: No Integumentary: Yes: WNL Neurological: Yes: WNL, Alert, Oriented ...Motor Strength: WNL Psychiatric: Yes: WNL Labs: CBC, BMP 01/21/17 07:24 01/21/17 07:24 INR, PTT INR 1.25 (0.82-1.09) H 01/09/17 05:20 Assessment/Plan - Problems (1) Agitation Assessment/Plan: (2) Sepsis Assessment/Plan: Intermittent fever. Continue antibiotics per ID. Code(s): A41.9 - SEPSIS, UNSPECIFIED ORGANISM Qualifiers: Sepsis type: sepsis due to unspecified organism Qualified Code(s): A41.9 - Sepsis, unspecified organism (3) Sinus bradycardia Assessment/Plan: RESOLVED TSH WNL. Still with marked sinus bradycardia while asleep, but heart rate usually normal now when awake. Occasional periods of fever. Code(s): R00.1 - BRADYCARDIA, UNSPECIFIED (4) Hypoalbuminemia Assessment/Plan: nutritional supplement; on antibiotics. Avoid NSAIDs, if possible. Code(s): E88.09 - OTH DISORDERS OF PLASMA-PROTEIN METABOLISM, NEC (5) Anemia Code(s): D64.9 - ANEMIA, UNSPECIFIED
--- NOTE | 2017-01-23 10:20 | PN ---
Progress Note (short form) - Note Progress Note: Neurology History of Present Illness This is a 46 yo male with h/o recent pneumonia (tx with two antibiotic courses in the past 5 weeks), stroke, anxiety, and prior drug addiction (reportedly 20 years sober) who presents with his brother c/o agitation, altered mental status , and fever. The patient is unable to provide any of his medical history. His brother explains that he last saw the patient acting normally the night prior to admission. The patient was acting strangely, beginning with urinating in his laundry basket (far outside his baseline which is A/O and very sensible). The patient was noted to be persistently jerking his legs in bed while sleeping most of the day. There was concern and question of NMS vs Seratonin syndrome. LP was completed and showed increased WBC, low glucose and increased protein, consistent with bacterial meningitis. Patient with CT head and was negative except for slight ventricular asymmetry which does not have clinical relevance currently. Of note, the patient has substance abuse and opiates. He was admitted for sepsis 2/2 PNA and with bacterial meningitis. Patient downgraded to floor from ICU. Not on isolation at this time. More alert, cooperative, and communicative. 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 Requested consult from VIBHA Kelly for evaluation and reviewed findings and spoke to him in person as well. No surgical intervention, likely 2/[address] infection [address] CSF buildup[address] Dr[address] Vaughan rec'd to recheck MRI as outpatient. Discussed this with patient. Also spoke to yesterday in detail regarding condition and case. On Meropenum now, cooperative and communicating with examiner. Was able to tell me he's in the hospital, today 's date, name of President. Active Medications Meropenem 1 gm/ Dextrose 100 mls @ 100 mls/hr IVPB Q8H-IV DIONICIO PRN Reason: Protocol Last Admin: 01/23/17 09:36 Dose: 100 mls/hr Ibuprofen (Caldolor Injection -) 800 mg IVPB Q6H PRN PRN Reason: FEVER Last Admin: 01/21/17 16:41 Dose: 800 mg Ibuprofen (Motrin -) 400 mg PO Q6H PRN PRN Reason: PAIN Last Admin: 01/22/17 14:54 Dose: 400 mg Potassium Chloride (K-Dur -) 40 meq PO DAILY DIONICIO Last Admin: 01/23/17 09:36 Dose: 40 meq Prochlorperazine Edisylate (Compazine Injection -) 5 mg IVPB Q4H PRN PRN Reason: NAUSEA AND/OR VOMITING Last Admin: 01/14/17 11:04 Dose: 5 mg *Physical Exam Vital Signs Temperature 98.8 F 01/22/17 22:00 Pulse Rate 75 01/22/17 22:00 Respiratory Rate 20 01/22/17 22:00 Blood Pressure 117/65 01/22/17 22:00 O2 Sat by Pulse Oximetry (%) 96 01/22/17 22:00 - Physical Exam General Appearance: Awake, alert, interactive, communicative briefly HEENT: positive: EOMI, ROGER Neck: positive: Other (patient unable to follow commands to test ROM of neck). negative: Carotid bruit Respiratory/Chest: Decreased breath sounds Cardiovascular: positive: Regular Rhythm, Tachycardia, Other (extremity veins distended). negative: Murmur Gastrointestinal/Abdominal: positive: Flat, Increased Bowel Sounds. negative: Hernia Male Genitalia: positive: normal genitalia. negative: hernia Musculoskeletal: positive: Normal Inspection, Muscle Spasm Integumentary: positive: Normal Color, Other (hot) Neurologic: awake, alert, follows minimal commands, CN intact, no focal motor deficits, sensory intact, no aphasia CBCD WBC 8.2 K/mm3 (4.0-10.0) 01/21/17 07:24 RBC 4.24 M/mm3 (4.00-5.60) 01/21/17 07:24 Hgb 11.7 GM/dL (11.7-16.9) 01/21/17 07:24 Hct 35.9 % (35.4-49) 01/21/17 07:24 MCV 84.6 fl (80-96) 01/21/17 07:24 MCHC 32.5 g/dl (32.0-35.9) 01/21/17 07:24 RDW 22.8 % (11.9-15.9) H 01/21/17 07:24 Plt Count 305 K/MM3 (134-434) 01/21/17 07:24 MPV 8.0 fl (7.5-11.1) 01/21/17 07:24 CMP Sodium 133 mmol/L (136-145) L 01/21/17 07:24 Potassium 3.1 mmol/L (3.5-5.1) L 01/21/17 07:24 Chloride 95 mmol/L (98-107) L 01/21/17 07:24 Carbon Dioxide 29 mmol/L (21-32) 01/21/17 07:24 Anion Gap 9 (8-16) 01/21/17 07:24 BUN 9 mg/dL (7-18) 01/21/17 07:24 Creatinine 0.5 mg/dL (0.7-1.3) L 01/21/17 07:24 Creat Clearance w eGFR > 60 (>60) 01/21/17 07:24 Calcium 7.9 mg/dL (8.5-10.1) L 01/21/17 07:24 Total Bilirubin 0.4 mg/dL (0.2-1.0) 01/21/17 07:24 AST 9 U/L (15-37) L 01/21/17 07:24 ALT 26 U/L (12-78) 01/21/17 07:24 Alkaline Phosphatase 105 U/L (45-117) 01/21/17 07:24 Total Protein 5.3 g/dl (6.4-8.2) L 01/21/17 07:24 Albumin 2.1 g/dl (3.4-5.0) L 01/21/17 07:24 Medical Decision Making 46 yo male with h/o recent pneumonia (tx with two antibiotic courses in the past 5 weeks), stroke, anxiety, and prior drug addiction (reportedly 20 years sober) who presents with his brother c/o agitation, altered mental status, and fever. The patient is unable to provide any of his medical history. His brother explains that he last saw the patient acting normally the night prior to admission. The patient was acting strangely, beginning with urinating in his laundry basket (far outside his baseline which is A/O and very sensible). The patient was noted to be persistently jerking his legs in bed while sleeping most of the day. There was concern and question of NMS vs Seratonin syndrome. LP was completed and showed increased WBC, low glucose and increased protein, consistent with bacterial meningitis. Patient with CT head and was negative except for slight ventricular asymmetry which does not have clinical relevance currently. Of note, the patient has substance abuse and opiates. He was admitted for sepsis 2/2 PNA and with bacterial meningitis. Downgraded to floor status. IV abx to be continued, on Meropenum. Does not seem to be NMS or seratonin syndrome, more consistent with infectious etiology and getting ongoing treatment, on IV Abx. Drug cessation highly recommended. MRI brain reviewed, NSGY consulted reviewed and discussed. Clinically improving.
--- NOTE | 2017-01-23 10:53 | CONS ---
DATE OF CONSULTATION: 01/22/2017 REQUESTING PHYSICIAN: Mervin Red MD MILITARY PERSONNEL SPECIALIST: Charly Elliott MD, Neurosurgery. CHIEF COMPLAINT: Ventriculomegaly. HISTORY OF PRESENT ILLNESS: The patient is a 46-year-old right-handed male with history of recent bronchitis/pneumonia, treated with 2 antibiotic courses, stroke, prior drug dependence, who presented with fever and altered mental status. He was found to have a right lung lesion and was treated for pneumonia upon admission. He was in respiratory compromise. He did undergo initial lumbar puncture, which showed increased white blood cell count with polymorphonucleocytes, low glucose, and increased protein. He also had a positive blood culture initially. He was subsequently extubated and had occasional low-grade temperatures since then. He has been given IV antibiotics and has to be followed by Infectious Disease. Presently, he has a mild headache and slight neck pain. He is achy all over. He has some gait difficulty, but that is improving. He denies any urinary incontinence. He was amnestic of the events leading to his admission about two weeks ago. CT and MRI showed somewhat dilated ventricular system and neurosurgery consultation was requested by Neurology. The consultation was performed with the at the bedside. PAST MEDICAL HISTORY: significant for substance dependence, recent 2 bouts of bronchitis/pneumonia, stroke, anxiety. CURRENT MEDICATIONS: Include meropenem, ibuprofen, and potassium chloride. Vancomycin was stopped earlier today. ALLERGIES: There are no known drug allergies. FAMILY HISTORY: Noncontributory. SOCIAL HISTORY: He works as a repairman. He smokes and also has previously used recreational drugs. He also drinks alcohol. REVIEW OF SYSTEMS: Otherwise negative for other major cardiovascular, pulmonary , gastrointestinal, genitourinary, endocrinologic, neurologic, or psychologic problems except for the above. PHYSICAL EXAMINATION: Vital signs: Temperature is 99.1, blood pressure is 120/78 with a pulse rate of 83, O2 saturation 96% on room air. HEENT: Examination shows him to be normocephalic, atraumatic. Neck: Supple with no nuchal rigidity. There is no carotid bruit. Coronary: Examination demonstrated regular rhythm. Lungs: Clear bilaterally. Abdomen: Benign. Extremities: Examination shows no signs of DVT. Neurologic: He is awake and alert and oriented x3. Cranial nerve examination is intact 2-12. Motor examination shows 5/5 strength with drift. Sensory examination is intact to light touch and vibratory sensation. Deep tendon reflexes are 1+ throughout. There is no pathological long tract sign. His gait was not tested for safety reasons. Cerebellar examination demonstrated normal coordination without tremor. He has intact [id number] examination. LABORATORY EXAMINATION: Shows the initial white blood cell count was 19,300, he has gone as high as 23,300, most recent white blood cell count is 8.2, hemoglobin is 11.7, and platelet count is 305,000. INR was 1.25 and PT is 31.6. Serum sodium is 133, potassium is 3.1, BUN is 9, creatinine is 0.5, albumin is 2.1, Initial toxicology screen was positive for opiate and acetaminophen. CSF initially January 07 demonstrated 33,567 WBC and 2000 RBC with 93% neutrophils , protein was 205, and glucose was 5. Culture and sensitivity Lyme is positive. Culture and sensitivity toxin antibodies less than 3. HIV screening was negative. CT scan of the head initially performed on January 07 showed no acute intracranial pathology. There is slight motion artifact. There is no mass lesion or bleed. CT scan of the chest on January 07 demonstrated a right middle lobe consolidation with cavitation and bulla on the upper lobe. CT scan of the brain on January 13 demonstrated slight asymmetry of the lateral ventricle left greater than right. There is no acute bleed. MRI of the brain January 21 demonstrated asymmetric dilatation of the lateral ventricle left greater than right with temporal horns. There is mild transependymal edema. There is no acute stroke. Initial blood culture was positive for staphylococcus epidermidis, staphylococcus haemolyticus, and staphylococcus hominis. IMPRESSION: 1. Probable bacterial meningitis. 2. Recent pneumonia. 3. Chronic obstructive pulmonary disease. 4. History of drug dependence. RECOMMENDATIONS: The patient presented with fever and altered mental status. He has been on a long course of IV antibiotics over the past two plus weeks. He is currently on meropenem. His clinical condition had reportedly improved, and today, he is awake and alert and oriented x3. He still has some mild gait difficulty as well as mild headache and neck pain, which is not unusual after recent meningitis. He should complete the IV antibiotic course under the direction of the infectious disease specialist. CT scan and MRI does demonstrate some dilatation of the left greater than right lateral ventricle. Meningitis frequently can impair CSF resorption causing ventriculomegaly. After adequate treatment with antibiotic course, the CSF resorption mechanism generally can recover to a good extent. The underlying infection must be cleared, however. Neurosurgical intervention at this time is not indicated nor recommended. This is especially true for a [employer]ING [employer] shunt procedure at this early stage of his recovery from probable bacterial meningitis. In fact, shunt is contraindicated with the recent bacterial infection. The patient should continue to follow up with Neurology and to have followup imaging study outpatient. He should also follow up with the current ID specialist after discharge. One does expect some improvement of the CT/MRI scan findings over the next few weeks. The above was discussed with the patient and his at the bedside. All questions were answered. CHARLY ELLIOTT M.D. [id number] MTDD
--- NOTE | 2017-01-23 11:50 | PN ---
Progress Note (short form) - Note Progress Note: NEUROSURGERY No new complaint PE: Tmax 99.1 On meropenem General- NAD, in bed HEENT- NC/AT; neck- supple, no nuchal rigidity; Cor- RRR; Lungs- CTA B; Abd- benign; Ext- No sign of DVT A/A/Ox3 CN- intact; Motor- 5/5 without drift, tremor L foot; Sensation- intact LT/ vibration; DTR- 1+ WBC 8.[address] initial- normal with mass effect, bleed F/U head CT- asymmetric lateral ventricle > R MRI- asymmetrically dilated L > R lateral ventricle, mild transepenydmal edema, no mass lesion, no acute stroke Probable recent bacterial meningitis No neurosurgical intervention as there likely was recent CSF infection and the reality pt is clinically improved Fluid resorption mechanism generally improves as infection is adequately treated F/u with neurology and ID and outpatient imaging once discharged
--- NOTE | 2017-01-23 13:18 | PN ---
Progress Note, Physician History of Present Illness: doing well wants to go home - Current Medication List Current Medications: Active Medications Meropenem 1 gm/ Dextrose 100 mls @ 100 mls/hr IVPB Q8H-IV DIONICIO PRN Reason: Protocol Last Admin: 01/23/17 09:36 Dose: 100 mls/hr Ibuprofen (Caldolor Injection -) 800 mg IVPB Q6H PRN PRN Reason: FEVER Last Admin: 01/21/17 16:41 Dose: 800 mg Ibuprofen (Motrin -) 400 mg PO Q6H PRN PRN Reason: PAIN Last Admin: 01/22/17 14:54 Dose: 400 mg Potassium Chloride (K-Dur -) 40 meq PO DAILY DIONICIO Last Admin: 01/23/17 09:36 Dose: 40 meq Prochlorperazine Edisylate (Compazine Injection -) 5 mg IVPB Q4H PRN PRN Reason: NAUSEA AND/OR VOMITING Last Admin: 01/14/17 11:04 Dose: 5 mg - Objective Vital Signs: Vital Signs Temperature 99.3 F 01/23/17 10:00 Pulse Rate 86 01/23/17 10:00 Respiratory Rate 20 01/23/17 10:00 Blood Pressure 119/73 01/23/17 10:00 O2 Sat by Pulse Oximetry (%) 96 01/23/17 08:32 Constitutional: Yes: No Distress HENT: Yes: Atraumatic Neck: Yes: Supple Cardiovascular: Yes: Regular Rate and Rhythm Respiratory: Yes: CTA Bilaterally Gastrointestinal: Yes: Normal Bowel Sounds Extremities: Yes: WNL Neurological: Yes: Alert, Oriented Labs: CBC, BMP 01/21/17 07:24 01/21/17 07:24 INR, PTT INR 1.25 (0.82-1.09) H 01/09/17 05:20 Problem List - Problems (1) Agitation Assessment/Plan: normal now Code(s): R45.1 - RESTLESSNESS AND AGITATION (2) Sepsis Assessment/Plan: on iv abx AFEBRILE ID TO LET US KNOW ABOUT DC Code(s): A41.9 - SEPSIS, UNSPECIFIED ORGANISM Qualifiers: Sepsis type: sepsis due to unspecified organism Qualified Code(s): A41.9 - Sepsis, unspecified organism (3) Bacterial meningitis Code(s): G00.9 - BACTERIAL MENINGITIS, UNSPECIFIED (4) Tuberculosis Code(s): A15.9 - RESPIRATORY TUBERCULOSIS UNSPECIFIED Assessment/Plan spoke to in detail about dc planning she will talk to social media job titles in am
--- NOTE | 2017-01-23 17:11 | PN ---
Progress Note, Physician History of Present Illness: stable has been afebrile - Current Medication List Current Medications: Active Medications Meropenem 1 gm/ Dextrose 100 mls @ 100 mls/hr IVPB Q8H-IV DIONICIO PRN Reason: Protocol Last Admin: 01/23/17 09:36 Dose: 100 mls/hr Ibuprofen (Caldolor Injection -) 800 mg IVPB Q6H PRN PRN Reason: FEVER Last Admin: 01/21/17 16:41 Dose: 800 mg Ibuprofen (Motrin -) 400 mg PO Q6H PRN PRN Reason: PAIN Last Admin: 01/22/17 14:54 Dose: 400 mg Potassium Chloride (K-Dur -) 40 meq PO DAILY DIONICIO Last Admin: 01/23/17 09:36 Dose: 40 meq Prochlorperazine Edisylate (Compazine Injection -) 5 mg IVPB Q4H PRN PRN Reason: NAUSEA AND/OR VOMITING Last Admin: 01/14/17 11:04 Dose: 5 mg - Objective Vital Signs: Vital Signs Temperature 99.1 F 01/23/17 14:51 Pulse Rate 71 01/23/17 14:51 Respiratory Rate 16 01/23/17 14:51 Blood Pressure 118/88 01/23/17 14:51 O2 Sat by Pulse Oximetry (%) 96 01/23/17 08:32 Constitutional: Yes: No Distress, Calm Cardiovascular: Yes: Regular Rate and Rhythm Respiratory: Yes: Regular, CTA Bilaterally Gastrointestinal: Yes: Normal Bowel Sounds, Soft Musculoskeletal: Yes: WNL Extremities: Yes: WNL Neurological: Yes: Alert, Oriented Psychiatric: Yes: Alert, Oriented Labs: CBC, BMP 01/21/17 07:24 01/21/17 07:24 INR, PTT INR 1.25 (0.82-1.09) H 01/09/17 05:20 Assessment/Plan Altered mental status with persistently high fevers r/o bacteria meningitis concern for Serotonin Syndrome versus NMS due to patient's home medication usage Acute agitation RLL Pneumonia / (?) RUL cavity Psych disorder sepsis resp failure gm positive bacteremia plan stopped all iv abx watch without abx incentive serena rest as per primary
[2017-01-24] MEDS: POTASSIUM CHLORIDE TABS 20 MEQ TABLET.ER (FP) PO SCH (09:31)
[2017-01-24] MEDS: BANATROL PLUS POWDER PACKET PO SCH ×2 (09:31→22:14)
--- NOTE | 2017-01-24 09:53 | PN ---
Progress Note (short form) - Note Progress Note: Neurology History of Present Illness This is a 46 yo male with h/o recent pneumonia (tx with two antibiotic courses in the past 5 weeks), stroke, anxiety, and prior drug addiction (reportedly 20 years sober) who presents with his brother c/o agitation, altered mental status , and fever. The patient is unable to provide any of his medical history. His brother explains that he last saw the patient acting normally the night prior to admission. The patient was acting strangely, beginning with urinating in his laundry basket (far outside his baseline which is A/O and very sensible). The patient was noted to be persistently jerking his legs in bed while sleeping most of the day. There was concern and question of NMS vs Seratonin syndrome. LP was completed and showed increased WBC, low glucose and increased protein, consistent with bacterial meningitis. Patient with CT head and was negative except for slight ventricular asymmetry which does not have clinical relevance currently. Of note, the patient has substance abuse and opiates. He was admitted for sepsis 2/2 PNA and with bacterial meningitis. Patient downgraded to floor from ICU. Not on isolation at this time. More alert, cooperative, and communicative. 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 Requested consult from VIBHA Kelly for evaluation and reviewed findings and spoke to him in person as well. No surgical intervention, likely 2/2 infection with CSF buildup. Dr[address] Vaughan rec'd to recheck MRI as outpatient. Patient sitting in chair at bedside today, mentating better than previously. Was able to tell me he's in the hospital and that he has fluid in his brain from infection, able to tell me today's date, name of President. ID note reviewed and recommended monitoring off ABx. Active Medications Ibuprofen (Caldolor Injection -) 800 mg IVPB Q6H PRN PRN Reason: FEVER Last Admin: 01/21/17 16:41 Dose: 800 mg Ibuprofen (Motrin -) 400 mg PO Q6H PRN PRN Reason: PAIN Last Admin: 01/22/17 14:54 Dose: 400 mg Potassium Chloride (K-Dur -) 40 meq PO DAILY DIONICIO Last Admin: 01/24/17 09:31 Dose: 40 meq Prochlorperazine Edisylate (Compazine Injection -) 5 mg IVPB Q4H PRN PRN Reason: NAUSEA AND/OR VOMITING Last Admin: 01/14/17 11:04 Dose: 5 mg *Physical Exam Last Vital Signs Temp Pulse Resp BP Pulse Ox 98.7 F 77 20 128/81 97 01/24/17 06:00 01/24/17 06:00 01/24/17 08:53 01/24/17 06:00 01/24/17 08:53 - Physical Exam General Appearance: Awake, alert, interactive, communicative briefly HEENT: positive: EOMI, ROGER Neck: positive: Other (patient unable to follow commands to test ROM of neck). negative: Carotid bruit Respiratory/Chest: Decreased breath sounds Cardiovascular: positive: Regular Rhythm, Tachycardia, Other (extremity veins distended). negative: Murmur Gastrointestinal/Abdominal: positive: Flat, Increased Bowel Sounds. negative: Hernia Male Genitalia: positive: normal genitalia. negative: hernia Musculoskeletal: positive: Normal Inspection, Muscle Spasm Integumentary: positive: Normal Color, Other (hot) Neurologic: awake, alert, follows minimal commands, CN intact, no focal motor deficits, sensory intact, no aphasia CBCD WBC 8.2 K/mm3 (4.0-10.0) 01/21/17 07:24 RBC 4.24 M/mm3 (4.00-5.60) 01/21/17 07:24 Hgb 11.7 GM/dL (11.7-16.9) 01/21/17 07:24 Hct 35.9 % (35.4-49) 01/21/17 07:24 MCV 84.6 fl (80-96) 01/21/17 07:24 MCHC 32.5 g/dl (32.0-35.9) 01/21/17 07:24 RDW 22.8 % (11.9-15.9) H 01/21/17 07:24 Plt Count 305 K/MM3 (134-434) 01/21/17 07:24 MPV 8.0 fl (7.5-11.1) 01/21/17 07:24 CMP Sodium 133 mmol/L (136-145) L 01/21/17 07:24 Potassium 3.1 mmol/L (3.5-5.1) L 01/21/17 07:24 Chloride 95 mmol/L (98-107) L 01/21/17 07:24 Carbon Dioxide 29 mmol/L (21-32) 01/21/17 07:24 Anion Gap 9 (8-16) 01/21/17 07:24 BUN 9 mg/dL (7-18) 01/21/17 07:24 Creatinine 0.5 mg/dL (0.7-1.3) L 01/21/17 07:24 Creat Clearance w eGFR > 60 (>60) 01/21/17 07:24 Calcium 7.9 mg/dL (8.5-10.1) L 01/21/17 07:24 Total Bilirubin 0.4 mg/dL (0.2-1.0) 01/21/17 07:24 AST 9 U/L (15-37) L 01/21/17 07:24 ALT 26 U/L (12-78) 01/21/17 07:24 Alkaline Phosphatase 105 U/L (45-117) 01/21/17 07:24 Total Protein 5.3 g/dl (6.4-8.2) L 01/21/17 07:24 Albumin 2.1 g/dl (3.4-5.0) L 01/21/17 07:24 Medical Decision Making 46 yo male with h/o recent pneumonia (tx with two antibiotic courses in the past 5 weeks), stroke, anxiety, and prior drug addiction (reportedly 20 years sober) who presents with his brother c/o agitation, altered mental status, and fever. The patient is unable to provide any of his medical history. His brother explains that he last saw the patient acting normally the night prior to admission. The patient was acting strangely, beginning with urinating in his laundry basket (far outside his baseline which is A/O and very sensible). The patient was noted to be persistently jerking his legs in bed while sleeping most of the day. There was concern and question of NMS vs Seratonin syndrome. LP was completed and showed increased WBC, low glucose and increased protein, consistent with bacterial meningitis. Patient with CT head and was negative except for slight ventricular asymmetry which does not have clinical relevance currently. Of note, the patient has substance abuse and opiates. He was admitted for sepsis 2/2 PNA and with bacterial meningitis. Downgraded to floor status. IV abx stopped. ID note reviewed, patient taken off Abx. NSGY consulted reviewed and discussed, outpatient MRI highly recommended. Clinically improving.
--- NOTE | 2017-01-24 10:17 | PN ---
Progress Note, Physician History of Present Illness: This is a 46 yo white male with h/o recent pneumonia (tx with two antibiotic courses in the past 5 weeks), stroke, anxiety, and prior drug addiction ( reportedly 20 years sober) who presents with his brother c/o agitation, altered mental status, and fever. The patient is unable to provide any of his medical history. His brother explains that he last saw the patient acting normally last night at 11 pm just prior to going to sleep for the night. 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 The patient was noted to be persistently jerking his legs in bed while sleeping most of the day. The brother noted two more strange incidents today, including the patient trying to defecate in a kitchen drawer, and trying to put his sneakers on his knees. The brother does not believe that the patient has taken any drugs or overdosed on his normal medications (normally on mirtazepine, Subutex, hydroxyzine, chlorpromazine, and gabapentin) but he does not supervise him at all times and states it is a possibility. The brother notes one prior similar episode which he notes presented exactly the same, for which he was seen at [facility] a few years ago and was told he had a stroke. 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 - Current Medication List Current Medications: Active Medications Ibuprofen (Caldolor Injection -) 800 mg IVPB Q6H PRN PRN Reason: FEVER Last Admin: 01/21/17 16:41 Dose: 800 mg Ibuprofen (Motrin -) 400 mg PO Q6H PRN PRN Reason: PAIN Last Admin: 01/22/17 14:54 Dose: 400 mg Potassium Chloride (K-Dur -) 40 meq PO DAILY DIONICIO Last Admin: 01/24/17 09:31 Dose: 40 meq Prochlorperazine Edisylate (Compazine Injection -) 5 mg IVPB Q4H PRN PRN Reason: NAUSEA AND/OR VOMITING Last Admin: 01/14/17 11:04 Dose: 5 mg - Objective Vital Signs: Vital Signs Temperature 98.7 F 01/24/17 06:00 Pulse Rate 77 01/24/17 06:00 Respiratory Rate 20 01/24/17 08:53 Blood Pressure 128/81 01/24/17 06:00 O2 Sat by Pulse Oximetry (%) 97 01/24/17 08:53 Eyes: Yes: WNL, Conjunctiva Clear, EOM Intact HENT: Yes: WNL, Atraumatic, Normocephalic Neck: Yes: WNL, Supple, Trachea Midline Cardiovascular: Yes: WNL, Regular Rate and Rhythm Respiratory: Yes: WNL, Regular, CTA Bilaterally Gastrointestinal: Yes: WNL, Normal Bowel Sounds Genitourinary: Yes: WNL Musculoskeletal: Yes: WNL Extremities: Yes: WNL Edema: No Integumentary: Yes: WNL Neurological: Yes: WNL, Alert, Oriented ...Motor Strength: WNL Psychiatric: Yes: WNL Labs: CBC, BMP 01/21/17 07:24 01/21/17 07:24 INR, PTT INR 1.25 (0.82-1.09) H 01/09/17 05:20 Assessment/Plan - Problems (1) Agitation Assessment/Plan: (2) Sepsis Assessment/Plan: Intermittent fever. Continue antibiotics per ID. Code(s): A41.9 - SEPSIS, UNSPECIFIED ORGANISM Qualifiers: Sepsis type: sepsis due to unspecified organism Qualified Code(s): A41.9 - Sepsis, unspecified organism (3) Sinus bradycardia Assessment/Plan: RESOLVED TSH WNL. Still with marked sinus bradycardia while asleep, but heart rate usually normal now when awake. Occasional periods of fever. Code(s): R00.1 - BRADYCARDIA, UNSPECIFIED (4) Hypoalbuminemia Assessment/Plan: nutritional supplement; on antibiotics. Avoid NSAIDs, if possible. Code(s): E88.09 - OTH DISORDERS OF PLASMA-PROTEIN METABOLISM, NEC (5) Anemia Code(s): D64.9 - ANEMIA, UNSPECIFIED
[2017-01-24] MEDS: IBUPROFEN 400 MG TABLET (FP) PO PRN (13:53)
[2017-01-24] MEDS: KCL 10 MEQ IVPB 100 ML IVPB SCH ×2 (14:31→14:49)
--- NOTE | 2017-01-24 14:37 | PN ---
Progress Note, Physician History of Present Illness: mostly afebrile but with one low grade spike patient otherwise doing well - Current Medication List Current Medications: Active Medications Potassium Chloride (Potassium Chloride 10 Meq Premix Ivpb -) 100 mls @ 100 mls/ hr IVPB Q60M DIONICIO Stop: 01/24/17 15:59 Last Admin: 01/24/17 14:31 Dose: 100 mls/hr Ibuprofen (Caldolor Injection -) 800 mg IVPB Q6H PRN PRN Reason: FEVER Last Admin: 01/21/17 16:41 Dose: 800 mg Ibuprofen (Motrin -) 400 mg PO Q6H PRN PRN Reason: PAIN Last Admin: 01/24/17 13:53 Dose: 400 mg Potassium Chloride (K-Dur -) 40 meq PO DAILY DIONICIO Last Admin: 01/24/17 09:31 Dose: 40 meq Prochlorperazine Edisylate (Compazine Injection -) 5 mg IVPB Q4H PRN PRN Reason: NAUSEA AND/OR VOMITING Last Admin: 01/14/17 11:04 Dose: 5 mg - Objective Vital Signs: Vital Signs Temperature 100.9 F H 01/24/17 13:46 Pulse Rate 68 01/24/17 13:46 Respiratory Rate 18 01/24/17 13:46 Blood Pressure 125/76 01/24/17 13:46 O2 Sat by Pulse Oximetry (%) 97 01/24/17 09:20 Constitutional: Yes: No Distress, Calm Cardiovascular: Yes: Regular Rate and Rhythm Respiratory: Yes: Regular, CTA Bilaterally Gastrointestinal: Yes: Normal Bowel Sounds, Soft Musculoskeletal: Yes: WNL Extremities: Yes: WNL Neurological: Yes: Alert, Oriented Psychiatric: Yes: Alert, Oriented Labs: CBC, BMP 01/21/17 07:24 01/21/17 07:24 INR, PTT INR 1.25 (0.82-1.09) H 01/09/17 05:20 Assessment/Plan Altered mental status with persistently high fevers r/o bacteria meningitis concern for Serotonin Syndrome versus NMS due to patient's home medication usage Acute agitation RLL Pneumonia / (?) RUL cavity Psych disorder sepsis resp failure gm positive bacteremia plan will continue to monitor off of abx if patient spikes again then will see incentive serena rest as per primary
--- NOTE | 2017-01-24 14:58 | DS ---
Physical Examination Vital Signs: Vital Signs Temperature 100.9 F H 01/24/17 13:46 Pulse Rate 68 01/24/17 13:46 Respiratory Rate 18 01/24/17 13:46 Blood Pressure 125/76 01/24/17 13:46 O2 Sat by Pulse Oximetry (%) 97 01/24/17 09:20 Labs: CBC, BMP 01/21/17 07:24 01/21/17 07:24 Discharge Summary Reason For Visit: AGITATION/SEPSIS/PNEUMONIA Current Active Problems Agitation (Acute) Anemia (Acute) Bacterial meningitis (Acute) Fever (Acute) Hypoalbuminemia (Acute) Pneumonia (Acute) Sepsis (Acute) Sinus bradycardia (Acute) Condition: Critical - Instructions Diet, Activity, Other Instructions: pt need to see neurology and psychiatry as out patient going home with vns all home meds on hold for now going home on K dur check k level in 1 week Referrals: Talat Villagran MD [Staff Physician] - Mervin Red MD [Staff Physician] - - Home Medications Comprehensive Discharge Medication List: Ambulatory Orders Potassium Chloride [K-Dur -] 40 meq PO DAILY #30 tab 01/24/17
--- NOTE | 2017-01-24 16:46 | PN ---
Progress Note, Physician History of Present Illness: pt had fever today cant be dc - Current Medication List Current Medications: Active Medications Ibuprofen (Caldolor Injection -) 800 mg IVPB Q6H PRN PRN Reason: FEVER Last Admin: 01/21/17 16:41 Dose: 800 mg Ibuprofen (Motrin -) 400 mg PO Q6H PRN PRN Reason: PAIN Last Admin: 01/24/17 13:53 Dose: 400 mg Potassium Chloride (K-Dur -) 40 meq PO DAILY DIONICIO Last Admin: 01/24/17 09:31 Dose: 40 meq Prochlorperazine Edisylate (Compazine Injection -) 5 mg IVPB Q4H PRN PRN Reason: NAUSEA AND/OR VOMITING Last Admin: 01/14/17 11:04 Dose: 5 mg - Objective Vital Signs: Vital Signs Temperature 98.6 F 01/24/17 15:26 Pulse Rate 68 01/24/17 13:46 Respiratory Rate 18 01/24/17 13:46 Blood Pressure 125/76 01/24/17 13:46 O2 Sat by Pulse Oximetry (%) 97 01/24/17 09:20 HENT: Yes: Atraumatic Neck: Yes: Supple Cardiovascular: Yes: Regular Rate and Rhythm Respiratory: Yes: CTA Bilaterally Gastrointestinal: Yes: Normal Bowel Sounds Extremities: Yes: WNL Neurological: Yes: Alert Labs: CBC, BMP 01/21/17 07:24 01/21/17 07:24 INR, PTT INR 1.25 (0.82-1.09) H 01/09/17 05:20 Problem List - Problems (1) Agitation Assessment/Plan: normal now Code(s): R45.1 - RESTLESSNESS AND AGITATION (2) Sepsis Assessment/Plan: off of abx had mild fever today Code(s): A41.9 - SEPSIS, UNSPECIFIED ORGANISM Qualifiers: Sepsis type: sepsis due to unspecified organism Qualified Code(s): A41.9 - Sepsis, unspecified organism (3) Bacterial meningitis Assessment/Plan: cxs negative todate Code(s): G00.9 - BACTERIAL MENINGITIS, UNSPECIFIED (4) Tuberculosis Assessment/Plan: negative...no acid fast bacilli seen Code(s): A15.9 - RESPIRATORY TUBERCULOSIS UNSPECIFIED Assessment/Plan SPOKE WITH BROTHER SHEREE UNGER [phone], PT LIVES WITH HIM DISCUSSED DC PLANNING
[2017-01-24 20:25] LABS: ALBUMIN 2.4 g/dl (3.4-5.0); ALK PHOS 131 U/L (45-117); ANION GAP 8 (8-16); BILIRUBIN,TOTAL 0.3 mg/dL (0.2-1.0); CO2 30 mmol/L (21-32); CREATININE 0.7 mg/dL (0.7-1.3); GLUCOSE,RANDOM 114 mg/dL (74-106); SGOT/AST 8 U/L (15-37); SGPT/ALT 22 U/L (12-78); TOT PROT 5.6 g/dl (6.4-8.2)
[2017-01-25] MEDS: IBUPROFEN 400 MG TABLET (FP) PO PRN ×2 (01:09→13:10)
[2017-01-25 07:12] LABS: BASOPHIL 0.9 % (0-2.0); EOSINOPHIL 0.3 % (0-4.5); MCH 27.7 pg (25.7-33.7); MCHC 32.2 g/dl (32.0-35.9); MEAN CELL VOLUME 85.8 fl (80-96); MEAN PLT VOLUME 8.1 fl (7.5-11.1); PLATELET COUNT 200 K/MM3 (134-434); RDW 23.6 % (11.9-15.9); WHITE BLOOD COUNT 7.4 K/mm3 (4.0-10.0)
[2017-01-25 07:37] LABS: ALBUMIN 2.4 g/dl (3.4-5.0); ANION GAP 7 (8-16); CALCIUM 7.9 mg/dL (8.5-10.1); CO2 31 mmol/L (21-32); CREATININE 0.5 mg/dL (0.7-1.3); GLUCOSE,RANDOM 81 mg/dL (74-106); SGOT/AST 7 U/L (15-37); SGPT/ALT 19 U/L (12-78)
[2017-01-25 07:40] LABS: ALK PHOS 135 U/L (45-117); BILIRUBIN,TOTAL 0.3 mg/dL (0.2-1.0); TOT PROT 5.4 g/dl (6.4-8.2)
[2017-01-25] MEDS: POTASSIUM CHLORIDE TABS 20 MEQ TABLET.ER (FP) PO SCH (09:02)
[2017-01-25] MEDS: BANATROL PLUS POWDER PACKET PO SCH ×2 (09:04→21:04)
--- NOTE | 2017-01-25 09:42 | PN ---
Progress Note (short form) - Note Progress Note: Neurology History of Present Illness This is a 46 yo male with h/o recent pneumonia (tx with two antibiotic courses in the past 5 weeks), stroke, anxiety, and prior drug addiction (reportedly 20 years sober) who presents with his brother c/o agitation, altered mental status , and fever. The patient is unable to provide any of his medical history. His brother explained that he last saw the patient acting normally the night prior to admission. The patient was acting strangely, beginning with urinating in his laundry basket (far outside his baseline which is A/O and very sensible). The patient was noted to be persistently jerking his legs in bed while sleeping most of the day. There was concern and question of NMS vs Seratonin syndrome. LP was completed and showed increased WBC, low glucose and increased protein, consistent with bacterial meningitis. Patient with CT head and was negative except for slight ventricular asymmetry which does not have clinical relevance currently. Of note, the patient has substance abuse and opiates. He was admitted for sepsis 2/2 PNA and with bacterial meningitis. Patient downgraded to floor from ICU. Not on isolation at this time. More alert, cooperative, and communicative. 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 Requested consult from VIBHA Kelly for evaluation and reviewed findings and spoke to him in person as well. No surgical intervention, likely 2/2 infection with CSF buildup. Dr. Vaughan rec'd to recheck MRI as outpatient. Patient sitting in chair at bedside today, mentating better than previously. Was able to tell me he's in the hospital and that he has fluid in his brain from infection, able to tell me today's date, name of President. ID note reviewed and recommended monitoring off ABx. PLan is for discharge today. Active Medications Ibuprofen (Motrin -) 400 mg PO Q6H PRN PRN Reason: PAIN Last Admin: 01/25/17 01:09 Dose: 400 mg Potassium Chloride (K-Dur -) 40 meq PO DAILY DIONICIO Last Admin: 01/25/17 09:02 Dose: 40 meq *Physical Exam Last Vital Signs Temp Pulse Resp BP Pulse Ox 98.5 F 77 18 134/78 97 01/25/17 06:00 01/25/17 06:00 01/25/17 06:00 01/25/17 06:00 01/24/17 19:58 - Physical Exam General Appearance: Awake, alert, interactive, communicative briefly HEENT: positive: EOMI, ROGER Neck: positive: Other (patient unable to follow commands to test ROM of neck). negative: Carotid bruit Respiratory/Chest: Decreased breath sounds Cardiovascular: positive: Regular Rhythm, Tachycardia, Other (extremity veins distended). negative: Murmur Gastrointestinal/Abdominal: positive: Flat, Increased Bowel Sounds. negative: Hernia Male Genitalia: positive: normal genitalia. negative: hernia Musculoskeletal: positive: Normal Inspection, Muscle Spasm Integumentary: positive: Normal Color, Other (hot) Neurologic: awake, alert, follows minimal commands, CN intact, no focal motor deficits, sensory intact, no aphasia CBCD WBC 7.4 K/mm3 (4.0-10.0) 01/25/17 06:30 RBC 3.99 M/mm3 (4.00-5.60) L 01/25/17 06:30 Hgb 11.0 GM/dL (11.7-16.9) L 01/25/17 06:30 Hct 34.2 % (35.4-49) L 01/25/17 06:30 MCV 85.8 fl (80-96) 01/25/17 06:30 MCHC 32.2 g/dl (32.0-35.9) 01/25/17 06:30 RDW 23.6 % (11.9-15.9) H 01/25/17 06:30 Plt Count 200 K/MM3 (134-434) D 01/25/17 06:30 MPV 8.1 fl (7.5-11.1) 01/25/17 06:30 CMP Sodium 135 mmol/L (136-145) L 01/25/17 06:30 Potassium 3.7 mmol/L (3.5-5.1) 01/25/17 06:30 Chloride 97 mmol/L (98-107) L 01/25/17 06:30 Carbon Dioxide 31 mmol/L (21-32) 01/25/17 06:30 Anion Gap 7 (8-16) L 01/25/17 06:30 BUN 13 mg/dL (7-18) 01/25/17 06:30 Creatinine 0.5 mg/dL (0.7-1.3) L D 01/25/17 06:30 Creat Clearance w eGFR > 60 (>60) 01/25/17 06:30 Calcium 7.9 mg/dL (8.5-10.1) L 01/25/17 06:30 Total Bilirubin 0.3 mg/dL (0.2-1.0) 01/25/17 06:30 AST 7 U/L (15-37) L 01/25/17 06:30 ALT 19 U/L (12-78) 01/25/17 06:30 Alkaline Phosphatase 135 U/L (45-117) H 01/25/17 06:30 Total Protein 5.4 g/dl (6.4-8.2) L 01/25/17 06:30 Albumin 2.4 g/dl (3.4-5.0) L 01/25/17 06:30 Medical Decision Making 46 yo male with h/o recent pneumonia (tx with two antibiotic courses in the past 5 weeks), stroke, anxiety, and prior drug addiction (reportedly 20 years sober) who presents with his brother c/o agitation, altered mental status, and fever. The patient is unable to provide any of his medical history. His brother explains that he last saw the patient acting normally the night prior to admission. The patient was acting strangely, beginning with urinating in his laundry basket (far outside his baseline which is A/O and very sensible). The patient was noted to be persistently jerking his legs in bed while sleeping most of the day. There was concern and question of NMS vs Seratonin syndrome. LP was completed and showed increased WBC, low glucose and increased protein, consistent with bacterial meningitis. Patient with CT head and was negative except for slight ventricular asymmetry which does not have clinical relevance currently. Of note, the patient has substance abuse and opiates. He was admitted for sepsis 2/2 PNA and with bacterial meningitis. Downgraded to floor status. IV abx stopped. ID note reviewed, patient taken off Abx. NSGY consulted reviewed and discussed, outpatient MRI highly recommended. Clinically improved and off abx. FOr discharge today, recommended follow up with patient.
--- NOTE | 2017-01-25 10:21 | PN ---
Progress Note, Physician History of Present Illness: This is a 46 yo white male with h/o recent pneumonia (tx with two antibiotic courses in the past 5 weeks), stroke, anxiety, and prior drug addiction ( reportedly 20 years sober) who presents with his brother c/o agitation, altered mental status, and fever. The patient is unable to provide any of his medical history. His brother explains that he last saw the patient acting normally last night at 11 pm just prior to going to sleep for the night. 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 The patient was noted to be persistently jerking his legs in bed while sleeping most of the day. The brother noted two more strange incidents today, including the patient trying to defecate in a kitchen drawer, and trying to put his sneakers on his knees. The brother does not believe that the patient has taken any drugs or overdosed on his normal medications (normally on mirtazepine, Subutex, hydroxyzine, chlorpromazine, and gabapentin) but he does not supervise him at all times and states it is a possibility. The brother notes one prior similar episode which he notes presented exactly the same, for which he was seen at [facility] a few years ago and was told he had a stroke. 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 - Current Medication List Current Medications: Active Medications Ibuprofen (Motrin -) 400 mg PO Q6H PRN PRN Reason: PAIN Last Admin: 01/25/17 01:09 Dose: 400 mg Potassium Chloride (K-Dur -) 40 meq PO DAILY DIONICIO Last Admin: 01/25/17 09:02 Dose: 40 meq - Objective Vital Signs: Vital Signs Temperature 99.1 F 01/25/17 10:00 Pulse Rate 69 01/25/17 10:00 Respiratory Rate 20 01/25/17 10:00 Blood Pressure 143/80 01/25/17 10:00 O2 Sat by Pulse Oximetry (%) 97 01/25/17 07:50 Eyes: Yes: WNL, Conjunctiva Clear, EOM Intact HENT: Yes: WNL, Atraumatic, Normocephalic Neck: Yes: WNL, Supple, Trachea Midline Cardiovascular: Yes: WNL, Regular Rate and Rhythm Respiratory: Yes: WNL, Regular, CTA Bilaterally Gastrointestinal: Yes: WNL, Normal Bowel Sounds Genitourinary: Yes: WNL Musculoskeletal: Yes: WNL Extremities: Yes: WNL Edema: No Integumentary: Yes: WNL Neurological: Yes: WNL, Alert, Oriented ...Motor Strength: WNL Psychiatric: Yes: WNL Labs: CBC, BMP 01/25/17 06:30 01/25/17 06:30 INR, PTT INR 1.25 (0.82-1.09) H 01/09/17 05:20 Assessment/Plan - Problems (1) Agitation Assessment/Plan: (2) Sepsis Assessment/Plan: Intermittent fever. Continue antibiotics per ID. Code(s): A41.9 - SEPSIS, UNSPECIFIED ORGANISM Qualifiers: Sepsis type: sepsis due to unspecified organism Qualified Code(s): A41.9 - Sepsis, unspecified organism (3) Sinus bradycardia Assessment/Plan: RESOLVED TSH WNL. Still with marked sinus bradycardia while asleep, but heart rate usually normal now when awake. Occasional periods of fever. Code(s): R00.1 - BRADYCARDIA, UNSPECIFIED (4) Hypoalbuminemia Assessment/Plan: nutritional supplement; on antibiotics. Avoid NSAIDs, if possible. Code(s): E88.09 - OTH DISORDERS OF PLASMA-PROTEIN METABOLISM, NEC (5) Anemia Code(s): D64.9 - ANEMIA, UNSPECIFIED
[2017-01-25] MEDS: AMOX TR/POT CLAV 875MG/125MG TABLETS (FP) PO SCH ×2 (11:39→21:04)
--- NOTE | 2017-01-25 15:01 | PN ---
Progress Note, Physician History of Present Illness: patient again spiking fever after stopping of abx currently stable - Current Medication List Current Medications: Active Medications Amoxicillin/Clavulanate Potassium (Augmentin - 875mg Tablet) 1 tab PO BID [facility] Last Admin: 01/25/17 11:39 Dose: 1 tab Ibuprofen (Motrin -) 400 mg PO Q6H PRN PRN Reason: PAIN Last Admin: 01/25/17 13:10 Dose: 400 mg Potassium Chloride (K-Dur -) 40 meq PO DAILY [facility] Last Admin: 01/25/17 09:02 Dose: 40 meq - Objective Vital Signs: Vital Signs Temperature 98.6 F 01/25/17 13:52 Pulse Rate 73 01/25/17 13:52 Respiratory Rate 16 01/25/17 13:52 Blood Pressure 146/87 01/25/17 13:52 O2 Sat by Pulse Oximetry (%) 97 01/25/17 07:50 Constitutional: Yes: No Distress, Calm Cardiovascular: Yes: Regular Rate and Rhythm Respiratory: Yes: Regular, CTA Bilaterally Gastrointestinal: Yes: Normal Bowel Sounds, Soft Musculoskeletal: Yes: WNL Extremities: Yes: WNL Neurological: Yes: Alert, Oriented Psychiatric: Yes: Alert, Oriented Labs: CBC, BMP 01/25/17 06:30 01/25/17 06:30 INR, PTT INR 1.25 (0.82-1.09) H 01/09/17 05:20 Assessment/Plan Altered mental status with persistently high fevers r/o bacteria meningitis concern for Serotonin Syndrome versus NMS due to patient's home medication usage Acute agitation RLL Pneumonia / (?) RUL cavity Psych disorder sepsis resp failure gm positive bacteremia plan will start patient on oral abx will watch again for fever if patient spikes again will scan his chest all cx remaining negative so far
--- NOTE | 2017-01-25 17:58 | PN ---
Progress Note (short form) - Note Progress Note: Patient seen for reevaluation of mental status and capacity m,arya decisions. He apparantly wants to go home and thretening to sign out AMA> MS: alert, oriented able to engage in conversation and rtesponding to questions approprietly. Patient is not clinically depressed or Psyc hotic anmd confused at this time. Judgement appears to be relatively intaci. Not suicidal or Homocidal at this point. REC: Patient has the mental capacity to make decisions at his time.
--- NOTE | 2017-01-25 18:29 | PN ---
Progress Note, Physician Chief Complaint: no complaints, wants to go home low grade fever History of Present Illness: 46 yrs old mna with PSA admitted with AMS , with Rt ML Pneumonia , respiratory fialure sepsis , extensive w/u now on Po abx, spiked fever yesterday. - Current Medication List Current Medications: Active Medications Amoxicillin/Clavulanate Potassium (Augmentin - 875mg Tablet) 1 tab PO BID DIONICIO Last Admin: 01/25/17 11:39 Dose: 1 tab Ibuprofen (Motrin -) 400 mg PO Q6H PRN PRN Reason: PAIN Last Admin: 01/25/17 13:10 Dose: 400 mg Potassium Chloride (K-Dur -) 40 meq PO DAILY DIONICIO Last Admin: 01/25/17 09:02 Dose: 40 meq - Objective Vital Signs: Vital Signs Temperature 98.6 F 01/25/17 13:52 Pulse Rate 73 01/25/17 13:52 Respiratory Rate 16 01/25/17 13:52 Blood Pressure 146/87 01/25/17 13:52 O2 Sat by Pulse Oximetry (%) 97 01/25/17 07:50 Young male not in distress HEENT: Mm moost trace anemia, PERRLA, EOMI NECK; No JVd No Bruit, no Thyromegaly, trachea central. CHEST:CTA B/L CVS; S1S2 T+r no m/g/r ABD: Obese, non tender Bs + EXT: Pulse +, trace edema +, EMPLOYMENT INTERVIEWER: AOX3 non focal. Labs: CBC, BMP 01/25/17 06:30 01/25/17 06:30 INR, PTT INR 1.25 (0.82-1.09) H 01/09/17 05:20 Problem List - Problems (1) Agitation Assessment/Plan: Due to sepsis now improved Code(s): R45.1 - RESTLESSNESS AND AGITATION (2) Bacterial meningitis Assessment/Plan: Treated for bacterial meningitis Code(s): G00.9 - BACTERIAL MENINGITIS, UNSPECIFIED (3) Sepsis Assessment/Plan: IMproved CBC normal, spiked yesterday f/u clinically on Po meds. Code(s): A41.9 - SEPSIS, UNSPECIFIED ORGANISM Qualifiers: Sepsis type: sepsis due to unspecified organism Qualified Code(s): A41.9 - Sepsis, unspecified organism (4) Sinus bradycardia Assessment/Plan: Resolved asymptomatic, Code(s): R00.1 - BRADYCARDIA, UNSPECIFIED
[2017-01-25] MEDS ORDERED: PT OWN MED DRAWER 7, Y5N ONE (20:59)
[2017-01-26 07:38] LABS: EOSINOPHIL 0.4 % (0-4.5); MCH 27.9 pg (25.7-33.7); MCHC 32.4 g/dl (32.0-35.9); MEAN PLT VOLUME 7.9 fl (7.5-11.1); NEUTROPHILS 72.8 % (42.8-82.8); PLATELET COUNT 188 K/MM3 (134-434); RDW 24.5 % (11.9-15.9); WHITE BLOOD COUNT 6.8 K/mm3 (4.0-10.0)
[2017-01-26 08:00] LABS: ALBUMIN 2.5 g/dl (3.4-5.0); ANION GAP 7 (8-16); CALCIUM 8.4 mg/dL (8.5-10.1); CO2 33 mmol/L (21-32); GLUCOSE,RANDOM 78 mg/dL (74-106); SGOT/AST 8 U/L (15-37); SGPT/ALT 19 U/L (12-78)
[2017-01-26 08:02] LABS: ALK PHOS 113 U/L (45-117); BILIRUBIN,TOTAL 0.5 mg/dL (0.2-1.0); CREATININE 0.4 mg/dL (0.7-1.3); TOT PROT 5.6 g/dl (6.4-8.2)
--- NOTE | 2017-01-26 08:33 | PN ---
Progress Note, Physician History of Present Illness: This is a 46 yo white male with h/o recent pneumonia (tx with two antibiotic courses in the past 5 weeks), stroke, anxiety, and prior drug addiction ( reportedly 20 years sober) who presents with his brother c/o agitation, altered mental status, and fever. The patient is unable to provide any of his medical history. His brother explains that he last saw the patient acting normally last night at 11 pm just prior to going to sleep for the night. 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 The patient was noted to be persistently jerking his legs in bed while sleeping most of the day. The brother noted two more strange incidents today, including the patient trying to defecate in a kitchen drawer, and trying to put his sneakers on his knees. The brother does not believe that the patient has taken any drugs or overdosed on his normal medications (normally on mirtazepine, Subutex, hydroxyzine, chlorpromazine, and gabapentin) but he does not supervise him at all times and states it is a possibility. The brother notes one prior similar episode which he notes presented exactly the same, for which he was seen at [facility] a few years ago and was told he had a stroke. 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 - Current Medication List Current Medications: Active Medications Amoxicillin/Clavulanate Potassium (Augmentin - 875mg Tablet) 1 tab PO BID [facility] Last Admin: 01/25/17 21:04 Dose: 1 tab Ibuprofen (Motrin -) 400 mg PO Q6H PRN PRN Reason: PAIN Last Admin: 01/25/17 13:10 Dose: 400 mg Potassium Chloride (K-Dur -) 40 meq PO DAILY [facility] Last Admin: 01/25/17 09:02 Dose: 40 meq - Objective Vital Signs: Vital Signs Temperature 98.9 F 01/26/17 06:00 Pulse Rate 67 01/26/17 06:00 Respiratory Rate 18 01/26/17 06:00 Blood Pressure 120/79 01/26/17 06:00 O2 Sat by Pulse Oximetry (%) 95 01/25/17 20:06 Eyes: Yes: WNL, Conjunctiva Clear, EOM Intact HENT: Yes: WNL, Atraumatic, Normocephalic Neck: Yes: WNL, Supple, Trachea Midline Cardiovascular: Yes: WNL, Regular Rate and Rhythm Respiratory: Yes: WNL, Regular, CTA Bilaterally Gastrointestinal: Yes: WNL, Normal Bowel Sounds Genitourinary: Yes: WNL Musculoskeletal: Yes: WNL Extremities: Yes: WNL Edema: No Integumentary: Yes: WNL Neurological: Yes: WNL, Alert, Oriented ...Motor Strength: WNL Psychiatric: Yes: WNL Labs: CBC, BMP 01/26/17 06:00 01/26/17 06:00 INR, PTT INR 1.25 (0.82-1.09) H 01/09/17 05:20 Assessment/Plan - Problems (1) Agitation Assessment/Plan: (2) Sepsis Assessment/Plan: Intermittent fever. Continue antibiotics per ID. Code(s): A41.9 - SEPSIS, UNSPECIFIED ORGANISM Qualifiers: Sepsis type: sepsis due to unspecified organism Qualified Code(s): A41.9 - Sepsis, unspecified organism (3) Sinus bradycardia Assessment/Plan: RESOLVED TSH WNL. Still with marked sinus bradycardia while asleep, but heart rate usually normal now when awake. Occasional periods of fever. Code(s): R00.1 - BRADYCARDIA, UNSPECIFIED (4) Hypoalbuminemia Assessment/Plan: nutritional supplement; on antibiotics. Avoid NSAIDs, if possible. Code(s): E88.09 - OTH DISORDERS OF PLASMA-PROTEIN METABOLISM, NEC (5) Anemia Code(s): D64.9 - ANEMIA, UNSPECIFIED
[2017-01-26] MEDS ORDERED: PT OWN MED DRAWER 7, Y5N ONE (09:25)
[2017-01-26] MEDS: AMOX TR/POT CLAV 875MG/125MG TABLETS (FP) PO SCH ×2 (09:29→21:24)
[2017-01-26] MEDS: POTASSIUM CHLORIDE TABS 20 MEQ TABLET.ER (FP) PO SCH (09:30)
[2017-01-26] MEDS: BANATROL PLUS POWDER PACKET PO SCH ×2 (09:30→21:26)
[2017-01-26 09:51] LABS: ANISOCYTOSIS 2+; HYPOCHROMIA 1+; MICROCYTOSIS 1+; PLATELET COMMENT2 NO CLOTTING DETECTED; PLATELET ESTIMATE ADEQUATE (NORMAL); POIKILOCYTOSIS 1+; POLYCHROMASIA 1+; SPHEROCYTE 1+
--- NOTE | 2017-01-26 13:18 | PN ---
Progress Note, Physician History of Present Illness: spiked twice yesterday high grade has been afebrile today - Current Medication List Current Medications: Active Medications Amoxicillin/Clavulanate Potassium (Augmentin - 875mg Tablet) 1 tab PO BID [facility] Last Admin: 01/26/17 09:29 Dose: 1 tab Ibuprofen (Motrin -) 400 mg PO Q6H PRN PRN Reason: PAIN Last Admin: 01/25/17 13:10 Dose: 400 mg Potassium Chloride (K-Dur -) 40 meq PO DAILY [facility] Last Admin: 01/26/17 09:30 Dose: Not Given - Objective Vital Signs: Vital Signs Temperature 99.6 F 01/26/17 10:00 Pulse Rate 82 01/26/17 10:00 Respiratory Rate 20 01/26/17 10:00 Blood Pressure 122/73 01/26/17 10:00 O2 Sat by Pulse Oximetry (%) 98 01/26/17 10:00 Constitutional: Yes: No Distress, Calm Cardiovascular: Yes: Regular Rate and Rhythm Respiratory: Yes: Regular, CTA Bilaterally Gastrointestinal: Yes: Normal Bowel Sounds, Soft Musculoskeletal: Yes: WNL Extremities: Yes: WNL Neurological: Yes: Alert, Oriented Psychiatric: Yes: Alert, Oriented Labs: CBC, BMP 01/26/17 06:00 01/26/17 06:00 INR, PTT INR 1.25 (0.82-1.09) H 01/09/17 05:20 Assessment/Plan Altered mental status with persistently high fevers r/o bacteria meningitis concern for Serotonin Syndrome versus NMS due to patient's home medication usage Acute agitation RLL Pneumonia / (?) RUL cavity Psych disorder sepsis resp failure gm positive bacteremia plan conitnue oral abx will watch today and tomorrow to see if he spikes
--- NOTE | 2017-01-26 23:46 | PN ---
Progress Note, Physician History of Present Illness: No new complaints - Current Medication List Current Medications: Active Medications Amoxicillin/Clavulanate Potassium (Augmentin - 875mg Tablet) 1 tab PO BID [facility] Last Admin: 01/26/17 21:24 Dose: 1 tab Ibuprofen (Motrin -) 400 mg PO Q6H PRN PRN Reason: PAIN Last Admin: 01/25/17 13:10 Dose: 400 mg Potassium Chloride (K-Dur -) 40 meq PO DAILY [facility] Last Admin: 01/26/17 09:30 Dose: Not Given - Objective Vital Signs: Vital Signs Temperature 99.6 F 01/26/17 21:23 Pulse Rate 80 01/26/17 21:23 Respiratory Rate 18 01/26/17 21:23 Blood Pressure 118/80 01/26/17 21:23 O2 Sat by Pulse Oximetry (%) 98 01/26/17 10:00 Constitutional: Yes: No Distress Cardiovascular: Yes: WNL, Regular Rate and Rhythm Respiratory: Yes: WNL, Regular, CTA Bilaterally Gastrointestinal: Yes: WNL, Normal Bowel Sounds, Soft Labs: CBC, BMP 01/26/17 06:00 01/26/17 06:00 INR, PTT INR 1.25 (0.82-1.09) H 01/09/17 05:20 Problem List - Problems (1) Fever Assessment/Plan: ?FUO Cont augmentin Pt continues to spike low grade temp Cultures remain negative Code(s): R50.9 - FEVER, UNSPECIFIED
[2017-01-27] MEDS: AMOX TR/POT CLAV 875MG/125MG TABLETS (FP) PO SCH ×2 (09:09→21:37)
[2017-01-27] MEDS: POTASSIUM CHLORIDE TABS 20 MEQ TABLET.ER (FP) PO SCH (09:09)
[2017-01-27] MEDS: BANATROL PLUS POWDER PACKET PO SCH ×2 (09:10→21:37)
--- NOTE | 2017-01-27 09:12 | PN ---
Progress Note, Physician History of Present Illness: This is a 46 yo white male with h/o recent pneumonia (tx with two antibiotic courses in the past 5 weeks), stroke, anxiety, and prior drug addiction ( reportedly 20 years sober) who presents with his brother c/o agitation, altered mental status, and fever. The patient is unable to provide any of his medical history. His brother explains that he last saw the patient acting normally last night at 11 pm just prior to going to sleep for the night. 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 The patient was noted to be persistently jerking his legs in bed while sleeping most of the day. The brother noted two more strange incidents today, including the patient trying to defecate in a kitchen drawer, and trying to put his sneakers on his knees. The brother does not believe that the patient has taken any drugs or overdosed on his normal medications (normally on mirtazepine, Subutex, hydroxyzine, chlorpromazine, and gabapentin) but he does not supervise him at all times and states it is a possibility. The brother notes one prior similar episode which he notes presented exactly the same, for which he was seen at [facility] a few years ago and was told he had a stroke. 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 - Current Medication List Current Medications: Active Medications Amoxicillin/Clavulanate Potassium (Augmentin - 875mg Tablet) 1 tab PO BID [facility] Last Admin: 01/27/17 09:09 Dose: 1 tab Ibuprofen (Motrin -) 400 mg PO Q6H PRN PRN Reason: PAIN Last Admin: 01/25/17 13:10 Dose: 400 mg Potassium Chloride (K-Dur -) 40 meq PO DAILY [facility] Last Admin: 01/27/17 09:09 Dose: 40 meq - Objective Vital Signs: Vital Signs Temperature 100.1 F H 01/27/17 05:54 Pulse Rate 82 01/27/17 05:54 Respiratory Rate 16 01/27/17 07:53 Blood Pressure 118/80 01/27/17 05:54 O2 Sat by Pulse Oximetry (%) 98 01/26/17 21:00 Eyes: Yes: WNL, Conjunctiva Clear, EOM Intact HENT: Yes: WNL, Atraumatic, Normocephalic Neck: Yes: WNL, Supple, Trachea Midline Cardiovascular: Yes: WNL, Regular Rate and Rhythm Respiratory: Yes: WNL, Regular, CTA Bilaterally Gastrointestinal: Yes: WNL, Normal Bowel Sounds Genitourinary: Yes: WNL Musculoskeletal: Yes: WNL Extremities: Yes: WNL Edema: No Integumentary: Yes: WNL Neurological: Yes: WNL, Alert, Oriented ...Motor Strength: WNL Psychiatric: Yes: WNL Labs: CBC, BMP 01/26/17 06:00 01/26/17 06:00 INR, PTT INR 1.25 (0.82-1.09) H 01/09/17 05:20 Assessment/Plan - Problems (1) Agitation Assessment/Plan: (2) Sepsis Assessment/Plan: Intermittent fever. Continue antibiotics per ID. Code(s): A41.9 - SEPSIS, UNSPECIFIED ORGANISM Qualifiers: Sepsis type: sepsis due to unspecified organism Qualified Code(s): A41.9 - Sepsis, unspecified organism (3) Sinus bradycardia Assessment/Plan: RESOLVED TSH WNL. Still with marked sinus bradycardia while asleep, but heart rate usually normal now when awake. Occasional periods of fever. Code(s): R00.1 - BRADYCARDIA, UNSPECIFIED (4) Hypoalbuminemia Assessment/Plan: nutritional supplement; on antibiotics. Avoid NSAIDs, if possible. Code(s): E88.09 - OTH DISORDERS OF PLASMA-PROTEIN METABOLISM, NEC (5) Anemia Code(s): D64.9 - ANEMIA, UNSPECIFIED
--- NOTE | 2017-01-27 11:26 | PN ---
Progress Note (short form) - Note Progress Note: PULMONARY REMAINS SPORADICALLY FEBRILE DENIES COUGH WITH SPUTUM AWAKE/ALERT/ORIENTEDX3 WANTS TO GO HOME ANICTERIC DIMINISHED BREATH SOUNDS ON RIGHT S1S2 BS+ NO EDEMA LABS/MEDS/MICRO/CSF RESULTS/BRONCHO RESULTS/IMAGING /NOTES/CONSULTS REVIEWED CAVITARY INFILTRATES WITH RIGHT HILAR FULLNESS AND ATELECTASIS ON CT CHEST 01/07 CSF PARAMETERS C/W BACTERIAL MENINGITIS/GRAM STAIN WAS NEGATIVE WERE CULTURES BRONCHOSCOPY RULED OUT TBC/QUANT GOLD WAS INDETERMINATE BLOOD CULTUREX1 MULTIPLE DIFFERENT STAPH SPECIES WILL ORDER REPEAT CT CHEST NEED TO CHECK IF ADEQUATE TREATMENT FOR GRAM STAIN NEGATIVE BACTERIAL MENINGITIS WAS ADMINISTERED AUGMENTIN PO BID SHOULD BE ADEQUATE FOR PULMONARY PATHOGENS CAUSING CAVITIES CONTINUE O2 PRN/BRONCHODILATORS WILL FOLLOW Román ALLEN MD
--- NOTE | 2017-01-27 13:23 | PN ---
Progress Note, Physician History of Present Illness: spiked twice yesterday high grade patient had a low grade fever once - Current Medication List Current Medications: Active Medications Amoxicillin/Clavulanate Potassium (Augmentin - 875mg Tablet) 1 tab PO BID [facility] Last Admin: 01/27/17 09:09 Dose: 1 tab Ibuprofen (Motrin -) 400 mg PO Q6H PRN PRN Reason: PAIN Last Admin: 01/25/17 13:10 Dose: 400 mg Potassium Chloride (K-Dur -) 40 meq PO DAILY [facility] Last Admin: 01/27/17 09:09 Dose: 40 meq - Objective Vital Signs: Vital Signs Temperature 98.8 F 01/27/17 10:00 Pulse Rate 93 H 01/27/17 10:00 Respiratory Rate 16 01/27/17 10:00 Blood Pressure 136/86 01/27/17 10:00 O2 Sat by Pulse Oximetry (%) 98 01/26/17 21:00 Constitutional: Yes: No Distress Cardiovascular: Yes: Regular Rate and Rhythm Respiratory: Yes: Regular, CTA Bilaterally Gastrointestinal: Yes: Normal Bowel Sounds, Soft Musculoskeletal: Yes: WNL Extremities: Yes: WNL Neurological: Yes: Alert, Oriented Psychiatric: Yes: Alert, Oriented Labs: CBC, BMP 01/26/17 06:00 01/26/17 06:00 INR, PTT INR 1.25 (0.82-1.09) H 01/09/17 05:20 Assessment/Plan Altered mental status with persistently high fevers r/o bacteria meningitis concern for Serotonin Syndrome versus NMS due to patient's home medication usage Acute agitation RLL Pneumonia / (?) RUL cavity Psych disorder sepsis resp failure gm positive bacteremia plan conitnue oral abx conitnue to watch the temp
--- NOTE | 2017-01-27 18:58 | PN ---
Progress Note, Physician History of Present Illness: Pt continues to spike temp to 100.1 - Current Medication List Current Medications: Active Medications Amoxicillin/Clavulanate Potassium (Augmentin - 875mg Tablet) 1 tab PO BID [facility] Last Admin: 01/27/17 09:09 Dose: 1 tab Ibuprofen (Motrin -) 400 mg PO Q6H PRN PRN Reason: PAIN Last Admin: 01/25/17 13:10 Dose: 400 mg Potassium Chloride (K-Dur -) 40 meq PO DAILY [facility] Last Admin: 01/27/17 09:09 Dose: 40 meq - Objective Vital Signs: Vital Signs Temperature 99.8 F H 01/27/17 14:00 Pulse Rate 93 H 01/27/17 14:00 Respiratory Rate 18 01/27/17 14:00 Blood Pressure 130/76 01/27/17 14:00 O2 Sat by Pulse Oximetry (%) 98 01/26/17 21:00 Neck: Yes: WNL, Supple Cardiovascular: Yes: WNL, Regular Rate and Rhythm Respiratory: Yes: WNL, Regular, CTA Bilaterally Gastrointestinal: Yes: WNL, Normal Bowel Sounds, Soft Musculoskeletal: Yes: WNL Extremities: Yes: WNL Edema: No Labs: CBC, BMP 01/26/17 06:00 01/26/17 06:00 INR, PTT INR 1.25 (0.82-1.09) H 01/09/17 05:20 Problem List - Problems (1) Sepsis Assessment/Plan: Cont augmentin Repeat CT scan chest FB have remained negative Repeat BC remain negative Moniotr cultures As per ID Code(s): A41.9 - SEPSIS, UNSPECIFIED ORGANISM Qualifiers: Sepsis type: sepsis due to unspecified organism Qualified Code(s): A41.9 - Sepsis, unspecified organism
[2017-01-28] MEDS ORDERED: PT OWN MED DRAWER 7, Y5N ONE (09:22)
[2017-01-28] MEDS: AMOX TR/POT CLAV 875MG/125MG TABLETS (FP) PO SCH (09:24)
[2017-01-28] MEDS: POTASSIUM CHLORIDE TABS 20 MEQ TABLET.ER (FP) PO SCH (09:24)
[2017-01-28] MEDS: BANATROL PLUS POWDER PACKET PO SCH ×2 (09:26→10:28)
--- NOTE | 2017-01-28 09:40 | PN ---
Progress Note, Physician History of Present Illness: This is a 46 yo white male with h/o recent pneumonia (tx with two antibiotic courses in the past 5 weeks), stroke, anxiety, and prior drug addiction ( reportedly 20 years sober) who presents with his brother c/o agitation, altered mental status, and fever. The patient is unable to provide any of his medical history. His brother explains that he last saw the patient acting normally last night at 11 pm just prior to going to sleep for the night. 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 The patient was noted to be persistently jerking his legs in bed while sleeping most of the day. The brother noted two more strange incidents today, including the patient trying to defecate in a kitchen drawer, and trying to put his sneakers on his knees. The brother does not believe that the patient has taken any drugs or overdosed on his normal medications (normally on mirtazepine, Subutex, hydroxyzine, chlorpromazine, and gabapentin) but he does not supervise him at all times and states it is a possibility. The brother notes one prior similar episode which he notes presented exactly the same, for which he was seen at [facility] a few years ago and was told he had a stroke. 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 - Current Medication List Current Medications: Active Medications Amoxicillin/Clavulanate Potassium (Augmentin - 875mg Tablet) 1 tab PO BID [facility] Last Admin: 01/28/17 09:24 Dose: 1 tab Ibuprofen (Motrin -) 400 mg PO Q6H PRN PRN Reason: PAIN Last Admin: 01/25/17 13:10 Dose: 400 mg Potassium Chloride (K-Dur -) 40 meq PO DAILY [facility] Last Admin: 01/28/17 09:24 Dose: 40 meq - Objective Vital Signs: Vital Signs Temperature 98.8 F 01/28/17 06:06 Pulse Rate 88 01/28/17 06:06 Respiratory Rate 16 01/28/17 06:06 Blood Pressure 127/87 01/28/17 06:06 O2 Sat by Pulse Oximetry (%) 98 01/26/17 21:00 Eyes: Yes: WNL, Conjunctiva Clear, EOM Intact HENT: Yes: WNL, Atraumatic, Normocephalic Neck: Yes: WNL, Supple, Trachea Midline Cardiovascular: Yes: WNL, Regular Rate and Rhythm Respiratory: Yes: WNL, Regular, CTA Bilaterally Gastrointestinal: Yes: WNL, Normal Bowel Sounds Genitourinary: Yes: WNL Musculoskeletal: Yes: WNL Extremities: Yes: WNL Edema: No Integumentary: Yes: WNL Neurological: Yes: WNL, Alert, Oriented ...Motor Strength: WNL Psychiatric: Yes: WNL Labs: CBC, BMP 01/26/17 06:00 01/26/17 06:00 INR, PTT INR 1.25 (0.82-1.09) H 01/09/17 05:20 Assessment/Plan - Problems (1) Agitation Assessment/Plan: (2) Sepsis Assessment/Plan: Intermittent fever. Continue antibiotics per ID. Code(s): A41.9 - SEPSIS, UNSPECIFIED ORGANISM Qualifiers: Sepsis type: sepsis due to unspecified organism Qualified Code(s): A41.9 - Sepsis, unspecified organism (3) Sinus bradycardia Assessment/Plan: RESOLVED TSH WNL. Still with marked sinus bradycardia while asleep, but heart rate usually normal now when awake. Occasional periods of fever. Code(s): R00.1 - BRADYCARDIA, UNSPECIFIED (4) Hypoalbuminemia Assessment/Plan: nutritional supplement; on antibiotics. Avoid NSAIDs, if possible. Code(s): E88.09 - OTH DISORDERS OF PLASMA-PROTEIN METABOLISM, NEC (5) Anemia Code(s): D64.9 - ANEMIA, UNSPECIFIED
[2017-01-28] MEDS ORDERED: TUBERCULIN PPD 5 TU/0.1ML SYRINGE (IN PATIENT USE ONLY) ID ONE (10:00)
--- NOTE | 2017-01-28 10:21 | PN ---
Progress Note (short form) - Note Progress Note: Neurology History of Present Illness This is a 46 yo male with h/o recent pneumonia (tx with two antibiotic courses in the past 5 weeks), stroke, anxiety, and prior drug addiction (reportedly 20 years sober) who presents with his brother c/o agitation, altered mental status , and fever. The patient is unable to provide any of his medical history. His brother explained that he last saw the patient acting normally the night prior to admission. The patient was acting strangely, beginning with urinating in his laundry basket (far outside his baseline which is A/O and very sensible). The patient was noted to be persistently jerking his legs in bed while sleeping most of the day. There was concern and question of NMS vs Seratonin syndrome. LP was completed and showed increased WBC, low glucose and increased protein, consistent with bacterial meningitis. Patient with CT head and was negative except for slight ventricular asymmetry which does not have clinical relevance currently. Of note, the patient has substance abuse and opiates. He was admitted for sepsis 2/2 PNA and with bacterial meningitis. Patient downgraded to floor from ICU. Not on isolation at this time. More alert, cooperative, and communicative. 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 Requested consult from VIBHA Kelly for evaluation and reviewed findings and spoke to him in person as well. No surgical intervention, likely 2/[address] infection [address] CSF buildup. Dr. Vaughan rec'd to recheck MRI as outpatient. He has been monitored off ABx and kept spiking fevers and on Augmentin now. ID has been following. Was able to tell me he's in the hospital and that he has fluid in his brain from infection, able to tell me today's date, name of President. PLan is for discharge when not spiking fevers. Active Medications Amoxicillin/Clavulanate Potassium (Augmentin - 875mg Tablet) 1 tab PO BID [facility] Last Admin: 01/28/17 09:24 Dose: 1 tab Ibuprofen (Motrin -) 400 mg PO Q6H PRN PRN Reason: PAIN Last Admin: 01/25/17 13:10 Dose: 400 mg Potassium Chloride (K-Dur -) 40 meq PO DAILY [facility] Last Admin: 01/28/17 09:24 Dose: 40 meq *Physical Exam Vital Signs Temperature 98.8 F 01/28/17 06:06 Pulse Rate 88 01/28/17 06:06 Respiratory Rate 16 01/28/17 06:06 Blood Pressure 127/87 01/28/17 06:06 O2 Sat by Pulse Oximetry (%) 98 01/26/17 21:00 - Physical Exam General Appearance: Awake, alert, interactive, communicative briefly HEENT: positive: EOMI, ROGER Neck: positive: Other (patient unable to follow commands to test ROM of neck). negative: Carotid bruit Respiratory/Chest: Decreased breath sounds Cardiovascular: positive: Regular Rhythm, Tachycardia, Other (extremity veins distended). negative: Murmur Gastrointestinal/Abdominal: positive: Flat, Increased Bowel Sounds. negative: Hernia Male Genitalia: positive: normal genitalia. negative: hernia Musculoskeletal: positive: Normal Inspection, Muscle Spasm Integumentary: positive: Normal Color, Other (hot) Neurologic: awake, alert, follows minimal commands, CN intact, no focal motor deficits, sensory intact, no aphasia CBCD WBC 6.8 K/mm3 (4.0-10.0) 01/26/17 06:00 RBC 4.06 M/mm3 (4.00-5.60) 01/26/17 06:00 Hgb 11.3 GM/dL (11.7-16.9) L 01/26/17 06:00 Hct 34.9 % (35.4-49) L 01/26/17 06:00 MCV 86.0 fl (80-96) 01/26/17 06:00 MCHC 32.4 g/dl (32.0-35.9) 01/26/17 06:00 RDW 24.5 % (11.9-15.9) H 01/26/17 06:00 Plt Count 188 K/MM3 (134-434) 01/26/17 06:00 MPV 7.9 fl (7.5-11.1) 01/26/17 06:00 CMP Sodium 132 mmol/L (136-145) L 01/26/17 06:00 Potassium 4.4 mmol/L (3.5-5.1) 01/26/17 06:00 Chloride 92 mmol/L (98-107) L 01/26/17 06:00 Carbon Dioxide 33 mmol/L (21-32) H 01/26/17 06:00 Anion Gap 7 (8-16) L 01/26/17 06:00 BUN 10 mg/dL (7-18) D 01/26/17 06:00 Creatinine 0.4 mg/dL (0.7-1.3) L 01/26/17 06:00 Creat Clearance w eGFR > 60 (>60) 01/26/17 06:00 Calcium 8.4 mg/dL (8.5-10.1) L 01/26/17 06:00 Total Bilirubin 0.5 mg/dL (0.2-1.0) D 01/26/17 06:00 AST 8 U/L (15-37) L 01/26/17 06:00 ALT 19 U/L (12-78) 01/26/17 06:00 Alkaline Phosphatase 113 U/L (45-117) 01/26/17 06:00 Total Protein 5.6 g/dl (6.4-8.2) L 01/26/17 06:00 Albumin 2.5 g/dl (3.4-5.0) L 01/26/17 06:00 Medical Decision Making 46 yo male with h/o recent pneumonia (tx with two antibiotic courses in the past 5 weeks), stroke, anxiety, and prior drug addiction (reportedly 20 years sober) who presents with his brother c/o agitation, altered mental status, and fever. The patient is unable to provide any of his medical history. His brother explains that he last saw the patient acting normally the night prior to admission. The patient was acting strangely, beginning with urinating in his laundry basket (far outside his baseline which is A/O and very sensible). The patient was noted to be persistently jerking his legs in bed while sleeping most of the day. There was concern and question of NMS vs Seratonin syndrome. LP was completed and showed increased WBC, low glucose and increased protein, consistent with bacterial meningitis. Patient with CT head and was negative except for slight ventricular asymmetry which does not have clinical relevance currently. Of note, the patient has substance abuse and opiates. He was admitted for sepsis 2/2 PNA and with bacterial meningitis. Downgraded to floor status. ID note reviewed, patient taken off Abx. NSGY consulted reviewed and discussed, outpatient MRI highly recommended. Clinically improved and off abx he was spiking fevers so now on Augmentin. FOr discharge when afebrile. Mentating well. Outpatient follow up
--- NOTE | 2017-01-28 12:24 | PN ---
Progress Note, Physician History of Present Illness: PULMONARY ALERT,NAD,-SOB,-COUGH - Current Medication List Current Medications: Active Medications Amoxicillin/Clavulanate Potassium (Augmentin - 875mg Tablet) 1 tab PO BID [facility] Last Admin: 01/28/17 09:24 Dose: 1 tab Ibuprofen (Motrin -) 400 mg PO Q6H PRN PRN Reason: PAIN Last Admin: 01/25/17 13:10 Dose: 400 mg Potassium Chloride (K-Dur -) 40 meq PO DAILY [facility] Last Admin: 01/28/17 09:24 Dose: 40 meq - Objective Vital Signs: Vital Signs Temperature 98.8 F 01/28/17 09:00 Pulse Rate 80 01/28/17 09:00 Respiratory Rate 16 01/28/17 09:00 Blood Pressure 136/82 01/28/17 09:00 O2 Sat by Pulse Oximetry (%) 98 01/26/17 21:00 Constitutional: Yes: Well Nourished, Calm Eyes: Yes: WNL HENT: Yes: WNL Neck: Yes: WNL Cardiovascular: Yes: Regular Rate and Rhythm, S1, S2 Respiratory: Yes: CTA Bilaterally Gastrointestinal: Yes: Normal Bowel Sounds, Soft Extremities: Yes: WNL Edema: No Labs: CBC, BMP 01/26/17 06:00 01/26/17 06:00 INR, PTT INR 1.25 (0.82-1.09) H 01/09/17 05:20 - ....Imaging Cat Scan: Report Reviewed, Image Reviewed Problem List - Problems (1) Agitation Code(s): R45.1 - RESTLESSNESS AND AGITATION (2) Anemia Code(s): D64.9 - ANEMIA, UNSPECIFIED (3) Fever Code(s): R50.9 - FEVER, UNSPECIFIED (4) Sinus bradycardia Code(s): R00.1 - BRADYCARDIA, UNSPECIFIED (5) Pneumonia Code(s): J18.9 - PNEUMONIA, UNSPECIFIED ORGANISM Assessment/Plan Assessment/Plan Altered mental status improved Acute agitation improved RLL Pneumonia / RUL cavity Psych disorder Bradycardia - ABX per ID O2 as needed OOB to chair PO as tolerated VTE prophylaxis DR OCASIO
--- NOTE | 2017-01-28 13:05 | PN ---
Progress Note, Physician History of Present Illness: patient stable no fevers for about 16 hours now - Current Medication List Current Medications: Active Medications Amoxicillin/Clavulanate Potassium (Augmentin - 875mg Tablet) 1 tab PO BID [facility] Last Admin: 01/28/17 09:24 Dose: 1 tab Ibuprofen (Motrin -) 400 mg PO Q6H PRN PRN Reason: PAIN Last Admin: 01/25/17 13:10 Dose: 400 mg Potassium Chloride (K-Dur -) 40 meq PO DAILY [facility] Last Admin: 01/28/17 09:24 Dose: 40 meq - Objective Vital Signs: Vital Signs Temperature 98.8 F 01/28/17 09:00 Pulse Rate 80 01/28/17 09:00 Respiratory Rate 16 01/28/17 09:00 Blood Pressure 136/82 01/28/17 09:00 O2 Sat by Pulse Oximetry (%) 98 01/26/17 21:00 Constitutional: Yes: No Distress, Calm Neck: Yes: Supple, Trachea Midline Cardiovascular: Yes: Regular Rate and Rhythm Respiratory: Yes: Poor Air Entry Gastrointestinal: Yes: Normal Bowel Sounds, Soft Musculoskeletal: Yes: WNL Extremities: Yes: WNL Neurological: Yes: Alert, Oriented Psychiatric: Yes: Alert, Oriented Labs: CBC, BMP 01/26/17 06:00 01/26/17 06:00 INR, PTT INR 1.25 (0.82-1.09) H 01/09/17 05:20 Assessment/Plan Altered mental status with persistently high fevers r/o bacteria meningitis concern for Serotonin Syndrome versus NMS due to patient's home medication usage Acute agitation RLL Pneumonia / Psych disorder sepsis resp failure gm positive bacteremia plan conitnue oral abx conitnue to watch the temp if patient does not spike temp today he can be discharrged tomorrow monrining on augmentin 875 mg bid for another 7 days
--- NOTE | 2017-01-28 15:25 | PN ---
Progress Note, Physician History of Present Illness: doing well - Current Medication List Current Medications: Active Medications Amoxicillin/Clavulanate Potassium (Augmentin - 875mg Tablet) 1 tab PO BID [facility] Last Admin: 01/28/17 09:24 Dose: 1 tab Ibuprofen (Motrin -) 400 mg PO Q6H PRN PRN Reason: PAIN Last Admin: 01/25/17 13:10 Dose: 400 mg Potassium Chloride (K-Dur -) 40 meq PO DAILY [facility] Last Admin: 01/28/17 09:24 Dose: 40 meq - Objective Vital Signs: Vital Signs Temperature 98.8 F 01/28/17 09:00 Pulse Rate 80 01/28/17 09:00 Respiratory Rate 16 01/28/17 09:00 Blood Pressure 136/82 01/28/17 09:00 O2 Sat by Pulse Oximetry (%) 98 01/26/17 21:00 Constitutional: Yes: No Distress HENT: Yes: Atraumatic Neck: Yes: Supple Cardiovascular: Yes: Regular Rate and Rhythm Respiratory: Yes: CTA Bilaterally Gastrointestinal: Yes: Normal Bowel Sounds Extremities: Yes: WNL Neurological: Yes: Alert, Oriented Labs: CBC, BMP 01/26/17 06:00 01/26/17 06:00 INR, PTT INR 1.25 (0.82-1.09) H 01/09/17 05:20 Problem List - Problems (1) Agitation Code(s): R45.1 - RESTLESSNESS AND AGITATION (2) Sepsis Assessment/Plan: on po abx can be dc tomorrow on po abx Code(s): A41.9 - SEPSIS, UNSPECIFIED ORGANISM Qualifiers: Sepsis type: sepsis due to unspecified organism Qualified Code(s): A41.9 - Sepsis, unspecified organism (3) Bacterial meningitis Assessment/Plan: cxs negative to date Code(s): G00.9 - BACTERIAL MENINGITIS, UNSPECIFIED (4) Tuberculosis Assessment/Plan: negative...no acid fast bacilli seen Code(s): A15.9 - RESPIRATORY TUBERCULOSIS UNSPECIFIED
[2017-01-28 15:30] VITALS: BP 123/81; PULSE 91; TEMP 98.6
[2017-01-28] MEDS ORDERED: CLINDAMYCIN HCL 300 MG CAPSULE PO SCH (15:30)
[2017-01-28] MEDS ORDERED: CLINDAMYCIN HCL 150 MG CAPSULE (FP) PO SCH ×2 (16:13→16:45)
[2017-01-28 17:07] LABS: BETA STREP GROUP B AG Negative; N. MENINGITIDIS AG. Negative
[2017-01-28 17:08] LABS: SPECIMEN SOURCE CSF
[2017-01-28 17:50] LABS: BASOPHIL 0.3 % (0-2.0); EOSINOPHIL 1.4 % (0-4.5); MCH 28.5 pg (25.7-33.7); MCHC 32.4 g/dl (32.0-35.9); MEAN CELL VOLUME 87.9 fl (80-96); MEAN PLT VOLUME 7.6 fl (7.5-11.1); PLATELET COUNT 222 K/MM3 (134-434); RDW 24.7 % (11.9-15.9); WHITE BLOOD COUNT 7.4 K/mm3 (4.0-10.0)
--- NOTE | 2017-01-28 18:01 | DS ---
Physical Examination Vital Signs: Vital Signs Temperature 98.6 F 01/28/17 14:05 Pulse Rate 91 H 01/28/17 14:05 Respiratory Rate 16 01/28/17 14:05 Blood Pressure 123/81 01/28/17 14:05 O2 Sat by Pulse Oximetry (%) 98 01/26/17 21:00 Constitutional: Yes: No Distress HENT: Yes: Atraumatic Neck: Yes: Supple Cardiovascular: Yes: Regular Rate and Rhythm Respiratory: Yes: CTA Bilaterally Gastrointestinal: Yes: Normal Bowel Sounds Extremities: Yes: WNL Neurological: Yes: Alert, Oriented Labs: CBC, BMP 01/28/17 17:30 Discharge Summary Reason For Visit: AGITATION/SEPSIS/PNEUMONIA Current Active Problems Agitation (Acute) Anemia (Acute) Bacterial meningitis (Acute) Fever (Acute) Hypoalbuminemia (Acute) Pneumonia (Acute) Sepsis (Acute) Sinus bradycardia (Acute) Condition: Critical - Instructions Diet, Activity, Other Instructions: pt need to see neurology and psychiatry as out patient going home with vns all home meds on hold for now going home on K dur dc on abx ppd need to be read on this week, pt will come to my office repeat qft and cxs need to be fu and patient understands the plan need to call psychologist social in am for vns which was already set up for last week Referrals: Talat Villagran MD [Staff Physician] - Mervin Red MD [Staff Physician] - Ann Raphael MD [Staff Physician] - Anthony Jeffery MD [Staff Physician] - - Home Medications Comprehensive Discharge Medication List: Ambulatory Orders Potassium Chloride [K-Dur -] 40 meq PO DAILY #30 tab 01/24/17 Amox-Tr/K Cl [Augmentin 875-125mg Tablet -] 1 tab PO BID #14 tablet 01/28/17 Clindamycin [Cleocin -] 300 mg PO Q6HPO #28 capsule 01/28/17 dc home with
[2017-01-28 18:24] LABS: PLATELET ESTIMATE ADEQUATE (NORMAL)
[2017-01-28 18:25] LABS: ANISOCYTOSIS 3+
[2017-01-28 18:27] LABS: ALK PHOS 151 U/L (45-117); ANION GAP 10 (8-16); BILIRUBIN,TOTAL 0.3 mg/dL (0.2-1.0); CALCIUM 8.7 mg/dL (8.5-10.1); CO2 30 mmol/L (21-32); CREATININE 0.6 mg/dL (0.7-1.3); GLUCOSE,RANDOM 110 mg/dL (74-106); SGOT/AST 9 U/L (15-37); SGPT/ALT 17 U/L (12-78); TOT PROT 6.7 g/dl (6.4-8.2)
[2017-02-02 20:43] LABS: HAEMOPHILUS INFLUENZA B AG NEGATIVE
== END 2017-01-28 19:16 | disposition home or self-care (01) | DRG 49 ==
LOC: JER 15:40 → JERBED 18:11 → JICU 19:58 → J2W 01-14 16:19 → J4S 01-15 17:57
PROVIDERS: ADMIT Internal Medicine; ATTEND Internal Medicine
PROC: 0BH17EZ Insertion of Endotracheal Airway into Trachea, Via Natural or Artificial Opening (ICD-10-PCS; principal; 2017-01-07)
PROC: 5A1945Z Respiratory Ventilation, 24-96 Consecutive Hours (ICD-10-PCS; 2017-01-07)
PROC: 009U3ZX Drainage of Spinal Canal, Percutaneous Approach, Diagnostic (ICD-10-PCS; 2017-01-07)
PROC: 0B9C8ZX Drainage of Right Upper Lung Lobe, Via Natural or Artificial Opening Endoscopic, Diagnostic (ICD-10-PCS; 2017-01-09)
DX: G00.9 Bacterial meningitis, unspecified (principal); A41.9 Sepsis, unspecified organism; J18.9 Pneumonia, unspecified organism; F41.8 Other specified anxiety disorders; F20.89 Other schizophrenia; R45.1 Restlessness and agitation; J96.00 Acute respiratory failure, unspecified whether with hypoxia or hypercapnia; A15.9 Respiratory tuberculosis unspecified; J98.4 Other disorders of lung; R00.1 Bradycardia, unspecified; E88.09 Other disorders of plasma-protein metabolism, not elsewhere classified; D64.9 Anemia, unspecified; F11.10 Opioid abuse, uncomplicated; R63.4 Abnormal weight loss; Z68.27 Body mass index [BMI] 27.0-27.9, adult; F19.10 Other psychoactive substance abuse, uncomplicated; F41.0 Panic disorder [episodic paroxysmal anxiety]; F09 Unspecified mental disorder due to known physiological condition; J98.11 Atelectasis; R50.9 Fever, unspecified; L89.151 Pressure ulcer of sacral region, stage 1; L89.021 Pressure ulcer of left elbow, stage 1; L89.011 Pressure ulcer of right elbow, stage 1; Z86.73 Personal history of transient ischemic attack (TIA), and cerebral infarction without residual deficits
CPT/HCPCS: 31500; 36415; 36600; 70450-TC; 70551-TC; 71010-TC; 71250-TC; 80048; 80053; 80307; 81003; 81015; 82140; 82375; 82553; 82803; 82945; 83050; 83605; 83735; 84100; 84157; 84443; 84484; 85025; 85027; 85610; 85730; 86480; 86592; 86617; 86777; 86850; 86900; 86901; 87040; 87045; 87046; 87070; 87086; 87102; 87116; 87186; 87205; 87206; 87210; 87252; 87389; 87556; 87802; 87899; 88108; 88305-TC; 89050; 93005; 93010; 93306-TC; 93971; 94002; 97116-GP; 97161-GP; 99285-25; G0480; J1644

== ENCOUNTER 2017-05-06 16:50 | Observation (INO) | payer OTHER ==
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
[2017-05-06 17:20] LABS: BASOPHIL 0.8 % (0-2.0); EOSINOPHIL 0.8 % (0-4.5); MCH 32.6 pg (25.7-33.7); MEAN PLT VOLUME 7.1 fl (7.5-11.1); NEUTROPHILS 75.9 % (42.8-82.8); PLATELET COUNT 269 K/MM3 (134-434); RDW 15.2 % (11.9-15.9)
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
[2017-05-06 17:48] LABS: ALBUMIN 4.2 g/dl (3.4-5.0); ANION GAP 9 (8-16); CO2 25 mmol/L (21-32); CPK 257 IU/L (39-308); CREATININE 1.2 mg/dL (0.7-1.3); GLUCOSE,RANDOM 112 mg/dL (74-106); SGOT/AST 26 U/L (15-37); TOT PROT 7.2 g/dl (6.4-8.2)
[2017-05-06 18:14] LABS: ALK PHOS 114 U/L (45-117); BILIRUBIN,TOTAL 0.5 mg/dL (0.2-1.0); SGPT/ALT 23 U/L (12-78); TROPONIN I < 0.02 ng/ml (0.00-0.05)
[2017-05-06] MEDS ORDERED: MECLIZINE HCL 25 MG TABLET (FP) PO ONE (20:59)
[2017-05-06] MEDS ORDERED: SODIUM CHLORIDE 0.9% 500 ML INFUS.BAG IV ONE (20:59)
--- NOTE | 2017-05-06 21:23 | PDOC ---
*Physical Exam - Vital Signs Last Vital Signs Temp Pulse Resp BP Pulse Ox 97.9 F 108 H 19 153/86 95 05/06/17 16:52 05/06/17 16:52 05/06/17 16:52 05/06/17 16:52 05/06/17 16:52 ED Treatment Course - LABORATORY CBC & Chemistry Diagram: 05/06/17 17:09 05/06/17 17:10 - ADDITIONAL ORDERS Additional order review: Laboratory Results 05/06/17 17:10 Sodium 142 Potassium 4.2 Chloride 108 H D Carbon Dioxide 25 Anion Gap 9 BUN 17 D Creatinine 1.2 D Creat Clearance w eGFR > 60 Random Glucose 112 H Calcium 9.0 Total Bilirubin 0.5 D AST 26 D ALT 23 D Alkaline Phosphatase 114 D Creatine Kinase 257 Creatine Kinase Index 1.9 CK-MB (CK-2) 4.988 H Troponin I < 0.02 Total Protein 7.2 Albumin 4.2 D 05/06/17 17:09 RBC 4.67 MCV 96.0 MCHC 34.0 RDW 15.2 D MPV 7.1 L Neutrophils % 75.9 Lymphocytes % 15.9 Monocytes % 6.6 Eosinophils % 0.8 Basophils % 0.8 Medical Decision Making - Medical Decision Making 05/06/17 21:20 Patient signed out to me by Dr. Snider, pending CTH. CT head reveals fluid- filled sac in the cerebellum, but is unchanged compared to MRI from 04/17/2017. Discussed case with Dr. Red, who will see the patient in the morning. Given the patient's complaint of room spinning dizziness for the last 24 hours he also recommends meclizine and hydration. We will also admit the patient under telemetry obs given the possibility of cardiac syncope. Case discussed in detail with admitting physician Dr. Wilson including history, physical exam and ancillary studies. Admitting physician has assumed care for the patient, will follow all pending diagnostics and will complete the evaluation and treatment. *DC/Admit/Observation/Transfer Diagnosis at time of Disposition: Loss of consciousness - Discharge Dispostion Condition at time of disposition: Stable Admit: Yes - Referrals Referrals: Mervin Red MD [Primary Care Provider] - - Patient Instructions - Post Discharge Activity - Attestations Physician Attestion: 05/06/17 21:23 I, Dr. Jairo Sandoval MD, attest that this document has been prepared under my direction and personally reviewed by me in its entirety. I further attest, that it accurately reflects all work, treatment, procedures and medical decision -making performed by me.
[2017-05-06] MEDS ORDERED: MECLIZINE HCL 25 MG TABLET (FP) ONE (21:54)
[2017-05-07 00:42] LABS: URINE APPEARANCE CLEAR; URINE BILIRUBIN NEGATIVE (NEGATIVE); URINE BLOOD NEGATIVE (NEGATIVE); URINE COLOR LTYELLOW; URINE GLUCOSE (UA) NEGATIVE (NEGATIVE); URINE KETONE NEGATIVE (NEGATIVE); URINE NITRITE NEGATIVE (NEGATIVE); URINE PROTEIN NEGATIVE (NEGATIVE); URINE UROBILINOGEN NEGATIVE mg/dL (0.2-1.0)
[2017-05-07 01:35] LABS: TROPONIN I 0.02 ng/ml (0.00-0.05)
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
[2017-05-07] MEDS ORDERED: NICOTINE POLACRILEX 2 MG GUM BUC PRN (02:08)
[2017-05-07 03:20] VITALS: BMI 35.2
[2017-05-07 07:31] LABS: BASOPHIL 0.8 % (0-2.0); EOSINOPHIL 1.6 % (0-4.5); MCH 32.1 pg (25.7-33.7); MCHC 33.4 g/dl (32.0-35.9); MEAN CELL VOLUME 96.2 fl (80-96); MEAN PLT VOLUME 7.1 fl (7.5-11.1); PLATELET COUNT 208 K/MM3 (134-434); RDW 15.4 % (11.9-15.9); WHITE BLOOD COUNT 10.5 K/mm3 (4.0-10.0)
[2017-05-07 08:23] LABS: ANION GAP 6 (8-16); CALCIUM 8.5 mg/dL (8.5-10.1); CO2 27 mmol/L (21-32); CPK 232 IU/L (39-308); CREATININE 0.8 mg/dL (0.7-1.3); GLUCOSE,RANDOM 82 mg/dL (74-106); MAGNESIUM 2.2 mg/dL (1.8-2.4); PHOSPHOROUS 3.3 mg/dL (2.5-4.9); TROPONIN I < 0.02 ng/ml (0.00-0.05)
[2017-05-07] MEDS: NICOTINE 21 MG/24 HOURS TOPICAL PATCH TD SCH (09:05)
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
--- NOTE | 2017-05-07 11:30 | PN ---
Progress Note, Physician Chief Complaint: Mr Chandler says he is feeling fine today. Denies vertigo, cp, sob, n/v. Says he sometimes has vertigo after bout of meningitis but has been improving, also this is the first syncopal episode with vertigo. - Current Medication List Current Medications: Active Medications Nicotine (Nicoderm Patch -) 21 mg TD DAILY DIONICIO Last Admin: 05/07/17 09:05 Dose: 21 mg Nicotine Polacrilex (Nicorette Gum -) 2 mg BUC Q2H PRN PRN Reason: NICOTINE REPLACEMENT RX - Objective Vital Signs: Vital Signs Temperature 36.8 C 05/07/17 09:00 Pulse Rate 78 05/07/17 09:00 Respiratory Rate 20 05/07/17 10:04 Blood Pressure 121/87 05/07/17 09:00 O2 Sat by Pulse Oximetry (%) 96 05/07/17 10:04 Constitutional: Yes: No Distress, Calm, Obese Cardiovascular: Yes: Regular Rate and Rhythm. No: Gallop, Murmur, Rub Respiratory: Yes: Regular, CTA Bilaterally. No: Rales, Rhonchi, Wheezes Gastrointestinal: Yes: Normal Bowel Sounds, Soft. No: Distention, Tenderness Extremities: Yes: WNL Edema: No Labs: CBC, BMP 05/07/17 05:22 05/07/17 05:22 Problem List - Problems (1) Syncope Assessment/Plan: -patient presented with syncope after episode of vertigo -appreciate neurology assistance -follow up MRI -currently resolved -will hold on ECHO since had one in 01/17 -cardiology consult to evaluate Code(s): R55 - SYNCOPE AND COLLAPSE Qualifiers: Encounter type: initial encounter (2) Cerebellar vertigo Assessment/Plan: -patient with intermittent vertigo -currently resolved -suspect secondary to meningitis causing damage to R cerebellum which is seen on CT scan -repeat MRI Code(s): H81.49 - VERTIGO OF CENTRAL ORIGIN, UNSPECIFIED EAR Assessment/Plan Dispo -possible discharge tomorrow
[2017-05-07 12:45] LABS: URINE LEUK ESTERASE Negative (NEGATIVE)
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
[2017-05-07] MEDS ORDERED: ACETAMINOPHEN 325 MG TABLET (FP) PO PRN (15:32)
[2017-05-07] MEDS ORDERED: NICOTINE 7 MG/24 HOURS TOPICAL PATCH TD ONE (21:34)
[2017-05-08 07:08] LABS: BASOPHIL 0.8 % (0-2.0); EOSINOPHIL 2.3 % (0-4.5); MCH 31.5 pg (25.7-33.7); MCHC 32.6 g/dl (32.0-35.9); MEAN CELL VOLUME 96.9 fl (80-96); MEAN PLT VOLUME 7.2 fl (7.5-11.1); NEUTROPHILS 54.8 % (42.8-82.8); PLATELET COUNT 206 K/MM3 (134-434); RDW 15.5 % (11.9-15.9); WHITE BLOOD COUNT 8.4 K/mm3 (4.0-10.0)
[2017-05-08 07:36] LABS: ANION GAP 7 (8-16); CALCIUM 8.4 mg/dL (8.5-10.1); CO2 26 mmol/L (21-32); GLUCOSE,RANDOM 71 mg/dL (74-106); MAGNESIUM 2.3 mg/dL (1.8-2.4)
[2017-05-08 07:48] LABS: CREATININE 0.8 mg/dL (0.7-1.3); PHOSPHOROUS 3.6 mg/dL (2.5-4.9); THYROID STIMULATING HORMONE 1.07 uIU/ml (0.358-3.74)
--- NOTE | 2017-05-08 07:52 | EKG ---
Test Reason : Blood Pressure : / mmHG Vent. Rate : 116 BPM Atrial Rate : 116 BPM P-R Int : 140 ms QRS Dur : 080 ms QT Int : 298 ms P-R-T Axes : 054 -21 029 degrees QTc Int : 414 ms SINUS TACHYCARDIA POSSIBLE LEFT ATRIAL ENLARGEMENT BORDERLINE ECG WHEN COMPARED WITH ECG OF 21-JAN-2017 08:26, VENT. RATE HAS INCREASED BY 43 BPM Confirmed by MD Arora Daniel ([id number]) on 05/07/2017 2:53:03 PM Also confirmed by MD Arora Daniel ([id number]), newspaper or periodical editor BHUPENDRA ELIAS ([id number]) on 05/08/2017 7:52:35 AM Referred By: Confirmed By:Bhupendra Arora MD
[2017-05-08] MEDS: NICOTINE 21 MG/24 HOURS TOPICAL PATCH TD SCH (08:59)
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
--- NOTE | 2017-05-08 11:18 | DS ---
Physical Examination Vital Signs: Vital Signs Temperature 36.6 C 05/08/17 09:00 Pulse Rate 79 05/08/17 09:00 Respiratory Rate 18 05/08/17 09:00 Blood Pressure 125/69 05/08/17 09:00 O2 Sat by Pulse Oximetry (%) 97 05/08/17 05:33 Constitutional: Yes: Well Nourished, No Distress, Calm Cardiovascular: Yes: Regular Rate and Rhythm. No: Gallop, Murmur, Rub Respiratory: Yes: Regular, CTA Bilaterally. No: Rales, Rhonchi, Wheezes Gastrointestinal: Yes: Normal Bowel Sounds, Soft. No: Distention, Tenderness Extremities: Yes: WNL Edema: No Labs: CBC, BMP 05/08/17 06:45 05/08/17 06:45 Discharge Summary Reason For Visit: LOSS OF CONCIOUSNESS Current Active Problems Cerebellar vertigo (Acute) Loss of consciousness (Acute) Syncope (Acute) Hospital Course: (1) Syncope Code(s): R55 - SYNCOPE AND COLLAPSE Qualifiers: Encounter type: initial encounter (2) Cerebellar vertigo Code(s): H81.49 - VERTIGO OF CENTRAL ORIGIN, UNSPECIFIED EAR Mr Chandler is a very pleasant 47 year old male who comes in with an episode of vertigo and syncope. He was admitted to the hospital and evaluated by cardiology , neurology, and PT. Neurology reviewed CT scan, but since having new symptoms recommended cardiology and MRI. MRI was unchanged. Cardiology saw and recommended ECHO which was done and also unchanged from last admission. PT saw the patient and he was walking without difficulty. His vertigo and syncope did not recur here in the hospital. He is safe for discharge home. Condition: Good - Instructions Diet, Activity, Other Instructions: resume previous diet and activity. Referrals: Mervin Red MD [Primary Care Provider] - Jagjit Bain MD [Staff Physician] - Disposition: HOME - Home Medications Comprehensive Discharge Medication List: Ambulatory Orders NK [No Known Home Medication] 05/06/17
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
[2017-05-08 13:17] VITALS: BP 127/74; PULSE 93; TEMP 98.4
== END 2017-05-08 15:35 | disposition home or self-care (01) ==
LOC: JER 16:50 → JERBED 21:23 → J4W 05-07 02:11
PROVIDERS: ADMIT Internal Medicine; ATTEND Internal Medicine
DX: R55 Syncope and collapse (principal); H81.49 Vertigo of central origin, unspecified ear; G25.81 Restless legs syndrome; F39 Unspecified mood [affective] disorder; F17.200 Nicotine dependence, unspecified, uncomplicated; Z87.01 Personal history of pneumonia (recurrent); Z86.61 Personal history of infections of the central nervous system
CPT/HCPCS: 36415; 70450-TC; 70551-TC; 80048; 80053; 81003; 82550; 82553; 83735; 84100; 84443; 84484; 85025; 93005; 93010; 93306-TC; 97116-GP; 97161-GP; 99285-25; G0378

== ENCOUNTER 2017-07-20 11:08 | Inpatient (IN) | payer OTHER ==
[2017-07-20 11:17] VITALS: BMI 25.2
--- NOTE | 2017-07-20 13:42 | HP ---
COWS - Scale Resting Pulse: 2= [place] 101-120 Sweatin= Chills/Flushing Restless Observation: 1= Difficult to Sit Still Pupil Size: 0= Normal to Room Light Bone or Joint Aches: 2= Severe Diffuse Aches Runny Nose/ Eye Tearin= Nasal Congestion GI Upset > 30mins: 1= Stomach Cramp Tremor Observation: 1= Tremor [place], Not Seen Yawning Observation: 1= 1-2x During Session Anxiety or Irritability: 1=Feels Anxious/Irritable Goose Flesh Skin: 3=Piloerection COWS Score: 14 CIWA Score - CIWA Score Nausea/Vomitin-Mild Nausea/No Vomiting Muscle Tremors: 4-Moderate,w/Arms Extend Anxiety: 4-Mod. Anxious/Guarded Agitation: 1-Slight > Activity Paroxysmal Sweats: 1-Minimal Palms Moist Orientation: 0-Oriented Tacttile Disturbances: 1-Very Mild Itch/Numbness Auditory Disturbances: 1-Very Mild Visual Disturbances: 1-Very Mild Sensitivity Headache: 2-Mild CIWA-Ar Total Score: 16 Admission ROS S - HPI Chief Complaint: I need help, I want to get straight Allergies/Adverse Reactions: Allergies Allergy/AdvReac Type Severity Reaction Status Date / Time No Known Allergies Allergy Verified 07/20/17 12:57 History of Present Illness: 47 yo gentleman here for detox from opiates and alcohol - no seizures but does have black outs, long history of opiate and alcohol use and treatment. Last time in detox was here in 2006 although on suboxone last year. Exam Limitations: Clinical Condition - Ebola screening Have you traveled outside of the country in the last 21 days: No (NN) Have you had contact with anyone from an Ebola affected area: No Have you been sick,other than usual withdrawal symptoms: No Do you have a fever: No - Review of Systems Constitutional: Loss of Appetite, Night Sweats, Changes in sleep, Weakness EENT: reports: Recent change in vision, Hearing Loss Respiratory: reports: No Symptoms reported Cardiac: reports: No Symptoms Reported GI: reports: Poor Appetite, Indigestion, Abdominal cramping : reports: Frequency Musculoskeletal: reports: Back Pain, Muscle Pain Integumentary: reports: Rash (flaky rash on face) Neuro: reports: Headache, Tremors Endocrine: reports: No Symptoms Reported Hematology: reports: No Symptoms Reported Psychiatric: reports: Judgement Intact, Mood/Affect Appropiate, Anxious Other Systems: Reviewed and Negative Patient History - Patient Medical History Hx Asthma: No Hx Chronic Obstructive Pulmonary Disease (COPD): No Hx Cancer: No Hx Cardiac Disorders: No Hx Congestive Heart Failure: No Hx Hypertension: No Hx Hypercholesterolemia: No Hx Pacemaker: No HX Cerebrovascular Accident: Yes (years ago, no residual) Hx Seizures: No Hx Diabetes: No Hx Gastrointestinal Disorders: No Hx Liver Disease: No Hx Genitourinary Disorders: No Hx Sexually Transmitted Disorders: No Hx Renal Disease (ESRD): No Hx Thyroid Disease: No Hx Human Immunodeficiency Virus (HIV): No Hx Hepatitis C: No Hx Depression: No Hx Suicide Attempt: No Hx Bipolar Disorder: No Hx Schizophrenia: No Other Medical History: history of meningitis 2017; restless leg syndrome - Patient Surgical History Past Surgical History: Yes Hx Appendectomy: Yes Anesthesia Reaction: No - PPD History Previous Implant?: Yes Documented Results: Negative w/proof Implanted On Prior [facility] Admission?: Yes Date: 01/30/17 PPD to be Administered?: Yes - Reproductive History Patient is a Female of Child Bearing Age (11 -55 yrs old): No (male) - Smoking Cessation Smoking history: Current every day smoker Have you smoked in the past 12 months: Yes Aproximately how many cigarettes per day: 40 Hx Chewing Tobacco Use: No Initiated information on smoking cessation: Yes 'Breaking Loose' booklet given: 07/20/17 (give on floor) - Substance & Tx. History Hx Alcohol Use: Yes Hx Substance Use: Yes Substance Use Type: Alcohol, Cocaine, Heroin Hx Substance Use Treatment: Yes (detox, rehab, suboxone) - Substances Abused Alcohol Route: Oral Frequency: 3-6 times per week Amount used: VODKA(1 LITER) Age of first use: 14 Date of Last Use: 07/20/17 Heroin Route: Inhalation Frequency: Daily Amount used: 8 BAGS Age of first use: 45 Date of Last Use: 07/20/17 Family Disease History - Family Disease History Family Disease History: CA: Mother (), Respiratory: Father (, etoh, emphysema), Other: Father, Mother, Brother (three - living - healthy - etoh/drugs), Son (three sons - healthy), Daughter (one - healthy) Admission Physical Exam [facility] - Vital Signs Vital Signs: Vital Signs - 24 hr 07/20/17 11:11 Temperature 97.4 F L Pulse Rate 106 H Respiratory 18 Rate Blood Pressure 125/84 - Physical General Appearance: Yes: Nourished, Appropriately Dressed, Moderate Distress, Anxious HEENTM: Yes: Hearing grossly Normal, Normocephalic, Normal Voice, Pharynx Normal Respiratory: Yes: Normal Breath Sounds, No Respiratory Distress Neck: Yes: No masses,lesions,Nodules, Supple Breast: Yes: Breast Exam Deferred Cardiology: Yes: Regular Rhythm, Tachycardia Abdominal: Yes: Flat Back: Yes: Normal Inspection Musculoskeletal: Yes: full range of Motion, Gait Steady Extremities: Yes: Normal Inspection, Non-Tender Neurological: Yes: Alert, Motor Strength 5/5, Normal Mood/Affect, Normal Response Integumentary: Yes: Normal Color, Warm, Rash (flaky rash forehead and nasolabial folds on mildly erythematous base) Lymphatic: Yes: Within Normal Limits - Diagnostic (1) Alcohol dependence with uncomplicated withdrawal Current Visit: Yes Status: Acute (2) Opioid dependence with withdrawal Current Visit: Yes Status: Acute (3) Nicotine dependence Current Visit: Yes Status: Acute (4) Seborrheic dermatitis Current Visit: Yes Status: Acute (5) Restless legs syndrome Current Visit: Yes Status: Acute Cleared for Admission [facility] - Detox or Rehab [facility] Level of Care: Medically Managed Detox Regimen/Protocol: Methadone/Librium [facility] Breath Alcohol Content Breath Alcohol Content: 121 Urine Drug Screen - Results Drug Screen Negative: No Urine Drug Screen Results: RIKA-Cocaine, OPI-Opiates, MET-Methamphetamine, BZO- Benzodiazepines, TCA-Tricyclic Antidepress, OXY-Oxycodone
[2017-07-20] MEDS ORDERED: chlordiazePOXIDE HCL 25 MG CAPSULE PO ONE (14:15)
[2017-07-20] MEDS ORDERED: MAGNESIUM CITRATE 300 ML BOTTLE PO PRN (14:15)
[2017-07-20] MEDS ORDERED: NICOTINE POLACRILEX 4 MG GUM BC PRN (14:15)
[2017-07-20] MEDS ORDERED: guaiFENesin/D-METHORPHAN HB 10 ML UNIT-DOSE CUPS PO PRN (14:15)
[2017-07-20] MEDS ORDERED: MAG HYDROX/AL HYDROX/SIMETH 30 ML UNIT-DOSE CUP PO PRN (14:15)
[2017-07-20] MEDS ORDERED: P-EPHED 60MG/TRIPROLIDI 2.5MG TABLET PO PRN (14:15)
[2017-07-20] MEDS ORDERED: MAGNESIUM HYDROX 2400MG/30ML ORAL SUSPENSION 30 ML CUP PO PRN (14:15)
[2017-07-20] MEDS ORDERED: METHADONE HCL 10 MG TABLET (FOR DETOX USE ONLY) PO ONE ×2 (14:15→23:00)
[2017-07-20] MEDS ORDERED: LOPERAMIDE HCL 2 MG CAPSULE PO PRN (14:15)
[2017-07-20] MEDS ORDERED: chlordiazePOXIDE HCL 25 MG CAPSULE PO PRN (14:15)
[2017-07-20] MEDS ORDERED: MENTHOL/PHENOL 1 EACH UD MM PRN (14:15)
[2017-07-20] MEDS ORDERED: HYDROCORTISONE 1% TOPICAL CREAM 30 GM TUBE TP PRN (14:17)
[2017-07-20] MEDS: ACETAMINOPHEN 325 MG TABLET (FP) PO PRN (15:27)
[2017-07-20] MEDS: NICOTINE 21 MG/24 HOURS TOPICAL PATCH TD SCH ×2 (15:27→15:31)
[2017-07-20] MEDS: chlordiazePOXIDE HCL 25 MG CAPSULE PO SCH ×2 (17:05→22:30)
[2017-07-20] MEDS: THIAMINE HCL 100 MG TABLET (FP) PO SCH (22:30)
[2017-07-20] MEDS: GABAPENTIN 300 MG CAPSULE (FP) PO SCH (22:30)
[2017-07-21] MEDS: chlordiazePOXIDE HCL 25 MG CAPSULE PO SCH ×4 (05:54→22:18)
[2017-07-21] MEDS ORDERED: METHADONE HCL 10 MG TABLET (FOR DETOX USE ONLY) PO SCH (10:00)
[2017-07-21] MEDS: NICOTINE 21 MG/24 HOURS TOPICAL PATCH TD SCH (10:26)
[2017-07-21] MEDS: PRENATAL VITAMINS W/ FOLIC ACID TABLET (FP) PO SCH (10:26)
[2017-07-21 10:58] LABS: HEMATOCRIT 47.9 % (35.4-49); HEMOGLOBIN 15.6 GM/dL (11.7-16.9); MCH 29.8 pg (25.7-33.7); MCHC 32.5 g/dl (32.0-35.9); MEAN CELL VOLUME 91.6 fl (80-96); MEAN PLT VOLUME 8.6 fl (7.5-11.1); PLATELET COUNT 176 K/MM3 (134-434); RBC 5.23 M/mm3 (4.00-5.60); RDW 15.9 % (11.9-15.9); WHITE BLOOD COUNT 7.6 K/mm3 (4.0-10.0)
[2017-07-21 11:11] LABS: ALBUMIN 3.3 g/dl (3.4-5.0); ANION GAP 5 (8-16); BLOOD UREA NITROGEN 26 mg/dL (7-18); CALCIUM 8.1 mg/dL (8.5-10.1); CHLORIDE 105 mmol/L (98-107); CO2 31 mmol/L (21-32); GLUCOSE,RANDOM 75 mg/dL (74-106); POTASSIUM 4.3 mmol/L (3.5-5.1); SODIUM 141 mmol/L (136-145)
--- NOTE | 2017-07-21 11:13 | EKG ---
Test Reason : Blood Pressure : / mmHG Vent. Rate : 081 BPM Atrial Rate : 081 BPM P-R Int : 136 ms QRS Dur : 096 ms QT Int : 388 ms P-R-T Axes : 067 006 019 degrees QTc Int : 450 ms NORMAL SINUS RHYTHM NONSPECIFIC T WAVE ABNORMALITY ABNORMAL ECG WHEN COMPARED WITH ECG OF 06-MAY-2017 18:04, NONSPECIFIC T WAVE ABNORMALITY, WORSE IN INFERIOR LEADS NONSPECIFIC T WAVE ABNORMALITY, WORSE IN LATERAL LEADS Confirmed by MICHAEL MAC, ZACHARY ([id number]) on 07/21/2017 11:13:13 AM Referred By: Confirmed By:ZACHARY RODRIGUEZ MD
[2017-07-21 11:16] LABS: ALK PHOS 161 U/L (45-117); BILIRUBIN,TOTAL 0.4 mg/dL (0.2-1.0); CREATININE 1.1 mg/dL (0.7-1.3); SGOT/AST 17 U/L (15-37); SGPT/ALT 13 U/L (12-78); TOT PROT 5.9 g/dl (6.4-8.2)
--- NOTE | 2017-07-21 14:02 | PN ---
S CIWA - CIWA Score Nausea/Vomitin Muscle Tremors: 3 Anxiety: 3 Agitation: 2 Paroxysmal Sweats: 1-Minimal Palms Moist Orientation: 0-Oriented Tacttile Disturbances: 1-Very Mild Itch/Numbness Auditory Disturbances: 1-Very Mild Visual Disturbances: 0-None Headache: 2-Mild CIWA-Ar Total Score: 16 [facility] COWS - Scale Resting Pulse: 0= [place] 80 or Below Sweatin= Chills/Flushing Restless Observation: 3= Extraneous Movement Pupil Size: 1= Pupils >than Normal Bone or Joint Aches: 2= Severe Diffuse Aches Runny Nose/ Eye Tearin= Runny Nose/Eyes GI Upset > 30mins: 3= Vomiting/Diarrhea Tremor Observation of Outstretched Hands: 2= Slight Tremor Visible Yawning Observation: 1= 1-2x During Session Anxiety or Irritability: 2=Irritable/Anxious Goose Flesh Skin: 0=Smooth Skin COWS Score: 17 [facility] Progress Note (SOAP) Subjective: ALERT,IRRITABLE,ANXIOUS,INTERRUPTED SLEEP,TREMOR,PAIN IN THE BODY AND EXTREMITIES Objective: 07/21/17 14:00 Vital Signs Temperature 98.3 F 07/21/17 13:25 Pulse Rate 80 07/21/17 13:25 Respiratory Rate 18 07/21/17 13:25 Blood Pressure 115/78 07/21/17 13:25 O2 Sat by Pulse Oximetry (%) Assessment: 07/21/17 14:01 WITHDRAWAL SYMPTOM Plan: CONTINUE DETOX
--- NOTE | 2017-07-21 14:06 | PN ---
S Progress Note Note: EKG NSR,NON SPECIFIC T,NO CHEST PAIN,NO SOB,NO DIZZINESS, Laboratory Last Values WBC 7.6 K/mm3 (4.0-10.0) 07/21/17 08:00 RBC 5.23 M/mm3 (4.00-5.60) 07/21/17 08:00 Hgb 15.6 GM/dL (11.7-16.9) 07/21/17 08:00 Hct 47.9 % (35.4-49) 07/21/17 08:00 MCV 91.6 fl (80-96) 07/21/17 08:00 MCH 29.8 pg (25.7-33.7) 07/21/17 08:00 MCHC 32.5 g/dl (32.0-35.9) 07/21/17 08:00 RDW 15.9 % (11.9-15.9) 07/21/17 08:00 Plt Count 176 K/MM3 (134-434) 07/21/17 08:00 MPV 8.6 fl (7.5-11.1) D 07/21/17 08:00 Sodium 141 mmol/L (136-145) 07/21/17 08:00 Potassium 4.3 mmol/L (3.5-5.1) 07/21/17 08:00 Chloride 105 mmol/L (98-107) 07/21/17 08:00 Carbon Dioxide 31 mmol/L (21-32) 07/21/17 08:00 Anion Gap 5 (8-16) L 07/21/17 08:00 BUN 26 mg/dL (7-18) H D 07/21/17 08:00 Creatinine 1.1 mg/dL (0.7-1.3) D 07/21/17 08:00 Creat Clearance w eGFR > 60 (>60) 07/21/17 08:00 Random Glucose 75 mg/dL (74-106) 07/21/17 08:00 Calcium 8.1 mg/dL (8.5-10.1) L 07/21/17 08:00 Total Bilirubin 0.4 mg/dL (0.2-1.0) 07/21/17 08:00 AST 17 U/L (15-37) D 07/21/17 08:00 ALT 13 U/L (12-78) D 07/21/17 08:00 Alkaline Phosphatase 161 U/L (45-117) H D 07/21/17 08:00 Total Protein 5.9 g/dl (6.4-8.2) L 07/21/17 08:00 Albumin 3.3 g/dl (3.4-5.0) L D 07/21/17 08:00 RPR Titer Nonreactive (NONREACTIVE) 07/21/17 08:00 WITHDRAWAL SYMPTOM CONTINUE DETOX
[2017-07-21 19:30] LABS: URINE APPEARANCE CLEAR; URINE BILIRUBIN NEGATIVE (NEGATIVE); URINE BLOOD NEGATIVE (NEGATIVE); URINE COLOR LTYELLOW; URINE GLUCOSE (UA) NEGATIVE (NEGATIVE); URINE KETONE NEGATIVE (NEGATIVE); URINE LEUK ESTERASE NEGATIVE (NEGATIVE); URINE NITRITE NEGATIVE (NEGATIVE); URINE PROTEIN NEGATIVE (NEGATIVE); URINE UROBILINOGEN NEGATIVE mg/dL (0.2-1.0)
[2017-07-21] MEDS: THIAMINE HCL 100 MG TABLET (FP) PO SCH (22:18)
[2017-07-21] MEDS: GABAPENTIN 300 MG CAPSULE (FP) PO SCH (22:18)
[2017-07-21] MEDS: hydrOXYzine PAMOATE 25 MG CAPSULE (FP) PO PRN (22:19)
[2017-07-22] MEDS: chlordiazePOXIDE HCL 25 MG CAPSULE PO SCH ×2 (05:19→10:19)
[2017-07-22] MEDS: PRENATAL VITAMINS W/ FOLIC ACID TABLET (FP) PO SCH (10:19)
[2017-07-22] MEDS: NICOTINE 21 MG/24 HOURS TOPICAL PATCH TD SCH (10:19)
[2017-07-22] MEDS: METHADONE HCL 5 MG TABLET (FOR DETOX USE ONLY) PO SCH (10:20)
--- NOTE | 2017-07-22 16:55 | PN ---
[facility] CIWA - CIWA Score Nausea/Vomitin-No Nausea/No Vomiting Muscle Tremors: 4-Moderate,w/Arms Extend Anxiety: 3 Agitation: 2 Paroxysmal Sweats: 3 Orientation: 0-Oriented Tacttile Disturbances: 2-Mild Itch/Numbness/Burn Auditory Disturbances: 0-None Visual Disturbances: 3-Moderate Sensitivity Headache: 0-None Present CIWA-Ar Total Score: 17 S COWS - Scale Resting Pulse: 0= [place] 80 or Below Sweatin= Chills/Flushing Restless Observation: 1= Difficult to Sit Still Pupil Size: 0= Normal to Room Light Bone or Joint Aches: 2= Severe Diffuse Aches Runny Nose/ Eye Tearin= None GI Upset > 30mins: 1= Stomach Cramp Tremor Observation of Outstretched Hands: 2= Slight Tremor Visible Yawning Observation: 1= 1-2x During Session Anxiety or Irritability: 2=Irritable/Anxious Goose Flesh Skin: 3=Piloerection COWS Score: 13 [facility] Progress Note (SOAP) Subjective: Sweating, Stomach Cramping, Interrupted Sleep, Tremors. Objective: PT. A & O X 3, OBSERVED AMBULATING ON UNIT. NO ACUTE DISTRESS. 07/22/17 16:54 Vital Signs Temperature 97.4 F L 07/22/17 13:59 Pulse Rate 80 07/22/17 13:59 Respiratory Rate 18 07/22/17 13:59 Blood Pressure 119/76 07/22/17 13:59 O2 Sat by Pulse Oximetry (%) Laboratory Tests 07/21/17 07/21/17 07/21/17 08:00 08:00 08:00 WBC 7.6 RBC 5.23 Hgb 15.6 Hct 47.9 MCV 91.6 MCH 29.8 MCHC 32.5 RDW 15.9 Plt Count 176 MPV 8.6 D Sodium 141 Potassium 4.3 Chloride 105 Carbon Dioxide 31 Anion Gap 5 L BUN 26 H D Creatinine 1.1 D Creat Clearance w eGFR > 60 Random Glucose 75 Calcium 8.1 L Total Bilirubin 0.4 AST 17 D ALT 13 D Alkaline Phosphatase 161 H D Total Protein 5.9 L Albumin 3.3 L D Urine Color Urine Appearance Urine pH Ur Specific [place] Urine Protein Urine Glucose (UA) Urine Ketones Urine Blood Urine Nitrite Urine Bilirubin Urine Urobilinogen Ur Leukocyte Esterase RPR Titer Nonreactive 07/21/17 13:30 WBC RBC Hgb Hct MCV MCH MCHC RDW Plt Count MPV Sodium Potassium Chloride Carbon Dioxide Anion Gap BUN Creatinine Creat Clearance w eGFR Random Glucose Calcium Total Bilirubin AST ALT Alkaline Phosphatase Total Protein Albumin Urine Color Ltyellow Urine Appearance Clear Urine pH 6.0 Ur Specific [place] 1.014 Urine Protein Negative Urine Glucose (UA) Negative Urine Ketones Negative Urine Blood Negative Urine Nitrite Negative Urine Bilirubin Negative Urine Urobilinogen Negative Ur Leukocyte Esterase Negative RPR Titer LABS NOTED. Assessment: 07/22/17 16:54 WITHDRAWAL SYMPTOMS. Plan: CONTINUE DETOX. INCREASE DAILY PO FLUID INTAKE.
[2017-07-22] MEDS: chlordiazePOXIDE 5 MG CAPSULE PO SCH ×2 (17:15→22:02)
[2017-07-22] MEDS: THIAMINE HCL 100 MG TABLET (FP) PO SCH (22:02)
[2017-07-22] MEDS: GABAPENTIN 300 MG CAPSULE (FP) PO SCH (22:02)
[2017-07-22] MEDS: diphenhydrAMINE HCL 50 MG CAPSULE PO PRN (22:04)
[2017-07-23] MEDS: ACETAMINOPHEN 325 MG TABLET (FP) PO PRN ×2 (02:02→10:30)
[2017-07-23] MEDS: hydrOXYzine PAMOATE 25 MG CAPSULE (FP) PO PRN (02:02)
[2017-07-23] MEDS: chlordiazePOXIDE 5 MG CAPSULE PO SCH ×2 (05:42→10:30)
[2017-07-23] MEDS: IBUPROFEN 400 MG TABLET (FP) PO PRN ×2 (05:44→23:58)
[2017-07-23] MEDS: NICOTINE 21 MG/24 HOURS TOPICAL PATCH TD SCH (10:30)
[2017-07-23] MEDS: METHADONE HCL 5 MG TABLET (FOR DETOX USE ONLY) PO SCH (10:30)
[2017-07-23] MEDS: PRENATAL VITAMINS W/ FOLIC ACID TABLET (FP) PO SCH (10:31)
--- NOTE | 2017-07-23 11:03 | PN ---
[facility] Progress Note (SOAP) Subjective: Body Aches, Tremors, Fatigue, Interrupted Sleep. Objective: PT. A & O X 3. NO ACUTE DISTRESS. PATIENT DENIES CHEST PAIN. 07/23/17 11:01 Vital Signs Temperature 98.7 F 07/23/17 09:29 Pulse Rate 76 07/23/17 09:29 Respiratory Rate 16 07/23/17 09:29 Blood Pressure 124/79 07/23/17 09:29 O2 Sat by Pulse Oximetry (%) Laboratory Tests 07/21/17 07/21/17 07/21/17 08:00 08:00 08:00 WBC 7.6 RBC 5.23 Hgb 15.6 Hct 47.9 MCV 91.6 MCH 29.8 MCHC 32.5 RDW 15.9 Plt Count 176 MPV 8.6 D Sodium 141 Potassium 4.3 Chloride 105 Carbon Dioxide 31 Anion Gap 5 L BUN 26 H D Creatinine 1.1 D Creat Clearance w eGFR > 60 Random Glucose 75 Calcium 8.1 L Total Bilirubin 0.4 AST 17 D ALT 13 D Alkaline Phosphatase 161 H D Total Protein 5.9 L Albumin 3.3 L D Urine Color Urine Appearance Urine pH Ur Specific [place] Urine Protein Urine Glucose (UA) Urine Ketones Urine Blood Urine Nitrite Urine Bilirubin Urine Urobilinogen Ur Leukocyte Esterase RPR Titer Nonreactive 07/21/17 13:30 WBC RBC Hgb Hct MCV MCH MCHC RDW Plt Count MPV Sodium Potassium Chloride Carbon Dioxide Anion Gap BUN Creatinine Creat Clearance w eGFR Random Glucose Calcium Total Bilirubin AST ALT Alkaline Phosphatase Total Protein Albumin Urine Color Ltyellow Urine Appearance Clear Urine pH 6.0 Ur Specific [place] 1.014 Urine Protein Negative Urine Glucose (UA) Negative Urine Ketones Negative Urine Blood Negative Urine Nitrite Negative Urine Bilirubin Negative Urine Urobilinogen Negative Ur Leukocyte Esterase Negative RPR Titer LABS NOTED. Assessment: 07/23/17 11:01 WITHDRAWAL SYMPTOMS. Plan: CONTINUE DETOX. INCREASE DAILY PO FLUID INTAKE. PRN FLEXERIL FOR BODY ACHES / MUSCLE SPASMS.
[2017-07-23] MEDS: CYCLOBENZAPRINE HCL 10 MG TABLET (FP) PO PRN ×2 (12:09→22:03)
[2017-07-23] MEDS: chlordiazePOXIDE HCL 10 MG CAPSULE PO SCH ×2 (17:04→22:03)
[2017-07-23] MEDS ORDERED: diphenhydrAMINE HCL 25 MG CAPSULE (FP) PO ONE (21:13)
[2017-07-23] MEDS: THIAMINE HCL 100 MG TABLET (FP) PO SCH (22:03)
[2017-07-23] MEDS: GABAPENTIN 300 MG CAPSULE (FP) PO SCH (22:03)
[2017-07-23] MEDS: diphenhydrAMINE HCL 50 MG CAPSULE PO PRN (22:04)
[2017-07-24] MEDS: hydrOXYzine PAMOATE 25 MG CAPSULE (FP) PO PRN (02:03)
[2017-07-24] MEDS: chlordiazePOXIDE HCL 10 MG CAPSULE PO SCH ×2 (05:51→10:41)
[2017-07-24] MEDS ORDERED: METHADONE HCL 10 MG TABLET (FOR DETOX USE ONLY) PO SCH (10:00)
[2017-07-24] MEDS: NICOTINE 21 MG/24 HOURS TOPICAL PATCH TD SCH (10:41)
[2017-07-24] MEDS: PRENATAL VITAMINS W/ FOLIC ACID TABLET (FP) PO SCH (10:41)
[2017-07-24] MEDS: CYCLOBENZAPRINE HCL 10 MG TABLET (FP) PO PRN ×2 (10:42→22:06)
--- NOTE | 2017-07-24 16:52 | PN ---
[facility] Progress Note (SOAP) Subjective: Body Aches, Fatigue. Objective: PT. A & O X 3. NO ACUTE DISTRESS. 07/24/17 16:51 Vital Signs Temperature 96.5 F L 07/24/17 13:29 Pulse Rate 77 07/24/17 13:29 Respiratory Rate 18 07/24/17 13:29 Blood Pressure 119/84 07/24/17 13:29 O2 Sat by Pulse Oximetry (%) Laboratory Tests 07/21/17 07/21/17 07/21/17 08:00 08:00 08:00 WBC 7.6 RBC 5.23 Hgb 15.6 Hct 47.9 MCV 91.6 MCH 29.8 MCHC 32.5 RDW 15.9 Plt Count 176 MPV 8.6 D Sodium 141 Potassium 4.3 Chloride 105 Carbon Dioxide 31 Anion Gap 5 L BUN 26 H D Creatinine 1.1 D Creat Clearance w eGFR > 60 Random Glucose 75 Calcium 8.1 L Total Bilirubin 0.4 AST 17 D ALT 13 D Alkaline Phosphatase 161 H D Total Protein 5.9 L Albumin 3.3 L D Urine Color Urine Appearance Urine pH Ur Specific [place] Urine Protein Urine Glucose (UA) Urine Ketones Urine Blood Urine Nitrite Urine Bilirubin Urine Urobilinogen Ur Leukocyte Esterase RPR Titer Nonreactive 07/21/17 13:30 WBC RBC Hgb Hct MCV MCH MCHC RDW Plt Count MPV Sodium Potassium Chloride Carbon Dioxide Anion Gap BUN Creatinine Creat Clearance w eGFR Random Glucose Calcium Total Bilirubin AST ALT Alkaline Phosphatase Total Protein Albumin Urine Color Ltyellow Urine Appearance Clear Urine pH 6.[address] 1.014 Urine Protein Negative Urine Glucose (UA) Negative Urine Ketones Negative Urine Blood Negative Urine Nitrite Negative Urine Bilirubin Negative Urine Urobilinogen Negative Ur Leukocyte Esterase Negative RPR Titer LABS NOTED. Assessment: 07/24/17 16:51 WITHDRAWAL SYMPTOMS. Plan: CONTINUE DETOX. INCREASE DAILY PO FLUID INTAKE.
[2017-07-24] MEDS: THIAMINE HCL 100 MG TABLET (FP) PO SCH (22:06)
[2017-07-24] MEDS: GABAPENTIN 300 MG CAPSULE (FP) PO SCH (22:06)
[2017-07-24] MEDS: diphenhydrAMINE HCL 50 MG CAPSULE PO PRN (22:07)
[2017-07-25] MEDS ORDERED: METHADONE HCL 5 MG TABLET (FOR DETOX USE ONLY) PO SCH (06:00)
[2017-07-25 09:19] VITALS: BP 124/87; PULSE 85; TEMP 99.7
--- NOTE | 2017-07-25 13:08 | DS ---
[facility] Detox Discharge Summary Admission Date: 07/20/17 Discharge Date: 07/25/17 - History Present History: Alcohol Dependence Additional Comments: DETOX COMPLETED. ALERT O X 3. NAD. PT REPORTS PRIMARY CARE AT [facility], FORGOT NAME OF HIS PMD. REMINDED PT TO FOLOW UP WITH MEDICAL MANAGEMENT NEEDED. Pertinent Past History: SEE DX BELOW - Physical Exam Results Vital Signs: Vital Signs Temperature 99.7 F H 07/25/17 09:18 Pulse Rate 85 07/25/17 09:18 Respiratory Rate 18 07/25/17 09:18 Blood Pressure 124/87 07/25/17 09:18 O2 Sat by Pulse Oximetry (%) Pertinent Admission Physical Exam Findings: WITHDRAWAL SX Laboratory Last Values WBC 7.6 K/mm3 (4.0-10.0) 07/21/17 08:00 RBC 5.23 M/mm3 (4.00-5.60) 07/21/17 08:00 Hgb 15.6 GM/dL (11.7-16.9) 07/21/17 08:00 Hct 47.9 % (35.4-49) 07/21/17 08:00 MCV 91.6 fl (80-96) 07/21/17 08:00 MCH 29.8 pg (25.7-33.7) 07/21/17 08:00 MCHC 32.5 g/dl (32.0-35.9) 07/21/17 08:00 RDW 15.9 % (11.9-15.9) 07/21/17 08:00 Plt Count 176 K/MM3 (134-434) 07/21/17 08:00 MPV 8.6 fl (7.5-11.1) D 07/21/17 08:00 Sodium 141 mmol/L (136-145) 07/21/17 08:00 Potassium 4.3 mmol/L (3.5-5.1) 07/21/17 08:00 Chloride 105 mmol/L (98-107) 07/21/17 08:00 Carbon Dioxide 31 mmol/L (21-32) 07/21/17 08:00 Anion Gap 5 (8-16) L 07/21/17 08:00 BUN 26 mg/dL (7-18) H D 07/21/17 08:00 Creatinine 1.1 mg/dL (0.7-1.3) D 07/21/17 08:00 Creat Clearance w eGFR > 60 (>60) 07/21/17 08:00 Random Glucose 75 mg/dL (74-106) 07/21/17 08:00 Calcium 8.1 mg/dL (8.5-10.1) L 07/21/17 08:00 Total Bilirubin 0.4 mg/dL (0.2-1.0) 07/21/17 08:00 AST 17 U/L (15-37) D 07/21/17 08:00 ALT 13 U/L (12-78) D 07/21/17 08:00 Alkaline Phosphatase 161 U/L (45-117) H D 07/21/17 08:00 Total Protein 5.9 g/dl (6.4-8.2) L 07/21/17 08:00 Albumin 3.3 g/dl (3.4-5.0) L D 07/21/17 08:00 Urine Color Ltyellow 07/21/17 13:30 Urine Appearance Clear 07/21/17 13:30 Urine pH 6.0 (5.0-8.0) 07/21/17 13:30 Ur Specific [place] 1.014 (1.001-1.035) 07/21/17 13:30 Urine Protein Negative (NEGATIVE) 07/21/17 13:30 Urine Glucose (UA) Negative (NEGATIVE) 07/21/17 13:30 Urine Ketones Negative (NEGATIVE) 07/21/17 13:30 Urine Blood Negative (NEGATIVE) 07/21/17 13:30 Urine Nitrite Negative (NEGATIVE) 07/21/17 13:30 Urine Bilirubin Negative (NEGATIVE) 07/21/17 13:30 Urine Urobilinogen Negative mg/dL (0.2-1.0) 07/21/17 13:30 Ur Leukocyte Esterase Negative (NEGATIVE) 07/21/17 13:30 RPR Titer Nonreactive (NONREACTIVE) 07/21/17 08:00 - Treatment Hospital Course: Detox Protocol Followed, Detoxed Safely, Responded well, Discharged Condition Good - Medication Discharge Medications: Ambulatory Orders Gabapentin [Neurontin -] 300 mg PO HS 07/20/17 - Diagnosis (1) Alcohol dependence with uncomplicated withdrawal Status: Acute (2) Nicotine dependence Status: Chronic Qualifiers: Nicotine product type: cigarettes Substance use status: uncomplicated Qualified Code(s): F17.210 - Nicotine dependence, cigarettes, uncomplicated (3) Restless legs syndrome Status: Chronic (4) Opioid dependence with withdrawal Status: Acute - AMA Did Patient Leave Against Medical Advice: No
== END 2017-07-25 09:24 | disposition home or self-care (01) | DRG 773 ==
LOC: YASAS 11:08 → Y3N 13:31
PROVIDERS: ADMIT Internal Medicine; ATTEND Internal Medicine
PROC: HZ2ZZZZ Detoxification Services for Substance Abuse Treatment (ICD-10-PCS; principal; 2017-07-20)
DX: F11.23 Opioid dependence with withdrawal (principal); F10.230 Alcohol dependence with withdrawal, uncomplicated; F17.210 Nicotine dependence, cigarettes, uncomplicated; G25.81 Restless legs syndrome; L21.9 Seborrheic dermatitis, unspecified; Z86.73 Personal history of transient ischemic attack (TIA), and cerebral infarction without residual deficits; Z86.69 Personal history of other diseases of the nervous system and sense organs
CPT/HCPCS: 36415; 80053; 81003; 85027; 86593; 93005; 93010

== ENCOUNTER 2018-07-12 19:00 | Emergency (ER) | payer OTHER ==
[2018-07-12 19:16] VITALS: BP 114/66; PULSE 58; TEMP 98; BMI 28.1
--- NOTE | 2018-07-12 19:19 | PDOC ---
History of Present Illness - History of Present Illness Initial Comments: This patient is a 48 year old male, with PMHx of recently diagnosed seizures, meningitis January 2017) , lung nodule found on chest x-ray recently, who presents with 1 month of abdominal pain acutely worsening over the past few days. Patient states that his abdominal pain usually comes and goes, associated with nausea, he states that it is not exacerbated when eating and today he notes that he was in excruciating pain for about 45 mins. He states that he usually take OTC Zantac which has been helping for a while but today it has not relieved his pain. Patient endorses nbnb watery diarrhea for over a week. Patient also endorses productive cough with clear sputum on and off for the past few days. His mentioned decrease appetite in patient. Patient also note urinary frequency & urgency. He also notes red, itchy rash on side of face and chest. Patient notes He has an appt to see a embroidery assistant in a week. He denies any vomit, fever, chest pain, shortness of breath, dysuria, hematuria. He denies any history of ulcers, gastritis, liver, gallbladder, or colon issues. Social Hx: 2 ppd tobacco smoker, past EtOH and opiate use. 07/12/18 20:14 <Sasha Jose - Last Filed: 07/12/18 23:16> <Hillary Dailey - Last Filed: 07/13/18 01:54> - General Chief Complaint: Pain Stated Complaint: ABDOMINAL PAIN Time Seen by Provider: 07/12/18 19:18 Past History <Sasha Jose - Last Filed: 07/12/18 23:16> - Past Medical History Asthma: No Cancer: No Cardiac Disorders: No CVA: Yes (years ago, no residual) COPD: No CHF: No Diabetes: No GI Disorders: No Disorders: No HTN: No Hypercholesterolemia: No Kidney Stones: No Liver Disease: No Psychiatric Problems: Yes Seizures: Yes Thyroid Disease: No Other medical history: MENINGITIS - Surgical History Appendectomy: Yes - Reproductive History Testicular Surgery: No - Suicide/Smoking/Psychosocial Hx Smoking History: Current every day smoker Have you smoked in the past 12 months: Yes Number of Cigarettes Smoked Daily: 40 Information on smoking cessation initiated: Yes 'Breaking Loose' booklet given: 07/20/17 (give on floor) Hx Alcohol Use: Yes Drug/Substance Use Hx: Yes Substance Use Type: Alcohol, Cocaine, Heroin Hx Substance Use Treatment: Yes (detox, rehab, suboxone) <Hillary Dailey - Last Filed: 07/13/18 01:54> - Past Medical History Allergies/Adverse Reactions: Allergies Allergy/AdvReac Type Severity Reaction Status Date / Time No Known Allergies Allergy Verified 07/20/17 12:57 Home Medications: Ambulatory Orders Divalproex [Depakote -] 500 mg PO BID 07/12/18 Pantoprazole Sodium [Protonix -] 20 mg PO DAILY #14 tablet.ec 07/12/18 Abd/GI Specific PMHX - Complaint Specific PMHX Hepatitis: No Pancreatitis: No <Hillary Dailey - Last Filed: 07/13/18 01:54> Review of Systems - Review of Systems Comments:: GENERAL/CONSTITUTIONAL: No fever or chills. No weakness. HEAD, EYES, EARS, NOSE AND THROAT: No change in vision. No ear pain or discharge. No sore throat. CARDIOVASCULAR: No chest pain or shortness of breath. RESPIRATORY: +productuve cough (clear sputum), no wheezing, or hemoptysis. GASTROINTESTINAL: +nausea, no vomiting, +diarrhea, noconstipation. GENITOURINARY: No dysuria, +frequency,+urgency MUSCULOSKELETAL: No joint or muscle swelling or pain. No neck or back pain. SKIN: No rash NEUROLOGIC: No headache, vertigo, loss of consciousness, or change in strength/ sensation. ENDOCRINE: No increased thirst. No abnormal weight change. HEMATOLOGIC/LYMPHATIC: No anemia, easy bleeding, or history of blood clots. ALLERGIC/IMMUNOLOGIC: + red, itchy rash on side of face and chest. No hives or skin allergy. <Sasha Jose - Last Filed: 07/12/18 23:16> *Physical Exam - Vital Signs Last Vital Signs Temp Pulse Resp BP Pulse Ox 98.0 F 58 L 18 114/66 95 07/12/18 19:01 07/12/18 19:01 07/12/18 19:01 07/12/18 19:01 07/12/18 19:01 - Physical Exam Comments: GENERAL: Awake, alert, and fully oriented, in no acute distress HEAD: No signs of trauma EYES: PERRLA, EOMI, sclera anicteric, conjunctiva clear ENT: Auricles normal inspection, hearing grossly normal, nares patent, oropharynx clear without exudates. Dry mucosa NECK: Normal ROM, supple, no lymphadenopathy, JVD, or masses LUNGS: Widespread expiratory bronchi on right. Left side clear. HEART: Unremarkable. Regular rate and rhythm, normal S1 and S2, no murmurs, rubs or gallops ABDOMEN: Soft, mild epigastric & RUQ tenderness to palpation, normoactive bowel sounds. No involuntary guarding, no rebound. No masses, no organomegaly. EXTREMITIES: Normal range of motion, no edema. No clubbing or cyanosis. No cords, erythema, or tenderness NEUROLOGICAL: Cranial nerves II through XII grossly intact. Normal speech, normal gait SKIN: Warm, Dry, normal turgor, mildly erythematous scattered maculopapular rash of scalp at side of face and anterior chest. 07/12/18 20:13 <Sasha Jose - Last Filed: 07/12/18 23:16> - Vital Signs Last Vital Signs Temp Pulse Resp BP Pulse Ox 98.0 F 58 L 18 114/66 95 07/12/18 19:01 07/12/18 19:01 07/12/18 19:01 07/12/18 19:01 07/12/18 19:01 <Hillary Dailey - Last Filed: 07/13/18 01:54> Moderate Sedation - Procedure Monitoring Vital Signs: Procedure Monitoring Vital Signs Temperature 98.0 F 07/12/18 19:01 Pulse Rate 58 L 07/12/18 19:01 Respiratory Rate 18 07/12/18 19:01 Blood Pressure 114/66 07/12/18 19:01 O2 Sat by Pulse Oximetry (%) 95 07/12/18 19:01 <Sasha Jose - Last Filed: 07/12/18 23:16> - Procedure Monitoring Vital Signs: Procedure Monitoring Vital Signs Temperature 98.0 F 07/12/18 19:01 Pulse Rate 58 L 07/12/18 19:01 Respiratory Rate 18 07/12/18 19:01 Blood Pressure 114/66 07/12/18 19:01 O2 Sat by Pulse Oximetry (%) 95 07/12/18 19:01 <Hillary Dailey - Last Filed: 07/13/18 01:54> ED Treatment Course - LABORATORY CBC & Chemistry Diagram: 07/12/18 19:45 07/12/18 19:45 - RADIOLOGY Radiology Studies Ordered: CT ABDOMEN AND PELVIS with contrast IMPRESSION: Patchy left lower lobe medial basilar infiltrate may be due to acute superimposed on chronic atypical pneumonia. Right middle lobe reticulonodular infiltrate may be due to chronic atypical pneumonia. Patchy nonspecific reticulonodular infiltrates are suspicious for acute pneumonia with superimposed chronic atypical pneumonia and an underlying malignancy cannot be excluded. Left lower lobe posterior basal lung segment irregular nonspecific 1.1 cm nodular masslike infiltrate on series 3 image 9 may be benign or malignant. If clinically indicated follow-up following treatment for pneumonia may be needed to exclude an underlying malignant mass. Diverticulosis without diverticulitis. Moderate size disc osteophyte complex at L4-5 with moderate spinal canal stenosis and moderate neural foraminal narrowing may be associated with radiculopathy pain. Reported By: Fercho Weiss MD 07/12/2018 23:06 EST <Sasha Jose - Last Filed: 07/12/18 23:16> - LABORATORY CBC & Chemistry Diagram: 07/12/18 19:45 07/12/18 19:45 <Hillary Dailey - Last Filed: 07/13/18 01:54> Progress Note - Progress Note Progress Note: Documentation has been prepared under my direction and personally reviewed by me in its entirety. I attest that this documented accurately reflects all work, treatment, procedures and medical decision making performed by me. <Hillary Dailey - Last Filed: 07/13/18 01:54> Medical Decision Making - Medical Decision Making As noted above, this 48-year-old man with a history of pulmonary nodules ( currently undergoing diagnostic workup of these) presents with episode of severe epigastric abdominal pain prior to presentation in the emergency room. The patient describes severe pain lasting several minutes and not accompanied by nausea/vomiting/fever/chills at home prior to presentation, resolving spontaneously. He states that he has had this pain intermittently for several weeks but tonight's episode was very severe. He currently has follow-up with a embroidery assistant scheduled for later this week. On examination, he is comfortable and exam as noted above. IV was started and patient given a liter normal saline and 20 mg Pepcid IV Laboratory evaluation including CBC/chemistry profile/lipase/INR is essentially normal with BUN slightly elevated as compared to creatinine (22/1.0) but no other significant findings. Because of the description of the severity of this pain, abdominal/pelvic CT was performed to evaluate for acute intra abdominal process. CT findings as noted above: Other then pneumonia at bilateral lower lobes (which patient subsequently revealed was being treated with azithromycin), mild constipation and evidence of lower lumbar spinal stenosis, no acute abnormality seen. results discussed with the patient and his . Since the location of the pain was epigastric, possibilities of the etiology of the pain may be peptic ulcer disease, gastritis, severe GERD. In any case, since the patient volunteered that "Zantac does not work anymore", he will be given a dose of Protonix 20 mg by mouth and prescription sent to pharmacy for this dose daily until seen by his embroidery assistant. He should return to the ER if he has persistent severe pain or develops vomiting /fever <Hillary Dailey - Last Filed: 07/13/18 01:54> *DC/Admit/Observation/Transfer - Attestations Scribe Attestion: 07/12/18 20:15 Documentation prepared by Sasha Jose, acting as rn medical surgical for Hillary Dailey MD. <Sasha Jose - Last Filed: 07/12/18 23:16> <Hillary Dailey - Last Filed: 07/13/18 01:54> Diagnosis at time of Disposition: History of abdominal pain Pneumonia Qualifiers: Pneumonia type: due to unspecified organism Laterality: bilateral Lung location : lower lobe of lung Qualified Code(s): J18.1 - Lobar pneumonia, unspecified organism - Discharge Dispostion Disposition: HOME Condition at time of disposition: Stable - Prescriptions Prescriptions: Pantoprazole Sodium [Protonix -] 20 mg PO DAILY #14 tablet.ec - Referrals Referrals: Villa Conley MD [Primary Care Provider] - - Patient Instructions Printed Discharge Instructions: DI for Abdominal Pain-Adult Additional Instructions: Continue medications as prescribed Protonix 20 mg daily starting tomorrow Follow-up with your manager immunology and embroidery assistant this week as scheduled Return to ER if you have persistent, severe abdominal pain or vomiting/fever - Post Discharge Activity
[2018-07-12] MEDS ORDERED: FAMOTIDINE 20 MG/50 ML IVPB 20 MG/50 ML MG IVPB ONE ×2 (19:41→19:57)
[2018-07-12 20:12] LABS: BASO % 0.9 % (0-2.0); HEMATOCRIT 40.4 % (35.4-49); HEMOGLOBIN 13.1 GM/dl (11.7-16.9); LYMPH % 13.2 % (8-40); MCH 33.2 pg (25.7-33.7); MCHC 32.5 g/dl (32.0-35.9); MEAN CELL VOLUME 102.1 fl (80-96); MEAN PLT VOLUME 7.9 fl (7.5-11.1); MONO % 5.1 % (3.8-10.2); NEUT % 78.8 % (42.8-82.8); PLATELET COUNT 255 K/MM3 (134-434); RBC 3.96 M/mm3 (4.00-5.60); RDW 15.1 % (11.9-15.9); WHITE BLOOD COUNT 7.1 K/mm3 (4.0-10.8)
[2018-07-12 20:20] LABS: ALBUMIN 3.8 g/dl (3.4-5.0); ALK PHOS 100 U/L (45-117); ANION GAP 11 MMOL/L (8-16); BILIRUBIN,TOTAL 0.2 mg/dl (0.2-1); BLOOD UREA NITROGEN 22 mg/dl (7-18); CALCIUM 8.8 mg/dl (8.5-10); CHLORIDE 101 mmol/L (98-107); CO2 27 mmol/L (21-32); GLUCOSE,RANDOM 72 mg/dl (74-106); POTASSIUM 4.2 mmol/L (3.5-5.1); SGOT/AST 30 U/L (15-37); SGPT/ALT 13 U/L (13-61); SODIUM 139 mmol/L (136-145); TOT PROT 6.6 g/dl (6.4-8.2)
[2018-07-12 20:30] LABS: INR 1.11 (0.82-1.09); PROTHROMBIN TIME (PATIENT) 12.4 SEC (10.2-13.0)
[2018-07-12 20:35] LABS: URINE APPEARANCE Clear; URINE BILIRUBIN Negative (NEGATIVE); URINE COLOR Yellow; URINE GLUCOSE (UA) Negative (NEGATIVE); URINE KETONE Negative (NEGATIVE); URINE LEUK ESTERASE Negative (NEGATIVE); URINE NITRITE Negative (NEGATIVE); URINE PROTEIN Negative (NEGATIVE); URINE UROBILINOGEN 0.2 (0.2-1.0)
[2018-07-12 21:03] LABS: LIPASE 91 U/L (73-393)
[2018-07-12] MEDS ORDERED: PANTOPRAZOLE 20 MG TABLET (FP) PO ONE (23:09)
[2018-07-12] MEDS ORDERED: PANTOPRAZOLE 40 MG TABLET (FP) ONE (23:12)
== END 2018-07-12 23:32 | disposition home or self-care (01) ==
LOC: FER 19:00
PROC: 3E033GC Introduction of Other Therapeutic Substance into Peripheral Vein, Percutaneous Approach (ICD-10-PCS; principal; 2018-07-12)
DX: J18.1 Lobar pneumonia, unspecified organism (principal); R10.13 Epigastric pain; F17.210 Nicotine dependence, cigarettes, uncomplicated; Z86.61 Personal history of infections of the central nervous system
CPT/HCPCS: 36415; 74177-TC; 80053; 81003; 82550; 82553; 83690; 84484; 85025; 85610; 99282-25

== ENCOUNTER 2023-06-20 20:15 | Inpatient (IN) | payer OTHER ==
[2023-06-20 20:55] VITALS: BMI 22.5
[2023-06-20] MEDS ORDERED: BENZOCAINE/MENTHOL (CHLORASEPTIC ) LOZENGE MM PRN (22:07)
[2023-06-20] MEDS ORDERED: P-EPHED 60MG/TRIPROLIDI 2.5MG TABLET PO PRN (22:07)
[2023-06-20] MEDS ORDERED: IBUPROFEN 400 MG TABLET (FP) PO PRN (22:07)
[2023-06-20] MEDS ORDERED: BENZONATATE 200 MG CAPSULE PO PRN (22:07)
[2023-06-20] MEDS ORDERED: LOPERAMIDE HCL 2 MG CAPSULE PO PRN (22:07)
[2023-06-20] MEDS ORDERED: guaiFENesin 600 MG TABLET.ER (FP) PO PRN (22:07)
[2023-06-20] MEDS ORDERED: ACETAMINOPHEN 325 MG TABLET (FP) PO PRN (22:07)
[2023-06-20] MEDS ORDERED: POLYETHYLENE GLYCOL (HEALTHYLAX) 3350 17 GM PACKET PO PRN (22:07)
[2023-06-20] MEDS ORDERED: BISMUTH SUBSALICYLATE 524 MG/30 ML PO PRN (22:07)
[2023-06-20] MEDS ORDERED: MAGNESIUM HYDROX 2400MG/30ML ORAL SUSPENSION 30 ML CUP PO PRN (22:07)
[2023-06-21] MEDS: IBUPROFEN 600 MG TABLET (FP) PO PRN (02:03)
[2023-06-21] MEDS: hydrOXYzine PAMOATE 25 MG CAPSULE (FP) PO PRN ×2 (02:08→12:08)
[2023-06-21] MEDS: ONDANSETRON *ODT* 4 MG TABLET SL PRN (02:47)
[2023-06-21] MEDS: NICOTINE 7 MG/24 HOURS TOPICAL PATCH TD SCH (09:53)
[2023-06-21] MEDS: PRENATAL VITAMINS W/ FOLIC ACID TABLET (FP) PO SCH (09:53)
[2023-06-21] MEDS: diazePAM 5 MG TABLET PO SCH ×3 (10:35→23:54)
[2023-06-21 10:48] LABS: CHLORIDE 106 mmol/L (98-107); POTASSIUM 3.8 mmol/L (3.5-5.1); SODIUM 142 mmol/L (136-145)
[2023-06-21 10:57] LABS: HEMATOCRIT 39.2 % (35.4-49); HEMOGLOBIN 13.2 GM/dL (11.7-16.9); MCH 33.6 pg (25.7-33.7); MCHC 33.6 g/dl (32.0-35.9); MEAN CELL VOLUME 99.8 fl (80-96); MEAN PLT VOLUME 8.3 fl (7.5-11.1); PLATELET COUNT 134 10^3/uL (134-434); RBC 3.92 M/mm3 (4.00-5.60); RDW 17.2 % (11.9-15.9); WHITE BLOOD COUNT 2.8 K/mm3 (4.0-10.0)
[2023-06-21 11:04] LABS: GLUCOSE,RANDOM 120 mg/dL (74-106)
[2023-06-21 11:05] LABS: ANION GAP 6 mmol/L (4-13); CO2 30 mmol/L (21-32)
[2023-06-21 11:08] LABS: SGPT/ALT 225 U/L (13-61)
[2023-06-21 11:09] LABS: CREATININE 0.8 mg/dL (0.55-1.3); SGOT/AST 339 U/L (15-37)
[2023-06-21 11:10] LABS: BILIRUBIN,TOTAL 0.2 mg/dL (0.2-1); TOT PROT 5.8 g/dl (6.4-8.2)
[2023-06-21 11:11] LABS: ALK PHOS 177 U/L (45-117)
[2023-06-21] MEDS: DICYCLOMINE HCL 10 MG CAPSULE PO PRN (12:47)
[2023-06-21] MEDS: THIAMINE HCL 100 MG TABLET (FP) PO SCH (21:26)
[2023-06-21] MEDS: SUVOREXANT 10 MG TABLET PO PRN (21:26)
[2023-06-21] MEDS: diazePAM 5 MG TABLET PO PRN (21:26)
[2023-06-21] MEDS ORDERED: MELATONIN 5 MG TABLETS PO SCH (22:00)
[2023-06-21] MEDS: METHOCARBAMOL 500 MG TABLET PO PRN (22:32)
[2023-06-22] MEDS: hydrOXYzine PAMOATE 25 MG CAPSULE (FP) PO PRN ×2 (01:27→11:56)
[2023-06-22] MEDS: diazePAM 5 MG TABLET PO SCH ×4 (05:42→22:29)
[2023-06-22] MEDS: PRENATAL VITAMINS W/ FOLIC ACID TABLET (FP) PO SCH (10:30)
[2023-06-22] MEDS: NICOTINE 7 MG/24 HOURS TOPICAL PATCH TD SCH (10:30)
[2023-06-22] MEDS: ONDANSETRON *ODT* 4 MG TABLET SL PRN (15:21)
[2023-06-22] MEDS: MAG HYDROX/AL HYDROX/SIMETH 30 ML UNIT-DOSE CUP PO PRN (20:15)
[2023-06-22] MEDS: SUVOREXANT 10 MG TABLET PO PRN (22:27)
[2023-06-22] MEDS: THIAMINE HCL 100 MG TABLET (FP) PO SCH (22:28)
[2023-06-23] MEDS: METHOCARBAMOL 500 MG TABLET PO PRN ×4 (00:25→22:21)
[2023-06-23] MEDS: IBUPROFEN 600 MG TABLET (FP) PO PRN ×3 (00:26→18:04)
[2023-06-23] MEDS: hydrOXYzine PAMOATE 25 MG CAPSULE (FP) PO PRN ×3 (01:44→23:17)
[2023-06-23] MEDS: diazePAM 5 MG TABLET PO PRN (02:37)
[2023-06-23] MEDS: diazePAM 5 MG TABLET PO SCH ×3 (05:10→22:21)
[2023-06-23] MEDS: PRENATAL VITAMINS W/ FOLIC ACID TABLET (FP) PO SCH (09:30)
[2023-06-23] MEDS: NICOTINE 7 MG/24 HOURS TOPICAL PATCH TD SCH (09:31)
[2023-06-23] MEDS: PANTOPRAZOLE 20 MG TABLET PO SCH (09:49)
[2023-06-23] MEDS: DICYCLOMINE HCL 10 MG CAPSULE PO PRN (18:04)
[2023-06-23] MEDS: MAG HYDROX/AL HYDROX/SIMETH 30 ML UNIT-DOSE CUP PO PRN (20:21)
[2023-06-23 20:38] VITALS: RESP 17
[2023-06-23] MEDS: SUVOREXANT 10 MG TABLET PO PRN (21:34)
[2023-06-23] MEDS: THIAMINE HCL 100 MG TABLET (FP) PO SCH (22:21)
[2023-06-24] MEDS: IBUPROFEN 600 MG TABLET (FP) PO PRN (01:30)
[2023-06-24] MEDS ORDERED: diazePAM 5 MG TABLET PO SCH (06:00)
[2023-06-24 09:26] VITALS: BP 116/74; PULSE 69; TEMP 98
[2023-06-24 10:17] LABS: BASO % 0.3 % (0-2.0); EOS % 1.1 % (0-4.5); HEMATOCRIT 41.7 % (35.4-49); HEMOGLOBIN 13.9 GM/dL (11.7-16.9); LYMPH % 31.6 % (8-40); MCH 33.3 pg (25.7-33.7); MCHC 33.4 g/dl (32.0-35.9); MEAN CELL VOLUME 99.8 fl (80-96); MEAN PLT VOLUME 8.6 fl (7.5-11.1); MONO % 11.2 % (3.8-10.2); NEUT % 55.8 % (42.8-82.8); PLATELET COUNT 175 10^3/uL (134-434); RBC 4.18 M/mm3 (4.00-5.60); RDW 16.4 % (11.9-15.9)
[2023-06-24] MEDS: PANTOPRAZOLE 20 MG TABLET PO SCH (10:23)
[2023-06-24] MEDS: PRENATAL VITAMINS W/ FOLIC ACID TABLET (FP) PO SCH (10:23)
[2023-06-24] MEDS: NICOTINE 7 MG/24 HOURS TOPICAL PATCH TD SCH (10:23)
[2023-06-25] MEDS ORDERED: diazePAM 5 MG TABLET PO ONE (06:00)
== END 2023-06-24 10:16 | disposition home or self-care (01) | DRG 773 ==
LOC: YASAS 20:15 → Y6N 22:34
PROVIDERS: ADMIT Allergy & Immunology; ATTEND Allergy & Immunology
PROC: HZ2ZZZZ Detoxification Services for Substance Abuse Treatment (ICD-10-PCS; principal; 2023-06-20)
DX: F11.23 Opioid dependence with withdrawal (principal); F10.230 Alcohol dependence with withdrawal, uncomplicated; F14.20 Cocaine dependence, uncomplicated; F17.210 Nicotine dependence, cigarettes, uncomplicated; F19.282 Other psychoactive substance dependence with psychoactive substance-induced sleep disorder; F19.280 Other psychoactive substance dependence with psychoactive substance-induced anxiety disorder; J10.1 Influenza due to other identified influenza virus with other respiratory manifestations; K21.9 Gastro-esophageal reflux disease without esophagitis; D72.819 Decreased white blood cell count, unspecified; R73.9 Hyperglycemia, unspecified; R74.01 Elevation of levels of liver transaminase levels; Z86.73 Personal history of transient ischemic attack (TIA), and cerebral infarction without residual deficits; Z86.69 Personal history of other diseases of the nervous system and sense organs; Z28.310 Unvaccinated for COVID-19; Z28.9 Immunization not carried out for unspecified reason
CPT/HCPCS: 0241U-QW; 36415; 80053; 80307; 83036; 84450; 85025; 85027; 86780; 87635; 93005; 93010; Q0162

== ENCOUNTER 2023-07-30 11:04 | Inpatient (IN) | payer OTHER ==
[2023-07-30] MEDS ORDERED: FOLIC ACID 1 MG TABLET (FP) ONE (12:04)
[2023-07-30] MEDS ORDERED: chlordiazePOXIDE HCL 25 MG CAPSULE ONE (12:04)
[2023-07-30] MEDS ORDERED: THIAMINE HCL 200 MG/2 ML VIAL ONE (12:04)
[2023-07-30] MEDS ORDERED: TRIMETHOBENZAMIDE HCL 200MG/2ML INJ IM ONE ×2 (12:11→18:24)
[2023-07-30] MEDS: FOLIC ACID 1 MG TABLET (FP) PO ONE (12:29)
[2023-07-30] MEDS: LACTATED RINGERS SOLUTION 1000 ML INFUS.BAG IV ONE (12:29)
[2023-07-30] MEDS: THIAMINE HCL 200 MG/2 ML VIAL IVPB ONE (12:29)
[2023-07-30] MEDS: TRIMETHOBENZAMIDE HCL 200MG/2ML INJ IM ONE (12:29)
[2023-07-30] MEDS: chlordiazePOXIDE HCL 25 MG CAPSULE PO ONE (12:29)
[2023-07-30 12:38] LABS: BASO % 0.5 % (0-2.0); EOS % 0.1 % (0-4.5); HEMATOCRIT 43.8 % (35.4-49); LYMPH % 3.7 % (8-40); MCH 33.9 pg (25.7-33.7); MCHC 34.3 g/dl (32.0-35.9); MEAN CELL VOLUME 98.9 fl (80-96); MEAN PLT VOLUME 8.3 fl (7.5-11.1); MONO % 7.7 % (3.8-10.2); PLATELET COUNT 173 10^3/uL (134-434); RBC 4.43 M/mm3 (4.00-5.60); RDW 16.1 % (11.9-15.9); WHITE BLOOD COUNT 11.6 K/mm3 (4.0-10.0)
[2023-07-30 12:42] LABS: EPI CELLS 13 /uL (0-25.1); HYALINE CASTS 0 /uL (0-3.1); PH,URINE 8.5 (5.0-8.0); URINE APPEARANCE CLEAR; URINE BACTERIA 12 /uL (0-1359); URINE BILIRUBIN 1+ (NEGATIVE); URINE COLOR DK YELLOW; URINE GLUCOSE (UA) NEGATIVE (NEGATIVE); URINE KETONE TRACE (NEGATIVE); URINE LEUK ESTERASE TRACE (NEGATIVE); URINE NITRITE NEGATIVE (NEGATIVE); URINE PROTEIN 1+ (NEGATIVE); URINE RBC 37 /uL (0-23.9); URINE WBC 45 /uL (0-25.8)
[2023-07-30 12:43] LABS: INR 0.9 (0.83-1.09); PROTHROMBIN TIME (PATIENT) 10.5 SEC (9.7-13.0)
[2023-07-30 12:46] LABS: ACTIVATED PTT 28.9 SECONDS (25.2-36.5)
[2023-07-30 13:01] LABS: POTASSIUM 4.1 mmol/L (3.5-5.1)
[2023-07-30 13:04] LABS: ALBUMIN 3.9 g/dl (3.4-5.0); CALCIUM 9.9 mg/dL (8.5-10.1); MAGNESIUM 1.9 mg/dL (1.8-2.4)
[2023-07-30 13:05] LABS: BLOOD UREA NITROGEN 19.8 mg/dL (7-18)
[2023-07-30 13:07] LABS: CREATININE 0.9 mg/dL (0.55-1.3)
[2023-07-30 13:08] LABS: PHOSPHOROUS 2.3 mg/dL (2.5-4.9)
[2023-07-30 13:09] LABS: BILIRUBIN,TOTAL 1.4 mg/dL (0.2-1); TOT PROT 7.3 g/dl (6.4-8.2)
[2023-07-30 13:30] LABS: COCAINE, UR NEGATIVE (NEGATIVE); URINE AMPHETAMINES NEGATIVE (NEGATIVE); URINE BARBITURATES NEGATIVE (NEGATIVE)
[2023-07-30 13:31] LABS: METHADONE, UR NEGATIVE (NEGATIVE); PHENCYCLIDINE,URINE NEGATIVE (NEGATIVE); URINE BENZODIAZEPINES NEGATIVE (NEGATIVE)
[2023-07-30 13:33] LABS: OPIATES, URI POSITIVE (NEGATIVE)
[2023-07-30] MEDS ORDERED: ASPIRIN 81 MG CHEWABLE TABLETS ONE (13:34)
[2023-07-30] MEDS: ASPIRIN 81 MG CHEWABLE TABLETS PO ONE (13:35)
[2023-07-30] MEDS ORDERED: ACETAMINOPHEN 325 MG TABLET (FP) PO PRN (15:29)
[2023-07-30] MEDS ORDERED: TRIMETHOBENZAMIDE HCL 200MG/2ML INJ IM PRN (18:11)
[2023-07-30] MEDS ORDERED: ACETAMINOPHEN 325 MG TABLET (FP) ONE (18:31)
[2023-07-30] MEDS ORDERED: LORazepam 1 MG TABLET PO PRN (23:08)
[2023-07-30] MEDS: MAGNESIUM SULF 50% (8.12 MEQ/2 ML-1 GM VIAL) IVPB ONE (23:13)
[2023-07-30] MEDS: GABAPENTIN 100 MG CAPSULE PO ONE (23:41)
[2023-07-31] MEDS: LORazepam 1 MG TABLET PO SCH (00:02)
[2023-07-31 00:25] VITALS: RESP 20
[2023-07-31 01:29] VITALS: BMI 22.4
[2023-07-31] MEDS: ENOXAPARIN NA (PORCINE) 40 MG/0.4 ML DISP.SYRIN SQ SCH (10:27)
[2023-07-31] MEDS: THIAMINE HCL 200 MG/2 ML VIAL IM SCH (10:28)
[2023-07-31] MEDS: NICOTINE 14 MG/24 HOURS TOPICAL PATCH TD SCH (10:28)
[2023-07-31] MEDS: FOLIC ACID 1 MG TABLET (FP) PO SCH (10:28)
[2023-07-31] MEDS: ASPIRIN 81 MG CHEWABLE TABLETS PO SCH (10:28)
[2023-07-31 11:44] LABS: POTASSIUM 3.2 mmol/L (3.5-5.1)
[2023-07-31 11:46] LABS: CALCIUM 9.5 mg/dL (8.5-10.1)
[2023-07-31 11:50] LABS: CREATININE 0.8 mg/dL (0.55-1.3); PHOSPHOROUS 2.8 mg/dL (2.5-4.9)
[2023-07-31 12:17] LABS: INR 0.97 (0.83-1.09); PROTHROMBIN TIME (PATIENT) 11.2 SEC (9.7-13.0)
[2023-07-31 14:26] LABS: MAGNESIUM 1.9 mg/dL (1.8-2.4)
[2023-07-31 15:46] VITALS: BP 124/76; PULSE 74; TEMP 98.1
[2023-08-01] MEDS ORDERED: LORazepam 1 MG TABLET PO SCH (05:00)
[2023-08-02] MEDS ORDERED: LORazepam 0.5 MG TABLET PO PRN
[2023-08-02] MEDS ORDERED: LORazepam 0.5 MG TABLET PO SCH (05:00)
[2023-08-03] MEDS ORDERED: LORazepam 0.5 MG TABLET PO ONE (05:00)
== END 2023-07-31 18:08 | disposition left against medical advice (07) | DRG 770 ==
LOC: JER 11:04 → JERBED 13:35 → J4W 21:14 → OBSVTOIN 07-31 09:11
PROVIDERS: ADMIT Internal Medicine; ATTEND Internal Medicine
DX: F11.23 Opioid dependence with withdrawal (principal); I21.4 Non-ST elevation (NSTEMI) myocardial infarction; G25.81 Restless legs syndrome; F10.230 Alcohol dependence with withdrawal, uncomplicated; K21.9 Gastro-esophageal reflux disease without esophagitis; F32.A Depression, unspecified; F41.9 Anxiety disorder, unspecified; F20.9 Schizophrenia, unspecified; Z86.73 Personal history of transient ischemic attack (TIA), and cerebral infarction without residual deficits; R94.31 Abnormal electrocardiogram [ECG] [EKG]
CPT/HCPCS: 0241U-QW; 36415; 71045-TC-FY; 76705-TC; 80048; 80053; 80061; 80305; 80307; 81003; 82962; 83735; 84100; 84484; 85025; 85610; 85730; 86850; 86900; 86901; 87086; 87635; 87811; 93005; 93010; 93306-TC; 99285-25; G0378

== ENCOUNTER 2023-08-13 00:48 | Inpatient (IN) | payer OTHER ==
[2023-08-13 01:13] VITALS: BMI 22.8
[2023-08-13] MEDS ORDERED: IBUPROFEN 400 MG TABLET (FP) PO PRN (01:35)
[2023-08-13] MEDS ORDERED: NALOXONE HCL (KLOXXADO) 8 MG SPRAY NS PRN (01:35)
[2023-08-13] MEDS ORDERED: LOPERAMIDE HCL 2 MG CAPSULE PO PRN (01:35)
[2023-08-13] MEDS ORDERED: BENZOCAINE/MENTHOL (CHLORASEPTIC ) LOZENGE MM PRN (01:35)
[2023-08-13] MEDS ORDERED: NALOXONE HCL 0.4 MG/ML VIAL IM PRN (01:35)
[2023-08-13] MEDS ORDERED: BENZONATATE 200 MG CAPSULE PO PRN (01:35)
[2023-08-13] MEDS ORDERED: guaiFENesin 600 MG TABLET.ER (FP) PO PRN (01:35)
[2023-08-13] MEDS ORDERED: NICOTINE POLACRILEX 2 MG GUM BUC PRN (01:35)
[2023-08-13] MEDS ORDERED: MAGNESIUM HYDROX 2400MG/30ML ORAL SUSPENSION 30 ML CUP PO PRN (01:35)
[2023-08-13] MEDS ORDERED: BISMUTH SUBSALICYLATE 524 MG/30 ML PO PRN (01:35)
[2023-08-13] MEDS ORDERED: POLYETHYLENE GLYCOL (HEALTHYLAX) 3350 17 GM PACKET PO PRN (01:35)
[2023-08-13] MEDS ORDERED: ONDANSETRON *ODT* 4 MG TABLET SL PRN (01:35)
[2023-08-13] MEDS: TRIMETHOBENZAMIDE HCL 200MG/2ML INJ IM ONE (02:10)
[2023-08-13] MEDS: chlordiazePOXIDE HCL 25 MG CAPSULE PO SCH (05:42)
[2023-08-13] MEDS: PRENATAL VITAMINS W/ FOLIC ACID TABLET (FP) PO SCH (09:34)
[2023-08-13] MEDS: PANTOPRAZOLE 20 MG TABLET PO SCH (09:34)
[2023-08-13] MEDS: NICOTINE 14 MG/24 HOURS TOPICAL PATCH TD SCH (09:35)
[2023-08-13] MEDS: methaDONE HCL 10 MG TABLET (FOR DETOX USE ONLY) PO ONE (09:35)
[2023-08-13 12:17] LABS: CHLORIDE 102 mmol/L (98-107); POTASSIUM 3.9 mmol/L (3.5-5.1); SODIUM 143 mmol/L (136-145)
[2023-08-13 12:18] LABS: HEMATOCRIT 39.4 % (35.4-49); HEMOGLOBIN 13.4 GM/dL (11.7-16.9); MCH 33.8 pg (25.7-33.7); MCHC 34.1 g/dl (32.0-35.9); MEAN CELL VOLUME 99.2 fl (80-96); MEAN PLT VOLUME 7.8 fl (7.5-11.1); PLATELET COUNT 145 10^3/uL (134-434); RBC 3.97 M/mm3 (4.00-5.60); RDW 15.9 % (11.9-15.9); WHITE BLOOD COUNT 5.3 K/mm3 (4.0-10.0)
[2023-08-13 12:22] LABS: ALBUMIN 3.2 g/dl (3.4-5.0); ANION GAP 8 mmol/L (4-13); CALCIUM 8.7 mg/dL (8.5-10.1); CO2 33 mmol/L (21-32); GLUCOSE,RANDOM 92 mg/dL (74-106)
[2023-08-13 12:23] LABS: BLOOD UREA NITROGEN 17.6 mg/dL (7-18)
[2023-08-13 12:25] LABS: SGPT/ALT 50 U/L (13-61)
[2023-08-13 12:26] LABS: CREATININE 0.7 mg/dL (0.55-1.3); SGOT/AST 80 U/L (15-37)
[2023-08-13 12:27] LABS: BILIRUBIN,TOTAL 0.7 mg/dL (0.2-1); TOT PROT 6.2 g/dl (6.4-8.2)
[2023-08-13 12:35] LABS: ALK PHOS 132 U/L (45-117)
[2023-08-13] MEDS: DICYCLOMINE HCL 10 MG CAPSULE PO PRN (18:36)
[2023-08-13] MEDS: chlordiazePOXIDE HCL 25 MG CAPSULE PO PRN (20:04)
[2023-08-13] MEDS: THIAMINE HCL 100 MG TABLET (FP) PO SCH (22:28)
[2023-08-13] MEDS: MELATONIN 5 MG TABLETS PO SCH (22:28)
[2023-08-13] MEDS: MAG HYDROX/AL HYDROX/SIMETH 30 ML UNIT-DOSE CUP PO PRN (23:07)
[2023-08-14] MEDS: TRIMETHOBENZAMIDE HCL 200MG/2ML INJ IM PRN (01:15)
[2023-08-14] MEDS: cloNIDine HCL 0.1 MG TABLET PO PRN (02:22)
[2023-08-14] MEDS: SIMETHICONE 80 MG TAB.CHEW (FP) PO PRN (03:08)
[2023-08-14] MEDS: chlordiazePOXIDE HCL 25 MG CAPSULE PO SCH (05:32)
[2023-08-14] MEDS: IBUPROFEN 600 MG TABLET (FP) PO PRN (07:11)
[2023-08-14] MEDS: methaDONE HCL 10 MG TABLET (FOR DETOX USE ONLY) PO ONE (09:16)
[2023-08-15] MEDS: ASPIRIN COATED 81 MG TABLET.EC PO ONE (01:17)
[2023-08-15] MEDS: chlordiazePOXIDE HCL 10 MG CAPSULE PO PRN (03:33)
[2023-08-15] MEDS: ACETAMINOPHEN 325 MG TABLET (FP) PO PRN (03:34)
[2023-08-15] MEDS: chlordiazePOXIDE HCL 10 MG CAPSULE PO SCH (05:59)
[2023-08-15 08:52] VITALS: RESP 18
[2023-08-15 09:56] VITALS: BP 113/74; PULSE 63; TEMP 98.7
[2023-08-15] MEDS ORDERED: ASPIRIN COATED 81 MG TABLET.EC PO SCH (10:00)
[2023-08-15] MEDS ORDERED: methaDONE HCL 10 MG TABLET (FOR DETOX USE ONLY) PO ONE (10:00)
[2023-08-16] MEDS ORDERED: chlordiazePOXIDE HCL 10 MG CAPSULE PO SCH (05:00)
[2023-08-17] MEDS ORDERED: chlordiazePOXIDE HCL 10 MG CAPSULE PO ONE (05:00)
[2023-08-17] MEDS ORDERED: methaDONE HCL 10 MG TABLET (FOR DETOX USE ONLY) PO ONE (10:00)
== END 2023-08-15 15:58 | disposition short-term general hospital (02) | DRG 773 ==
LOC: YASAS 00:48 → Y3N 01:39
PROVIDERS: ADMIT Allergy & Immunology; ATTEND Allergy & Immunology
PROC: HZ2ZZZZ Detoxification Services for Substance Abuse Treatment (ICD-10-PCS; principal; 2023-08-13)
DX: F11.23 Opioid dependence with withdrawal (principal); F10.230 Alcohol dependence with withdrawal, uncomplicated; F17.210 Nicotine dependence, cigarettes, uncomplicated; F19.24 Other psychoactive substance dependence with psychoactive substance-induced mood disorder; K21.9 Gastro-esophageal reflux disease without esophagitis; R07.9 Chest pain, unspecified; R94.31 Abnormal electrocardiogram [ECG] [EKG]; R79.89 Other specified abnormal findings of blood chemistry; R00.1 Bradycardia, unspecified; Z86.73 Personal history of transient ischemic attack (TIA), and cerebral infarction without residual deficits; Z86.61 Personal history of infections of the central nervous system; Z56.0 Unemployment, unspecified; Z59.01 Sheltered homelessness
CPT/HCPCS: 36415; 80053; 80305; 80307; 85027; 86780; 87635; 93005; 93010

== ENCOUNTER 2023-08-15 10:27 | Observation (INO) | payer OTHER ==
[~2023-08-15 10:27] MED LIST: chlordiazePOXIDE HCL 10 MG CAPSULE PO SCH
[2023-08-15 10:52] VITALS: BMI 19.8
[2023-08-15 11:36] LABS: BASO % 0.9 % (0-2.0); EOS % 0.2 % (0-4.5); HEMATOCRIT 39.8 % (35.4-49); HEMOGLOBIN 13.5 GM/dL (11.7-16.9); LYMPH % 13.6 % (8-40); MCH 33.6 pg (25.7-33.7); MCHC 33.9 g/dl (32.0-35.9); MEAN CELL VOLUME 99.2 fl (80-96); MEAN PLT VOLUME 10.1 fl (7.5-11.1); MONO % 7.2 % (3.8-10.2); NEUT % 78.1 % (42.8-82.8); PLATELET COUNT 160 10^3/uL (134-434); RBC 4.01 M/mm3 (4.00-5.60); RDW 16.6 % (11.9-15.9)
[2023-08-15 11:52] LABS: CHLORIDE 103 mmol/L (98-107); SODIUM 128 mmol/L (136-145)
[2023-08-15 11:54] LABS: BLOOD UREA NITROGEN 17.3 mg/dL (7-18); CALCIUM 8.2 mg/dL (8.5-10.1); CO2 28 mmol/L (21-32); GLUCOSE,RANDOM 84 mg/dL (74-106); MAGNESIUM 2.1 mg/dL (1.8-2.4)
[2023-08-15 11:57] LABS: CREATININE 0.8 mg/dL (0.55-1.3)
[2023-08-15 12:00] LABS: ALK PHOS 115 U/L (45-117); TOT PROT 7.2 g/dl (6.4-8.2)
[2023-08-15 12:20] LABS: ALBUMIN 2.4 g/dl (3.4-5.0); ANION GAP -3 mmol/L (4-13); POTASSIUM > 10.0 mmol/L (3.5-5.1)
[2023-08-15] MEDS: ASPIRIN 81 MG CHEWABLE TABLETS PO ONE (12:39)
[2023-08-15 13:00] LABS: INR 1.01 (0.83-1.09); PROTHROMBIN TIME (PATIENT) 11.7 SEC (9.7-13.0)
[2023-08-15 13:03] LABS: ACTIVATED PTT 28.7 SECONDS (25.2-36.5)
[2023-08-15 13:06] LABS: POTASSIUM 3.6 mmol/L (3.5-5.1)
[2023-08-15 13:08] LABS: CALCIUM 8.8 mg/dL (8.5-10.1)
[2023-08-15 13:10] LABS: ALBUMIN 2.9 g/dl (3.4-5.0)
[2023-08-15 13:12] LABS: CREATININE 0.8 mg/dL (0.55-1.3)
[2023-08-15 13:13] LABS: BILIRUBIN,TOTAL 0.7 mg/dL (0.2-1); TOT PROT 5.7 g/dl (6.4-8.2)
[2023-08-15] MEDS ORDERED: ACETAMINOPHEN 325 MG TABLET (FP) ONE (19:11)
[2023-08-15] MEDS ORDERED: chlordiazePOXIDE HCL 10 MG CAPSULE ONE ×2 (19:11→21:51)
[2023-08-15] MEDS: ACETAMINOPHEN 325 MG TABLET (FP) PO PRN (19:18)
[2023-08-15] MEDS: chlordiazePOXIDE HCL 10 MG CAPSULE PO SCH (19:18)
[2023-08-15] MEDS ORDERED: ONDANSETRON 4 MG/2 ML VIAL IVPUSH PRN (20:15)
[2023-08-15] MEDS ORDERED: PANTOPRAZOLE SODIUM 40 MG VIAL ONE (21:51)
[2023-08-15] MEDS: SODIUM CHLORIDE 1,000 ML IV SCH (22:00)
[2023-08-15] MEDS: PANTOPRAZOLE SODIUM 40 MG VIAL IVPUSH SCH (22:08)
[2023-08-16] MEDS: chlordiazePOXIDE HCL 10 MG CAPSULE PO SCH (04:59)
[2023-08-16 08:02] LABS: HEMATOCRIT 40.2 % (35.4-49); HEMOGLOBIN 13.2 GM/dL (11.7-16.9); MCH 33.1 pg (25.7-33.7); MCHC 32.8 g/dl (32.0-35.9); MEAN CELL VOLUME 100.9 fl (80-96); MEAN PLT VOLUME 9.4 fl (7.5-11.1); PLATELET COUNT 88 10^3/uL (134-434); RBC 3.98 M/mm3 (4.00-5.60); RDW 15.9 % (11.9-15.9); WHITE BLOOD COUNT 6.7 K/mm3 (4.0-10.0)
[2023-08-16 08:19] LABS: POTASSIUM 3.7 mmol/L (3.5-5.1)
[2023-08-16 08:22] LABS: CALCIUM 8.6 mg/dL (8.5-10.1)
[2023-08-16 08:23] LABS: ALBUMIN 2.8 g/dl (3.4-5.0); BLOOD UREA NITROGEN 16.8 mg/dL (7-18)
[2023-08-16 08:25] LABS: CREATININE 0.7 mg/dL (0.55-1.3); PHOSPHOROUS 3.8 mg/dL (2.5-4.9)
[2023-08-16 08:27] LABS: BILIRUBIN,TOTAL 0.7 mg/dL (0.2-1); TOT PROT 5.6 g/dl (6.4-8.2)
[2023-08-16] MEDS: ENOXAPARIN NA (PORCINE) 40 MG/0.4 ML DISP.SYRIN SQ SCH (10:00)
[2023-08-16] MEDS ORDERED: REGADENOSON 0.4 MG/5 ML PRE-FILLED SYRINGE IVPUSH ONE (13:32)
[2023-08-16] MEDS: REGADENOSON 0.4 MG/5 ML PRE-FILLED SYRINGE IVPUSH ONE (13:59)
[2023-08-17] MEDS: chlordiazePOXIDE HCL 10 MG CAPSULE PO ONE (05:20)
[2023-08-17] MEDS: methaDONE HCL 10 MG TABLET PO ONE (08:21)
[2023-08-17 08:43] LABS: HEMATOCRIT 40.2 % (35.4-49); HEMOGLOBIN 13.6 GM/dL (11.7-16.9); MCH 33.6 pg (25.7-33.7); MCHC 33.8 g/dl (32.0-35.9); MEAN CELL VOLUME 99.4 fl (80-96); PLATELET COUNT 107 10^3/uL (134-434); RBC 4.04 M/mm3 (4.00-5.60); RDW 15.7 % (11.9-15.9); WHITE BLOOD COUNT 6.6 K/mm3 (4.0-10.0)
[2023-08-17 08:57] LABS: POTASSIUM 3.6 mmol/L (3.5-5.1)
[2023-08-17 09:01] LABS: ALBUMIN 2.8 g/dl (3.4-5.0); BLOOD UREA NITROGEN 21.5 mg/dL (7-18); MAGNESIUM 1.8 mg/dL (1.8-2.4)
[2023-08-17] MEDS: KETOROLAC TROMETHAMINE 15 MG/ML VIAL IVPUSH PRN (09:02)
[2023-08-17 09:04] LABS: CREATININE 0.9 mg/dL (0.55-1.3); PHOSPHOROUS 4.2 mg/dL (2.5-4.9)
[2023-08-17 09:07] LABS: BILIRUBIN,TOTAL 0.8 mg/dL (0.2-1); TOT PROT 5.6 g/dl (6.4-8.2)
[2023-08-18] MEDS ORDERED: chlordiazePOXIDE HCL 10 MG CAPSULE PO PRN
[2023-08-18 07:52] LABS: POTASSIUM 3.8 mmol/L (3.5-5.1)
[2023-08-18 08:01] LABS: ALBUMIN 2.7 g/dl (3.4-5.0); BLOOD UREA NITROGEN 32.8 mg/dL (7-18)
[2023-08-18 08:03] LABS: CALCIUM 7.9 mg/dL (8.5-10.1); MAGNESIUM 1.9 mg/dL (1.8-2.4)
[2023-08-18 08:04] LABS: PHOSPHOROUS 3.6 mg/dL (2.5-4.9)
[2023-08-18 08:05] LABS: CREATININE 0.9 mg/dL (0.55-1.3)
[2023-08-18 08:06] LABS: BILIRUBIN,TOTAL 0.8 mg/dL (0.2-1); TOT PROT 5.4 g/dl (6.4-8.2)
[2023-08-18 08:32] LABS: HEMATOCRIT 38.5 % (35.4-49); HEMOGLOBIN 12.8 GM/dL (11.7-16.9); MCH 33.6 pg (25.7-33.7); MCHC 33.2 g/dl (32.0-35.9); MEAN CELL VOLUME 101.3 fl (80-96); MEAN PLT VOLUME 8.9 fl (7.5-11.1); PLATELET COUNT 120 10^3/uL (134-434); RBC 3.81 M/mm3 (4.00-5.60); RDW 15.7 % (11.9-15.9); WHITE BLOOD COUNT 5.8 K/mm3 (4.0-10.0)
[2023-08-18] MEDS: QUEtiapine FUMARATE 25 MG TABLET PO SCH (21:15)
[2023-08-18 22:05] VITALS: RESP 18
[2023-08-19 08:24] LABS: ALBUMIN 2.7 g/dl (3.4-5.0); BLOOD UREA NITROGEN 30.1 mg/dL (7-18); CALCIUM 8.2 mg/dL (8.5-10.1); MAGNESIUM 1.9 mg/dL (1.8-2.4)
[2023-08-19 08:27] LABS: CREATININE 0.9 mg/dL (0.55-1.3)
[2023-08-19 08:28] LABS: BILIRUBIN,TOTAL 0.8 mg/dL (0.2-1); TOT PROT 5.5 g/dl (6.4-8.2)
[2023-08-19 08:52] LABS: HEMATOCRIT 38.7 % (35.4-49); HEMOGLOBIN 12.8 GM/dL (11.7-16.9); MCH 33.4 pg (25.7-33.7); MCHC 33.1 g/dl (32.0-35.9); MEAN PLT VOLUME 8.6 fl (7.5-11.1); PLATELET COUNT 148 10^3/uL (134-434); RBC 3.83 M/mm3 (4.00-5.60); RDW 15.6 % (11.9-15.9)
[2023-08-19] MEDS: KETOROLAC TROMETHAMINE 15 MG/ML VIAL IVPUSH ONE (09:24)
[2023-08-19 14:03] VITALS: BP 136/89; PULSE 68; TEMP 98.1
== END 2023-08-19 14:15 | disposition other institution (70) ==
LOC: JER 10:27 → JERBED 14:05 → J4S 08-16 00:50
PROVIDERS: ADMIT Internal Medicine; ATTEND Psychiatry & Neurology Pain Medicine
PROC: 3E0333Z Introduction of Anti-inflammatory into Peripheral Vein, Percutaneous Approach (ICD-10-PCS; principal; 2023-08-15)
PROC: 3E033GC Introduction of Other Therapeutic Substance into Peripheral Vein, Percutaneous Approach (ICD-10-PCS; 2023-08-15)
DX: I50.20 Unspecified systolic (congestive) heart failure (principal); R00.1 Bradycardia, unspecified; R94.31 Abnormal electrocardiogram [ECG] [EKG]; K21.9 Gastro-esophageal reflux disease without esophagitis; R42 Dizziness and giddiness; G25.81 Restless legs syndrome; K29.20 Alcoholic gastritis without bleeding; Z86.73 Personal history of transient ischemic attack (TIA), and cerebral infarction without residual deficits; Z86.61 Personal history of infections of the central nervous system; F17.200 Nicotine dependence, unspecified, uncomplicated; F19.99 Other psychoactive substance use, unspecified with unspecified psychoactive substance-induced disorder
CPT/HCPCS: 36415; 71045-TC-FY; 78452-TC; 80053; 83735; 83880; 84100; 84484; 85025; 85027; 85610; 85730; 87635; 93005; 93010; 93017; 96374; 96375; 96376; 99285-25; A9502; G0378; J2785

== ENCOUNTER 2023-08-19 15:03 | Inpatient (IN) | payer OTHER ==
[2023-08-19 15:39] VITALS: BMI 22.8
[2023-08-19] MEDS ORDERED: guaiFENesin 600 MG TABLET.ER (FP) PO PRN (19:32)
[2023-08-19] MEDS ORDERED: MAGNESIUM HYDROX 2400MG/30ML ORAL SUSPENSION 30 ML CUP PO PRN (19:32)
[2023-08-19] MEDS ORDERED: NICOTINE POLACRILEX 2 MG GUM BUC PRN (19:32)
[2023-08-19] MEDS ORDERED: BENZOCAINE/MENTHOL (CHLORASEPTIC ) LOZENGE MM PRN (19:32)
[2023-08-19] MEDS ORDERED: P-EPHED 60MG/TRIPROLIDI 2.5MG TABLET PO PRN (19:32)
[2023-08-19] MEDS ORDERED: MAG HYDROX/AL HYDROX/SIMETH 30 ML UNIT-DOSE CUP PO PRN (19:32)
[2023-08-19] MEDS ORDERED: LOPERAMIDE HCL 2 MG CAPSULE PO PRN (19:32)
[2023-08-19] MEDS ORDERED: BENZONATATE 200 MG CAPSULE PO PRN (19:32)
[2023-08-19] MEDS ORDERED: POLYETHYLENE GLYCOL (HEALTHYLAX) 3350 17 GM PACKET PO PRN (19:32)
[2023-08-19] MEDS: MELATONIN 5 MG TABLETS PO SCH (21:23)
[2023-08-19] MEDS: THIAMINE HCL 100 MG TABLET (FP) PO SCH (21:23)
[2023-08-19] MEDS: IBUPROFEN 600 MG TABLET (FP) PO PRN (21:24)
[2023-08-20] MEDS: PANTOPRAZOLE 40 MG TABLET PO SCH (06:51)
[2023-08-20] MEDS: METHOCARBAMOL 500 MG TABLET PO PRN (06:52)
[2023-08-20] MEDS: PRENATAL VITAMINS W/ FOLIC ACID TABLET (FP) PO SCH (09:39)
[2023-08-20] MEDS: hydrOXYzine PAMOATE 25 MG CAPSULE (FP) PO PRN (21:45)
[2023-08-21] MEDS: SUVOREXANT 5 MG TABLET PO PRN (21:19)
[2023-08-22] MEDS: ACETAMINOPHEN 325 MG TABLET (FP) PO PRN (01:14)
[2023-08-23] MEDS ORDERED: SUVOREXANT 10 MG TABLET PO PRN (08:28)
[2023-08-23] MEDS: SUVOREXANT 10 MG TABLET PO PRN (21:09)
[2023-08-25] MEDS: IBUPROFEN 400 MG TABLET (FP) PO PRN (21:20)
[2023-08-25] MEDS: SUVOREXANT 15 MG TABLET PO PRN (21:21)
[2023-08-26 08:05] VITALS: BP 131/89; PULSE 71; RESP 17; TEMP 97.7
== END 2023-08-26 10:30 | disposition home or self-care (01) | DRG 772 ==
LOC: YASAS 15:03 → Y3E 19:32
PROVIDERS: ADMIT Allergy & Immunology; ATTEND Psychiatry & Neurology Pain Medicine
PROC: HZ42ZZZ Group Counseling for Substance Abuse Treatment, Cognitive-Behavioral (ICD-10-PCS; principal; 2023-08-19)
DX: F10.20 Alcohol dependence, uncomplicated (principal); F14.20 Cocaine dependence, uncomplicated; F17.210 Nicotine dependence, cigarettes, uncomplicated; G47.00 Insomnia, unspecified; K21.9 Gastro-esophageal reflux disease without esophagitis; R07.9 Chest pain, unspecified; R00.1 Bradycardia, unspecified; Z86.73 Personal history of transient ischemic attack (TIA), and cerebral infarction without residual deficits; Z28.310 Unvaccinated for COVID-19; Z28.9 Immunization not carried out for unspecified reason
CPT/HCPCS: 80305

== ENCOUNTER 2023-10-07 11:17 | Inpatient (IN) | payer OTHER ==
[2023-10-07 12:00] VITALS: BMI 21.2
[2023-10-07] MEDS ORDERED: LOPERAMIDE HCL 2 MG CAPSULE PO PRN (12:24)
[2023-10-07] MEDS ORDERED: POLYETHYLENE GLYCOL (HEALTHYLAX) 3350 17 GM PACKET PO PRN (12:24)
[2023-10-07] MEDS ORDERED: DICYCLOMINE HCL 10 MG CAPSULE PO PRN (12:24)
[2023-10-07] MEDS ORDERED: NALOXONE HCL (KLOXXADO) 8 MG SPRAY NS PRN (12:24)
[2023-10-07] MEDS ORDERED: guaiFENesin 600 MG TABLET.ER (FP) PO PRN (12:24)
[2023-10-07] MEDS ORDERED: BISMUTH SUBSALICYLATE 262 MG/15 ML BTL PO PRN (12:24)
[2023-10-07] MEDS ORDERED: MAGNESIUM HYDROX 2400MG/30ML ORAL SUSPENSION 30 ML CUP PO PRN (12:24)
[2023-10-07] MEDS ORDERED: BENZOCAINE/MENTHOL (CHLORASEPTIC ) LOZENGE MM PRN (12:24)
[2023-10-07] MEDS ORDERED: NALOXONE HCL 0.4 MG/ML VIAL IM PRN (12:24)
[2023-10-07] MEDS ORDERED: IBUPROFEN 600 MG TABLET (FP) PO PRN (12:24)
[2023-10-07] MEDS ORDERED: BENZONATATE 200 MG CAPSULE PO PRN (12:24)
[2023-10-07] MEDS ORDERED: ONDANSETRON *ODT* 4 MG TABLET SL PRN (12:24)
[2023-10-07] MEDS ORDERED: NICOTINE 21 MG/24 HOURS TOPICAL PATCH ONE (13:09)
[2023-10-07] MEDS: NICOTINE 21 MG/24 HOURS TOPICAL PATCH TD SCH (13:12)
[2023-10-07] MEDS: hydrOXYzine PAMOATE 25 MG CAPSULE (FP) PO PRN (19:25)
[2023-10-07] MEDS ORDERED: MELATONIN 5 MG TABLETS PO SCH (22:00)
[2023-10-07] MEDS: SUVOREXANT 10 MG TABLET PO PRN (22:18)
[2023-10-07] MEDS: METHOCARBAMOL 500 MG TABLET PO PRN (22:18)
[2023-10-07] MEDS: THIAMINE 100 MG TABLET PO SCH (22:18)
[2023-10-08] MEDS: PRENATAL VITAMINS W/ FOLIC ACID TABLET (FP) PO SCH (09:12)
[2023-10-08] MEDS: ACETAMINOPHEN 325 MG TABLET (FP) PO PRN (10:38)
[2023-10-08 11:48] LABS: POTASSIUM 3.5 mmol/L (3.5-5.1)
[2023-10-08 11:58] LABS: HEMATOCRIT 44.7 % (35.4-49); MCH 33.6 pg (25.7-33.7); MCHC 33.6 g/dl (32.0-35.9); MEAN CELL VOLUME 100.1 fl (80-96); MEAN PLT VOLUME 8.4 fl (7.5-11.1); PLATELET COUNT 240 10^3/uL (134-434); RBC 4.47 M/mm3 (4.00-5.60); RDW 15.7 % (11.9-15.9); WHITE BLOOD COUNT 7.9 K/mm3 (4.0-10.0)
[2023-10-08 12:01] LABS: CALCIUM 9.4 mg/dL (8.5-10.1)
[2023-10-08 12:03] LABS: BLOOD UREA NITROGEN 17.6 mg/dL (7-18)
[2023-10-08 12:07] LABS: BILIRUBIN,TOTAL 0.6 mg/dL (0.2-1); TOT PROT 7.2 g/dl (6.4-8.2)
[2023-10-08] MEDS: MAG HYDROX/AL HYDROX/SIMETH 30 ML UNIT-DOSE CUP PO PRN (16:42)
[2023-10-09] MEDS: IBUPROFEN 400 MG TABLET (FP) PO PRN (00:03)
[2023-10-09 13:09] VITALS: BP 114/71; PULSE 84; RESP 16; TEMP 97.6
== END 2023-10-09 12:55 | disposition other institution (70) | DRG 774 ==
LOC: YASAS 11:17 → Y6N 12:48
PROVIDERS: ADMIT Allergy & Immunology; ATTEND Surgery
PROC: HZ2ZZZZ Detoxification Services for Substance Abuse Treatment (ICD-10-PCS; principal; 2023-10-07)
DX: F10.230 Alcohol dependence with withdrawal, uncomplicated (principal); F14.20 Cocaine dependence, uncomplicated; F17.210 Nicotine dependence, cigarettes, uncomplicated; F19.282 Other psychoactive substance dependence with psychoactive substance-induced sleep disorder; F19.24 Other psychoactive substance dependence with psychoactive substance-induced mood disorder; K21.9 Gastro-esophageal reflux disease without esophagitis; G40.509 Epileptic seizures related to external causes, not intractable, without status epilepticus; Z28.310 Unvaccinated for COVID-19; Z28.9 Immunization not carried out for unspecified reason; Z86.73 Personal history of transient ischemic attack (TIA), and cerebral infarction without residual deficits; Z86.61 Personal history of infections of the central nervous system; Z56.0 Unemployment, unspecified; Z59.00 Homelessness unspecified
CPT/HCPCS: 36415; 80053; 80305; 80307; 82140; 85027; 86780; 87811; 93005; 93010

== ENCOUNTER 2024-04-13 20:56 | Emergency (ER) | payer OTHER ==
[2024-04-13 21:01] VITALS: BP 112/74; PULSE 87; RESP 16; TEMP 97.6; BMI 21.2
[2024-04-13] MEDS ORDERED: LIDOCAINE 4% PATCH TP ONE (21:27)
[2024-04-13] MEDS ORDERED: KETOROLAC TROMETHAMINE 30 MG/1 ML VIAL ONE (21:27)
[2024-04-13] MEDS ORDERED: ACETAMINOPHEN 500 MG TABLET (FP) ONE (21:27)
[2024-04-13] MEDS: ACETAMINOPHEN 500 MG TABLET (FP) PO ONE (21:33)
[2024-04-13] MEDS: KETOROLAC TROMETHAMINE 30 MG/1 ML VIAL IM ONE (21:34)
[2024-04-13] MEDS: LIDOCAINE 4% PATCH TP ONE (21:34)
[2024-04-13] MEDS: LIDOCAINE PATCH REMOVAL MC SCH (23:33)
== END 2024-04-14 00:16 | disposition home or self-care (01) ==
LOC: JER 20:56 → JERFT 20:56 → JER 04-14 00:16
PROC: 3E0133Z Introduction of Anti-inflammatory into Subcutaneous Tissue, Percutaneous Approach (ICD-10-PCS; principal; 2024-04-13)
DX: M54.50 Low back pain, unspecified (principal)
CPT/HCPCS: 72100-TC-FY; 99284-25

== ENCOUNTER 2024-05-12 08:18 | Inpatient (IN) | payer OTHER ==
[2024-05-12] MEDS ORDERED: BISMUTH SUBSALICYLATE 262 MG/15 ML BTL PO PRN (08:40)
[2024-05-12] MEDS ORDERED: MAG HYDROX/AL HYDROX/SIMETH 30 ML UNIT-DOSE CUP PO PRN (08:40)
[2024-05-12] MEDS ORDERED: ONDANSETRON *ODT* 4 MG TABLET SL PRN (08:40)
[2024-05-12] MEDS ORDERED: BENZOCAINE/MENTHOL (CHLORASEPTIC ) LOZENGE MM PRN (08:40)
[2024-05-12] MEDS ORDERED: hydrOXYzine PAMOATE 25 MG CAPSULE (FP) PO PRN (08:40)
[2024-05-12] MEDS ORDERED: MAGNESIUM HYDROX 2400MG/30ML ORAL SUSPENSION 30 ML CUP PO PRN (08:40)
[2024-05-12] MEDS ORDERED: DICYCLOMINE HCL 10 MG CAPSULE PO PRN (08:40)
[2024-05-12] MEDS ORDERED: POLYETHYLENE GLYCOL (HEALTHYLAX) 3350 17 GM PACKET PO PRN (08:40)
[2024-05-12] MEDS ORDERED: BENZONATATE 200 MG CAPSULE PO PRN (08:40)
[2024-05-12] MEDS ORDERED: IBUPROFEN 400 MG TABLET (FP) PO PRN (08:40)
[2024-05-12] MEDS ORDERED: NALOXONE (NARCAN) HCL 4 MG/0.1 ML SPRAY NS PRN (08:40)
[2024-05-12] MEDS ORDERED: LOPERAMIDE HCL 2 MG CAPSULE PO PRN (08:40)
[2024-05-12] MEDS ORDERED: guaiFENesin 600 MG TABLET.ER (FP) PO PRN (08:40)
[2024-05-12 08:46] VITALS: BMI 24.4
[2024-05-12] MEDS ORDERED: chlordiazePOXIDE HCL 25 MG CAPSULE PO PRN (08:49)
[2024-05-12] MEDS ORDERED: NICOTINE POLACRILEX 4 MG GUM BUC PRN (08:49)
[2024-05-12] MEDS ORDERED: chlordiazePOXIDE HCL 25 MG CAPSULE ONE (10:00)
[2024-05-12] MEDS ORDERED: NICOTINE 21 MG/24 HOURS TOPICAL PATCH ONE (10:00)
[2024-05-12] MEDS: NICOTINE 21 MG/24 HOURS TOPICAL PATCH TD SCH (10:02)
[2024-05-12] MEDS: chlordiazePOXIDE HCL 25 MG CAPSULE PO SCH (10:02)
[2024-05-12] MEDS: PRENATAL VITAMINS W/ FOLIC ACID TABLET (FP) PO SCH (10:05)
[2024-05-12] MEDS ORDERED: PRENATAL VITAMINS W/ FOLIC ACID TABLET (FP) PO ONE (10:06)
[2024-05-12] MEDS ORDERED: hydrOXYzine PAMOATE 50 MG CAPSULE (FP) PO PRN (15:31)
[2024-05-12] MEDS ORDERED: MELATONIN 5 MG TABLETS PO SCH (22:00)
[2024-05-12] MEDS: THIAMINE 100 MG TABLET PO SCH (22:27)
[2024-05-12] MEDS: MELATONIN 5 MG TABLETS PO SCH (22:27)
[2024-05-12] MEDS: SUVOREXANT 5 MG TABLET PO PRN (22:27)
[2024-05-12] MEDS: METHOCARBAMOL 500 MG TABLET PO PRN (22:28)
[2024-05-13 11:26] LABS: CHLORIDE 108 mmol/L (98-107); POTASSIUM 4.3 mmol/L (3.5-5.1); SODIUM 144 mmol/L (136-145)
[2024-05-13 11:29] LABS: HEMATOCRIT 43.1 % (35.4-49); HEMOGLOBIN 13.7 GM/dL (11.7-16.9); MCH 31.9 pg (25.7-33.7); MCHC 31.7 g/dl (32.0-35.9); MEAN CELL VOLUME 100.4 fl (80-96); MEAN PLT VOLUME 8.2 fl (7.5-11.1); PLATELET COUNT 253 10^3/uL (134-434); RBC 4.29 M/mm3 (4.00-5.60); RDW 15.4 % (11.9-15.9); WHITE BLOOD COUNT 7.9 K/mm3 (4.0-10.0)
[2024-05-13 11:30] LABS: ALBUMIN 3.1 g/dl (3.4-5.0); ANION GAP 7 mmol/L (4-13); BLOOD UREA NITROGEN 21.1 mg/dL (7-18); CALCIUM 9.2 mg/dL (8.5-10.1); CO2 29 mmol/L (21-32); GLUCOSE,RANDOM 79 mg/dL (74-106)
[2024-05-13 11:33] LABS: CREATININE 0.9 mg/dL (0.55-1.3); SGOT/AST 22 U/L (15-37); SGPT/ALT 21 U/L (13-61)
[2024-05-13 11:35] LABS: BILIRUBIN,TOTAL 0.4 mg/dL (0.2-1); TOT PROT 5.7 g/dl (6.4-8.2)
[2024-05-13 11:36] LABS: ALK PHOS 115 U/L (45-117)
[2024-05-14] MEDS: chlordiazePOXIDE HCL 25 MG CAPSULE PO SCH (05:59)
[2024-05-14] MEDS: ACETAMINOPHEN 325 MG TABLET (FP) PO PRN (22:29)
[2024-05-14] MEDS: SUVOREXANT 10 MG TABLET PO PRN (22:30)
[2024-05-15] MEDS ORDERED: chlordiazePOXIDE HCL 10 MG CAPSULE PO PRN
[2024-05-15] MEDS: chlordiazePOXIDE HCL 10 MG CAPSULE PO SCH (05:47)
[2024-05-16] MEDS: chlordiazePOXIDE HCL 10 MG CAPSULE PO SCH (06:06)
[2024-05-16] MEDS: IBUPROFEN 600 MG TABLET (FP) PO PRN (06:07)
[2024-05-17] MEDS: chlordiazePOXIDE HCL 10 MG CAPSULE PO ONE (05:59)
[2024-05-17] MEDS: NALOXONE (NYS OPIOID OVERDOSE PROGRAM) 4 MG/0.1 ML SPRAY NS SCH (09:36)
[2024-05-17 10:11] VITALS: BP 139/67; PULSE 83; RESP 18; TEMP 98.2
== END 2024-05-17 09:57 | disposition home or self-care (01) | DRG 775 ==
LOC: YASAS 08:18 → Y6N 09:46 → Y3N 09:56
PROVIDERS: ADMIT Allergy & Immunology; ATTEND Surgery
PROC: HZ2ZZZZ Detoxification Services for Substance Abuse Treatment (ICD-10-PCS; principal; 2024-05-12)
DX: F10.230 Alcohol dependence with withdrawal, uncomplicated (principal); F17.210 Nicotine dependence, cigarettes, uncomplicated; F41.9 Anxiety disorder, unspecified; F32.A Depression, unspecified; F19.982 Other psychoactive substance use, unspecified with psychoactive substance-induced sleep disorder; F19.980 Other psychoactive substance use, unspecified with psychoactive substance-induced anxiety disorder; I50.23 Acute on chronic systolic (congestive) heart failure; K21.9 Gastro-esophageal reflux disease without esophagitis; G47.00 Insomnia, unspecified; G25.81 Restless legs syndrome; R94.31 Abnormal electrocardiogram [ECG] [EKG]; Z86.73 Personal history of transient ischemic attack (TIA), and cerebral infarction without residual deficits; Z86.69 Personal history of other diseases of the nervous system and sense organs; Z56.0 Unemployment, unspecified; Z59.01 Sheltered homelessness
CPT/HCPCS: 0241U-QW; 36415; 71046-TC-FY; 80053; 80307; 84484; 85025; 85027; 85610; 85730; 86780; 93005; 93010; 99285-25